=== PATIENT | female | born 1955 | race Caucasian/White ===

== ENCOUNTER → 2018-07-08 16:42 | Outpatient (CLI) | payer MEDICARE, SELFPAY ==
[2018-07-08 17:59] LABS: Anion Gap 7 (5-15); BUN 40 mg/dL (7-18); BUN/Creat Ratio 16.5 RATIO (10-20); Calcium,Total 8.8 mg/dL (8.5-10.1); Chloride 108 mmol/L (98-107); Creatinine, Serum 2.42 mg/dL (0.55-1.02); EST Glomerular Filtration Rate 21 mL/min (>60); Est Glom Filt Rate - Afr Amer 26 mL/min (>60); Glucose 90 mg/dL (74-106); Potassium 4.1 mmol/L (3.5-5.1); Sodium Level 141 mmol/L (136-145)
== END ==
PROVIDERS: Family Provider Family Medicine; PCP Family Medicine; Visit Provider Internal Medicine Nephrology
DX: N28.9 Disorder of kidney and ureter, unspecified (principal)
CPT/HCPCS: 36415; 80048

== ENCOUNTER → 2018-09-25 11:01 | Outpatient (CLI) | payer MEDICARE, SELFPAY ==
[2018-09-25 12:19] LABS: Vitamin D,25 Hydroxy 56.9 ng/mL (29.95-100.01)
[2018-09-25 12:22] LABS: Microalbumin,Random Urine 16.6 mg/L (NO RANGE EST.); Microalbumin:Creatinine Ratio 90.2 mg/g CRE (<30 mg/g CRE)
[2018-09-25 12:39] LABS: ALB/GLOB Ratio 0.9 RATIO (0.9-2.4); AST(SGOT) 19 U/L (15-37); Alanine Aminotransfer ALT/SGPT 20 U/L (13-56); Albumin, Serum 3.7 g/dL (3.2-5.0); Alkaline Phosphatase 71 U/L (45-117); Anion Gap 8 (5-15); BUN 40 mg/dL (7-18); BUN/Creat Ratio 14.7 RATIO (10-20); Calcium,Total 8.4 mg/dL (8.5-10.1); Chloride 104 mmol/L (98-107); Cholesterol 243 mg/dL (200); Creatinine, Serum 2.73 mg/dL (0.55-1.02); EST Glomerular Filtration Rate 19 mL/min (>60); Est Glom Filt Rate - Afr Amer 22 mL/min (>60); Globulin 4.2 g/dL (2.2-4.2); Glucose 87 mg/dL (74-106); High Density Lipoprotein 42 mg/dL; Protein, Total 7.9 g/dL (6.4-8.2); Sodium Level 139 mmol/L (136-145); Thyroid Stim Hormone (TSH) 2.98 uIU/mL (0.358-3.74); Triglycerides 119 mg/dL; Very Low Density Lipoprotein 24 mg/dL (5-40)
== END ==
PROVIDERS: Family Provider Family Medicine; PCP Family Medicine; Visit Provider Family Medicine
DX: E78.00 Pure hypercholesterolemia, unspecified (principal); M81.0 Age-related osteoporosis without current pathological fracture
CPT/HCPCS: 36415; 80053; 80061; 82043; 82306; 82570; 84443

== ENCOUNTER → 2019-01-12 12:04 | Outpatient (CLI) | payer MEDICARE, SELFPAY ==
[2019-01-12 13:59] LABS: Hematocrit 34.4 % (37-47); Mean Corpuscular Hgb 30.5 pg (27.0-32.0); Mean Corpuscular Volume 95.3 fL (81-99); Mean Platelet Vol. 9.6 fl (6.2-12.0); Platelet Count 324 K/mm3 (150-450); RBC Distribution Width SD 45.2 fl (35.1-43.9); Red Blood Count 3.61 M/mm3 (4.2-5.4); White Blood Count 4.2 K/mm3 (4.4-11.0)
[2019-01-12 14:00] LABS: Scan Indicated on CBC? Y/N NO
[2019-01-12 14:09] LABS: ALB/GLOB Ratio 0.7 RATIO (0.9-2.4); AST(SGOT) 26 U/L (15-37); Alanine Aminotransfer ALT/SGPT 22 U/L (13-56); Albumin, Serum 3.5 g/dL (3.2-5.0); Alkaline Phosphatase 65 U/L (45-117); Anion Gap 7 (5-15); BUN 41 mg/dL (7-18); BUN/Creat Ratio 15.6 RATIO (10-20); Calcium,Total 8.2 mg/dL (8.5-10.1); Chloride 109 mmol/L (98-107); Cholesterol 224 mg/dL (200); Creatinine, Serum 2.62 mg/dL (0.55-1.02); EST Glomerular Filtration Rate 19 mL/min (>60); Est Glom Filt Rate - Afr Amer 24 mL/min (>60); Globulin 4.7 g/dL (2.2-4.2); Glucose 92 mg/dL (74-106); High Density Lipoprotein 39 mg/dL; Protein, Total 8.2 g/dL (6.4-8.2); Sodium Level 139 mmol/L (136-145); Triglycerides 134 mg/dL; Very Low Density Lipoprotein 27 mg/dL (5-40)
== END ==
PROVIDERS: Family Provider Family Medicine; PCP Family Medicine; Visit Provider Family Medicine
DX: N18.3 Chronic kidney disease, stage 3 (moderate) (principal); E78.00 Pure hypercholesterolemia, unspecified
CPT/HCPCS: 36415; 80053; 80061; 85027

== ENCOUNTER → 2019-02-24 | Outpatient (CLI) | payer MEDICARE, SELFPAY | END | disposition home or self-care (01) | LOC: LABSPEC 15:38 | PROVIDERS: Family Provider Family Medicine; PCP Family Medicine; Referring Provider Family Medicine; Visit Provider Family Medicine | DX: R10.9 Unspecified abdominal pain (principal) | CPT/HCPCS: 87086; 87088 ==

== ENCOUNTER → 2019-03-25 | Outpatient (CLI) | payer MEDICARE, SELFPAY ==
[2019-03-25 12:45] LABS: ALB/GLOB Ratio 0.9 RATIO (0.9-2.4); AST(SGOT) 20 U/L (15-37); Alanine Aminotransfer ALT/SGPT 19 U/L (13-56); Albumin, Serum 3.5 g/dL (3.2-5.0); Alkaline Phosphatase 70 U/L (45-117); Anion Gap 5 (5-15); BUN 37 mg/dL (7-18); BUN/Creat Ratio 14.3 RATIO (10-20); Calcium,Total 8.1 mg/dL (8.5-10.1); Chloride 110 mmol/L (98-107); Cholesterol 220 mg/dL (200); Creatinine, Serum 2.58 mg/dL (0.55-1.02); EST Glomerular Filtration Rate 20 mL/min (>60); Est Glom Filt Rate - Afr Amer 24 mL/min (>60); Glucose 88 mg/dL (74-106); High Density Lipoprotein 40 mg/dL; Potassium 4.3 mmol/L (3.5-5.1); Protein, Total 7.5 g/dL (6.4-8.2); Sodium Level 139 mmol/L (136-145); Triglycerides 117 mg/dL; Very Low Density Lipoprotein 23 mg/dL (5-40)
== END | disposition home or self-care (01) ==
LOC: MFPLAB 09:46
PROVIDERS: Family Provider Family Medicine; PCP Family Medicine; Referring Provider Family Medicine; Visit Provider Family Medicine
DX: E78.00 Pure hypercholesterolemia, unspecified (principal)
CPT/HCPCS: 36415; 80053; 80061

== ENCOUNTER → 2019-04-15 | Outpatient (CLI) | payer MEDICARE, BC, SELFPAY ==
[2019-04-15 10:52] LABS: Cholesterol 151 mg/dL (200); High Density Lipoprotein 44 mg/dL; Triglycerides 87 mg/dL; Very Low Density Lipoprotein 17 mg/dL (5-40)
== END | disposition home or self-care (01) ==
PROVIDERS: Family Provider Family Medicine; PCP Family Medicine; Visit Provider Family Medicine
DX: E78.00 Pure hypercholesterolemia, unspecified (principal)
CPT/HCPCS: 36415; 80061

== ENCOUNTER → 2019-06-04 | Outpatient (CLI) | payer MEDICARE, BC, SELFPAY ==
[2019-06-04 10:01] LABS: Hematocrit 32.3 % (37-47); Hemoglobin 10.4 g/dl (12.0-15.0); Mean Corp Hgb Conc 32.2 g/gl (32-36); Mean Corpuscular Hgb 30.2 pg (27.0-32.0); Mean Corpuscular Volume 93.9 fL (81-99); Mean Platelet Vol. 9.6 fl (6.2-12.0); Platelet Count 256 K/mm3 (150-450); RBC Distribution Width CV 13.6 % (11.6-14.6); RBC Distribution Width SD 46.1 fl (35.1-43.9); Red Blood Count 3.44 M/mm3 (4.2-5.4); White Blood Count 5.9 K/mm3 (4.4-11.0)
[2019-06-04 10:04] LABS: Scan Indicated on CBC? Y/N NO
[2019-06-04 10:09] LABS: Anion Gap 6 (5-15); BUN 40 mg/dL (7-18); BUN/Creat Ratio 15.9 RATIO (10-20); Calcium,Total 8.2 mg/dL (8.5-10.1); Chloride 110 mmol/L (98-107); Creatinine, Serum 2.52 mg/dL (0.55-1.02); EST Glomerular Filtration Rate 20 mL/min (>60); Est Glom Filt Rate - Afr Amer 25 mL/min (>60); Glucose 98 mg/dL (74-106); Potassium 4.8 mmol/L (3.5-5.1); Sodium Level 139 mmol/L (136-145)
== END | disposition home or self-care (01) ==
LOC: MFPLAB 08:26
PROVIDERS: Internal Medicine Nephrology; Family Provider Family Medicine; PCP Family Medicine; Visit Provider Family Medicine
DX: N28.9 Disorder of kidney and ureter, unspecified (principal)
CPT/HCPCS: 36415; 80048; 85027

== ENCOUNTER → 2019-06-24 | Outpatient (CLI) | payer MEDICARE, BC, SELFPAY ==
[2019-06-24 15:22] LABS: ALB/GLOB Ratio 0.9 RATIO (0.9-2.4); AST(SGOT) 16 U/L (15-37); Alanine Aminotransfer ALT/SGPT 23 U/L (13-56); Albumin, Serum 3.7 g/dL (3.2-5.0); Alkaline Phosphatase 82 U/L (45-117); Anion Gap 7 (5-15); BUN 40 mg/dL (7-18); BUN/Creat Ratio 15.6 RATIO (10-20); Bilirubin, Direct 0.07 mg/dL (0.00-0.30); Chloride 109 mmol/L (98-107); Cholesterol 156 mg/dL (200); Creatinine, Serum 2.57 mg/dL (0.55-1.02); EST Glomerular Filtration Rate 20 mL/min (>60); Est Glom Filt Rate - Afr Amer 24 mL/min (>60); Glucose 93 mg/dL (74-106); High Density Lipoprotein 41 mg/dL; Potassium 4.7 mmol/L (3.5-5.1); Protein, Total 7.7 g/dL (6.4-8.2); Sodium Level 141 mmol/L (136-145); Triglycerides 106 mg/dL; Very Low Density Lipoprotein 21 mg/dL (5-40)
== END | disposition home or self-care (01) ==
LOC: MFPLAB 12:03
PROVIDERS: Internal Medicine Nephrology; Family Provider Family Medicine; PCP Family Medicine; Referring Provider Family Medicine; Visit Provider Family Medicine
DX: Q61.3 Polycystic kidney, unspecified (principal); I12.0 Hypertensive chronic kidney disease with stage 5 chronic kidney disease or end stage renal disease; N18.3 Chronic kidney disease, stage 3 (moderate); Z79.899 Other long term (current) drug therapy
CPT/HCPCS: 36415; 80053; 80061; 82248

== ENCOUNTER → 2019-09-02 | Outpatient (CLI) | payer MEDICARE, BC, SELFPAY ==
[2019-09-02 10:15] LABS: Hematocrit 30.5 % (37-47); Hemoglobin 9.6 g/dL (12.0-15.0); Mean Corp Hgb Conc 31.5 g/dL (32-36); Mean Corpuscular Hgb 30.1 pg (27.0-32.0); Mean Corpuscular Volume 95.6 fL (81-99); Mean Platelet Vol. 10.1 fl (6.2-12.0); Platelet Count 257 K/mm3 (150-450); RBC Distribution Width CV 12.7 % (11.6-14.6); RBC Distribution Width SD 44.6 fl (35.1-43.9); Red Blood Count 3.19 M/mm3 (4.2-5.4); White Blood Count 5.9 K/mm3 (4.4-11.0)
[2019-09-02 10:53] LABS: ALB/GLOB Ratio 0.7 RATIO (0.9-2.4); AST(SGOT) 37 U/L (15-37); Alanine Aminotransfer ALT/SGPT 38 U/L (13-56); Albumin, Serum 3.6 g/dL (3.2-5.0); Alkaline Phosphatase 63 U/L (45-117); Anion Gap 3 (5-15); BUN 45 mg/dL (7-18); BUN/Creat Ratio 15.4 RATIO (10-20); Calcium,Total 8.7 mg/dL (8.5-10.1); Chloride 107 mmol/L (98-107); Creatinine, Serum 2.93 mg/dL (0.55-1.02); EST Glomerular Filtration Rate 17 mL/min (>60); Est Glom Filt Rate - Afr Amer 21 mL/min (>60); Globulin 4.9 g/dL (2.2-4.2); Glucose 115 mg/dL (74-106); Potassium 4.1 mmol/L (3.5-5.1); Protein, Total 8.5 g/dL (6.4-8.2); Sodium Level 138 mmol/L (136-145)
== END | disposition home or self-care (01) ==
PROVIDERS: Family Provider Family Medicine; PCP Family Medicine; Referring Provider Family Medicine; Visit Provider Internal Medicine Nephrology
DX: N18.3 Chronic kidney disease, stage 3 (moderate) (principal); I10 Essential (primary) hypertension; Q61.3 Polycystic kidney, unspecified
CPT/HCPCS: 36415; 80053; 85027

== ENCOUNTER → 2019-09-23 | Outpatient (CLI) | payer MEDICARE, BC, SELFPAY ==
[2019-09-23 10:28] LABS: BUN 37 mg/dL (7-18); BUN/Creat Ratio 12.1 RATIO (10-20); Calcium,Total 8.2 mg/dL (8.5-10.1); Creatinine, Serum 3.07 mg/dL (0.55-1.02); EST Glomerular Filtration Rate 16 mL/min (>60); Est Glom Filt Rate - Afr Amer 20 mL/min (>60); Glucose 132 mg/dL (74-106); Sodium Level 140 mmol/L (136-145)
[2019-09-23 10:29] LABS: Anion Gap 8 (5-15); Chloride 108 mmol/L (98-107); Ferritin 172 ng/mL (8-252); Iron 56 ug/dL (50-170); Iron Binding Capacity,Total 188 ug/dL (250-450); Potassium 4.2 mmol/L (3.5-5.1)
== END | disposition home or self-care (01) ==
LOC: MFPLAB 09:03
PROVIDERS: Family Provider Family Medicine; PCP Family Medicine; Visit Provider Internal Medicine Nephrology
DX: I12.9 Hypertensive chronic kidney disease with stage 1 through stage 4 chronic kidney disease, or unspecified chronic kidney disease (principal); N18.3 Chronic kidney disease, stage 3 (moderate); N17.9 Acute kidney failure, unspecified; Q61.3 Polycystic kidney, unspecified
CPT/HCPCS: 36415; 80048; 82728; 83540; 83550

== ENCOUNTER → 2019-12-24 08:35 | Outpatient (CLI) | payer MEDICARE, BC, SELFPAY ==
[2019-12-24 10:32] LABS: Anion Gap 6 (5-15); BUN 41 mg/dL (7-18); BUN/Creat Ratio 13.9 RATIO (10-20); Calcium,Total 7.2 mg/dL (8.5-10.1); Chloride 113 mmol/L (98-107); Creatinine, Serum 2.95 mg/dL (0.55-1.02); EST Glomerular Filtration Rate 17 mL/min (>60); Est Glom Filt Rate - Afr Amer 20 mL/min (>60); Glucose 170 mg/dL (74-106); Sodium Level 140 mmol/L (136-145)
== END ==
PROVIDERS: PCP Family Medicine; Referring Provider Family Medicine; Visit Provider Internal Medicine Nephrology
DX: N17.9 Acute kidney failure, unspecified (principal); Q61.3 Polycystic kidney, unspecified
CPT/HCPCS: 36415; 80048

== ENCOUNTER 2020-02-22 10:43 | Outpatient (RCR) | payer MEDICARE, BC, SELFPAY ==
[2020-02-22 12:23] LABS: AST(SGOT) 20 U/L (15-37); Alanine Aminotransfer ALT/SGPT 19 U/L (13-56); Albumin, Serum 3.7 g/dL (3.2-5.0); Alkaline Phosphatase 57 U/L (45-117); Anion Gap 7 (5-15); BUN 46 mg/dL (7-18); BUN/Creat Ratio 14.1 RATIO (10-20); Bilirubin, Direct 0.08 mg/dL (0.00-0.30); Calcium,Total 8.5 mg/dL (8.5-10.1); Chloride 113 mmol/L (98-107); Cholesterol 203 mg/dL (200); Creatinine, Serum 3.27 mg/dL (0.55-1.02); EST Glomerular Filtration Rate 15 mL/min (>60); Est Glom Filt Rate - Afr Amer 18 mL/min (>60); Globulin 4.1 g/dL (2.2-4.2); Glucose 94 mg/dL (74-106); High Density Lipoprotein 37 mg/dL; Potassium 4.6 mmol/L (3.5-5.1); Protein, Total 7.8 g/dL (6.4-8.2); Sodium Level 142 mmol/L (136-145); Triglycerides 113 mg/dL; Very Low Density Lipoprotein 23 mg/dL (5-40)
== END 2020-02-22 18:00 | disposition home or self-care (01) ==
LOC: LAB 10:43
PROVIDERS: PCP Family Medicine; Referring Provider Internal Medicine Nephrology; Visit Provider Internal Medicine Nephrology
DX: I12.9 Hypertensive chronic kidney disease with stage 1 through stage 4 chronic kidney disease, or unspecified chronic kidney disease (principal); N18.3 Chronic kidney disease, stage 3 (moderate)
CPT/HCPCS: 36415; 80048; 80061; 80076

== ENCOUNTER 2020-03-29 10:21 | Outpatient (RCR) | payer MEDICARE, BC, SELFPAY ==
[2020-03-29 12:30] LABS: AST(SGOT) 16 U/L (15-37); Alanine Aminotransfer ALT/SGPT 18 U/L (13-56); Albumin, Serum 3.4 g/dL (3.2-5.0); Alkaline Phosphatase 59 U/L (45-117); Bilirubin, Direct 0.08 mg/dL (0.00-0.30); Globulin 4.2 g/dL (2.2-4.2); Protein, Total 7.6 g/dL (6.4-8.2)
== END 2020-03-29 18:00 | disposition home or self-care (01) ==
LOC: LAB 10:21
PROVIDERS: PCP Family Medicine; Referring Provider Internal Medicine Nephrology; Visit Provider Internal Medicine Nephrology
DX: Q63.1 Lobulated, fused and horseshoe kidney (principal)
CPT/HCPCS: 36415; 80076

== ENCOUNTER 2020-05-20 11:28 | Outpatient (RCR) | payer MEDICARE, BC, SELFPAY ==
[2020-04-25 12:28] LABS: Hematocrit 30.1 % (37-47); Hemoglobin 9.4 g/dL (12.0-15.0); Mean Corp Hgb Conc 31.2 g/dL (32-36); Mean Corpuscular Hgb 30.4 pg (27.0-32.0); Mean Corpuscular Volume 97.4 fL (81-99); Mean Platelet Vol. 9.2 fl (6.2-12.0); Platelet Count 270 K/mm3 (150-450); RBC Distribution Width CV 12.9 % (11.6-14.6); RBC Distribution Width SD 45.1 fl (35.1-43.9); Red Blood Count 3.09 M/mm3 (4.2-5.4); White Blood Count 4.6 K/mm3 (4.4-11.0)
[2020-04-25 13:23] LABS: AST(SGOT) 23 U/L (15-37); Alanine Aminotransfer ALT/SGPT 26 U/L (13-56); Albumin, Serum 3.4 g/dL (3.2-5.0); Alkaline Phosphatase 59 U/L (45-117); Anion Gap 8 (5-15); BUN 50 mg/dL (7-18); BUN/Creat Ratio 14.5 RATIO (10-20); Bilirubin, Direct 0.07 mg/dL (0.00-0.30); Calcium,Total 8.5 mg/dL (8.5-10.1); Chloride 110 mmol/L (98-107); Creatinine, Serum 3.44 mg/dL (0.55-1.02); EST Glomerular Filtration Rate 14 mL/min (>60); Est Glom Filt Rate - Afr Amer 17 mL/min (>60); Globulin 4.8 g/dL (2.2-4.2); Glucose 121 mg/dL (74-106); Protein, Total 8.2 g/dL (6.4-8.2); Sodium Level 142 mmol/L (136-145)
[2020-05-20 12:34] LABS: AST(SGOT) 26 U/L (15-37); Alanine Aminotransfer ALT/SGPT 35 U/L (13-56); Albumin, Serum 3.2 g/dL (3.2-5.0); Alkaline Phosphatase 85 U/L (45-117); Bilirubin, Direct 0.08 mg/dL (0.00-0.30); Globulin 5.1 g/dL (2.2-4.2); Protein, Total 8.3 g/dL (6.4-8.2)
== END 2020-05-20 18:00 | disposition home or self-care (01) ==
LOC: LAB 11:28
PROVIDERS: PCP Family Medicine; Referring Provider Internal Medicine Nephrology; Visit Provider Internal Medicine Nephrology
DX: N18.3 Chronic kidney disease, stage 3 (moderate) (principal); Q63.1 Lobulated, fused and horseshoe kidney
CPT/HCPCS: 36415; 80048; 80076; 82330; 85027

== ENCOUNTER 2020-06-17 09:32 | Outpatient (RCR) | payer MEDICARE, BC, SELFPAY ==
[2020-06-17 10:52] LABS: AST(SGOT) 17 U/L (15-37); Alanine Aminotransfer ALT/SGPT 19 U/L (13-56); Albumin, Serum 3.5 g/dL (3.2-5.0); Alkaline Phosphatase 65 U/L (45-117); Anion Gap 4 (5-15); BUN 62 mg/dL (7-18); BUN/Creat Ratio 16.8 RATIO (10-20); Bilirubin, Direct 0.08 mg/dL (0.00-0.30); Calcium,Total 8.9 mg/dL (8.5-10.1); Chloride 107 mmol/L (98-107); Creatinine, Serum 3.69 mg/dL (0.55-1.02); EST Glomerular Filtration Rate 13 mL/min (>60); Est Glom Filt Rate - Afr Amer 16 mL/min (>60); Ferritin 66 ng/mL (8-252); Globulin 4.9 g/dL (2.2-4.2); Glucose 96 mg/dL (74-106); Iron 58 ug/dL (50-170); Iron Binding Capacity,Total 243 ug/dL (250-450); Potassium 4.2 mmol/L (3.5-5.1); Protein, Total 8.4 g/dL (6.4-8.2); Sodium Level 138 mmol/L (136-145)
== END 2020-06-17 18:00 | disposition home or self-care (01) ==
LOC: LAB 09:32
PROVIDERS: PCP Family Medicine; Referring Provider Internal Medicine Nephrology; Visit Provider Internal Medicine Nephrology
DX: N18.3 Chronic kidney disease, stage 3 (moderate) (principal); D63.1 Anemia in chronic kidney disease; Q63.1 Lobulated, fused and horseshoe kidney
CPT/HCPCS: 36415; 80048; 80076; 82728; 83540; 83550

== ENCOUNTER → 2020-07-01 13:20 | Outpatient (CLI) | payer MEDICARE, BC, SELFPAY ==
[2020-07-01 13:44] LABS: Hematocrit 29.8 % (37-47); Hemoglobin 9.7 g/dL (12.0-15.0); Mean Corp Hgb Conc 32.6 g/dL (32-36); Mean Corpuscular Hgb 31.2 pg (27.0-32.0); Mean Corpuscular Volume 95.8 fL (81-99); Mean Platelet Vol. 8.5 fl (6.2-12.0); Platelet Count 271 K/mm3 (150-450); RBC Distribution Width CV 13.1 % (11.6-14.6); RBC Distribution Width SD 45.7 fl (35.1-43.9); Red Blood Count 3.11 M/mm3 (4.2-5.4); White Blood Count 4.5 K/mm3 (4.4-11.0)
[2020-07-01 13:59] LABS: Anion Gap 6 (5-15); BUN 51 mg/dL (7-18); Calcium,Total 8.5 mg/dL (8.5-10.1); Chloride 111 mmol/L (98-107); Creatinine, Serum 3.18 mg/dL (0.55-1.02); EST Glomerular Filtration Rate 16 mL/min (>60); Est Glom Filt Rate - Afr Amer 19 mL/min (>60); Glucose 83 mg/dL (74-106); Potassium 5.1 mmol/L (3.5-5.1); Sodium Level 140 mmol/L (136-145)
== END ==
PROVIDERS: PCP Family Medicine; Referring Provider Internal Medicine Nephrology; Visit Provider Internal Medicine Nephrology
DX: I12.9 Hypertensive chronic kidney disease with stage 1 through stage 4 chronic kidney disease, or unspecified chronic kidney disease (principal); N18.3 Chronic kidney disease, stage 3 (moderate)
CPT/HCPCS: 36415; 80048; 85027

== ENCOUNTER 2020-07-21 10:47 | Outpatient (RCR) | payer MEDICARE, BC, SELFPAY ==
[2020-07-21 12:00] LABS: AST(SGOT) 17 U/L (15-37); Alanine Aminotransfer ALT/SGPT 18 U/L (13-56); Albumin, Serum 3.6 g/dL (3.2-5.0); Alkaline Phosphatase 76 U/L (45-117); Bilirubin, Direct 0.09 mg/dL (0.00-0.30); Globulin 4.8 g/dL (2.2-4.2); Protein, Total 8.4 g/dL (6.4-8.2)
== END 2020-07-25 18:00 | disposition home or self-care (01) ==
LOC: LAB 10:47
PROVIDERS: PCP Family Medicine; Referring Provider Internal Medicine Nephrology; Visit Provider Internal Medicine Nephrology
DX: Q63.1 Lobulated, fused and horseshoe kidney (principal); N18.3 Chronic kidney disease, stage 3 (moderate); D63.1 Anemia in chronic kidney disease
CPT/HCPCS: 36415; 80076

== ENCOUNTER → 2020-07-27 10:19 | Outpatient (CLI) | payer MEDICARE, BC, SELFPAY ==
[2020-07-27 10:55] LABS: Absolute Neutrophil Count 3.1 X10^3/uL (2.0-7.7); Basophil# 0.05 X10^3/uL; Eosinophil# 0.28 X10^3/uL; Eosinophils% 5.5 % (0-5); Hematocrit 29.1 % (37-47); Hemoglobin 9.3 g/dL (12.0-15.0); Lymphocyte % 19.7 % (19-41); Mean Corpuscular Hgb 30.2 pg (27.0-32.0); Mean Corpuscular Volume 94.5 fL (81-99); Mean Platelet Vol. 8.9 fl (6.2-12.0); Monocyte# 0.65 X10^3/uL; Monocyte% 12.8 % (0-10); NRBC Flagged by Analyzer 0 % (0-5); Neutrophil # 3.08 X10^3/uL (2.7-7.7); Neutrophil % 60.8 % (47-70); Platelet Count 281 K/mm3 (150-450); RBC Distribution Width CV 12.6 % (11.6-14.6); RBC Distribution Width SD 43.5 fl (35.1-43.9); Red Blood Count 3.08 M/mm3 (4.2-5.4); White Blood Count 5.1 K/mm3 (4.4-11.0)
[2020-07-27 11:07] LABS: PTHIN 114.2 pg/mL (18.4-80.1)
[2020-07-27 11:10] LABS: Albumin, Serum 3.4 g/dL (3.2-5.0); BUN 51 mg/dL (7-18); BUN/Creat Ratio 12.4 RATIO (10-20); Calcium,Total 8.6 mg/dL (8.5-10.1); Chloride 110 mmol/L (98-107); Creatinine, Serum 4.11 mg/dL (0.55-1.02); EST Glomerular Filtration Rate 12 mL/min (>60); Est Glom Filt Rate - Afr Amer 14 mL/min (>60); Ferritin 63 ng/mL (8-252); Glucose 94 mg/dL (74-106); Iron 56 ug/dL (50-170); Iron Binding Capacity,Total 227 ug/dL (250-450); PERCENT IRON SATURATION 24.7 % (15.0-55.0); Phosphorus 3.8 mg/dL (2.5-4.9); Potassium 4.6 mmol/L (3.5-5.1); Sodium Level 140 mmol/L (136-145)
[2020-07-27 11:22] VITALS: BP 128/73; PULSE 68; RESP 16; TEMP 36.2; O2SAT 98; BMI 23.3
[2020-07-27 11:42] VITALS: BP 145/85; PULSE 70; RESP 16
[2020-07-27 18:46] LABS: Xtra Tube EP Lab EXTRA TUBE
== END ==
PROVIDERS: PCP Family Medicine; Referring Provider Internal Medicine Nephrology; Visit Provider Internal Medicine Nephrology
DX: N18.3 Chronic kidney disease, stage 3 (moderate) (principal); D63.1 Anemia in chronic kidney disease
CPT/HCPCS: 36415; 80069; 82728; 83540; 83550; 83970; 85025; 96372; Q5106

== ENCOUNTER → 2020-08-25 10:21 | Outpatient (CLI) | payer MEDICARE, BC, SELFPAY ==
[2020-07-27 11:22] VITALS: BMI 23.3
[2020-08-25 11:08] LABS: Absolute Lymphocyte Count 0.96 X10^3/uL (0.83-4.51); Absolute Neutrophil Count 2.9 X10^3/uL (2.0-7.7); Basophil# 0.04 X10^3/uL; Basophil% 0.9 % (0-1); Eosinophil# 0.27 X10^3/uL; Eosinophils% 5.8 % (0-5); Hematocrit 30.4 % (37-47); Hemoglobin 9.6 g/dL (12.0-15.0); Lymphocyte # 0.96 X10^3/ul (4.0); Lymphocyte % 20.8 % (19-41); Mean Corp Hgb Conc 31.6 g/dL (32-36); Mean Corpuscular Hgb 30.1 pg (27.0-32.0); Mean Corpuscular Volume 95.3 fL (81-99); Mean Platelet Vol. 8.9 fl (6.2-12.0); Monocyte# 0.41 X10^3/uL; Monocyte% 8.9 % (0-10); NRBC Flagged by Analyzer 0 % (0-5); Neutrophil # 2.93 X10^3/uL (2.7-7.7); Neutrophil % 63.4 % (47-70); Platelet Count 233 K/mm3 (150-450); RBC Distribution Width SD 45.4 fl (35.1-43.9); Red Blood Count 3.19 M/mm3 (4.2-5.4); White Blood Count 4.6 K/mm3 (4.4-11.0)
[2020-08-25 11:18] LABS: PTHIN 83.6 pg/mL (18.4-80.1)
[2020-08-25 11:19] VITALS: BP 137/63; PULSE 62; RESP 16; TEMP 36; BMI 23.3
[2020-08-25 11:23] LABS: ALB/GLOB Ratio 0.8 RATIO (0.9-2.4); AST(SGOT) 16 U/L (15-37); Alanine Aminotransfer ALT/SGPT 20 U/L (13-56); Albumin, Serum 3.4 g/dL (3.2-5.0); Alkaline Phosphatase 66 U/L (45-117); BUN 57 mg/dL (7-18); BUN/Creat Ratio 14.4 RATIO (10-20); Bilirubin, Direct 0.08 mg/dL (0.00-0.30); Calcium,Total 8.8 mg/dL (8.5-10.1); Chloride 110 mmol/L (98-107); Creatinine, Serum 3.96 mg/dL (0.55-1.02); EST Glomerular Filtration Rate 12 mL/min (>60); Est Glom Filt Rate - Afr Amer 15 mL/min (>60); Ferritin 56 ng/mL (8-252); Globulin 4.5 g/dL (2.2-4.2); Glucose 96 mg/dL (74-106); Iron 74 ug/dL (50-170); Iron Binding Capacity,Total 224 ug/dL (250-450); Phosphorus 4.2 mg/dL (2.5-4.9); Potassium 4.2 mmol/L (3.5-5.1); Protein, Total 7.9 g/dL (6.4-8.2); Sodium Level 142 mmol/L (136-145)
[2020-08-25] MEDS: Epoetin Alfa epbx 10,000 UNITS/ML 10000 UNIT SC (11:24)
== END ==
PROVIDERS: PCP Family Medicine; Referring Provider Internal Medicine Nephrology; Visit Provider Internal Medicine Nephrology
DX: N18.30 Chronic kidney disease, stage 3 unspecified (principal); D63.1 Anemia in chronic kidney disease
CPT/HCPCS: 36415; 80069; 82247; 82248; 82728; 83540; 83550; 83970; 84075; 84156; 84450; 84460; 85025; 96372; Q5106

== ENCOUNTER → 2020-08-26 12:15 | Outpatient (CLI) | payer MEDICARE, BC, SELFPAY ==
[2020-08-25 11:19] VITALS: BMI 23.3
== END ==
LOC: LAB 12:17 → LABSPEC 12:17
PROVIDERS: PCP Family Medicine; Referring Provider Internal Medicine Nephrology; Visit Provider Internal Medicine Nephrology
DX: N18.30 Chronic kidney disease, stage 3 unspecified (principal); D63.1 Anemia in chronic kidney disease
CPT/HCPCS: 82274

== ENCOUNTER 2020-09-10 13:03 | Inpatient (IN) | payer MEDICARE, BC, SELFPAY ==
[2020-09-10] VITALS (8 sets, daily range): BP systolic 95–121; BP diastolic 60–65; PULSE 81–89; RESP 18–24; TEMP 36.9–37.6; O2SAT 90–95; BMI 22.8; BMI 23.8
--- NOTE | 2020-09-10 13:15 | EKG12_ITS ---
Test Reason : SOB Blood Pressure : / mmHG Vent. Rate : 087 BPM Atrial Rate : 087 BPM P-R Int : 162 ms QRS Dur : 100 ms QT Int : 386 ms P-R-T Axes : 036 -32 031 degrees QTc Int : 464 ms Sinus rhythm with occasional Premature ventricular complexes Left axis deviation Abnormal ECG Confirmed by SANDI KAPLAN, GREGG ([id number]), newspaper editor managing DARI CARRINGTON ([id number]) on 09/13/2020 8:16:10 AM Referred By: JENNIFER Confirmed By:GREGG JUNIOR MD
--- NOTE | 2020-09-10 13:16 | ED.VIS.GEN ---
History of Present Illness Chief Complaint: Shortness of Breath Informant: Patient Onset: Days - 8 to 9 days Context: Gradual Onset Current Severity: Mild Maximum Severity: Moderate Narrative: Patient presents with shortness of breath and cough for the past 8 to 9 days. Per EMS O2 sat was 88% on room air. She denies having fever or chills. Her was exposed to someone with Covid and he is here ill with similar symptoms. She reports body aches and decreased p.o. intake secondary to poor appetite. She has had dry cough. She denies nausea or vomiting but has had diarrhea. - Past Medical History (1) Hypertension Status: Chronic (2) Polycystic kidney disease Status: Chronic Past Medical History - Allergies and Home Meds Allergies/Adverse Reactions: Allergies sulfamethoxazole [From ] Allergy (Verified 09/10/20 13:09) Hives trimethoprim [From ] Allergy (Verified 09/10/20 13:09) Hives Primary Care Physician: Benji Palacios MD [Primary Care Provider] - Lives: Spouse/ Significant Other Smoking Status: Never smoker Review of Systems General: Denies: Chills, Fever Eyes: Denies: Visual changes - bilaterally ENT: Denies: Bilateral ear pain Cardiovascular: Denies: Chest pain Respiratory: Reports: Dyspnea, Cough. Denies: Sputum Gastrointestinal: Reports: Diarrhea. Denies: Abdominal pain, Nausea, Vomiting Musculoskeletal: Reports: Myalgias Skin: Denies: Rash Neurological: Denies: Headache Hematologic: Denies: Easy bruising, Easy bleeding Allergy: Denies: Uticaria Physical Exam Vital Signs/Narrative: Vital Signs Temp Pulse Resp BP Pulse Ox 09/10/20 13:13 98 09/10/20 13:04 98.2 F 91 14 129/69 H 88 Inital Vital Signs reviewed: Yes General: Well nourished, Well developed Head: Normocephalic ENT: Moist mucous membranes Neck: Supple Cardiovascular: Regular rate, Regular rhythm Respiratory: No distress, CTA bilaterally Abdomen: Soft, Nontender Extremities: Nontender Skin: Normal color Neurological: Alert, Oriented x3 Psychological: Normal affect Diagnostic/Tx/Re-eval 09/10/20 13:27 Chest 1 View (Portable) [RAD] Stat IMPRESSION: Mild pulmonary congestion with subtle patchy developing infiltrates in the left lower lobe Laboratory Results 09/10/20 09/10/20 09/10/20 13:10 13:10 13:10 WBC 5.5 RBC 3.82 L Hgb 11.3 L Hct 36.4 L MCV 95.3 MCH 29.6 MCHC 31.0 L RDW Std Deviation 48.4 H RDW Coeff of Remy 13.8 Plt Count 232 MPV 9.7 Immature Gran % (Auto) 0.500 Neut % (Auto) 76.7 H Lymph % (Auto) 16.7 L [place] % (Auto) 5.5 Eos % (Auto) 0.4 Baso % (Auto) 0.2 Absolute Neuts (auto) 4.2 Absolute Lymphs (auto) 0.92 Nucleated RBC % 0 Differential Comment SCANNED D-Dimer Quant (PE/DVT) 2.16 H* Sodium 135 L Potassium 4.0 Chloride 106 Carbon Dioxide 16.0 L Anion Gap 13 BUN 81 H Creatinine 5.24 H Estim Creat Clear Calc 9.00 Est GFR (MDRD) Af Amer 11 L Est GFR (MDRD) Non-Af 9 L BUN/Creatinine Ratio 15.5 Glucose 131 H Lactic Acid Calcium 7.6 L Total Bilirubin 0.40 AST 86 H ALT 46 Alkaline Phosphatase 71 Total Protein 8.6 H Albumin 3.2 Globulin 5.4 H Albumin/Globulin Ratio 0.6 L COVID-19 (JESSICA) 09/10/20 09/10/20 13:15 13:50 WBC RBC Hgb Hct MCV MCH MCHC RDW Std Deviation RDW Coeff of Remy Plt Count MPV Immature Gran % (Auto) Neut % (Auto) Lymph % (Auto) [place] % (Auto) Eos % (Auto) Baso % (Auto) Absolute Neuts (auto) Absolute Lymphs (auto) Nucleated RBC % Differential Comment D-Dimer Quant (PE/DVT) Sodium Potassium Chloride Carbon Dioxide Anion Gap BUN Creatinine Estim Creat Clear Calc Est GFR (MDRD) Af Amer Est GFR (MDRD) Non-Af BUN/Creatinine Ratio Glucose Lactic Acid 2.0 Calcium Total Bilirubin AST ALT Alkaline Phosphatase Total Protein Albumin Globulin Albumin/Globulin Ratio COVID-19 (JESSICA) Detected - EKG Initial EKG Interpretation: Sinus Rhythm - Sinus 87 with PVC. No acute ischemia. - Medical Decision Making Patient was observed on filter press tender head. She is placed on 3 L nasal cannula and O2 sat is 91 to 92% on this. Patient does have chronic renal failure however creatinine is worse than baseline. D-dimer is elevated but because of her renal failure cannot perform a CTA. She is covered with 30 mg of Lovenox. Patient will be discussed with hospitalist regarding further treatment and care. ED Disposition - Plan for ED Patient: Disposition: Acute Care Hospital [facility] Diagnosis: COVID-19, Respiratory failure, Acute on chronic renal failure Referrals: Benji Palacios MD [Primary Care Provider] -
--- NOTE | 2020-09-10 13:27 | RAD_ITS ---
STUDY: X-RAY CHEST REASON FOR EXAM: Female, 65 years old. COUGH, EXPOSURE TO COVID TECHNIQUE: Single view of the chest was obtained COMPARISON: None. FINDINGS: Mild pulmonary congestion with subtle developing infiltrates in the left lower lobe. No pneumothorax. Eventration of the right hemidiaphragm. Mild wedging of the thoracic vertebrae with osteopenia. IMPRESSION: Mild pulmonary congestion with subtle patchy developing infiltrates in the left lower lobe Electronically Signed: Yves Guadarrama, at 14:10 EDT Tel , Service support , RAD/Chest 1 View (Portable)
[2020-09-10 13:32] LABS: Absolute Lymphocyte Count 0.92 X10^3/uL (0.83-4.51); Absolute Neutrophil Count 4.2 X10^3/uL (2.0-7.7); Basophil# 0.01 X10^3/uL; Basophil% 0.2 % (0-1); Eosinophil# 0.02 X10^3/uL; Eosinophils% 0.4 % (0-5); Hematocrit 36.4 % (37-47); Hemoglobin 11.3 g/dL (12.0-15.0); Lymphocyte # 0.92 X10^3/ul (4.0); Lymphocyte % 16.7 % (19-41); Mean Corpuscular Hgb 29.6 pg (27.0-32.0); Mean Corpuscular Volume 95.3 fL (81-99); Mean Platelet Vol. 9.7 fl (6.2-12.0); Monocyte% 5.5 % (0-10); NRBC Flagged by Analyzer 0 % (0-5); Neutrophil # 4.22 X10^3/uL (2.7-7.7); Neutrophil % 76.7 % (47-70); POSITIVE MORPHOLOGY YES; Platelet Count 232 K/mm3 (150-450); RBC Distribution Width CV 13.8 % (11.6-14.6); RBC Distribution Width SD 48.4 fl (35.1-43.9); Red Blood Count 3.82 M/mm3 (4.2-5.4); White Blood Count 5.5 K/mm3 (4.4-11.0)
[2020-09-10 13:34] LABS: Differential Indicated SCAN CRITERIA MET
[2020-09-10 13:39] LABS: ALB/GLOB Ratio 0.6 RATIO (0.9-2.4); AST(SGOT) 86 U/L (15-37); Alanine Aminotransfer ALT/SGPT 46 U/L (13-56); Albumin, Serum 3.2 g/dL (3.2-5.0); Alkaline Phosphatase 71 U/L (45-117); Anion Gap 13 (5-15); BUN 81 mg/dL (7-18); BUN/Creat Ratio 15.5 RATIO (10-20); Calcium,Total 7.6 mg/dL (8.5-10.1); Chloride 106 mmol/L (98-107); Creatinine, Serum 5.24 mg/dL (0.55-1.02); EST Glomerular Filtration Rate 9 mL/min (>60); Est Glom Filt Rate - Afr Amer 11 mL/min (>60); Globulin 5.4 g/dL (2.2-4.2); Glucose 131 mg/dL (74-106); Protein, Total 8.6 g/dL (6.4-8.2); Sodium Level 135 mmol/L (136-145)
[2020-09-10 13:43] LABS: D-Dimer Quantitative (DVT/PE) 2.16 FEU/ug/m (0.27-0.49)
[2020-09-10 13:55] LABS: Differential Comment SCANNED
[2020-09-10] MEDS: 0.9% Normal Saline 1,000 ML 100 ML IV (14:12)
[2020-09-10] MEDS: Enoxaparin 30 MG/0.3 ML Syringe SC (14:13)
--- NOTE | 2020-09-10 17:06 | NURSING ---
COVID UNIT [facility], RESP FAILURE, RENAL FAILURE
--- NOTE | 2020-09-10 17:27 | HP.PCM_ITS ---
Problem List (1) Acute kidney injury superimposed on chronic kidney disease Status: Acute (2) Chronic kidney disease, stage IV (severe) Status: Chronic (3) Hypertension Status: Chronic (4) Polycystic kidney disease Status: Chronic (5) COVID-19 Status: Acute (6) Respiratory failure Status: Deleted History of Present Illness Date of Admission: 09/10/20 Chief Complaint: Cough, mild shortness of breath. The patient is a 65 year old F with past medical history as mentioned above presented to the emergency room because of cough, mild shortness of breath and diarrhea. Her symptoms started around 8 days ago with mainly cough, dry cough, associated with mild shortness of breath as well as body aches and pains and without activating or relieving factors. Her was exposed to someone who was diagnosed with COVID-19 few days ago before her symptoms started and she started having similar symptoms. She reported diarrhea which has been going on for last 45 days, 2-3 times a day, loose stool without blood. She denied abdominal pain, nausea or vomiting. She denied fever or chills. In the emergency department, she was afebrile, blood pressure it was stable, pulse ox was 88% on room air which improved to 94% on 3 L. Her routine blood work was remarkable for hemoglobin of 11.3 g/dL which is chronic, BUN of 81, creatinine is 5.24. Lactic acid was 2. LFT was unremarkable. EKG revealed normal sinus rhythm, PVCs, no acute ischemic changes. Chest x-ray revealed left lower lobe atelectasis versus early infiltrate. COVID-19 PCR came back positive. She is being admitted for COVID-19 pneumonia and acute kidney injury on top of stage IV chronic kidney disease. Past Medical History Past Medical History (Chronic Problems): Chronic Problems Chronic kidney disease, stage IV (severe) (Chronic) Hypertension (Chronic) Polycystic kidney disease (Chronic) Allergies sulfamethoxazole [From Septra] Allergy (Verified 09/10/20 13:09) Hives trimethoprim [From Septra] Allergy (Verified 09/10/20 13:09) Hives Home Medications: Ambulatory Orders Medication Instructions Recorded Amlodipine Besylate 5 mg PO DAILY 07/27/20 Aspirin [Aspirin, Baby] 81 mg PO DAILY 07/27/20 Calcium Carbonate/Vitamin D3 1 ea PO DAILY 07/27/20 [Calcium 500+D Tablet Chew] Clobetasol/Skin Cleanser No.28 1 ea TP PRN PRN 07/27/20 [[place] 0.05% Kit] Denosumab [Prolia] 60 mg SQ X1 07/27/20 Dorzolamide HCL/Timolol [Cosopt 1 drp OPHTHALMIC (EYE) BID 07/27/20 Opth Drops] Ergocalciferol [Vitamin D] 50,000 unit PO Q7D 07/27/20 Latanoprost 2.5 ml OP DAILY 07/27/20 Tolvaptan [Jynarque] 1 ea PO BID 07/27/20 Surgical History: cholecystectomy Psychiatric History: No pertinent psych hx [employer] History: No pertinent [employer] history Lives: Spouse/ Significant Other Smoking Status: Never smoker Alcohol: None Drugs: None - *Family History Maternal History Items: No pertinent history Paternal History Items: No pertinent history Review of Systems Constitutional: Reports: Anorexia, Malaise, Weakness. Denies: Chills, Fever Eyes: Denies: Blurred vision, Double vision, Drainage, Redness HEENT: Denies: Difficulty Hearing, Ear Pain, Eye Pain, Nasal Congestion, Sore Throat Cardiovascular: Denies: Chest Pain, Chest Pressure, Heaviness, Light Headedness, Palpitations, Syncope Respiratory: Reports: Cough, Shortness of Breath. Denies: Sputum production, Wheezing Gastrointestinal: Reports: Diarrhea. Denies: Abdominal Pain, Constipation, Nausea, Vomiting Genitourinary: Denies: Dysuria, Frequency, Hematuria Musculoskeletal: Denies: Arm Pain, Back Pain, Foot Pain Skin: Denies: Dryness, Rash Neurological: Denies: Balance problems, Double vision, Change in Speech, Slurred speech, Confusion, Headaches, Incoordination Psychiatric: Denies: Anxiety, Depression Endocrine: Denies: Change in Body Habitus, Polydipsia, Polyuria VTE Information - Inpt Only VTE Present on Admission: No VTE Mechan Device Prophylaxis: None VTE Pharm Prophylaxis ordered?: No Patient Problems: Active and Suspected Problems Acute kidney injury superimposed on chronic kidney disease (Acute) COVID-19 (Acute) - Physical Exam Vitals/I&O's: Vital Signs Temp Pulse Resp BP Pulse Ox 99.6 F H 81 18 116/60 95 09/10/20 14:35 09/10/20 16:25 09/10/20 16:25 09/10/20 16:25 09/10/20 16:25 Oxygen Flow Rate (L/min) 3 Oxygen Delivery Method Room Air Weight: 138 lb 7.205 oz Body Mass Index (BMI) 23.8 Intake and Output for Last 24 Hours 09/08/20 09/09/20 09/10/20 23:59 23:59 23:59 Intake Total 233.33 / 233.33 Balance 233.33 / 233.33 General: Alert, Oriented x3, Cooperative, No apparent distress HEENT: Atraumatic, PERRLA, EOMI, Normocephalic Oral: Moist Mucosa, No Gingival or Mucosal Lesions/ Ulcerations Neck: Supple, No JVD, Negative Carotid Bruits, Trachea Midline, Thyroid Normal Size and Texture Lungs: Clear to auscultation, Normal air movement, No rhonchi, No wheeze, No rales, Diminished Cardiovascular: Regular rate, Regular Rhythm, Normal S1, Normal S2, PMI Normal Abdomen: Bowel Sounds Present, Soft, Non Tender, Non-Distended, No Hepato- splenomegaly Extremities: No clubbing, No cyanosis, No edema Skin: No rashes, No breakdown Lymphatic: No Cervical, Supraclavicular, or Inguinal Adenopathy Neurological: Cranial nerves II-XII grossly intact, Motor Exam 5/5 strength throughout Psych/Mental Status: Normal Affect, Appropriate, Alert and oriented to time, place, person, mood and affect Laboratory Results 09/10/20 13:10: WBC 5.5, RBC 3.82 L, Hgb 11.3 L, Hct 36.4 L, MCV 95.3, MCH 29.6, MCHC 31.0 L, RDW Std Deviation 48.4 H, RDW Coeff of Remy 13.8, Plt Count 232, MPV 9.7, Immature Gran % (Auto) 0.500, Neut % (Auto) 76.7 H, Lymph % (Auto) 16.7 L, [place] % (Auto) 5.5, Eos % (Auto) 0.4, Baso % (Auto) 0.2, Absolute Neuts (auto) 4.2, Absolute Lymphs (auto) 0.92, Nucleated RBC % 0, Differential Comment SCANNED 09/10/20 13:10: D-Dimer Quant (PE/DVT) 2.16 H* 09/10/20 13:10: Sodium 135 L, Potassium 4.0, Chloride 106, Carbon Dioxide 16.0 L , Anion Gap 13, BUN 81 H, Creatinine 5.24 H, Estim Creat Clear Calc 9.00, Est GFR (MDRD) Af Amer 11 L, Est GFR (MDRD) Non-Af 9 L, BUN/Creatinine Ratio 15.5, Glucose 131 H, Calcium 7.6 L, Total Bilirubin 0.40, AST 86 H, ALT 46, Alkaline Phosphatase 71, Total Protein 8.6 H, Albumin 3.2, Globulin 5.4 H, Albumin/Globulin Ratio 0.6 L 09/10/20 13:15: Lactic Acid 2.0 09/10/20 13:50: COVID-19 (JESSICA) Detected Current Medications Sodium Chloride () 1,000 mls @ 100 mls/hr IV .Q10H ERICK Last Infusion: 09/10/20 16:32 Dose: 0 mls/hr Documented by: Assessment/Plan All Active Problems Acute respiratory insufficiency (Acute) Acute kidney injury superimposed on chronic kidney disease (Acute) COVID-19 (Acute) This is a 65 years old female patient presented to the emergency room because of cough, mild shortness of breath, diarrhea and body aches after her has been exposed to someone who was diagnosed with COVID-19, found to have COVID-19 pneumonia as well as acute kidney injury on top of stage IV chronic kidney disease and she is being admitted for treatment. #1 acute COVID-19 pneumonia: Chest x-ray reviewed, official report is pending. Currently, she is on 3 L of oxygen. No evidence of sepsis or severe sepsis. D- dimer was elevated, CTA chest cannot be done because of chronic kidney disease. plan: Admit to [facility] COVID-19 floor, isolation precautions, start IV Decadron, start IV heparin drip, check BNP, troponin, CPK, fibrinogen, LDH, pro time and INR, infectious disease consult, pulmonology consult, albuterol inhaler as needed, incentive spirometer, repeat CBC and BMP tomorrow morning, PT OT evaluation and treatment. #2 acute hypoxic respiratory insufficiency: Secondary to #1. Patient does not wear home oxygen at baseline. Currently, she is on 3 L. Plan to treat underlying COVID-19 pneumonia, oxygen by nasal cannula, incentive spirometer. #3 acute kidney injury on top of stage IV chronic kidney disease: She does have chronic kidney disease secondary to polycystic kidney disease. Baseline creatinine has been around 2 to 3 mg/dL, which has been going up over the last couple of months. Admission creatinine 5.24, BUN is 81. We will try to avoid IV fluids because of COVID-19. Plan: Encourage oral intake, avoid nephrotoxic drugs, repeat BMP tomorrow morning. #5 hypertension: Blood pressure stable, continue Norvasc. #6 polycystic kidney disease: Plan as above. #7 CODE STATUS: Full code, discussed with the patient herself. #8 DVT prophylaxis: She will be on IV heparin drip. This note was generated with [employer] dictation software. It may contain incorrect words, spelling, and punctuation that were not noted in checking the note before signing. Inpatient E&M: 47263 Init Hosp L3
[2020-09-10 17:31] LABS: Reflex Lactate? Y
[2020-09-10 18:48] LABS: Lactic Acid 0.9 mmol/L (0.4-1.9)
[2020-09-10] MEDS: dexAMETHasone 4 MG/ML Vial 6 MG IV (18:55)
[2020-09-10 20:20] LABS: Partial Thromboplast Time 37.3 Seconds (24.1-36.2)
[2020-09-10 20:54] LABS: BNP,B-Type NATRIURETIC PEPTIDE 17.2 pg/mL (0-100)
[2020-09-10 21:06] LABS: Procalcitonin 0.63 ng/mL (0.00-0.09)
[2020-09-10 21:22] LABS: Fibrinogen 591 mg/dl (203-444); International Normalized Ratio 1.2; Prothrombin Time (Protime)PT. 14.5 SECONDS (11.7-14.9)
[2020-09-10 21:31] LABS: CPK Total, Creatine Kinase 307 U/L (26-192); LDH 355 U/L (84-246)
[2020-09-10] MEDS: 0.9% Saline Lock 10 ML Syringe IV (21:57)
[2020-09-10] MEDS: HEPARIN/D5w 25,000 UNITS 25,000 UNITS/250 ML IV.SOLN. 8 UNITS IV (22:00)
[2020-09-11] VITALS (16 sets, daily range): BP systolic 101–116; BP diastolic 57–71; PULSE 65–82; RESP 18–20; TEMP 36.4–37.2; O2SAT 90–93
[2020-09-11 04:40] LABS: Absolute Lymphocyte Count 0.34 X10^3/uL (0.83-4.51); Absolute Neutrophil Count 3.3 X10^3/uL (2.0-7.7); Hematocrit 32.6 % (37-47); Hemoglobin 10.3 g/dL (12.0-15.0); Lymphocyte # 0.34 X10^3/ul (4.0); Mean Corp Hgb Conc 31.6 g/dL (32-36); Mean Corpuscular Hgb 29.8 pg (27.0-32.0); Mean Corpuscular Volume 94.2 fL (81-99); Mean Platelet Vol. 9.8 fl (6.2-12.0); Monocyte# 0.07 X10^3/uL; Monocyte% 1.9 % (0-10); NRBC Flagged by Analyzer 0 % (0-5); Neutrophil # 3.33 X10^3/uL (2.7-7.7); Neutrophil % 88.6 % (47-70); POSITIVE DIFFERENTIAL YES; POSITIVE MORPHOLOGY YES; Platelet Count 187 K/mm3 (150-450); RBC Distribution Width CV 13.9 % (11.6-14.6); RBC Distribution Width SD 47.6 fl (35.1-43.9); Red Blood Count 3.46 M/mm3 (4.2-5.4); White Blood Count 3.8 K/mm3 (4.4-11.0)
[2020-09-11 04:52] LABS: Differential Indicated SCAN CRITERIA MET
[2020-09-11 04:55] LABS: Anion Gap 12 (5-15); BUN 80 mg/dL (7-18); BUN/Creat Ratio 18.3 RATIO (10-20); Calcium,Total 6.8 mg/dL (8.5-10.1); Chloride 112 mmol/L (98-107); Creatinine, Serum 4.37 mg/dL (0.55-1.02); EST Glomerular Filtration Rate 11 mL/min (>60); Est Glom Filt Rate - Afr Amer 13 mL/min (>60); Estimated Creatinine Clearance 10.79 ml/min; Glucose 150 mg/dL (74-106); Potassium 4.3 mmol/L (3.5-5.1); Sodium Level 138 mmol/L (136-145)
[2020-09-11 05:03] LABS: Partial Thromboplast Time 129.1 Seconds (24.1-36.2)
[2020-09-11 05:14] LABS: Differential Comment SCANNED
[2020-09-11] MEDS: amLODIPine 5 MG Tablet PO (09:24)
[2020-09-11] MEDS: APIXABAN 5 MG TABLET PO ×2 (09:24→22:36)
[2020-09-11] MEDS: Aspirin 81 MG TAB.CHEW PO (09:24)
[2020-09-11] MEDS: Ensure Clear 120 ML Liquid PO ×3 (09:25→17:44)
[2020-09-11] MEDS: dexAMETHasone 10 MG/ML Vial 6 MG IV (09:26)
[2020-09-11] MEDS: 0.9% Saline Lock 10 ML Syringe IV (09:26)
--- NOTE | 2020-09-11 11:06 | CON.PCM_ITS ---
Problem List (1) Respiratory failure Status: Acute Qualifiers: Chronicity: acute Respiratory failure complication: hypoxia Qualified Code(s): J96.01 - Acute respiratory failure with hypoxia (2) Acute on chronic renal failure Status: Acute Qualifiers: Acute renal failure type: unspecified Chronic kidney disease stage: stage 4 (severe) Qualified Code(s): N17.9 - Acute kidney failure, unspecified; N18.4 - Chronic kidney disease, stage 4 (severe) (3) Acute kidney injury superimposed on chronic kidney disease Status: Acute (4) Chronic kidney disease, stage IV (severe) Status: Chronic (5) Hypertension Status: Chronic Qualifiers: Hypertension type: secondary to other renal disorders Qualified Code(s): I15.1 - Hypertension secondary to other renal disorders; N28.89 - Other specified disorders of kidney and ureter (6) Polycystic kidney disease Status: Chronic (7) COVID-19 Status: Acute Reason for Consult Date of Consultation: 09/11/20 Reason for Consultation: COVID-19 History of Present Illness: The patient is a 65 year old F, with past medical history listed below, who presented [facility] on 09/10/2020 secondary to progressive shortness of breath and cough over the last 8 to 9 days. Patient had contacted her PCP and was suspected of having COVID-19. However, patient was advised to stay at home until she developed respiratory problems. EMS was called and she was noted to be 88% on room air. Patient denies any history of respiratory issues. Patient has not required supplemental oxygen previously. Patient had had body aches, diarrhea and decreased p.o. intake. Patient had reported a dry cough, but no nausea or vomiting. Patient's transports [facility] and was suspected of being exposed earlier in the month. In the ER, patient was noted to be afebrile and hypoxic. Blood pressures were okay. Laboratory work-up showed no significant leukocytosis, but a relative anemia at 11.3. D-dimer was elevated at 2.16 and renal function showed acute on chronic kidney injury with a BUN of 81 and creatinine of 5.24. Patient did have an element of acidosis associated with this. Liver enzymes were within normal limits. COVID-19 came back positive. Patient was initially placed on 3 L nasal cannula, but has required 6 to 8 L to maintain saturations since that time. Patient was given Lovenox and admitted to the cohort unit for further evaluation. Patient does report an extensive history of kidney issues, but is never been a smoker or had any lung disorders. Patient denies any concomitant cardiovascular disorder. Patient states she does feel subjectively improved after being on supplemental oxygen. Patient has not had a bowel movement since being admitted. Patient denies any current chest pain, nominal pain, nausea or vomiting. Patient has not had any lower extremity edema. Review of systems otherwise negative from a constitutional, HEENT, respiratory, cardiovascular, GI, genitourinary, musculoskeletal, skin, neurologic, psychiatric and hematologic system unless stated above. Past Medical History Past Medical History (Chronic Problems): Chronic Problems Chronic kidney disease, stage IV (severe) (Chronic) Hypertension (Chronic) Polycystic kidney disease (Chronic) Allergies sulfamethoxazole [From ] Allergy (Verified 09/10/20 19:46) Hives trimethoprim [From ] Allergy (Verified 09/10/20 19:46) Hives Home Medications: Ambulatory Orders Medication Instructions Recorded Amlodipine Besylate 5 mg PO DAILY 07/27/20 Aspirin [Aspirin, Baby] 81 mg PO DAILY 07/27/20 Calcium Carbonate/Vitamin D3 1 ea PO DAILY 07/27/20 [Calcium 500+D Tablet Chew] Clobetasol/Skin Cleanser No.28 1 ea TP PRN PRN 07/27/20 [Clodan 0.05% Kit] Denosumab [Prolia] 60 mg SQ X1 07/27/20 Dorzolamide HCL/Timolol [Cosopt 1 drp OPHTHALMIC (EYE) BID 07/27/20 Opth Drops] Ergocalciferol [Vitamin D] 50,000 unit PO Q7D 07/27/20 Latanoprost 2.5 ml OP DAILY 07/27/20 Tolvaptan [Jynarque] 1 ea PO BID 07/27/20 Surgical History: cholecystectomy Psychiatric History: No pertinent psych hx 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 Chest x-ray did show patchy infiltrates, especially in the left lower lobe. Patient has not had any pulmonary function test or echocardiogram completed at this institution. - Physical Exam Vitals/I&O's: Vital Signs Temp Pulse Resp BP Pulse Ox 36.4 C L 65 18 104/57 L 92 09/11/20 09:00 09/11/20 09:00 09/11/20 09:00 09/11/20 09:00 09/11/20 09:00 Oxygen Flow Rate (L/min) 5 Oxygen Delivery Method Nasal Cannula Weight: 60.2 kg Body Mass Index (BMI) 22.8 Intake and Output for Last 24 Hours 09/09/20 09/10/20 09/11/20 23:59 23:59 23:59 Intake Total 1500.00 / 1740.00 296 / 296 Output Total 100 / 100 Balance 1500.00 / 1640.00 196 / 196 General: Alert, Oriented x3, Cooperative, - - Mild conversational dyspnea. Slight build. HEENT: Atraumatic, PERRLA, EOMI, Normocephalic, - - Slight scleral injection without icterus Oral: Moist Mucosa, No Gingival or Mucosal Lesions/ Ulcerations Neck: Supple, No JVD, No Nodes, Trachea Midline Lungs: No rhonchi, No rales, Diminished, Wheezes - Left greater than right Cardiovascular: Regular rate, Regular Rhythm, Normal S1, Normal S2, No murmurs, No rub noted, No Gallop Abdomen: Bowel Sounds Present, Soft, Non Tender, Non-Distended Extremities: No clubbing, No cyanosis, No edema, Capillary Refill Less than 3 Seconds Skin: No rashes, No breakdown Musculoskeletal: No Tenderness to Palpation of Joints or Extremities Lymphatic: No Cervical, Supraclavicular, or Inguinal Adenopathy Neurological: Cranial nerves II-XII grossly intact, Neuro grossly intact, Motor Exam 5/5 strength throughout Psych/Mental Status: Alert and oriented to time, place, person, mood and affect Laboratory Results 09/10/20 13:10: WBC 5.5, RBC 3.82 L, Hgb 11.3 L, Hct 36.4 L, MCV 95.3, MCH 29.6, MCHC 31.0 L, RDW Std Deviation 48.4 H, RDW Coeff of Remy 13.8, Plt Count 232, MPV 9.7, Immature Gran % (Auto) 0.500, Neut % (Auto) 76.7 H, Lymph % (Auto) 16.7 L, [place] % (Auto) 5.5, Eos % (Auto) 0.4, Baso % (Auto) 0.2, Absolute Neuts (auto) 4.2, Absolute Lymphs (auto) 0.92, Nucleated RBC % 0, Differential Comment SCANNED 09/10/20 13:10: D-Dimer Quant (PE/DVT) 2.16 H* 09/10/20 13:10: Sodium 135 L, Potassium 4.0, Chloride 106, Carbon Dioxide 16.0 L , Anion Gap 13, BUN 81 H, Creatinine 5.24 H, Estim Creat Clear Calc 9.00, Est GFR (MDRD) Af Amer 11 L, Est GFR (MDRD) Non-Af 9 L, BUN/Creatinine Ratio 15.5, Glucose 131 H, Calcium 7.6 L, Total Bilirubin 0.40, AST 86 H, ALT 46, Alkaline Phosphatase 71, Total Protein 8.6 H, Albumin 3.2, Globulin 5.4 H, Albumin/Globulin Ratio 0.6 L 09/10/20 13:10: B-Natriuretic Peptide 17.2 09/10/20 13:10: Procalcitonin 0.63 H 09/10/20 13:15: Lactic Acid 2.0 09/10/20 13:50: COVID-19 (JESSICA) Detected 09/10/20 18:05: Lactic Acid 0.9 09/10/20 20:05: PT 14.5, INR 1.2, Fibrinogen 591 H 09/10/20 20:05: APTT 37.3 H 09/10/20 21:11: Lactate Dehydrogenase 355 H, Total Creatine Kinase 307 H, Troponin I 0.020 09/11/20 04:15: WBC 3.8 L, RBC 3.46 L, Hgb 10.3 L, Hct 32.6 L, MCV 94.2, MCH 29.8, MCHC 31.6 L, RDW Std Deviation 47.6 H, RDW Coeff of Remy 13.9, Plt Count 187, MPV 9.8, Immature Gran % (Auto) 0.500, Neut % (Auto) 88.6 H, Lymph % (Auto) 9.0 L, [place] % (Auto) 1.9, Eos % (Auto) 0.0, Baso % (Auto) 0.0, Absolute Neuts (auto) 3.3, Absolute Lymphs (auto) 0.34 L, Nucleated RBC % 0, Differential Comment SCANNED, Diff Path Review March09/11/20 04:15: Sodium 138, Potassium 4.3, Chloride 112 H, Carbon Dioxide 14.0 L , Anion Gap 12, BUN 80 H, Creatinine 4.37 H, Estim Creat Clear Calc 10.79, Est GFR (MDRD) Af Amer 13 L, Est GFR (MDRD) Non-Af 11 L, BUN/Creatinine Ratio 18.3, Glucose 150 H, Calcium 6.8 L 09/11/20 04:15: APTT 129.1 H* Current Medications Acetaminophen (Acetaminophen 325 Mg Tablet) 650 mg PO Q6H PRN PRN PRN Reason: Pain Score 1-10/Temp > 100.7 F Albuterol Sulfate (Albuterol Ih 8.5 Gm (Proair) Inhaler (200 Puffs)) 2 puff INHALATION Q4H PRN PRN PRN Reason: Shortness of breath, wheezing Amlodipine Besylate (Amlodipine 5 Mg Tablet) 5 mg PO DAILY [facility] Last Admin: 09/11/20 09:24 Dose: 5 mg Documented by: Apixaban (Apixaban 5 Mg Tablet) 5 mg PO BID [facility] Last Admin: 09/11/20 09:24 Dose: 5 mg Documented by: Aspirin (A[facility]in 81 Mg [facility].Chew) [facility] Admin: 09/11/20 09:24 Dose: 81 mg Documented by: Dexamethasone Sodium Phosphate (Dexamethasone 10 Mg/Ml Vial) 6 mg IV DAILY [facility] Last Admin: 09/11/20 09:26 Dose: 6 mg Documented by: Miscellaneous Information (Inhaler, Assist Devices 1 Each Spacer) 1 each INHALATION PRN PRN PRN Reason: WITH ALBUTEROL MDI Nutritional Formula (Lactose Free) (Ensure Clear 120 Ml Liquid) 120 ml PO TIDCM [facility] Last Admin: 09/11/20 09:25 Dose: 120 ml Documented by: Ondansetron HCl (Ondansetron 4 Mg/2 Ml Vial) 4 mg IV Q8H PRN PRN PRN Reason: NAUSEA/VOMITING Sodium Chloride (0.9% Saline Lock 10 Ml Syringe) 10 - 40 ml IV UD PRN PRN Reason: SALINE FLUSH Last Admin: 09/11/20 09:26 Dose: 10 ml Documented by: Zolpidem Tartrate (Zolpidem Tartrate 5 Mg Tablet) 5 mg PO QHS PRN PRN PRN Reason: INSOMNIA Clinical Impression(s) from Imaging Studies Chest X-Ray 09/10/20 13:27 Assessment/Plan All Active Problems Respiratory failure (Acute) Acute on chronic renal failure (Acute) Acute respiratory insufficiency (Acute) Acute kidney injury superimposed on chronic kidney disease (Acute) COVID-19 (Acute) RECOMMENDATIONS: 1. Initiate anticoagulation and Decadron therapy 2. Hold on Remdesivir and convalescent serum 3. Wean oxygen as tolerated 4. Possible empiric BiPAP with AVAPS (tidal volume 400) with sleep if decompensates 5. Continue gentle hydration for acute kidney injury 6. Reevaluate in 24 hours IMPRESSIONS: 1. Acute hypoxic respiratory failure secondary to acute bilateral COVID-19 pneumonia Patient does not have a significant baseline respiratory insults. Patient is theoretically between 8 and 12 days of symptomatology. Did review with the patient about convalescent serum and Remdesivir, but she would like to see if she can improve on her own. Patient will need to continue with supplemental oxygen to maintain appropriate saturations. Patient is on anticoagulation and Decadron. Await infectious disease consult. 2. Acute on chronic kidney disease/polycystic kidney disease Patient with significant elevation of creatinine and BUN on presentation. This may be secondary to increased insensible losses. Patient has received volume resuscitation. If not improving in the next 24 to 48 hours, consider renal evaluation. 3. Advanced age/glaucoma/thin build Complicates care, management, recovery and prognosis. Patient would likely benefit from reinitiation of baseline ophthalmic drops. Defer to hospitalist. Inpatient E&M: [id number] Init Hosp L3
--- NOTE | 2020-09-11 15:23 | PN_ITS ---
Patient Problems: Active and Suspected Problems Respiratory failure (Acute) Acute on chronic renal failure (Acute) Acute kidney injury superimposed on chronic kidney disease (Acute) COVID-19 (Acute) Subjective: Patient was seen and examined today, she does not complain of any chills or fevers, she does not complain to this examiner of any shortness of breath. Patient is currently on nasal cannula O2 at 5 L/min and appears comfortable, I talked at length with her son by phone today and went over her medical problems- he is a physician in [place]. - Physical Exam Vitals/I&O's: Vital Signs Temp Pulse Resp BP Pulse Ox 97.8 F 71 18 101/59 L 92 09/11/20 15:00 09/11/20 15:00 09/11/20 15:00 09/11/20 15:00 09/11/20 15:00 Oxygen Flow Rate (L/min) 5 Oxygen Delivery Method Nasal Cannula Weight: 60.2 kg Body Mass Index (BMI) 22.8 Intake and Output for Last 24 Hours 09/09/20 09/10/20 09/11/20 23:59 23:59 23:59 Intake Total 1500.00 / 1740.00 427.17 / 427.17 Output Total 100 / 100 Balance 1500.00 / 1640.00 327.17 / 327.17 General: Alert, Oriented x3, Cooperative, No apparent distress, Well developed, Well nourished HEENT: Atraumatic, PERRLA, EOMI, Normocephalic Oral: Moist Mucosa Neck: Supple, No JVD, No Nuchal Rigidity, Trachea Midline, Thyroid Normal Size and Texture Lungs: Clear to auscultation, No rhonchi, No wheeze, No rales, Diminished Cardiovascular: Regular rate, Regular Rhythm, Normal S1, Normal S2, No murmurs, PMI Normal, No rub noted, No Gallop Abdomen: Bowel Sounds Present, Soft, Non Tender, Non-Distended, No hernias noted Extremities: No clubbing, No cyanosis, No edema, Capillary Refill Less than 3 Seconds Skin: No rashes, No breakdown Musculoskeletal: No Tenderness to Palpation of Joints or Extremities Neurological: Cranial nerves II-XII grossly intact, Neuro grossly intact, Sensory exam intact to light touch and pain, Coordination normal Psych/Mental Status: Normal Affect, Appropriate, Alert and oriented to time, place, person, mood and affect Laboratory Results 09/10/20 13:10: B-Natriuretic Peptide 17.2 09/10/20 13:10: Procalcitonin 0.63 H 09/10/20 13:50: COVID-19 (JESSICA) Detected 09/10/20 18:05: Lactic Acid 0.9 09/10/20 20:05: PT 14.5, INR 1.2, Fibrinogen 591 H 09/10/20 20:05: APTT 37.3 H 09/10/20 21:11: Lactate Dehydrogenase 355 H, Total Creatine Kinase 307 H, Troponin I 0.020 09/11/20 04:15: WBC 3.8 L, RBC 3.46 L, Hgb 10.3 L, Hct 32.6 L, MCV 94.2, MCH 29.8, MCHC 31.6 L, RDW Std Deviation 47.6 H, RDW Coeff of Remy 13.9, Plt Count 187, MPV 9.8, Immature Gran % (Auto) 0.500, Neut % (Auto) 88.6 H, Lymph % (Auto) 9.0 L, [place] % (Auto) 1.9, Eos % (Auto) 0.0, Baso % (Auto) 0.0, Absolute Neuts (auto) 3.3, Absolute Lymphs (auto) 0.34 L, Nucleated RBC % 0, Differential Comment SCANNED, Diff Path Review March09/11/20 04:15: Sodium 138, Potassium 4.3, Chloride 112 H, Carbon Dioxide 14.0 L , Anion Gap 12, BUN 80 H, Creatinine 4.37 H, Estim Creat Clear Calc 10.79, Est GFR (MDRD) Af Amer 13 L, Est GFR (MDRD) Non-Af 11 L, BUN/Creatinine Ratio 18.3, Glucose 150 H, Calcium 6.8 L 09/11/20 04:15: APTT 129.1 H* Current Medications Acetaminophen (Acetaminophen 325 Mg Tablet) 650 mg PO Q6H PRN PRN PRN Reason: Pain Score 1-10/Temp > 100.7 F Albuterol Sulfate (Albuterol Ih 8.5 Gm (Proair) Inhaler (200 Puffs)) 2 puff INHALATION Q4H PRN PRN PRN Reason: Shortness of breath, wheezing Amlodipine Besylate (Amlodipine 5 Mg Tablet) 5 mg PO DAILY [facility] Last Admin: 09/11/20 09:24 Dose: 5 mg Documented by: Apixaban (Apixaban 5 Mg Tablet) 5 mg PO BID [facility] Last Admin: 09/11/20 09:24 Dose: 5 mg Documented by: Aspirin (Aspirin 81 Mg Tab.Chew) 81 mg PO DAILYCM [facility] Last Admin: 09/11/20 09:24 Dose: 81 mg Documented by: Dexamethasone Sodium Phosphate (Dexamethasone 10 Mg/Ml Vial) 6 mg IV DAILY [facility] Last Admin: 09/11/20 09:26 Dose: 6 mg Documented by: Miscellaneous Information (Inhaler, Assist Devices 1 Each Spacer) 1 each INHALATION PRN PRN PRN Reason: WITH ALBUTEROL MDI Nutritional Formula (Lactose Free) (Ensure Clear 120 Ml Liquid) 120 ml PO TIDCM [facility] Last Admin: 09/11/20 12:52 Dose: 120 ml Documented by: Ondansetron HCl (Ondansetron 4 Mg/2 Ml Vial) 4 mg IV Q8H PRN PRN PRN Reason: NAUSEA/VOMITING Sodium Chloride (0.9% Saline Lock 10 Ml Syringe) 10 - 40 ml IV UD PRN PRN Reason: SALINE FLUSH Last Admin: 09/11/20 09:26 Dose: 10 ml Documented by: Zolpidem Tartrate (Zolpidem Tartrate 5 Mg Tablet) 5 mg PO QHS PRN PRN PRN Reason: INSOMNIA Medical Necessity - Tobacco Use Smoking Status: Never smoker Assessment/Plan All Active Problems Respiratory failure (Acute) Acute on chronic renal failure (Acute) Acute respiratory insufficiency (Acute) Acute kidney injury superimposed on chronic kidney disease (Acute) COVID-19 (Acute) #1 acute hypoxic respiratory failure secondary to acute bilateral COVID-19 pneumonia-continue present treatment per pulmonary medicine #2 acute on chronic kidney disease stage IV-secondary to polycystic kidney disease and continue to monitor BMP, patient's Tolvaptan will be held at this time, there is no one to bring her home medication in #3 essential hypertension-continue present medication #4 glaucoma - patient's eyedrops were ordered Inpatient E&M: [id number] [facility] Hosp L2
[2020-09-11] MEDS: Dorzolamide HCL/Timolol 10 ml Bottle 1 DRP EACH EYE (22:36)
[2020-09-12] VITALS (13 sets, daily range): BP systolic 95–111; BP diastolic 59–82; PULSE 64–77; RESP 16–20; TEMP 36.6–36.8; O2SAT 91–96
[2020-09-12 06:57] LABS: Anion Gap 14 (5-15); BUN 92 mg/dL (7-18); BUN/Creat Ratio 21.3 RATIO (10-20); Calcium,Total 6.8 mg/dL (8.5-10.1); Chloride 111 mmol/L (98-107); Creatinine, Serum 4.31 mg/dL (0.55-1.02); EST Glomerular Filtration Rate 11 mL/min (>60); Est Glom Filt Rate - Afr Amer 13 mL/min (>60); Estimated Creatinine Clearance 10.94 ml/min; Glucose 149 mg/dL (74-106); Potassium 4.1 mmol/L (3.5-5.1); Sodium Level 139 mmol/L (136-145)
--- NOTE | 2020-09-12 07:21 | PN_ITS ---
Patient Problems: Active and Suspected Problems Respiratory failure (Acute) Acute on chronic renal failure (Acute) Acute kidney injury superimposed on chronic kidney disease (Acute) COVID-19 (Acute) Subjective: The patient was seen and examined at the bedside this morning. Events from the last 24 hours have been reviewed. The patient is currently afebrile, hemodynamically stable and maintaining appropriate oxygen saturations on 7 L/min via nasal cannula. The patient does report the presence of shortness of breath and nonproductive cough. Objective: The patient's most recent lab work, culture data and imaging studies have all been personally reviewed. Coronavirus PCR was positive on September 10. Blood cultures have not demonstrated any growth to date. - Physical Exam Vitals/I&O's: Vital Signs Temp Pulse Resp BP Pulse Ox 97.9 F 71 20 H 111/70 92 09/12/20 05:50 09/12/20 05:50 09/12/20 05:50 09/12/20 05:50 09/12/20 05:50 Oxygen Flow Rate (L/min) 7 Oxygen Delivery Method Nasal Cannula Weight: 132 lb 11.492 oz Body Mass Index (BMI) 22.8 Intake and Output for Last 24 Hours 09/10/20 09/11/20 09/12/20 23:59 23:59 23:59 Intake Total 1500.00 / 1740.00 1147.17 / 1147.17 240 / 240 Output Total 1000 / 1000 200 / 200 Balance 1500.00 / 1640.00 147.17 / 147.17 40 / 40 General: Alert, Cooperative, No apparent distress HEENT: Atraumatic, PERRLA, Normocephalic Oral: No Gingival or Mucosal Lesions/ Ulcerations Neck: Supple, No Nodes, Trachea Midline Lungs: Diminished, - - No conversational dyspnea or accessory muscle use. Cardiovascular: Regular rate, Regular Rhythm Abdomen: Bowel Sounds Present, Soft, Non Tender Extremities: No clubbing, No cyanosis, No edema Skin: No breakdown Musculoskeletal: No Tenderness to Palpation of Joints or Extremities Lymphatic: No Cervical, Supraclavicular, or Inguinal Adenopathy Neurological: Cranial nerves II-XII grossly intact, Neuro grossly intact Psych/Mental Status: Normal Affect, Appropriate Labs (Last 48 Hours) 09/10/20 09/10/20 09/10/20 13:10 13:10 13:10 WBC 5.5 RBC 3.82 L Hgb 11.3 L Hct 36.4 L MCV 95.3 MCH 29.6 MCHC 31.0 L RDW Std Deviation 48.4 H RDW Coeff of Remy 13.8 Plt Count 232 MPV 9.7 Immature Gran % (Auto) 0.500 Neut % (Auto) 76.7 H Lymph % (Auto) 16.7 L [place] % (Auto) 5.5 Eos % (Auto) 0.4 Baso % (Auto) 0.2 Absolute Neuts (auto) 4.2 Absolute Lymphs (auto) 0.92 Nucleated RBC % 0 Differential Comment SCANNED Diff Path Review PT INR APTT Fibrinogen D-Dimer Quant (PE/DVT) 2.16 H* Sodium 135 L Potassium 4.0 Chloride 106 Carbon Dioxide 16.0 L Anion Gap 13 BUN 81 H Creatinine 5.24 H Estim Creat Clear Calc 9.00 Est GFR (MDRD) Af Amer 11 L Est GFR (MDRD) Non-Af 9 L BUN/Creatinine Ratio 15.5 Glucose 131 H Lactic Acid Calcium 7.6 L Total Bilirubin 0.40 AST 86 H ALT 46 Alkaline Phosphatase 71 Lactate Dehydrogenase Total Creatine Kinase Troponin I B-Natriuretic Peptide Total Protein 8.6 H Albumin 3.2 Globulin 5.4 H Albumin/Globulin Ratio 0.6 L Procalcitonin COVID-19 (JESSICA) 09/10/20 09/10/20 09/10/20 13:10 13:10 13:15 WBC RBC Hgb Hct MCV MCH MCHC RDW Std Deviation RDW Coeff of Remy Plt Count MPV Immature Gran % (Auto) Neut % (Auto) Lymph % (Auto) [place] % (Auto) Eos % (Auto) Baso % (Auto) Absolute Neuts (auto) Absolute Lymphs (auto) Nucleated RBC % Differential Comment Diff Path Review PT INR APTT Fibrinogen D-Dimer Quant (PE/DVT) Sodium Potassium Chloride Carbon Dioxide Anion Gap BUN Creatinine Estim Creat Clear Calc Est GFR (MDRD) Af Amer Est GFR (MDRD) Non-Af BUN/Creatinine Ratio Glucose Lactic Acid 2.0 Calcium Total Bilirubin AST ALT Alkaline Phosphatase Lactate Dehydrogenase Total Creatine Kinase Troponin I B-Natriuretic Peptide 17.2 Total Protein Albumin Globulin Albumin/Globulin Ratio Procalcitonin 0.63 H COVID-19 (JESSICA) 09/10/20 09/10/20 09/10/20 13:50 18:05 20:05 WBC RBC Hgb Hct MCV MCH MCHC RDW Std Deviation RDW Coeff of Remy Plt Count MPV Immature Gran % (Auto) Neut % (Auto) Lymph % (Auto) [place] % (Auto) Eos % (Auto) Baso % (Auto) Absolute Neuts (auto) Absolute Lymphs (auto) Nucleated RBC % Differential Comment Diff Path Review PT 14.5 INR 1.2 APTT Fibrinogen 591 H D-Dimer Quant (PE/DVT) Sodium Potassium Chloride Carbon Dioxide Anion Gap BUN Creatinine Estim Creat Clear Calc Est GFR (MDRD) Af Amer Est GFR (MDRD) Non-Af BUN/Creatinine Ratio Glucose Lactic Acid 0.9 Calcium Total Bilirubin AST ALT Alkaline Phosphatase Lactate Dehydrogenase Total Creatine Kinase Troponin I B-Natriuretic Peptide Total Protein Albumin Globulin Albumin/Globulin Ratio Procalcitonin COVID-19 (JESSICA) Detected 09/10/20 09/10/20 09/11/20 20:05 21:11 04:15 WBC 3.8 L RBC 3.46 L Hgb 10.3 L Hct 32.6 L MCV 94.2 MCH 29.8 MCHC 31.6 L RDW Std Deviation 47.6 H RDW Coeff of Remy 13.9 Plt Count 187 MPV 9.8 Immature Gran % (Auto) 0.500 Neut % (Auto) 88.6 H Lymph % (Auto) 9.0 L [place] % (Auto) 1.9 Eos % (Auto) 0.0 Baso % (Auto) 0.0 Absolute Neuts (auto) 3.3 Absolute Lymphs (auto) 0.34 L Nucleated RBC % 0 Differential Comment SCANNED Diff Path Review May foll PT INR APTT 37.3 H Fibrinogen D-Dimer Quant (PE/DVT) Sodium Potassium Chloride Carbon Dioxide Anion Gap BUN Creatinine Estim Creat Clear Calc Est GFR (MDRD) Af Amer Est GFR (MDRD) Non-Af BUN/Creatinine Ratio Glucose Lactic Acid Calcium Total Bilirubin AST ALT Alkaline Phosphatase Lactate Dehydrogenase 355 H Total Creatine Kinase 307 H Troponin I 0.020 B-Natriuretic Peptide Total Protein Albumin Globulin Albumin/Globulin Ratio Procalcitonin COVID-19 (JESSICA) 09/11/20 09/11/20 09/12/20 04:15 04:15 05:45 WBC RBC Hgb Hct MCV MCH MCHC RDW Std Deviation RDW Coeff of Remy Plt Count MPV Immature Gran % (Auto) Neut % (Auto) Lymph % (Auto) [place] % (Auto) Eos % (Auto) Baso % (Auto) Absolute Neuts (auto) Absolute Lymphs (auto) Nucleated RBC % Differential Comment Diff Path Review PT INR APTT 129.1 H* Fibrinogen D-Dimer Quant (PE/DVT) Sodium 138 139 Potassium 4.3 4.1 Chloride 112 H 111 H Carbon Dioxide 14.0 L 14.0 L Anion Gap 12 14 BUN 80 H 92 H Creatinine 4.37 H 4.31 H Estim Creat Clear Calc 10.79 10.94 Est GFR (MDRD) Af Amer 13 L 13 L Est GFR (MDRD) Non-Af 11 L 11 L BUN/Creatinine Ratio 18.3 21.3 H Glucose 150 H 149 H Lactic Acid Calcium 6.8 L 6.8 L Total Bilirubin AST ALT Alkaline Phosphatase Lactate Dehydrogenase Total Creatine Kinase Troponin I B-Natriuretic Peptide Total Protein Albumin Globulin Albumin/Globulin Ratio Procalcitonin COVID-19 (JESSICA) Clinical Impression(s) from Imaging Studies Chest X-Ray 09/10/20 13:27 Current Medications Acetaminophen (Acetaminophen 325 Mg Tablet) 650 mg PO Q6H PRN PRN PRN Reason: Pain Score 1-10/Temp > 100.7 F Albuterol Sulfate (Albuterol Ih 8.5 Gm (Proair) Inhaler (200 Puffs)) 2 puff INHALATION Q4H PRN PRN PRN Reason: Shortness of breath, wheezing Amlodipine Besylate (Amlodipine 5 Mg Tablet) 5 mg PO DAILY REPLACED BY [facility] Last Admin: 09/11/20 09:24 Dose: 5 mg Documented by: Apixaban (Apixaban 5 Mg Tablet) 5 mg PO BID REPLACED BY [facility] Last Admin: 09/11/20 22:36 Dose: 5 mg Documented by: Aspirin (Aspirin 81 Mg Tab.Chew) 81 mg PO DAILYCM REPLACED BY [facility] Last Admin: 09/11/20 09:24 Dose: 81 mg Documented by: Dexamethasone Sodium Phosphate (Dexamethasone 10 Mg/Ml Vial) 6 mg IV DAILY REPLACED BY [facility] Last Admin: 09/11/20 09:26 Dose: 6 mg Documented by: Dorzolamide/Timolol (Dorzolamide Hcl/Timolol 10 Ml Bottle) 1 drop EACH EYE BID REPLACED BY [facility] Last Admin: 09/11/20 22:36 Dose: 1 drop Documented by: Latanoprost (Latanoprost 0.005% 1 Bottle) 1 drop EACH EYE QHS REPLACED BY [facility] Miscellaneous Information (Inhaler, Assist Devices 1 Each Spacer) 1 each INHALATION PRN PRN PRN Reason: WITH ALBUTEROL MDI Nutritional Formula (Lactose Free) (Ensure Clear 120 Ml Liquid) 120 ml PO TIDCM ERICK Last Admin: 09/11/20 17:44 Dose: 120 ml Documented by: Ondansetron HCl (Ondansetron 4 Mg/2 Ml Vial) 4 mg IV Q8H PRN PRN PRN Reason: NAUSEA/VOMITING Sodium Chloride (0.9% Saline Lock 10 Ml Syringe) 10 - 40 ml IV UD PRN PRN Reason: SALINE FLUSH Last Admin: 09/11/20 09:26 Dose: 10 ml Documented by: Zolpidem Tartrate (Zolpidem Tartrate 5 Mg Tablet) 5 mg PO QHS PRN PRN PRN Reason: INSOMNIA Medical Necessity - Tobacco Use Smoking Status: Never smoker Assessment/Plan All Active Problems Respiratory failure (Acute) Acute on chronic renal failure (Acute) Acute respiratory insufficiency (Acute) Acute kidney injury superimposed on chronic kidney disease (Acute) COVID-19 (Acute) RECOMMENDATIONS: 1. Wean supplemental oxygen to maintain oxygen saturations at or above 90%. 2. Continue Decadron x10 days. 3. Continue systemic anticoagulation with Eliquis. 4. Consider administering convalescent plasma and starting patient on remdesivir. 5. Infectious diseases consultation is currently pending. IMPRESSIONS: 1. Acute hypoxic respiratory failure secondary to acute bilateral COVID-19 pneumonia Plan to continue current supportive measures including supplemental oxygen to maintain saturations at or above 90%. Plan to continue systemic anticoagulation with Eliquis as ordered. Continue Decadron with plans for a 10-day treatment course. Given the patient's high supplemental oxygen requirement, consider administering convalescent plasma and starting patient on remdesivir. Infectious diseases consultation is currently pending. 2. Acute on chronic kidney disease/polycystic kidney disease Patient with significant elevation of creatinine and BUN on presentation. The patient's acute kidney injury may be prerenal in etiology, as there has been improvement in creatinine with gentle IV fluid hydration. I would have a low threshold to obtain a nephrology consultation, if creatinine does not continue to improve. 3. Advanced age/glaucoma/thin build Complicates care, management, recovery and prognosis. Continue current supportive measures as noted above. This note was generated with [employer] software. It may contain incorrect words, spelling, and punctuation that were not noted in checking the note before signing. Inpatient E&M: 49594 Subs Hosp L2
--- NOTE | 2020-09-12 08:00 | PCM.PN.HOSP ---
Patient Problems: Active and Suspected Problems Respiratory failure (Acute) Acute on chronic renal failure (Acute) Acute kidney injury superimposed on chronic kidney disease (Acute) COVID-19 (Acute) Reason for Visit: COVID-19 pneumonia Objective: Seen and examined. Patient feels mild short of breath on exertion otherwise okay. Minimal dry cough. No chest pain or pressure. No loss of taste or smell sensation. On 7 L of oxygen, pulse ox 93%. No fever Physical exam General: Alert, Oriented x3, Cooperative HEENT: Atraumatic, PERRLA, EOMI, Normocephalic Oral: No Gingival or Mucosal Lesions/ Ulcerations Neck: Supple, No JVD, Negative Carotid Bruits Lungs: Air entry diminished in bilateral lung bases. Fine coarse crepitation present bilateral. Cardiovascular: Regular rate, Regular Rhythm, Normal S1, Normal S2, No murmurs Abdomen: Bowel Sounds Present, Soft, Non Tender, Non-Distended : No renal angle tenderness. No suprapubic tenderness. Extremities: No edema, Capillary Refill Less than 3 Seconds Skin: No rashes, No breakdown Musculoskeletal: No Tenderness to Palpation of Joints or Extremities Neurological: Cranial nerves II-XII grossly intact, Deep Tendon Reflexes 2+/4 and Symmetrical, Neuro grossly intact Psych/Mental Status: Normal Affect, Appropriate. Vitals/I&O's: Vital Signs Temp Pulse Resp BP Pulse Ox 97.9 F 71 20 H 111/70 92 09/12/20 05:50 09/12/20 05:50 09/12/20 05:50 09/12/20 05:50 09/12/20 05:50 Oxygen Flow Rate (L/min) 7 Oxygen Delivery Method Nasal Cannula Weight: 132 lb 11.492 oz Body Mass Index (BMI) 22.8 Intake and Output for Last 24 Hours 09/10/20 09/11/20 09/12/20 23:59 23:59 23:59 Intake Total 1500.00 / 1740.00 1147.17 / 1147.17 240 / 240 Output Total 1000 / 1000 200 / 200 Balance 1500.00 / 1640.00 147.17 / 147.17 40 / 40 Laboratory Results 09/12/20 05:45: Sodium 139, Potassium 4.1, Chloride 111 H, Carbon Dioxide 14.0 L, Anion Gap 14, BUN 92 H, Creatinine 4.31 H, Estim Creat Clear Calc 10.94, Est GFR (MDRD) Af Amer 13 L, Est GFR (MDRD) Non-Af 11 L, BUN/Creatinine Ratio 21.3 H, Glucose 149 H, Calcium 6.8 L Current Medications Acetaminophen (Acetaminophen 325 Mg Tablet) 650 mg PO Q6H PRN PRN PRN Reason: Pain Score 1-10/Temp > 100.7 F Albuterol Sulfate (Albuterol Ih 8.5 Gm (Proair) Inhaler (200 Puffs)) 2 puff INHALATION Q4H PRN PRN PRN Reason: Shortness of breath, wheezing Amlodipine Besylate (Amlodipine 5 Mg Tablet) 5 mg PO DAILY [facility] Last Admin: 09/11/20 09:24 Dose: 5 mg Documented by: Apixaban (Apixaban 5 Mg Tablet) 5 mg PO BID [facility] Last Admin: 09/11/20 22:36 Dose: 5 mg Documented by: Aspirin (Aspirin 81 Mg Tab.Chew) [facility] Last Admin: 09/11/20 09:24 Dose: 81 mg Documented by: Dexamethasone Sodium Phosphate (Dexamethasone 10 Mg/Ml Vial) 6 mg IV DAILY [facility] Last Admin: 09/11/20 09:26 Dose: 6 mg Documented by: Dorzolamide/Timolol (Dorzolamide Hcl/Timolol 10 Ml Bottle) 1 drop EACH EYE BID [facility] Last Admin: 09/11/20 22:36 Dose: 1 drop Documented by: Latanoprost (Latanoprost 0.005% 1 Bottle) 1 drop EACH EYE QHS [facility] Miscellaneous Information (Inhaler, Assist Devices 1 Each Spacer) 1 each INHALATION PRN PRN PRN Reason: WITH ALBUTEROL MDI Nutritional Formula (Lactose Free) (Ensure Clear 120 Ml Liquid) 120 ml PO TIDCM [facility] Last Admin: 09/11/20 17:44 Dose: 120 ml Documented by: Ondansetron HCl (Ondansetron 4 Mg/2 Ml Vial) 4 mg IV Q8H PRN PRN PRN Reason: NAUSEA/VOMITING Sodium Chloride (0.9% Saline Lock 10 Ml Syringe) 10 - 40 ml IV UD PRN PRN Reason: SALINE FLUSH Last Admin: 09/11/20 09:26 Dose: 10 ml Documented by: Zolpidem Tartrate (Zolpidem Tartrate 5 Mg Tablet) 5 mg PO QHS PRN PRN PRN Reason: INSOMNIA STROKE Vital Signs/Narrative: Vital Signs Temp Pulse Resp BP Pulse Ox 09/12/20 05:50 97.9 F 71 20 H 111/70 92 Medical Necessity - Tobacco Use Smoking Status: Never smoker Assessment/Plan All Active Problems Respiratory failure (Acute) Acute on chronic renal failure (Acute) Acute respiratory insufficiency (Acute) Acute kidney injury superimposed on chronic kidney disease (Acute) COVID-19 (Acute) #1 acute hypoxic respiratory failure secondary to acute bilateral COVID-19 pneumonia-patient on Decadron and Eliquis 5 mg p.o. twice daily. continue present treatment. ID consult. #2 acute on chronic kidney disease stage IV-secondary to polycystic kidney disease and continue to monitor BMP, patient's Tolvaptan will be held at this time, as there is no one available at home to bring the medication. Sodium level and creatinine on baseline. #3 essential hypertension-continue present medication #4 glaucoma - patient's eyedrops Microbiology Past 72 Hours 09/10/20 13:20 Blood Culture (Wb) - Left Hand Blood Culture - Preliminary No growth in 48 hours. 09/10/20 13:10 Blood Culture (Wb) - Anticubital Left Blood Culture - Preliminary No growth in 48 hours. Laboratory Results 09/12/20 05:45: Sodium 139, Potassium 4.1, Chloride 111 H, Carbon Dioxide 14.0 L, Anion Gap 14, BUN 92 H, Creatinine 4.31 H, Estim Creat Clear Calc 10.94, Est GFR (MDRD) Af Amer 13 L, Est GFR (MDRD) Non-Af 11 L, BUN/Creatinine Ratio 21.3 H, Glucose 149 H, Calcium 6.8 L Active Medications Acetaminophen (Acetaminophen 325 Mg Tablet) 650 mg PO Q6H PRN PRN PRN Reason: Pain Score 1-10/Temp > 100.7 F Albuterol Sulfate (Albuterol Ih 8.5 Gm (Proair) Inhaler (200 Puffs)) 2 puff INHALATION Q4H PRN PRN PRN Reason: Shortness of breath, wheezing Amlodipine Besylate (Amlodipine 5 Mg Tablet) 5 mg PO DAILY [facility] Last Admin: 09/12/20 08:26 Dose: 5 mg Documented by: Apixaban (Apixaban 5 Mg Tablet) 5 mg PO BID [facility] Last Admin: 09/12/20 08:24 Dose: 5 mg Documented by: Aspirin (Aspirin 81 Mg Tab.Chew) 81 mg PO DAILYCM [facility] Last Admin: 09/12/20 08:22 Dose: 81 mg Documented by: Dexamethasone Sodium Phosphate (Dexamethasone 10 Mg/Ml Vial) 6 mg IV DAILY [facility] Last Admin: 09/12/20 08:26 Dose: 6 mg Documented by: Dorzolamide/Timolol (Dorzolamide Hcl/Timolol 10 Ml Bottle) 1 drop EACH EYE BID [facility] Last Admin: 09/12/20 08:23 Dose: 1 drop Documented by: Latanoprost (Latanoprost 0.005% 1 Bottle) 1 drop EACH EYE QHS [facility] Miscellaneous Information (Inhaler, Assist Devices 1 Each Spacer) 1 each INHALATION PRN PRN PRN Reason: WITH ALBUTEROL MDI Nutritional Formula (Lactose Free) (Ensure Clear 120 Ml Liquid) 120 ml PO TIDCM [facility] Last Admin: 09/12/20 12:35 Dose: Not Given Documented by: Ondansetron HCl (Ondansetron 4 Mg/2 Ml Vial) 4 mg IV Q8H PRN PRN PRN Reason: NAUSEA/VOMITING Sodium Chloride (0.9% Saline Lock 10 Ml Syringe) 10 - 40 ml IV UD PRN PRN Reason: SALINE FLUSH Last Admin: 09/12/20 08:28 Dose: 10 ml Documented by: Zolpidem Tartrate (Zolpidem Tartrate 5 Mg Tablet) 5 mg PO QHS PRN PRN PRN Reason: INSOMNIA Inpatient E&M: 05790 [facility] Hosp L2
[2020-09-12] MEDS: Aspirin 81 MG TAB.CHEW PO (08:22)
[2020-09-12] MEDS: Ensure Clear 120 ML Liquid PO ×2 (08:22→16:27)
[2020-09-12] MEDS: Dorzolamide HCL/Timolol 10 ml Bottle 1 DRP EACH EYE ×2 (08:23→21:37)
[2020-09-12] MEDS: APIXABAN 5 MG TABLET PO ×2 (08:24→21:37)
[2020-09-12] MEDS: dexAMETHasone 10 MG/ML Vial 6 MG IV (08:26)
[2020-09-12] MEDS: amLODIPine 5 MG Tablet PO (08:26)
[2020-09-12] MEDS: 0.9% Saline Lock 10 ML Syringe IV (08:28)
[2020-09-12 14:22] LABS: Pathologist Review Reviewed
--- NOTE | 2020-09-12 14:43 | CON.PCM_ITS ---
Problem List (1) COVID-19 Status: Acute Reason for Consult: covid Consulted by: Dr. Aguilar History of Present Illness: The patient is a 65 year old F with CKD, presented with 10 days of cough, SOB, diarrhea. Sx started 09/12. sick prior to her. No one else at home. Admitted with hypoxia, started on steroids, feeling about the same today. Full ROS performed and neg except as noted above. - Medical History Past Medical History (Chronic Problems): Chronic Problems Chronic kidney disease, stage IV (severe) (Chronic) Hypertension (Chronic) Polycystic kidney disease (Chronic) Allergies/Adverse Reactions: Allergies sulfamethoxazole [From ] Allergy (Verified 09/10/20 19:46) Hives trimethoprim [From ] Allergy (Verified 09/10/20 19:46) Hives Home Medications: Ambulatory Orders Medication Instructions Recorded Amlodipine Besylate 5 mg PO DAILY 07/27/20 Aspirin [Aspirin, Baby] 81 mg PO DAILY 07/27/20 Calcium Carbonate/Vitamin D3 1 ea PO DAILY 07/27/20 [Calcium 500+D Tablet Chew] Clobetasol/Skin Cleanser No.28 1 ea TP PRN PRN 07/27/20 [Clodan 0.05% Kit] Denosumab [Prolia] 60 mg SQ X1 07/27/20 Dorzolamide HCL/Timolol [Cosopt 1 drp OPHTHALMIC (EYE) BID 07/27/20 Opth Drops] Ergocalciferol [Vitamin D] 50,000 unit PO Q7D 07/27/20 Latanoprost 2.5 ml OP DAILY 07/27/20 Tolvaptan [Jynarque] 1 ea PO BID 07/27/20 - Social History Tobacco Use: non-smoker Vital Signs Temp Pulse Resp BP Pulse Ox 98.3 F 67 16 95/59 L 93 09/12/20 14:20 09/12/20 14:20 09/12/20 14:20 09/12/20 14:20 09/12/20 14:20 Oxygen Flow Rate (L/min) 7 Oxygen Delivery Method Nasal Cannula Weight: 60.2 kg Body Mass Index (BMI) 22.8 Microbiology Past 72 Hours 09/10/20 13:20 Blood Culture - Preliminary Blood Culture (Wb) - Left Hand No growth in 48 hours. 10/17/20 13:10 Blood Culture - Preliminary Blood Culture (Wb) - Anticubital Left No growth in 48 hours. Laboratory Tests Past 24 Hrs 09/11/20 09/12/20 04:15 05:45 [address] Review Reviewed Sodium 139 Potassium 4.1 Chloride 111 H Carbon Dioxide 14.0 L Anion Gap 14 BUN 92 H Creatinine 4.31 H Estim Creat Clear Calc 10.94 Est GFR (MDRD) Af Amer 13 L Est GFR (MDRD) Non-Af 11 L BUN/Creatinine Ratio 21.3 H Glucose 149 H Calcium 6.8 L - Other Studies Radiology: [] reviewed Other Studies: [] Route of nutrition/ use of supplements: [] Nutritional Intake: [] IV Site: [] Jorge Catheter: [] - Physical Exam General: Alert, Oriented x3, Cooperative, No apparent distress HEENT: Atraumatic, PERRLA, EOMI Neck: Supple, No Nodes Lungs: Diminished Cardiovascular: Regular rate, Regular Rhythm, No murmurs Abdomen: Soft, Non Tender, Non-Distended Extremities: No edema Skin: No rashes IV Site: Peripheral, without redness Musculoskeletal: No Tenderness to Palpation of Joints or Extremities Neurological: Cranial nerves II-XII grossly intact - Assessment/Plan Antibiotics: [] Assessment/Plan: [] Active and Suspected Problems Respiratory failure (Acute) Acute on chronic renal failure (Acute) Acute kidney injury superimposed on chronic kidney disease (Acute) COVID-19 (Acute) On dex. Reviewed EUA with her and risks/benefits of plasma. She gave consent, will check ABO and start. Will follow, thank you.
--- NOTE | 2020-09-12 15:05 | CASEMGMT ---
RN CM called patient for initial transition planning/care coordination assessment. RN CM introduced self and role at [facility]. Patient alert and oriented. Patient willing to participate in assessment and is able to answer all questions appropriately. Care providers, pharmacy, and demographics verified. Patient wishes to discharge home, denies need for home health at this time. Will monitor for need for home oxygen. Patient states she has no further needs or concerns at this time. CM to follow for discharge planning needs that may arise. PCP: Benji Palacios Specialists: Tony career specialist Preferred Pharmacy: [facility] Insurance: [employer] Prescription Benefit: yes Living Will/HPOA: yes, Adrian Cotton LNOK: Living Arrangements: Patient lives with in a 1.5 story home with bed and bath on the main level. 2 steps to enter the home. Patient states she is independent at home. Transportation: self/ DME/HHC: Patient denies previous HHC or DME. Will monitor for need for home oxygen at discharge. Disposition Plan: Patient to discharge home with family support and follow-up plans in place. Lydia SZYMANSKI, RN, CM
[2020-09-12] MEDS: Latanoprost 0.005% 1 Bottle 1 DRP EACH EYE (21:33)
[2020-09-13] VITALS (19 sets, daily range): BP systolic 97–113; BP diastolic 60–71; PULSE 53–78; RESP 16–18; TEMP 36.3–36.7; O2SAT 92–95
[2020-09-13] MEDS: BENZOCAINE/MENTHOL 1 LOZENGE 2 LOZENGE MUCOUS MEM ×2 (01:34→16:11)
[2020-09-13] MEDS: 0.9% Saline Lock 10 ML Syringe IV ×2 (03:19→09:14)
--- NOTE | 2020-09-13 08:20 | PCM.PN.HOSP ---
Patient Problems: Active and Suspected Problems Respiratory failure (Acute) Acute on chronic renal failure (Acute) Acute kidney injury superimposed on chronic kidney disease (Acute) COVID-19 (Acute) Reason for Visit: Follow-up for Covid pneumonia Objective: Patient did not had any fever or chills. No nausea or vomiting or diarrhea. No abdominal pain. Still on similar to off oxygen. Physical exam General: Alert, Oriented x3, Cooperative HEENT: Atraumatic, PERRLA, EOMI, Normocephalic Oral: No Gingival or Mucosal Lesions/ Ulcerations Neck: Supple, No JVD, Negative Carotid Bruits Lungs: Air entry diminished in bilateral lung bases. Mild bilateral rhonchi Cardiovascular: Regular rate, Regular Rhythm, Normal S1, Normal S2, No murmurs Abdomen: Bowel Sounds Present, Soft, Non Tender, Non-Distended : No renal angle tenderness. No suprapubic tenderness. Extremities: No edema, Capillary Refill Less than 3 Seconds Skin: No rashes, No breakdown Musculoskeletal: No Tenderness to Palpation of Joints or Extremities Neurological: Cranial nerves II-XII grossly intact, Deep Tendon Reflexes 2+/4 and Symmetrical, Neuro grossly intact Psych/Mental Status: Normal Affect, Appropriate. Vitals/I&O's: Vital Signs Temp Pulse Resp BP Pulse Ox 97.9 F 53 L 17 110/63 92 09/13/20 05:32 09/13/20 07:00 09/13/20 05:32 09/13/20 05:32 09/13/20 05:32 Oxygen Flow Rate (L/min) 7 Oxygen Delivery Method Nasal Cannula Weight: 132 lb 11.492 oz Body Mass Index (BMI) 22.8 Intake and Output for Last 24 Hours 09/11/20 09/12/20 09/13/20 23:59 23:59 23:59 Intake Total 1147.17 / 1147.17 1150 / 1150 450 / 450 Output Total 1000 / 1000 200 / 200 Balance 147.17 / 147.17 950 / 950 450 / 450 Microbiology Past 72 Hours 09/10/20 13:20 Blood Culture (Wb) - Left Hand Blood Culture - Preliminary No growth in 48 hours. 09/10/20 13:10 Blood Culture (Wb) - Anticubital Left Blood Culture - Preliminary No growth in 48 hours. Laboratory Results 09/11/20 04:15: Diff Path Review Reviewed 09/12/20 18:06: Blood Type O NEGATIVE Current Medications Acetaminophen (Acetaminophen 325 Mg Tablet) 650 mg PO Q6H PRN PRN PRN Reason: Pain Score 1-10/Temp > 100.7 F Albuterol Sulfate (Albuterol Ih 8.5 Gm (Proair) Inhaler (200 Puffs)) 2 puff INHALATION Q4H PRN PRN PRN Reason: Shortness of breath, wheezing Amlodipine Besylate (Amlodipine 5 Mg Tablet) 5 mg PO DAILY [facility] Last Admin: 09/12/20 08:26 Dose: 5 mg Documented by: Apixaban (Apixaban 5 Mg Tablet) 5 mg PO BID [facility] Last Admin: 09/12/20 21:37 Dose: 5 mg Documented by: Aspirin (Aspirin 81 Mg Tab.Chew) 81 mg PO DAILYCM [facility] Last Admin: 09/12/20 08:22 Dose: 81 mg Documented by: Dexamethasone Sodium Phosphate (Dexamethasone 10 Mg/Ml Vial) 6 mg IV DAILY [facility] Last Admin: 09/12/20 08:26 Dose: 6 mg Documented by: Dorzolamide/Timolol (Dorzolamide Hcl/Timolol 10 Ml Bottle) 1 drop EACH EYE BID [facility] Last Admin: 09/12/20 21:37 Dose: 1 drop Documented by: Guaifenesin (Guaifenesin 10 Ml Udc (200mg/10ml)) 10 ml PO Q6H PRN PRN PRN Reason: COUGH Latanoprost (Latanoprost 0.005% 1 Bottle) 1 drop EACH EYE QHS [facility] Last Admin: 09/12/20 21:33 Dose: 1 drop Documented by: Miscellaneous Information (Inhaler, Assist Devices 1 Each Spacer) 1 each INHALATION PRN PRN PRN Reason: WITH ALBUTEROL MDI Nutritional Formula (Lactose Free) (Ensure Clear 120 Ml Liquid) 120 ml PO TIDCM [facility] Last Admin: 09/12/20 16:27 Dose: 120 ml Documented by: Ondansetron HCl (Ondansetron 4 Mg/2 Ml Vial) 4 mg IV Q8H PRN PRN PRN Reason: NAUSEA/VOMITING Sodium Chloride (0.9% Saline Lock 10 Ml Syringe) 10 - 40 ml IV UD PRN PRN Reason: SALINE FLUSH Last Admin: 09/13/20 03:19 Dose: 10 ml Documented by: Throat Lozenges (Benzocaine/Menthol 1 Lozenge) 2 lozenge MUCOUS MEM Q2H PRN PRN PRN Reason: Cough/sore throat Last Admin: 09/13/20 01:34 Dose: 2 lozenge Documented by: Zolpidem Tartrate (Zolpidem Tartrate 5 Mg Tablet) 5 mg PO QHS PRN PRN PRN Reason: INSOMNIA STROKE Vital Signs/Narrative: Vital Signs Temp Pulse Resp BP Pulse Ox 09/13/20 07:00 53 L 09/13/20 05:32 97.9 F 62 17 110/63 92 09/13/20 05:11 97.9 F 62 18 103/65 94 09/13/20 04:32 97.9 F 65 18 97/67 93 Medical Necessity - Tobacco Use Smoking Status: Never smoker Assessment/Plan All Active Problems Respiratory failure (Acute) Acute on chronic renal failure (Acute) Acute respiratory insufficiency (Acute) Acute kidney injury superimposed on chronic kidney disease (Acute) COVID-19 (Acute) #1 acute hypoxic respiratory failure secondary to acute bilateral COVID-19 pneumonia-patient on Decadron and Eliquis 5 mg p.o. twice daily. continue present treatment. 09/13: ID consult was done. Continue Decadron. Risk and benefits of UVJ, convalescent plasma therapy discussed and she agreed to consent. The process of congestion started. #2 acute on chronic kidney disease stage IV-secondary to polycystic kidney disease and continue to monitor BMP, patient's Tolvaptan will be held at this time, as there is no one available at home to bring the medication. Sodium level and creatinine on baseline. #3 essential hypertension-continue present medication #4 glaucoma - patient's eyedrops Microbiology Past 72 Hours 09/10/20 13:20 Blood Culture (Wb) - Left Hand Blood Culture - Preliminary No growth in 48 hours. 09/10/20 13:10 Blood Culture (Wb) - Anticubital Left Blood Culture - Preliminary No growth in 48 hours. Laboratory Results 09/11/20 04:15: Diff Path Review Reviewed 09/12/20 18:06: Blood Type O NEGATIVE Inpatient E&M: 48323 Subs Hosp L2
[2020-09-13 08:46] LABS: Absolute Lymphocyte Count 0.49 X10^3/uL (0.83-4.51); Absolute Neutrophil Count 7.3 X10^3/uL (2.0-7.7); Hematocrit 30.9 % (37-47); Hemoglobin 9.7 g/dL (12.0-15.0); Lymphocyte # 0.49 X10^3/ul (4.0); Mean Corp Hgb Conc 31.4 g/dL (32-36); Mean Corpuscular Hgb 29.5 pg (27.0-32.0); Mean Corpuscular Volume 93.9 fL (81-99); Mean Platelet Vol. 9.4 fl (6.2-12.0); Monocyte# 0.27 X10^3/uL; Monocyte% 3.3 % (0-10); NRBC Flagged by Analyzer 0 % (0-5); Neutrophil # 7.34 X10^3/uL (2.7-7.7); Neutrophil % 89.7 % (47-70); POSITIVE DIFFERENTIAL YES; POSITIVE MORPHOLOGY YES; Platelet Count 250 K/mm3 (150-450); RBC Distribution Width CV 14.5 % (11.6-14.6); RBC Distribution Width SD 50.2 fl (35.1-43.9); Red Blood Count 3.29 M/mm3 (4.2-5.4); White Blood Count 8.2 K/mm3 (4.4-11.0)
[2020-09-13 08:47] LABS: Differential Indicated SCAN CRITERIA MET
[2020-09-13] MEDS: Aspirin 81 MG TAB.CHEW PO (09:11)
[2020-09-13] MEDS: Dorzolamide HCL/Timolol 10 ml Bottle 1 DRP EACH EYE ×2 (09:11→20:40)
[2020-09-13] MEDS: APIXABAN 5 MG TABLET PO ×2 (09:11→20:38)
[2020-09-13] MEDS: amLODIPine 5 MG Tablet PO (09:11)
[2020-09-13] MEDS: dexAMETHasone 10 MG/ML Vial 6 MG IV (09:14)
[2020-09-13 09:23] LABS: ALB/GLOB Ratio 0.6 RATIO (0.9-2.4); AST(SGOT) 45 U/L (15-37); Alanine Aminotransfer ALT/SGPT 40 U/L (13-56); Albumin, Serum 2.6 g/dL (3.2-5.0); Alkaline Phosphatase 59 U/L (45-117); Anion Gap 11 (5-15); BUN 104 mg/dL (7-18); BUN/Creat Ratio 24.4 RATIO (10-20); CPK Total, Creatine Kinase 152 U/L (26-192); Calcium,Total 7.1 mg/dL (8.5-10.1); Chloride 114 mmol/L (98-107); Creatinine, Serum 4.27 mg/dL (0.55-1.02); EST Glomerular Filtration Rate 11 mL/min (>60); Est Glom Filt Rate - Afr Amer 13 mL/min (>60); Estimated Creatinine Clearance 11.04 ml/min; Globulin 4.7 g/dL (2.2-4.2); Glucose 146 mg/dL (74-106); Magnesium 2.5 mg/dL (1.6-2.6); Potassium 4.1 mmol/L (3.5-5.1); Protein, Total 7.3 g/dL (6.4-8.2); Sodium Level 140 mmol/L (136-145)
[2020-09-13] MEDS: guaiFENesin 1,200 MG Tablet 1200 MG PO ×2 (10:34→20:38)
[2020-09-13] MEDS: Ensure Clear 120 ML Liquid PO (12:35)
--- NOTE | 2020-09-13 13:20 | PN_ITS ---
Patient Problems: Active and Suspected Problems Respiratory failure (Acute) Acute on chronic renal failure (Acute) Acute kidney injury superimposed on chronic kidney disease (Acute) COVID-19 (Acute) Subjective: The patient was seen and examined at the bedside this morning. Events from the last 24 hours have been reviewed. The patient is currently afebrile, hemodynamically stable and maintaining appropriate oxygen saturations on 5 L/min via nasal cannula. The patient did receive convalescent plasma. Objective: The patient's most recent lab work, culture data and imaging studies have all been personally reviewed. Coronavirus PCR was positive on September 10. Blood cultures have not demonstrated any growth to date. - Physical Exam Vitals/I&O's: Vital Signs Temp Pulse Resp BP Pulse Ox 97.9 F 78 17 103/64 94 09/13/20 10:35 09/13/20 10:35 09/13/20 10:35 09/13/20 10:35 09/13/20 10:35 Oxygen Flow Rate (L/min) 5 Oxygen Delivery Method Nasal Cannula Weight: 132 lb 11.492 oz Body Mass Index (BMI) 22.8 Intake and Output for Last 24 Hours 09/11/20 09/12/20 09/13/20 23:59 23:59 23:59 Intake Total 1147.17 / 1147.17 1150 / 1150 790 / 790 Output Total 1000 / 1000 200 / 200 Balance 147.17 / 147.17 950 / 950 790 / 790 General: Alert, Cooperative, No apparent distress HEENT: Atraumatic, PERRLA, Normocephalic Oral: No Gingival or Mucosal Lesions/ Ulcerations Neck: Supple, No Nodes, Trachea Midline Lungs: Diminished Cardiovascular: Regular rate, Regular Rhythm Abdomen: Bowel Sounds Present, Soft, Non Tender Extremities: No clubbing, No cyanosis, No edema Skin: No breakdown Musculoskeletal: No Tenderness to Palpation of Joints or Extremities Lymphatic: No Cervical, Supraclavicular, or Inguinal Adenopathy Neurological: Cranial nerves II-XII grossly intact, Neuro grossly intact Psych/Mental Status: Normal Affect, Appropriate Labs (Last 48 Hours) 09/11/20 09/12/20 09/12/20 04:15 05:45 18:06 WBC RBC Hgb Hct MCV MCH MCHC RDW Std Deviation RDW Coeff of Remy Plt Count MPV Immature Gran % (Auto) Neut % (Auto) Lymph % (Auto) [place] % (Auto) Eos % (Auto) Baso % (Auto) Absolute Neuts (auto) Absolute Lymphs (auto) Nucleated RBC % Differential Comment Diff Path Review Reviewed Sodium 139 Potassium 4.1 Chloride 111 H Carbon Dioxide 14.0 L Anion Gap 14 BUN 92 H Creatinine 4.31 H Estim Creat Clear Calc 10.94 Est GFR (MDRD) Af Amer 13 L Est GFR (MDRD) Non-Af 11 L BUN/Creatinine Ratio 21.3 H Glucose 149 H Calcium 6.8 L Magnesium Total Bilirubin AST ALT Alkaline Phosphatase Total Creatine Kinase C-React Prot Ext Range Total Protein Albumin Globulin Albumin/Globulin Ratio Blood Type O NEGATIVE 09/13/20 09/13/20 08:36 08:36 WBC 8.2 RBC 3.29 L Hgb 9.7 L Hct 30.9 L MCV 93.9 MCH 29.5 MCHC 31.4 L RDW Std Deviation 50.2 H RDW Coeff of Remy 14.5 Plt Count 250 MPV 9.4 Immature Gran % (Auto) 1.000 H Neut % (Auto) 89.7 H Lymph % (Auto) 6.0 L [place] % (Auto) 3.3 Eos % (Auto) 0.0 Baso % (Auto) 0.0 Absolute Neuts (auto) 7.3 Absolute Lymphs (auto) 0.49 L Nucleated RBC % 0 Differential Comment COMMENT Diff Path Review Sodium 140 Potassium 4.1 Chloride 114 H Carbon Dioxide 15.0 L Anion Gap 11 BUN 104 H* Creatinine 4.27 H Estim Creat Clear Calc 11.04 Est GFR (MDRD) Af Amer 13 L Est GFR (MDRD) Non-Af 11 L BUN/Creatinine Ratio 24.4 H Glucose 146 H Calcium 7.1 L Magnesium 2.5 Total Bilirubin 0.30 AST 45 H ALT 40 Alkaline Phosphatase 59 Total Creatine Kinase 152 C-React Prot Ext Range 34.50 H Total Protein 7.3 Albumin 2.6 L Globulin 4.7 H Albumin/Globulin Ratio 0.6 L Blood Type Microbiology 09/10/20 13:20 Blood Culture (Wb) - Left Hand Blood Culture - Preliminary No growth in 48 hours. 09/10/20 13:10 Blood Culture (Wb) - Anticubital Left Blood Culture - Preliminary No growth in 48 hours. Clinical Impression(s) from Imaging Studies Chest X-Ray 09/10/20 13:27 Current Medications Acetaminophen (Acetaminophen 325 Mg Tablet) 650 mg PO Q6H PRN PRN PRN Reason: Pain Score 1-10/Temp > 100.7 F Albuterol Sulfate (Albuterol Ih 8.5 Gm (Proair) Inhaler (200 Puffs)) 2 puff INHALATION Q4H PRN PRN PRN Reason: Shortness of breath, wheezing Amlodipine Besylate (Amlodipine 5 Mg Tablet) 5 mg PO DAILY [facility] Last Admin: 09/13/20 09:11 Dose: 5 mg Documented by: Apixaban (Apixaban 5 Mg Tablet) 5 mg PO BID [facility] Last Admin: 09/13/20 09:11 Dose: 5 mg Documented by: Aspirin (Aspirin 81 Mg Tab.Chew) 81 mg PO DAILYCM [facility] Last Admin: 09/13/20 09:11 Dose: 81 mg Documented by: Dexamethasone Sodium Phosphate (Dexamethasone 10 Mg/Ml Vial) 6 mg IV DAILY [facility] Last Admin: 09/13/20 09:14 Dose: 6 mg Documented by: Dorzolamide/Timolol (Dorzolamide Hcl/Timolol 10 Ml Bottle) 1 drop EACH EYE BID [facility] Last Admin: 09/13/20 09:11 Dose: 1 drop Documented by: Guaifenesin (Guaifenesin 1,200 Mg Tablet) 1,200 mg PO BID [facility] Last Admin: 09/13/20 10:34 Dose: 1,200 mg Documented by: Latanoprost (Latanoprost 0.005% 1 Bottle) 1 drop EACH EYE QHS [facility] Last Admin: 09/12/20 21:33 Dose: 1 drop Documented by: Miscellaneous Information (Inhaler, Assist Devices 1 Each Spacer) 1 each INHALATION PRN PRN PRN Reason: WITH ALBUTEROL MDI Nutritional Formula (Lactose Free) (Ensure Clear 120 Ml Liquid) 120 ml PO TIDCM [facility] Last Admin: 09/13/20 12:35 Dose: 120 ml Documented by: Ondansetron HCl (Ondansetron 4 Mg/2 Ml Vial) 4 mg IV Q8H PRN PRN PRN Reason: NAUSEA/VOMITING Sodium Chloride (0.9% Saline Lock 10 Ml Syringe) 10 - 40 ml IV UD PRN PRN Reason: SALINE FLUSH Last Admin: 09/13/20 09:14 Dose: 10 ml Documented by: Throat Lozenges (Benzocaine/Menthol 1 Lozenge) 2 lozenge MUCOUS MEM Q2H PRN PRN PRN Reason: Cough/sore throat Last Admin: 09/13/20 01:34 Dose: 2 lozenge Documented by: Zolpidem Tartrate (Zolpidem Tartrate 5 Mg Tablet) 5 mg PO QHS PRN PRN PRN Reason: INSOMNIA Medical Necessity - Tobacco Use Smoking Status: Never smoker Assessment/Plan All Active Problems Respiratory failure (Acute) Acute on chronic renal failure (Acute) Acute respiratory insufficiency (Acute) Acute kidney injury superimposed on chronic kidney disease (Acute) COVID-19 (Acute) RECOMMENDATIONS: 1. Wean supplemental oxygen to maintain oxygen saturations at or above 90%. 2. Continue Decadron x10 days. 3. Continue systemic anticoagulation with Eliquis. 4. Encourage incentive spirometer use and mobilize patient as tolerated. IMPRESSIONS: 1. Acute hypoxic respiratory failure secondary to acute bilateral COVID-19 pneumonia Plan to continue current supportive measures including supplemental oxygen to maintain saturations at or above 90%. Plan to continue systemic anticoagulation with Eliquis as ordered. Continue Decadron with plans for a 10-day treatment course. Given the patient's high supplemental oxygen requirement, the patient did receive convalescent plasma. Infectious diseases is following. 2. Acute on chronic kidney disease/polycystic kidney disease Patient with significant elevation of creatinine and BUN on presentation. The patient's acute kidney injury may be prerenal in etiology, as there has been improvement in creatinine with gentle IV fluid hydration. I would have a low th reshold to obtain a nephrology consultation, if creatinine does not continue to improve. 3. Advanced age/glaucoma/thin build Complicates care, management, recovery and prognosis. Continue current supportive measures as noted above. This note was generated with [employer] dictation software. It may contain incorrect words, spelling, and punctuation that were not noted in checking the note before signing. Inpatient E&M: 43926 Subs Hosp L2
--- NOTE | 2020-09-13 14:23 | CASEMGMT ---
RN CM Note: Intro role of CM to patient via phone. She remains on oxygen. Discussed local providers and patient states if needed to dc, she does not have a preference and is agreeable to [facility]. her is also @ [facility] and she states they would prefer the same DME provider. Will continue to follow for Home oxygen needs on dc.
--- NOTE | 2020-09-13 15:09 | PCM.PN.ID ---
Patient Problems: Active and Suspected Problems Respiratory failure (Acute) Acute on chronic renal failure (Acute) Acute kidney injury superimposed on chronic kidney disease (Acute) COVID-19 (Acute) Subjective: Feeling better today, less SOB, no aches. Got plasma last night. - Physical Exam Vitals/I&O's: Vital Signs Temp Pulse Resp BP Pulse Ox 97.9 F 78 17 103/64 94 09/13/20 10:35 09/13/20 10:35 09/13/20 10:35 09/13/20 10:35 09/13/20 10:35 Oxygen Flow Rate (L/min) 5 Oxygen Delivery Method Nasal Cannula Weight: 60.2 kg Body Mass Index (BMI) 22.8 Intake and Output for Last 24 Hours 09/11/20 09/12/20 09/13/20 23:59 23:59 23:59 Intake Total 1147.17 / 1147.17 1150 / 1150 790 / 790 Output Total 1000 / 1000 200 / 200 Balance 147.17 / 147.17 950 / 950 790 / 790 General: Alert, Cooperative, No apparent distress Lungs: Clear to auscultation - improved Cardiovascular: Regular rate, Regular Rhythm Abdomen: Soft, Non Tender, Non-Distended Skin: No rashes Microbiology Past 72 Hours 09/10/20 13:20 Blood Culture (Wb) - Left Hand Blood Culture - Preliminary No growth in 48 hours. 09/10/20 13:10 Blood Culture (Wb) - Anticubital Left Blood Culture - Preliminary No growth in 48 hours. Laboratory Results 09/12/20 18:06: Blood Type O NEGATIVE 09/13/20 08:36: WBC 8.2, RBC 3.29 L, Hgb 9.7 L, Hct 30.9 L, MCV 93.9, MCH 29.5, MCHC 31.4 L, RDW Std Deviation 50.2 H, RDW Coeff of Remy 14.5, Plt Count 250, MPV 9.4, Immature Gran % (Auto) 1.000 H, Neut % (Auto) 89.7 H, Lymph % (Auto) 6.0 L, [place] % (Auto) 3.3, Eos % (Auto) 0.0, Baso % (Auto) 0.0, Absolute Neuts (auto) 7.3, Absolute Lymphs (auto) 0.49 L, Nucleated RBC % 0, Differential Comment COMMENT 09/13/20 08:36: Sodium 140, Potassium 4.1, Chloride 114 H, Carbon Dioxide 15.0 L, Anion Gap 11, BUN 104 H*, Creatinine 4.27 H, Estim Creat Clear Calc 11.04, Est GFR (MDRD) Af Amer 13 L, Est GFR (MDRD) Non-Af 11 L, BUN/Creatinine Ratio 24.4 H, Glucose 146 H, Calcium 7.1 L, Magnesium 2.5, Total Bilirubin 0.30, AST 45 H, ALT 40, Alkaline Phosphatase 59, Total Creatine Kinase 152, C-React Prot Ext Range 34.50 H, Total Protein 7.3, Albumin 2.6 L, Globulin 4.7 H, Albumin/Globulin Ratio 0.6 L Current Medications Acetaminophen (Acetaminophen 325 Mg Tablet) 650 mg PO Q6H PRN PRN PRN Reason: Pain Score 1-10/Temp > 100.7 F Albuterol Sulfate (Albuterol Ih 8.5 Gm (Proair) Inhaler (200 Puffs)) 2 puff INHALATION Q4H PRN PRN PRN Reason: Shortness of breath, wheezing Amlodipine Besylate (Amlodipine 5 Mg Tablet) 5 mg PO DAILY [facility] Last Admin: 09/13/20 09:11 Dose: 5 mg Documented by: Apixaban (Apixaban 5 Mg Tablet) 5 mg PO BID [facility] Last Admin: 09/13/20 09:11 Dose: 5 mg Documented by: Aspirin (Aspirin 81 Mg Tab.Chew) 81 mg PO DAILYCM [facility] Last Admin: 09/13/20 09:11 Dose: 81 mg Documented by: Dexamethasone Sodium Phosphate (Dexamethasone 10 Mg/Ml Vial) 6 mg IV DAILY [facility] Last Admin: 09/13/20 09:14 Dose: 6 mg Documented by: Dorzolamide/Timolol (Dorzolamide Hcl/Timolol 10 Ml Bottle) 1 drop EACH EYE BID [facility] Last Admin: 09/13/20 09:11 Dose: 1 drop Documented by: Guaifenesin (Guaifenesin 1,200 Mg Tablet) 1,200 mg PO BID [facility] Last Admin: 09/13/20 10:34 Dose: 1,200 mg Documented by: Latanoprost (Latanoprost 0.005% 1 Bottle) 1 drop EACH EYE QHS [facility] Last Admin: 09/12/20 21:33 Dose: 1 drop Documented by: Miscellaneous Information (Inhaler, Assist Devices 1 Each Spacer) 1 each INHALATION PRN PRN PRN Reason: WITH ALBUTEROL MDI Ondansetron HCl (Ondansetron 4 Mg/2 Ml Vial) 4 mg IV Q8H PRN PRN PRN Reason: NAUSEA/VOMITING Sodium Chloride (0.9% Saline Lock 10 Ml Syringe) 10 - 40 ml IV UD PRN PRN Reason: SALINE FLUSH Last Admin: 09/13/20 09:14 Dose: 10 ml Documented by: Throat Lozenges (Benzocaine/Menthol 1 Lozenge) 2 lozenge MUCOUS MEM Q2H PRN PRN PRN Reason: Cough/sore throat Last Admin: 09/13/20 01:34 Dose: 2 lozenge Documented by: Zolpidem Tartrate (Zolpidem Tartrate 5 Mg Tablet) 5 mg PO QHS PRN PRN PRN Reason: INSOMNIA Medical Necessity - Tobacco Use Smoking Status: Never smoker Route of nutrition/ use of supplements: [] Nutritional Intake: [] IV Site: [] Jorge Catheter: [] - Assessment/Plan Antibiotics: [] Assessment/Plan: [] Active and Suspected Problems Respiratory failure (Acute) Acute on chronic renal failure (Acute) Acute kidney injury superimposed on chronic kidney disease (Acute) COVID-19 (Acute) On dex. Received plasma 09/13. Feeling better, O2 improved. Will follow
[2020-09-14] VITALS (12 sets, daily range): BP systolic 104–110; BP diastolic 58–67; PULSE 55–66; RESP 18; TEMP 36.1–36.5; O2SAT 92–95
--- NOTE | 2020-09-14 08:30 | PCM.PN.HOSP ---
Patient Problems: Active and Suspected Problems Respiratory failure (Acute) Acute on chronic renal failure (Acute) Acute kidney injury superimposed on chronic kidney disease (Acute) COVID-19 (Acute) Reason for Visit: Follow-up for COVID-19 pneumonia Objective: Patient oxygenation have improved, currently on 4 L of oxygen. No fever. Physical exam General: Alert, Oriented x3, Cooperative HEENT: Atraumatic, PERRLA, EOMI, Normocephalic Oral: No Gingival or Mucosal Lesions/ Ulcerations Neck: Supple, No JVD, Negative Carotid Bruits Lungs: Air entry diminished in bilateral lung bases. No crepitation/rhonchi Cardiovascular: Regular rate, Regular Rhythm, Normal S1, Normal S2, No murmurs Abdomen: Bowel Sounds Present, Soft, Non Tender, Non-Distended : No renal angle tenderness. No suprapubic tenderness. Extremities: No edema, Capillary Refill Less than 3 Seconds Skin: No rashes, No breakdown Musculoskeletal: No Tenderness to Palpation of Joints or Extremities Neurological: Cranial nerves II-XII grossly intact, Deep Tendon Reflexes 2+/4 and Symmetrical, Neuro grossly intact Psych/Mental Status: Normal Affect, Appropriate. Vitals/I&O's: Vital Signs Temp Pulse Resp BP Pulse Ox 97.4 F L 55 L 18 104/67 94 09/14/20 02:30 09/14/20 03:04 09/14/20 02:30 09/14/20 02:30 09/14/20 02:30 Oxygen Flow Rate (L/min) 4 Oxygen Delivery Method Nasal Cannula Weight: 132 lb 11.492 oz Body Mass Index (BMI) 22.8 Intake and Output for Last 24 Hours 09/12/20 09/13/20 09/14/20 23:59 23:59 23:59 Intake Total 1150 / 1150 1310 / 1430 170 / 170 Output Total 200 / 200 325 / 325 Balance 950 / 950 1310 / 1280 -155 / -155 Microbiology Past 72 Hours 09/10/20 13:20 Blood Culture (Wb) - Left Hand Blood Culture - Preliminary No growth in 48 hours. 09/10/20 13:10 Blood Culture (Wb) - Anticubital Left Blood Culture - Preliminary No growth in 48 hours. Laboratory Results 09/13/20 08:36: WBC 8.2, RBC 3.29 L, Hgb 9.7 L, Hct 30.9 L, MCV 93.9, MCH 29.5, MCHC 31.4 L, RDW Std Deviation 50.2 H, RDW Coeff of Remy 14.5, Plt Count 250, MPV 9.4, Immature Gran % (Auto) 1.000 H, Neut % (Auto) 89.7 H, Lymph % (Auto) 6.0 L, [place] % (Auto) 3.3, Eos % (Auto) 0.0, Baso % (Auto) 0.0, Absolute Neuts (auto) 7.3, Absolute Lymphs (auto) 0.49 L, Nucleated RBC % 0, Differential Comment COMMENT 09/13/20 08:36: Sodium 140, Potassium 4.1, Chloride 114 H, Carbon Dioxide 15.0 L, Anion Gap 11, BUN 104 H*, Creatinine 4.27 H, Estim Creat Clear Calc 11.04, Est GFR (MDRD) Af Amer 13 L, Est GFR (MDRD) Non-Af 11 L, BUN/Creatinine Ratio 24.4 H, Glucose 146 H, Calcium 7.1 L, Magnesium 2.5, Total Bilirubin 0.30, AST 45 H, ALT 40, Alkaline Phosphatase 59, Total Creatine Kinase 152, C-React Prot Ext Range 34.50 H, Total Protein 7.3, Albumin 2.6 L, Globulin 4.7 H, Albumin/Globulin Ratio 0.6 L Current Medications Acetaminophen (Acetaminophen 325 Mg Tablet) 650 mg PO Q6H PRN PRN PRN Reason: Pain Score 1-10/Temp > 100.7 F Albuterol Sulfate (Albuterol Ih 8.5 Gm (Proair) Inhaler (200 Puffs)) 2 puff INHALATION Q4H PRN PRN PRN Reason: Shortness of breath, wheezing Amlodipine Besylate (Amlodipine 5 Mg Tablet) 5 mg PO DAILY [facility] Last Admin: 09/13/20 09:11 Dose: 5 mg Documented by: Apixaban (Apixaban 5 Mg Tablet) 5 mg PO BID [facility] Last Admin: 09/13/20 20:38 Dose: 5 mg Documented by: Aspirin ([facility] 81 Mg [facility].Chew) [facility] Admin: 09/13/20 09:11 Dose: 81 mg Documented by: Dexamethasone Sodium Phosphate (Dexamethasone 10 Mg/Ml Vial) 6 mg IV DAILY [facility] Last Admin: 09/13/20 09:14 Dose: 6 mg Documented by: Dorzolamide/Timolol (Dorzolamide Hcl/Timolol 10 Ml Bottle) 1 drop EACH EYE BID [facility] Last Admin: 09/13/20 20:40 Dose: 1 drop Documented by: Guaifenesin (Guaifenesin 1,200 Mg Tablet) 1,200 mg PO BID [facility] Last Admin: 09/13/20 20:38 Dose: 1,200 mg Documented by: Latanoprost (Latanoprost 0.005% 1 Bottle) 1 drop EACH EYE QHS [facility] Last Admin: 09/13/20 20:42 Dose: Not Given Documented by: Miscellaneous Information (Inhaler, Assist Devices 1 Each Spacer) 1 each INHALATION PRN PRN PRN Reason: WITH ALBUTEROL MDI Ondansetron HCl (Ondansetron 4 Mg/2 Ml Vial) 4 mg IV Q8H PRN PRN PRN Reason: NAUSEA/VOMITING Sodium Chloride (0.9% Saline Lock 10 Ml Syringe) 10 - 40 ml IV UD PRN PRN Reason: SALINE FLUSH Last Admin: 09/13/20 09:14 Dose: 10 ml Documented by: Throat Lozenges (Benzocaine/Menthol 1 Lozenge) 2 lozenge MUCOUS MEM Q2H PRN PRN PRN Reason: Cough/sore throat Last Admin: 09/13/20 16:11 Dose: 2 lozenge Documented by: Zolpidem Tartrate (Zolpidem Tartrate 5 Mg Tablet) 5 mg PO QHS PRN PRN PRN Reason: INSOMNIA Medical Necessity - Tobacco Use Smoking Status: Never smoker Assessment/Plan All Active Problems Respiratory failure (Acute) Acute on chronic renal failure (Acute) Acute respiratory insufficiency (Acute) Acute kidney injury superimposed on chronic kidney disease (Acute) COVID-19 (Acute) #1 acute hypoxic respiratory failure secondary to acute bilateral COVID-19 pneumonia-patient on Decadron and Eliquis 5 mg p.o. twice daily. continue present treatment. 09/13: ID consult was done. Continue Decadron. Risk and benefits of UVJ, convalescent plasma therapy discussed and she agreed to consent. The process of congestion started. 09/14: Patient oxygenating better. Continue Decadron. On Eliquis for systemic anticoagulation. Continue PEP and incentive spirometry. #2 acute on chronic kidney disease stage IV-secondary to polycystic kidney disease and continue to monitor BMP, patient's Tolvaptan will be held at this time, as there is no one available at home to bring the medication. Sodium level and creatinine on baseline. #3 essential hypertension-continue present medication #4 glaucoma - patient's eyedrops Microbiology Past 72 Hours 09/10/20 13:20 Blood Culture (Wb) - Left Hand Blood Culture - Preliminary No growth in 48 hours. 09/10/20 13:10 Blood Culture (Wb) - Anticubital Left Blood Culture - Preliminary No growth in 48 hours. Laboratory Results 09/11/20 04:15: Diff Path Review Reviewed 09/12/20 18:06: Blood Type O NEGATIVE Inpatient E&M: 60009 Subs Hosp L2
[2020-09-14] MEDS: dexAMETHasone 10 MG/ML Vial 6 MG IV (10:25)
[2020-09-14] MEDS: APIXABAN 5 MG TABLET PO ×2 (10:25→21:55)
[2020-09-14] MEDS: Aspirin 81 MG TAB.CHEW PO (10:25)
[2020-09-14] MEDS: 0.9% Saline Lock 10 ML Syringe IV (10:26)
[2020-09-14] MEDS: guaiFENesin 1,200 MG Tablet 1200 MG PO ×2 (10:26→21:55)
[2020-09-14] MEDS: Dorzolamide HCL/Timolol 10 ml Bottle 1 DRP EACH EYE ×2 (10:27→21:55)
[2020-09-14] MEDS: amLODIPine 5 MG Tablet PO (13:20)
--- NOTE | 2020-09-14 13:43 | CASEMGMT ---
KITTY LINDA NOTE: Pt states she would like to have scripts for any new meds @ discharge to be sent to [facility] Retail pharmacy. This was updated in [place]. Pt states to have her husbands sent to [facility] Retail pharmacy as well. Pt denies having any other needs/concerns w/going home @ discharge at this time. KITTY LINDA will continue to follow for any Home O2 needs @ d/c. Zeus SZYMANSKI RN, CM
--- NOTE | 2020-09-14 16:56 | PN.ID_ITS ---
Patient Problems: Active and Suspected Problems Respiratory failure (Acute) Acute on chronic renal failure (Acute) Acute kidney injury superimposed on chronic kidney disease (Acute) COVID-19 (Acute) Subjective: Feeling better, down to 4L this AM, no fever - Physical Exam Vitals/I&O's: Vital Signs Temp Pulse Resp BP Pulse Ox 97.6 F L 64 18 107/65 94 09/14/20 13:18 09/14/20 15:46 09/14/20 13:18 09/14/20 13:18 09/14/20 13:18 Oxygen Flow Rate (L/min) 4 Oxygen Delivery Method Nasal Cannula Weight: 60.2 kg Body Mass Index (BMI) 22.8 Intake and Output for Last 24 Hours 09/12/20 09/13/20 09/14/20 23:59 23:59 23:59 Intake Total 1150 / 1150 1310 / 1430 420 / 420 Output Total 200 / 200 625 / 625 Balance 950 / 950 1310 / 1280 -205 / -205 General: Alert, Cooperative, No apparent distress Lungs: Clear to auscultation Cardiovascular: Regular rate, Regular Rhythm Abdomen: Soft, Non Tender, Non-Distended Skin: No rashes Microbiology Past 72 Hours 09/10/20 13:20 Blood Culture (Wb) - Left Hand Blood Culture - Preliminary No growth in 48 hours. 09/10/20 13:10 Blood Culture (Wb) - Anticubital Left Blood Culture - Preliminary No growth in 48 hours. Current Medications Acetaminophen (Acetaminophen 325 Mg Tablet) 650 mg PO Q6H PRN PRN PRN Reason: Pain Score 1-10/Temp > 100.7 F Albuterol Sulfate (Albuterol Ih 8.5 Gm (Proair) Inhaler (200 Puffs)) 2 puff INHALATION Q4H PRN PRN PRN Reason: Shortness of breath, wheezing Amlodipine Besylate (Amlodipine 5 Mg Tablet) 5 mg PO DAILY [facility] Last Admin: 09/14/20 13:20 Dose: 5 mg Documented by: Apixaban (Apixaban 5 Mg Tablet) 5 mg PO BID [facility] Last Admin: 09/14/20 10:25 Dose: 5 mg Documented by: Aspirin ([facility]in 81 Mg [facility].Chew) [facility] Last Admin: 09/14/20 10:25 Dose: 81 mg Documented by: Dexamethasone Sodium Phosphate (Dexamethasone 10 Mg/Ml Vial) 6 mg IV DAILY [facility] Last Admin: 09/14/20 10:25 Dose: 6 mg Documented by: Dorzolamide/Timolol (Dorzolamide Hcl/Timolol 10 Ml Bottle) 1 drop EACH EYE BID [facility] Last Admin: 09/14/20 10:27 Dose: 1 drop Documented by: Guaifenesin (Guaifenesin 1,200 Mg Tablet) 1,200 mg PO BID [facility] Last Admin: 09/14/20 10:26 Dose: 1,200 mg Documented by: Latanoprost (Latanoprost 0.005% 1 Bottle) 1 drop EACH EYE QHS [facility] Last Admin: 09/13/20 20:42 Dose: Not Given Documented by: Miscellaneous Information (Inhaler, Assist Devices 1 Each Spacer) 1 each INHALATION PRN PRN PRN Reason: WITH ALBUTEROL MDI Ondansetron HCl (Ondansetron 4 Mg/2 Ml Vial) 4 mg IV Q8H PRN PRN PRN Reason: NAUSEA/VOMITING Sodium Chloride (0.9% Saline Lock 10 Ml Syringe) 10 - 40 ml IV UD PRN PRN Reason: SALINE FLUSH Last Admin: 09/14/20 10:26 Dose: 10 ml Documented by: Throat Lozenges (Benzocaine/Menthol 1 Lozenge) 2 lozenge MUCOUS MEM Q2H PRN PRN PRN Reason: Cough/sore throat Last Admin: 09/13/20 16:11 Dose: 2 lozenge Documented by: Zolpidem Tartrate (Zolpidem Tartrate 5 Mg Tablet) 5 mg PO QHS PRN PRN PRN Reason: INSOMNIA Medical Necessity - Tobacco Use Smoking Status: Never smoker Route of nutrition/ use of supplements: [] Nutritional Intake: [] IV Site: [] Jorge Catheter: [] - Assessment/Plan Antibiotics: [] Assessment/Plan: [] Active and Suspected Problems Respiratory failure (Acute) Acute on chronic renal failure (Acute) Acute kidney injury superimposed on chronic kidney disease (Acute) COVID-19 (Acute) On dex. Received plasma 09/13. Feeling better, O2 improved. Spoke with son, gave update. Will follow
[2020-09-15] VITALS (12 sets, daily range): BP systolic 105–114; BP diastolic 61–66; PULSE 45–72; RESP 18; TEMP 36.2–36.6; O2SAT 93–97
[2020-09-15 06:14] LABS: Absolute Lymphocyte Count 0.72 X10^3/uL (0.83-4.51); Absolute Neutrophil Count 6.8 X10^3/uL (2.0-7.7); Basophil# 0.01 X10^3/uL; Basophil% 0.1 % (0-1); Hematocrit 31.4 % (37-47); Hemoglobin 9.9 g/dL (12.0-15.0); Lymphocyte # 0.72 X10^3/ul (4.0); Mean Corp Hgb Conc 31.5 g/dL (32-36); Mean Corpuscular Volume 95.2 fL (81-99); Mean Platelet Vol. 9.2 fl (6.2-12.0); Monocyte# 0.39 X10^3/uL; Monocyte% 4.9 % (0-10); NRBC Flagged by Analyzer 0 % (0-5); Neutrophil # 6.76 X10^3/uL (2.7-7.7); Neutrophil % 84.1 % (47-70); POSITIVE MORPHOLOGY YES; Platelet Count 383 K/mm3 (150-450); RBC Distribution Width CV 14.7 % (11.6-14.6); RBC Distribution Width SD 51.1 fl (35.1-43.9)
[2020-09-15 06:31] LABS: Differential Indicated SCAN CRITERIA MET
[2020-09-15 06:50] LABS: ALB/GLOB Ratio 0.5 RATIO (0.9-2.4); AST(SGOT) 37 U/L (15-37); Alanine Aminotransfer ALT/SGPT 40 U/L (13-56); Albumin, Serum 2.6 g/dL (3.2-5.0); Alkaline Phosphatase 59 U/L (45-117); Anion Gap 10 (5-15); BUN 113 mg/dL (7-18); Calcium,Total 7.2 mg/dL (8.5-10.1); Chloride 118 mmol/L (98-107); Creatinine, Serum 4.03 mg/dL (0.55-1.02); EST Glomerular Filtration Rate 12 mL/min (>60); Est Glom Filt Rate - Afr Amer 14 mL/min (>60); Globulin 4.8 g/dL (2.2-4.2); Glucose 112 mg/dL (74-106); Potassium 4.1 mmol/L (3.5-5.1); Protein, Total 7.4 g/dL (6.4-8.2); Sodium Level 143 mmol/L (136-145)
[2020-09-15 07:05] LABS: Differential Comment SCANNED
--- NOTE | 2020-09-15 09:09 | PN_ITS ---
Patient Problems: Active and Suspected Problems Respiratory failure (Acute) Acute on chronic renal failure (Acute) Acute kidney injury superimposed on chronic kidney disease (Acute) COVID-19 (Acute) Reason for Visit: Follow-up COVID-19 pneumonia Objective: Overall patient feeling same. Patient is doing incentive spirometry up to 1500 mL. Physical exam General: Alert, Oriented x3, Cooperative HEENT: Atraumatic, PERRLA, EOMI, Normocephalic Oral: No Gingival or Mucosal Lesions/ Ulcerations Neck: Supple, No JVD, Negative Carotid Bruits Lungs: Air entry diminished in bilateral lung bases. No crepitation/rhonchi Cardiovascular: Regular rate, Regular Rhythm, Normal S1, Normal S2, No murmurs Abdomen: Bowel Sounds Present, Soft, Non Tender, Non-Distended : No renal angle tenderness. No suprapubic tenderness. Urine is yellowish color. Extremities: No edema, Capillary Refill Less than 3 Seconds Skin: No rashes, No breakdown Musculoskeletal: No Tenderness to Palpation of Joints or Extremities Neurological: Cranial nerves II-XII grossly intact, Deep Tendon Reflexes 2+/4 and Symmetrical, Neuro grossly intact Psych/Mental Status: Normal Affect, Appropriate. Vitals/I&O's: Vital Signs Temp Pulse Resp BP Pulse Ox 97.9 F 54 L 18 111/66 94 09/15/20 03:35 09/15/20 07:39 09/15/20 03:35 09/15/20 03:35 09/15/20 03:35 Oxygen Flow Rate (L/min) 4 Oxygen Delivery Method Nasal Cannula Weight: 132 lb 11.492 oz Body Mass Index (BMI) 22.8 Intake and Output for Last 24 Hours 09/13/20 09/14/20 09/15/20 23:59 23:59 23:59 Intake Total 1310 / 1430 840 / 840 Output Total 625 / 625 Balance 1310 / 1280 215 / 215 Microbiology Past 72 Hours 09/10/20 13:20 Blood Culture (Wb) - Left Hand Blood Culture - Preliminary No growth in 48 hours. 09/10/20 13:10 Blood Culture (Wb) - Anticubital Left Blood Culture - Preliminary No growth in 48 hours. Laboratory Results 09/15/20 05:46: WBC 8.0, RBC 3.30 L, Hgb 9.9 L, Hct 31.4 L, MCV 95.2, MCH 30.0, MCHC 31.5 L, RDW Std Deviation 51.1 H, RDW Coeff of Remy 14.7 H, Plt Count 383, MPV 9.2, Immature Gran % (Auto) 1.900 H, Neut % (Auto) 84.1 H, Lymph % (Auto) 9.0 L, [place] % (Auto) 4.9, Eos % (Auto) 0.0, Baso % (Auto) 0.1, Absolute Neuts (auto) 6.8, Absolute Lymphs (auto) 0.72 L, Nucleated RBC % 0, Differential C omment SCANNED 09/15/20 05:46: Sodium 143, Potassium 4.1, Chloride 118 H, Carbon Dioxide 15.0 L , Anion Gap 10, BUN 113 H*, Creatinine 4.03 H, Estim Creat Clear Calc 11.70, Est GFR (MDRD) Af Amer 14 L, Est GFR (MDRD) Non-Af 12 L, BUN/Creatinine Ratio 28.0 H , Glucose 112 H, Calcium 7.2 L, Total Bilirubin 0.60, AST 37, ALT 40, Alkaline Phosphatase 59, Total Protein 7.4, Albumin 2.6 L, Globulin 4.8 H, Albumin/Globulin Ratio 0.5 L Current Medications Acetaminophen (Acetaminophen 325 Mg Tablet) 650 mg PO Q6H PRN PRN PRN Reason: Pain Score 1-10/Temp > 100.7 F Albuterol Sulfate (Albuterol Ih 8.5 Gm (Proair) Inhaler (200 Puffs)) 2 puff INHALATION Q4H PRN PRN PRN Reason: Shortness of breath, wheezing Amlodipine Besylate (Amlodipine 5 Mg Tablet) 5 mg PO DAILY [facility] Last Admin: 09/14/20 13:20 Dose: 5 mg Documented by: Apixaban (Apixaban 5 Mg Tablet) 5 mg PO BID [facility] Last Admin: 09/14/20 21:55 Dose: 5 mg Documented by: Aspirin (Aspirin 81 Mg [facility].Chew) [facility] Last Admin: 09/14/20 10:25 Dose: 81 mg Documented by: Dexamethasone Sodium Phosphate (Dexamethasone 10 Mg/Ml Vial) 6 mg IV DAILY [facility] Last Admin: 09/14/20 10:25 Dose: 6 mg Documented by: Dorzolamide/Timolol (Dorzolamide Hcl/Timolol 10 Ml Bottle) 1 drop EACH EYE BID [facility] Last Admin: 09/14/20 21:55 Dose: 1 drop Documented by: Guaifenesin (Guaifenesin 1,200 Mg Tablet) 1,200 mg PO BID [facility] Last Admin: 09/14/20 21:55 Dose: 1,200 mg Documented by: Latanoprost (Latanoprost 0.005% 1 Bottle) 1 drop EACH EYE QHS [facility] Last Admin: 09/14/20 21:58 Dose: Not Given Documented by: Miscellaneous Information (Inhaler, Assist Devices 1 Each Spacer) 1 each INHALATION PRN PRN PRN Reason: WITH ALBUTEROL MDI Ondansetron HCl (Ondansetron 4 Mg/2 Ml Vial) 4 mg IV Q8H PRN PRN PRN Reason: NAUSEA/VOMITING Sodium Chloride (0.9% Saline Lock 10 Ml Syringe) 10 - 40 ml IV UD PRN PRN Reason: SALINE FLUSH Last Admin: 09/14/20 10:26 Dose: 10 ml Documented by: Throat Lozenges (Benzocaine/Menthol 1 Lozenge) 2 lozenge MUCOUS MEM Q2H PRN PRN PRN Reason: Cough/sore throat Last Admin: 09/13/20 16:11 Dose: 2 lozenge Documented by: Zolpidem Tartrate (Zolpidem Tartrate 5 Mg Tablet) 5 mg PO QHS PRN PRN PRN Reason: INSOMNIA STROKE Vital Signs/Narrative: Vital Signs Pulse 09/15/20 07:39 54 L Medical Necessity - Tobacco Use Smoking Status: Never smoker Assessment/Plan All Active Problems Respiratory failure (Acute) Acute on chronic renal failure (Acute) Acute respiratory insufficiency (Acute) Acute kidney injury superimposed on chronic kidney disease (Acute) COVID-19 (Acute) #1 acute hypoxic respiratory failure secondary to acute bilateral COVID-19 pneumonia-patient on Decadron and Eliquis 5 mg p.o. twice daily. continue present treatment. 09/13: ID consult was done. Continue Decadron. Risk and benefits of UVJ, convalescent plasma therapy discussed and she agreed to consent. The process of congestion started. 09/14: Patient oxygenating better. Continue Decadron. On Eliquis for systemic anticoagulation. Continue PEP and incentive spirometry. 10/22: Oxygenation improving. On 4 L of oxygen. No tachypnea #2 acute on chronic kidney disease stage IV-secondary to polycystic kidney disease and continue to monitor BMP, patient's Tolvaptan will be held at this time, as there is no one available at home to bring the medication. Sodium level and creatinine on baseline. 09/15: Sodium 143, chloride 118, BUN 113, creatinine 4.03. Lasix 40 mg IV 1 dose ordered. #3 essential hypertension-continue present medication #4 glaucoma - patient's eyedrops Microbiology Past 72 Hours 09/10/20 13:20 Blood Culture (Wb) - Left Hand Blood Culture - Preliminary No growth in 48 hours. 09/10/20 13:10 Blood Culture (Wb) - Anticubital Left Blood Culture - Preliminary No growth in 48 hours. Laboratory Results 09/15/20 05:46: WBC 8.0, RBC 3.30 L, Hgb 9.9 L, Hct 31.4 L, MCV 95.2, MCH 30.0, MCHC 31.5 L, RDW Std Deviation 51.1 H, RDW Coeff of Remy 14.7 H, Plt Count 383, MPV 9.2, Immature Gran % (Auto) 1.900 H, Neut % (Auto) 84.1 H, Lymph % (Auto) 9.0 L, [place] % (Auto) 4.9, Eos % (Auto) 0.0, Baso % (Auto) 0.1, Absolute Neuts (auto) 6.8, Absolute Lymphs (auto) 0.72 L, Nucleated RBC % 0, Differential Comment SCANNED 09/15/20 05:46: Sodium 143, Potassium 4.1, Chloride 118 H, Carbon Dioxide 15.0 L , Anion Gap 10, BUN 113 H*, Creatinine 4.03 H, Estim Creat Clear Calc 11.70, Est GFR (MDRD) Af Amer 14 L, Est GFR (MDRD) Non-Af 12 L, BUN/Creatinine Ratio 28.0 H , Glucose 112 H, Calcium 7.2 L, Total Bilirubin 0.60, AST 37, ALT 40, Alkaline Phosphatase 59, Total Protein 7.4, Albumin 2.6 L, Globulin 4.8 H, Albumin/Globulin Ratio 0.5 L Inpatient E&M: 53263 Subs Hosp L2
[2020-09-15] MEDS: Furosemide 40 MG/4 ML Vial IV (10:09)
[2020-09-15] MEDS: 0.9% Saline Lock 10 ML Syringe IV (10:09)
[2020-09-15] MEDS: Aspirin 81 MG TAB.CHEW PO (10:09)
[2020-09-15] MEDS: dexAMETHasone 10 MG/ML Vial 6 MG IV (10:09)
[2020-09-15] MEDS: guaiFENesin 1,200 MG Tablet 1200 MG PO ×2 (10:10→21:40)
[2020-09-15] MEDS: APIXABAN 5 MG TABLET PO ×2 (10:10→21:41)
[2020-09-15] MEDS: Dorzolamide HCL/Timolol 10 ml Bottle 1 DRP EACH EYE ×2 (10:10→21:41)
[2020-09-15] MEDS: amLODIPine 5 MG Tablet PO (10:10)
--- NOTE | 2020-09-15 13:51 | PCM.PN.ID ---
Patient Problems: Active and Suspected Problems Respiratory failure (Acute) Acute on chronic renal failure (Acute) Acute kidney injury superimposed on chronic kidney disease (Acute) COVID-19 (Acute) Subjective: Feeling better today, no fever, some cough, no n/v/d. - Physical Exam Vitals/I&O's: Vital Signs Temp Pulse Resp BP Pulse Ox 97.8 F 65 18 114/66 93 09/15/20 10:06 09/15/20 10:06 09/15/20 10:06 09/15/20 10:06 09/15/20 10:06 Oxygen Flow Rate (L/min) 4 Oxygen Delivery Method Nasal Cannula Weight: 60.2 kg Body Mass Index (BMI) 22.8 Intake and Output for Last 24 Hours 09/13/20 09/14/20 09/15/20 23:59 23:59 23:59 Intake Total 1310 / 1430 840 / 840 Output Total 625 / 625 Balance 1310 / 1280 215 / 215 General: Alert, Cooperative, No apparent distress Lungs: Clear to auscultation, Normal air movement Cardiovascular: Regular rate, Regular Rhythm Abdomen: Soft, Non Tender, Non-Distended Skin: No rashes Laboratory Results 09/15/20 05:46: WBC 8.0, RBC 3.30 L, Hgb 9.9 L, Hct 31.4 L, MCV 95.2, MCH 30.0, MCHC 31.5 L, RDW Std Deviation 51.1 H, RDW Coeff of Remy 14.7 H, Plt Count 383, MPV 9.2, Immature Gran % (Auto) 1.900 H, Neut % (Auto) 84.1 H, Lymph % (Auto) 9.0 L, [place] % (Auto) 4.9, Eos % (Auto) 0.0, Baso % (Auto) 0.1, Absolute Neuts (auto) 6.8, Absolute Lymphs (auto) 0.72 L, Nucleated RBC % 0, Differential Comment SCANNED 09/15/20 05:46: Sodium 143, Potassium 4.1, Chloride 118 H, Carbon Dioxide 15.0 L, Anion Gap 10, BUN 113 H*, Creatinine 4.03 H, Estim Creat Clear Calc 11.70, Est GFR (MDRD) Af Amer 14 L, Est GFR (MDRD) Non-Af 12 L, BUN/Creatinine Ratio 28.0 H, Glucose 112 H, Calcium 7.2 L, Total Bilirubin 0.60, AST 37, ALT 40, Alkaline Phosphatase 59, Total Protein 7.4, Albumin 2.6 L, Globulin 4.8 H, Albumin/Globulin Ratio 0.5 L Current Medications Acetaminophen (Acetaminophen 325 Mg Tablet) 650 mg PO Q6H PRN PRN PRN Reason: Pain Score 1-10/Temp > 100.7 F Albuterol Sulfate (Albuterol Ih 8.5 Gm (Proair) Inhaler (200 Puffs)) 2 puff INHALATION Q4H PRN PRN PRN Reason: Shortness of breath, wheezing Amlodipine Besylate (Amlodipine 5 Mg Tablet) 5 mg PO DAILY [facility] Last Admin: 09/15/20 10:10 Dose: 5 mg Documented by: Apixaban (Apixaban 5 Mg Tablet) 5 mg PO BID [facility] Last Admin: 09/15/20 10:10 Dose: 5 mg Documented by: Aspirin (Aspirin 81 Mg Tab.Chew) [facility] Last Admin: 09/15/20 10:09 Dose: 81 mg Documented by: Dexamethasone Sodium Phosphate (Dexamethasone 10 Mg/Ml Vial) 6 mg IV DAILY [facility] Last Admin: 09/15/20 10:09 Dose: 6 mg Documented by: Dorzolamide/Timolol (Dorzolamide Hcl/Timolol 10 Ml Bottle) 1 drop EACH EYE BID [facility] Last Admin: 09/15/20 10:10 Dose: 1 drop Documented by: Guaifenesin (Guaifenesin 1,200 Mg Tablet) 1,200 mg PO BID [facility] Last Admin: 09/15/20 10:10 Dose: 1,200 mg Documented by: Latanoprost (Latanoprost 0.005% 1 Bottle) 1 drop EACH EYE QHS [facility] Last Admin: 09/14/20 21:58 Dose: Not Given Documented by: Miscellaneous Information (Inhaler, Assist Devices 1 Each Spacer) 1 each INHALATION PRN PRN PRN Reason: WITH ALBUTEROL MDI Ondansetron HCl (Ondansetron 4 Mg/2 Ml Vial) 4 mg IV Q8H PRN PRN PRN Reason: NAUSEA/VOMITING Sodium Chloride (0.9% Saline Lock 10 Ml Syringe) 10 - 40 ml IV UD PRN PRN Reason: SALINE FLUSH Last Admin: 09/15/20 10:09 Dose: 20 ml Documented by: Throat Lozenges (Benzocaine/Menthol 1 Lozenge) 2 lozenge MUCOUS MEM Q2H PRN PRN PRN Reason: Cough/sore throat Last Admin: 09/13/20 16:11 Dose: 2 lozenge Documented by: Zolpidem Tartrate (Zolpidem Tartrate 5 Mg Tablet) 5 mg PO QHS PRN PRN PRN Reason: INSOMNIA Medical Necessity - Tobacco Use Smoking Status: Never smoker Route of nutrition/ use of supplements: [] Nutritional Intake: [] IV Site: [] Jorge Catheter: [] - Assessment/Plan Antibiotics: [] Assessment/Plan: [] Active and Suspected Problems Respiratory failure (Acute) Acute on chronic renal failure (Acute) Acute kidney injury superimposed on chronic kidney disease (Acute) COVID-19 (Acute) On dex. Received plasma 09/13. Feeling better, O2 improved. [place] improving. Will follow
[2020-09-16] VITALS (10 sets, daily range): BP systolic 113–120; BP diastolic 66–78; PULSE 56–64; RESP 18; TEMP 36.4–36.6; O2SAT 94–96
--- NOTE | 2020-09-16 07:22 | PCM.PN.HOSP ---
Patient Problems: Active and Suspected Problems Respiratory failure (Acute) Acute on chronic renal failure (Acute) Acute kidney injury superimposed on chronic kidney disease (Acute) COVID-19 (Acute) Reason for Visit: Follow-up for COVID-19 pneumonia Objective: Patient afebrile. Heart rate in 50 to 65-minute. Blood pressure controlled. Pulse ox 94% on 3 L of oxygen. Denies any severe cough. No nausea vomiting or diarrhea. No chest pain or tightness. Physical exam General: Alert, Oriented x3, Cooperative HEENT: Atraumatic, PERRLA, EOMI, Normocephalic Oral: No Gingival or Mucosal Lesions/ Ulcerations Neck: Supple, No JVD, Negative Carotid Bruits Lungs: Air entry diminished in bilateral lung bases. No crepitation/rhonchi Cardiovascular: Regular rate, Regular Rhythm, Normal S1, Normal S2, No murmurs Abdomen: Bowel Sounds Present, Soft, Non Tender, Non-Distended : No renal angle tenderness. No suprapubic tenderness. Urine is yellowish color. Extremities: No edema, Capillary Refill Less than 3 Seconds Skin: No rashes, No breakdown Musculoskeletal: No Tenderness to Palpation of Joints or Extremities Neurological: Cranial nerves II-XII grossly intact, Deep Tendon Reflexes 2+/4 and Symmetrical, Neuro grossly intact Psych/Mental Status: Normal Affect, Appropriate. Vitals/I&O's: Vital Signs Temp Pulse Resp BP Pulse Ox 97.5 F L 56 L 18 115/75 94 09/16/20 03:42 09/16/20 03:59 09/16/20 03:42 09/16/20 03:42 09/16/20 03:42 Oxygen Flow Rate (L/min) 3 Oxygen Delivery Method Nasal Cannula Weight: 132 lb 11.492 oz Body Mass Index (BMI) 22.8 Intake and Output for Last 24 Hours 09/14/20 09/15/20 09/16/20 23:59 23:59 23:59 Intake Total 840 / 840 450 / 650 200 / 200 Output Total 625 / 625 900 / 900 Balance 215 / 215 -450 / -250 200 / 200 Microbiology Past 72 Hours 09/10/20 13:20 Blood Culture (Wb) - Left Hand Blood Culture - Final No growth in 5 days. 09/10/20 13:10 Blood Culture (Wb) - Anticubital Left Blood Culture - Final No growth in 5 days. Current Medications Acetaminophen (Acetaminophen 325 Mg Tablet) 650 mg PO Q6H PRN PRN PRN Reason: Pain Score 1-10/Temp > 100.7 F Albuterol Sulfate (Albuterol Ih 8.5 Gm (Proair) Inhaler (200 Puffs)) 2 puff INHALATION Q4H PRN PRN PRN Reason: Shortness of breath, wheezing Amlodipine Besylate (Amlodipine 5 Mg Tablet) 5 mg PO DAILY [facility] Last Admin: 09/15/20 10:10 Dose: 5 mg Documented by: Apixaban (Apixaban 5 Mg Tablet) 5 mg PO BID [facility] Last Admin: 09/15/20 21:41 Dose: 5 mg Documented by: Aspirin (Aspirin 81 Mg Tab.Chew) 81 mg PO DAILYCM [facility] Last Admin: 09/15/20 10:09 Dose: 81 mg Documented by: Dexamethasone Sodium Phosphate (Dexamethasone 10 Mg/Ml Vial) 6 mg IV DAILY [facility] Last Admin: 09/15/20 10:09 Dose: 6 mg Documented by: Dorzolamide/Timolol (Dorzolamide Hcl/Timolol 10 Ml Bottle) 1 drop EACH EYE BID [facility] Last Admin: 09/15/20 21:41 Dose: 1 drop Documented by: Guaifenesin (Guaifenesin 1,200 Mg Tablet) 1,200 mg PO BID [facility] Last Admin: 09/15/20 21:40 Dose: 1,200 mg Documented by: Latanoprost (Latanoprost 0.005% 1 Bottle) 1 drop EACH EYE QHS [facility] Last Admin: 09/15/20 21:43 Dose: Not Given Documented by: Miscellaneous Information (Inhaler, Assist Devices 1 Each Spacer) 1 each INHALATION PRN PRN PRN Reason: WITH ALBUTEROL MDI Ondansetron HCl (Ondansetron 4 Mg/2 Ml Vial) 4 mg IV Q8H PRN PRN PRN Reason: NAUSEA/VOMITING Sodium Chloride (0.9% Saline Lock 10 Ml Syringe) 10 - 40 ml IV UD PRN PRN Reason: SALINE FLUSH Last Admin: 09/15/20 10:09 Dose: 20 ml Documented by: Throat Lozenges (Benzocaine/Menthol 1 Lozenge) 2 lozenge MUCOUS MEM Q2H PRN PRN PRN Reason: Cough/sore throat Last Admin: 09/13/20 16:11 Dose: 2 lozenge Documented by: Zolpidem Tartrate (Zolpidem Tartrate 5 Mg Tablet) 5 mg PO QHS PRN PRN PRN Reason: INSOMNIA STROKE Vital Signs/Narrative: Vital Signs Temp Pulse Resp BP Pulse Ox 09/16/20 03:59 56 L 09/16/20 03:42 97.5 F L 61 18 115/75 94 Medical Necessity - Tobacco Use Smoking Status: Never smoker Assessment/Plan All Active Problems Respiratory failure (Acute) Acute on chronic renal failure (Acute) Acute respiratory insufficiency (Acute) Acute kidney injury superimposed on chronic kidney disease (Acute) COVID-19 (Acute) #1 acute hypoxic respiratory failure secondary to acute bilateral COVID-19 pneumonia-patient on Decadron and Eliquis 5 mg p.o. twice daily. continue present treatment. 09/13: ID consult was done. Continue Decadron. Risk and benefits of UVJ, convalescent plasma therapy discussed and she agreed to consent. The process of congestion started. 09/14: Patient oxygenating better. Continue Decadron. On Eliquis for systemic anticoagulation. Continue PEP and incentive spirometry. 09/15: Oxygenation improving. On 4 L of oxygen. No tachypnea /23: Currently on 3 L of oxygen, respiratory status is improving. Patient received plasma on 09/13. #2 acute on chronic kidney disease stage IV-secondary to polycystic kidney disease and continue to monitor BMP, patient's Tolvaptan will be held at this time, as there is no one available at home to bring the medication. Sodium level and creatinine on baseline. 09/15: Sodium 143, chloride 118, BUN 113, creatinine 4.03. Lasix 40 mg IV 1 dose was given. #3 essential hypertension-continue present medication #4 glaucoma - patient's eyedrops Microbiology Past 72 Hours 09/10/20 13:20 Blood Culture (Wb) - Left Hand Blood Culture - Preliminary No growth in 48 hours. 09/10/20 13:10 Blood Culture (Wb) - Anticubital Left Blood Culture - Preliminary No growth in 48 hours. Laboratory Results 09/15/20 05:46: WBC 8.0, RBC 3.30 L, Hgb 9.9 L, Hct 31.4 L, MCV 95.2, MCH 30.0, MCHC 31.5 L, RDW Std Deviation 51.1 H, RDW Coeff of Remy 14.7 H, Plt Count 383, MPV 9.2, Immature Gran % (Auto) 1.900 H, Neut % (Auto) 84.1 H, Lymph % (Auto) 9.0 L, Larue % (Auto) 4.9, Eos % (Auto) 0.0, Baso % (Auto) 0.1, Absolute Neuts (auto) 6.8, Absolute Lymphs (auto) 0.72 L, Nucleated RBC % 0, Differential Comment SCANNED 09/15/20 05:46: Sodium 143, Potassium 4.1, Chloride 118 H, Carbon Dioxide 15.0 L, Anion Gap 10, BUN 113 H*, Creatinine 4.03 H, Estim Creat Clear Calc 11.70, Est GFR (MDRD) Af Amer 14 L, Est GFR (MDRD) Non-Af 12 L, BUN/Creatinine Ratio 28.0 H, Glucose 112 H, Calcium 7.2 L, Total Bilirubin 0.60, AST 37, ALT 40, Alkaline Phosphatase 59, Total Protein 7.4, Albumin 2.6 L, Globulin 4.8 H, Albumin/Globulin Ratio 0.5 L Inpatient E&M: 42707 Subs Hosp L2
[2020-09-16] MEDS: Aspirin 81 MG TAB.CHEW PO (09:32)
[2020-09-16] MEDS: guaiFENesin 1,200 MG Tablet 1200 MG PO ×2 (09:33→21:21)
[2020-09-16] MEDS: Dorzolamide HCL/Timolol 10 ml Bottle 1 DRP EACH EYE ×2 (09:33→21:20)
[2020-09-16] MEDS: APIXABAN 5 MG TABLET PO ×2 (09:33→21:21)
[2020-09-16] MEDS: dexAMETHasone 10 MG/ML Vial 6 MG IV (09:33)
[2020-09-16] MEDS: amLODIPine 5 MG Tablet PO (09:34)
--- NOTE | 2020-09-16 13:02 | PN_ITS ---
Patient Problems: Active and Suspected Problems Respiratory failure (Acute) Acute on chronic renal failure (Acute) Acute kidney injury superimposed on chronic kidney disease (Acute) COVID-19 (Acute) Subjective: The patient was seen and examined at the bedside this morning. Events from the last 24 hours have been reviewed. The patient is currently afebrile, hemodynamically stable and maintaining appropriate oxygen saturations on 3 L/min via nasal cannula. Breathing quality is slowly improving. Objective: The patient's most recent lab work, culture data and imaging studies have all been personally reviewed. Coronavirus PCR was positive on September 10. Blood cultures have not demonstrated any growth to date. - Physical Exam Vitals/I&O's: Vital Signs Temp Pulse Resp BP Pulse Ox 97.8 F 63 18 113/66 95 09/16/20 09:30 09/16/20 09:30 09/16/20 09:30 09/16/20 09:30 09/16/20 09:30 Oxygen Flow Rate (L/min) 3 Oxygen Delivery Method Nasal Cannula Weight: 132 lb 11.492 oz Body Mass Index (BMI) 22.8 Intake and Output for Last 24 Hours 09/14/20 09/15/20 09/16/20 23:59 23:59 23:59 Intake Total 840 / 840 450 / 650 200 / 200 Output Total 625 / 625 900 / 900 Balance 215 / 215 -450 / -250 200 / 200 General: Alert, Cooperative, No apparent distress HEENT: Atraumatic, Normocephalic Oral: No Gingival or Mucosal Lesions/ Ulcerations Neck: Supple, No Nodes, Trachea Midline Lungs: No rhonchi, No wheeze, No rales, Diminished Cardiovascular: Regular rate, Regular Rhythm Abdomen: Bowel Sounds Present, Soft, Non Tender Extremities: No clubbing, No cyanosis, No edema Skin: No breakdown Musculoskeletal: No Tenderness to Palpation of Joints or Extremities Lymphatic: No Cervical, Supraclavicular, or Inguinal Adenopathy Neurological: Cranial nerves II-XII grossly intact, Neuro grossly intact Psych/Mental Status: Normal Affect Labs (Last 48 Hours) 09/15/20 09/15/20 05:46 05:46 WBC 8.0 RBC 3.30 L Hgb 9.9 L Hct 31.4 L MCV 95.2 MCH 30.0 MCHC 31.5 L RDW Std Deviation 51.1 H RDW Coeff of Rmey 14.7 H Plt Count 383 MPV 9.2 Immature Gran % (Auto) 1.900 H Neut % (Auto) 84.1 H Lymph % (Auto) 9.0 L [place] % (Auto) 4.9 Eos % (Auto) 0.0 Baso % (Auto) 0.1 Absolute Neuts (auto) 6.8 Absolute Lymphs (auto) 0.72 L Nucleated RBC % 0 Differential Comment SCANNED Sodium 143 Potassium 4.1 Chloride 118 H Carbon Dioxide 15.0 L Anion Gap 10 BUN 113 H* Creatinine 4.03 H Estim Creat Clear Calc 11.70 Est GFR (MDRD) Af Amer 14 L Est GFR (MDRD) Non-Af 12 L BUN/Creatinine Ratio 28.0 H Glucose 112 H Calcium 7.2 L Total Bilirubin 0.60 AST 37 ALT 40 Alkaline Phosphatase 59 Total Protein 7.4 Albumin 2.6 L Globulin 4.8 H Albumin/Globulin Ratio 0.5 L Microbiology 09/10/20 13:20 Blood Culture (Wb) - Left Hand Blood Culture - Final No growth in 5 days. 09/10/20 13:10 Blood Culture (Wb) - Anticubital Left Blood Culture - Final No growth in 5 days. Clinical Impression(s) from Imaging Studies Chest X-Ray 09/10/20 13:27 Current Medications Acetaminophen (Acetaminophen 325 Mg Tablet) 650 mg PO Q6H PRN PRN PRN Reason: Pain Score 1-10/Temp > 100.7 F Albuterol Sulfate (Albuterol Ih 8.5 Gm (Proair) Inhaler (200 Puffs)) 2 puff INHALATION Q4H PRN PRN PRN Reason: Shortness of breath, wheezing Amlodipine Besylate (Amlodipine 5 Mg Tablet) 5 mg PO DAILY [facility] Last Admin: 09/16/20 09:34 Dose: 5 mg Documented by: Apixaban (Apixaban 5 Mg Tablet) 5 mg PO BID [facility] Last Admin: 09/16/20 09:33 Dose: 5 mg Documented by: Aspirin ([facility] 81 Mg [facility]Chew) [facility] Last Admin: 09/16/20 09:32 Dose: 81 mg Documented by: Dexamethasone Sodium Phosphate (Dexamethasone 10 Mg/Ml Vial) 6 mg IV DAILY [facility] Last Admin: 09/16/20 09:33 Dose: 6 mg Documented by: Dorzolamide/Timolol (Dorzolamide Hcl/Timolol 10 Ml Bottle) 1 drop EACH EYE BID [facility] Last Admin: 09/16/20 09:33 Dose: 1 drop Documented by: Guaifenesin (Guaifenesin 1,200 Mg Tablet) 1,200 mg PO BID [facility] Last Admin: 09/16/20 09:33 Dose: 1,200 mg Documented by: Latanoprost (Latanoprost 0.005% 1 Bottle) 1 drop EACH EYE QHS [facility] Last Admin: 09/15/20 21:43 Dose: Not Given Documented by: Miscellaneous Information (Inhaler, Assist Devices 1 Each Spacer) 1 each INHALATION PRN PRN PRN Reason: WITH ALBUTEROL MDI Ondansetron HCl (Ondansetron 4 Mg/2 Ml Vial) 4 mg IV Q8H PRN PRN PRN Reason: NAUSEA/VOMITING Sodium Chloride (0.9% Saline Lock 10 Ml Syringe) 10 - 40 ml IV UD PRN PRN Reason: SALINE FLUSH Last Admin: 09/15/20 10:09 Dose: 20 ml Documented by: Throat Lozenges (Benzocaine/Menthol 1 Lozenge) 2 lozenge MUCOUS MEM Q2H PRN PRN PRN Reason: Cough/sore throat Last Admin: 09/13/20 16:11 Dose: 2 lozenge Documented by: Zolpidem Tartrate (Zolpidem Tartrate 5 Mg Tablet) 5 mg PO QHS PRN PRN PRN Reason: INSOMNIA Medical Necessity - Tobacco Use Smoking Status: Never smoker Assessment/Plan All Active Problems Respiratory failure (Acute) Acute on chronic renal failure (Acute) Acute respiratory insufficiency (Acute) Acute kidney injury superimposed on chronic kidney disease (Acute) COVID-19 (Acute) RECOMMENDATIONS: 1. Wean supplemental oxygen to maintain oxygen saturations at or above 90%. 2. Continue Decadron x10 days. 3. Continue systemic anticoagulation with Eliquis. 4. Encourage incentive spirometer use and mobilize patient as tolerated. 5. Will sign off at this time. Please call with any additional questions. IMPRESSIONS: 1. Acute hypoxic respiratory failure secondary to acute bilateral COVID-19 pneumonia Plan to continue current supportive measures including supplemental oxygen to maintain saturations at or above 90%. Plan to continue systemic anticoagulation with Eliquis as ordered. Continue Decadron with plans for a 10-day treatment course. Given the patient's high supplemental oxygen requirement, the patient did receive convalescent plasma. Infectious diseases is following. 2. Acute on chronic kidney disease/polycystic kidney disease Patient with significant elevation of creatinine and BUN on presentation. The patient's acute kidney injury may be prerenal in etiology, as there has been improvement in creatinine with gentle IV fluid hydration. I would have a low threshold to obtain a nephrology consultation, if creatinine does not continue to improve. 3. Advanced age/glaucoma/thin build Complicates care, management, recovery and prognosis. Continue current supportive measures as noted above. This note was generated with [employer] dictation software. It may contain incorrect words, spelling, and punctuation that were not noted in checking the note before signing. Inpatient E&M: 57131 Subs Hosp L2
--- NOTE | 2020-09-16 15:32 | PN.ID_ITS ---
Patient Problems: Active and Suspected Problems Respiratory failure (Acute) Acute on chronic renal failure (Acute) Acute kidney injury superimposed on chronic kidney disease (Acute) COVID-19 (Acute) Subjective: Feeling better, mild cough, no n/v/d. - Physical Exam Vitals/I&O's: Vital Signs Temp Pulse Resp BP Pulse Ox 97.8 F 63 18 113/66 96 09/16/20 09:30 09/16/20 09:30 09/16/20 09:30 09/16/20 09:30 09/16/20 12:21 Oxygen Flow Rate (L/min) 2 Oxygen Delivery Method Nasal Cannula Weight: 60.2 kg Body Mass Index (BMI) 22.8 Intake and Output for Last 24 Hours 09/14/20 09/15/20 09/16/20 23:59 23:59 23:59 Intake Total 840 / 840 450 / 650 200 / 200 Output Total 625 / 625 900 / 900 Balance 215 / 215 -450 / -250 200 / 200 General: Alert, Cooperative, No apparent distress Lungs: Clear to auscultation, Normal air movement Cardiovascular: Regular rate, Regular Rhythm Abdomen: Soft, Non Tender, Non-Distended Skin: No rashes Microbiology Past 72 Hours 09/10/20 13:20 Blood Culture (Wb) - Left Hand Blood Culture - Final No growth in 5 days. 09/10/20 13:10 Blood Culture (Wb) - Anticubital Left Blood Culture - Final No growth in 5 days. Current Medications Acetaminophen (Acetaminophen 325 Mg Tablet) 650 mg PO Q6H PRN PRN PRN Reason: Pain Score 1-10/Temp > 100.7 F Albuterol Sulfate (Albuterol Ih 8.5 Gm (Proair) Inhaler (200 Puffs)) 2 puff INHALATION Q4H PRN PRN PRN Reason: Shortness of breath, wheezing Amlodipine Besylate (Amlodipine 5 Mg Tablet) 5 mg PO DAILY [facility] Last Admin: 09/16/20 09:34 Dose: 5 mg Documented by: Apixaban (Apixaban 5 Mg Tablet) 5 mg PO BID [facility] Last Admin: 09/16/20 09:33 Dose: 5 mg Documented by: Aspirin (Aspirin 81 Mg Tab.Chew) [address] [facility] Last Admin: 09/16/20 09:32 Dose: 81 mg Documented by: Dexamethasone Sodium Phosphate (Dexamethasone 10 Mg/Ml Vial) 6 mg IV DAILY [facility] Last Admin: 09/16/20 09:33 Dose: 6 mg Documented by: Dorzolamide/Timolol (Dorzolamide Hcl/Timolol 10 Ml Bottle) 1 drop EACH EYE BID [facility] Last Admin: 09/16/20 09:33 Dose: 1 drop Documented by: Guaifenesin (Guaifenesin 1,200 Mg Tablet) 1,200 mg PO BID [facility] Last Admin: 09/16/20 09:33 Dose: 1,200 mg Documented by: Latanoprost (Latanoprost 0.005% 1 Bottle) 1 drop EACH EYE QHS [facility] Last Admin: 09/15/20 21:43 Dose: Not Given Documented by: Miscellaneous Information (Inhaler, Assist Devices 1 Each Spacer) 1 each INHALATION PRN PRN PRN Reason: WITH ALBUTEROL MDI Ondansetron HCl (Ondansetron 4 Mg/2 Ml Vial) 4 mg IV Q8H PRN PRN PRN Reason: NAUSEA/VOMITING Sodium Chloride (0.9% Saline Lock 10 Ml Syringe) 10 - 40 ml IV UD PRN PRN Reason: SALINE FLUSH Last Admin: 09/15/20 10:09 Dose: 20 ml Documented by: Throat Lozenges (Benzocaine/Menthol 1 Lozenge) 2 lozenge MUCOUS MEM Q2H PRN PRN PRN Reason: Cough/sore throat Last Admin: 09/13/20 16:11 Dose: 2 lozenge Documented by: Zolpidem Tartrate (Zolpidem Tartrate 5 Mg Tablet) 5 mg PO QHS PRN PRN PRN Reason: INSOMNIA Medical Necessity - Tobacco Use Smoking Status: Never smoker Route of nutrition/ use of supplements: [] Nutritional Intake: [] IV Site: [] Jorge Catheter: [] - Assessment/Plan Antibiotics: [] Assessment/Plan: [] Active and Suspected Problems Respiratory failure (Acute) Acute on chronic renal failure (Acute) Acute kidney injury superimposed on chronic kidney disease (Acute) COVID-19 (Acute) On dex. Received plasma 09/13. Feeling better, O2 improved. [place]ISI improving. Will follow
[2020-09-17] VITALS (10 sets, daily range): BP systolic 106–120; BP diastolic 59–76; PULSE 54–98; RESP 20; TEMP 36.2–36.6; O2SAT 94–97
[2020-09-17 08:00] LABS: ALB/GLOB Ratio 0.5 RATIO (0.9-2.4); AST(SGOT) 23 U/L (15-37); Alanine Aminotransfer ALT/SGPT 34 U/L (13-56); Albumin, Serum 2.4 g/dL (3.2-5.0); Alkaline Phosphatase 53 U/L (45-117); Anion Gap 8 (5-15); BUN 104 mg/dL (7-18); BUN/Creat Ratio 29.3 RATIO (10-20); Calcium,Total 7.7 mg/dL (8.5-10.1); Chloride 121 mmol/L (98-107); Creatinine, Serum 3.55 mg/dL (0.55-1.02); EST Glomerular Filtration Rate 14 mL/min (>60); Est Glom Filt Rate - Afr Amer 17 mL/min (>60); Estimated Creatinine Clearance 13.28 ml/min; Globulin 4.8 g/dL (2.2-4.2); Glucose 90 mg/dL (74-106); Potassium 4.7 mmol/L (3.5-5.1); Protein, Total 7.2 g/dL (6.4-8.2); Sodium Level 145 mmol/L (136-145)
--- NOTE | 2020-09-17 09:09 | NURSING ---
Dr. Aguilar informed Verbally that BUN is 104 today. No new orders.
[2020-09-17] MEDS: Aspirin 81 MG TAB.CHEW PO (09:50)
[2020-09-17] MEDS: amLODIPine 5 MG Tablet PO (09:50)
[2020-09-17] MEDS: guaiFENesin 1,200 MG Tablet 1200 MG PO ×2 (09:50→22:46)
[2020-09-17] MEDS: dexAMETHasone 10 MG/ML Vial 6 MG IV (09:50)
[2020-09-17] MEDS: APIXABAN 5 MG TABLET PO ×2 (09:50→22:46)
[2020-09-17] MEDS: Dorzolamide HCL/Timolol 10 ml Bottle 1 DRP EACH EYE (09:51)
[2020-09-17] MEDS: 0.9% Saline Lock 10 ML Syringe IV (09:51)
--- NOTE | 2020-09-17 09:59 | NURSING ---
Weaned pt to 2L Nc and spo2 was 97% sitting in chair. Weaned down to 1L Nc at this time and spo2 96% on 1L Nc sitting in chair
--- NOTE | 2020-09-17 11:09 | PCM.PN.HOSP ---
Patient Problems: Active and Suspected Problems Respiratory failure (Acute) Acute on chronic renal failure (Acute) Acute kidney injury superimposed on chronic kidney disease (Acute) COVID-19 (Acute) Reason for Visit: Follow-up for COVID-19 pneumonia and CKD Objective: Patient on 2 L of oxygen. Afebrile. Heart rate and blood pressure controlled. Heart rate running in 50s to 60s per minute. No nausea, vomiting or diarrhea. No shortness of breath/dyspnea at rest Physical exam General: Alert, Oriented x3, Cooperative HEENT: Atraumatic, PERRLA, EOMI, Normocephalic Oral: No Gingival or Mucosal Lesions/ Ulcerations Neck: Supple, No JVD, Negative Carotid Bruits Lungs: Air entry diminished in bilateral lung bases. No crepitation/rhonchi Cardiovascular: Regular rate, Regular Rhythm, Normal S1, Normal S2, No murmurs Abdomen: Bowel Sounds Present, Soft, Non Tender, Non-Distended : No renal angle tenderness. No suprapubic tenderness. Urine is yellowish color. Extremities: No edema, Capillary Refill Less than 3 Seconds Skin: No rashes, No breakdown Musculoskeletal: No Tenderness to Palpation of Joints or Extremities Neurological: Cranial nerves II-XII grossly intact, Deep Tendon Reflexes 2+/4 and Symmetrical, Neuro grossly intact Psych/Mental Status: Normal Affect, Appropriate. Vitals/I&O's: Vital Signs Temp Pulse Resp BP Pulse Ox 97.1 F L 66 20 H 120/70 97 09/17/20 09:48 09/17/20 09:48 09/17/20 09:48 09/17/20 09:48 09/17/20 09:48 Oxygen Flow Rate (L/min) 2.5 Oxygen Delivery Method Nasal Cannula Weight: 132 lb 11.492 oz Body Mass Index (BMI) 22.8 Intake and Output for Last 24 Hours 09/15/20 09/16/20 09/17/20 23:59 23:59 23:59 Intake Total 450 / 650 200 / 400 400 / 400 Output Total 900 / 900 Balance -450 / -250 200 / 400 400 / 400 Microbiology Past 72 Hours 09/10/20 13:20 Blood Culture (Wb) - Left Hand Blood Culture - Final No growth in 5 days. 09/10/20 13:10 Blood Culture (Wb) - Anticubital Left Blood Culture - Final No growth in 5 days. Laboratory Results 09/17/20 06:30: Sodium 145, Potassium 4.7, Chloride 121 H, Carbon Dioxide 16.0 L, Anion Gap 8, BUN 104 H*, Creatinine 3.55 H, Estim Creat Clear Calc 13.28, Est GFR (MDRD) Af Amer 17 L, Est GFR (MDRD) Non-Af 14 L, BUN/Creatinine Ratio 29.3 H, Glucose 90, Calcium 7.7 L, Total Bilirubin 0.50, AST 23, ALT 34, Alkaline Phosphatase 53, Total Protein 7.2, Albumin 2.4 L, Globulin 4.8 H, Albumin/Globulin Ratio 0.5 L Current Medications Acetaminophen (Acetaminophen 325 Mg Tablet) 650 mg PO Q6H PRN PRN PRN Reason: Pain Score 1-10/Temp > 100.7 F Albuterol Sulfate (Albuterol Ih 8.5 Gm (Proair) Inhaler (200 Puffs)) 2 puff INHALATION Q4H PRN PRN PRN Reason: Shortness of breath, wheezing Amlodipine Besylate (Amlodipine 5 Mg Tablet) 5 mg PO DAILY [facility] Last Admin: 09/17/20 09:50 Dose: 5 mg Documented by: Apixaban (Apixaban 5 Mg Tablet) 5 mg PO BID [facility] Last Admin: 09/17/20 09:50 Dose: 5 mg Documented by: Aspirin ([facility] 81 [facility]Chew) [facility] Last Admin: 09/17/20 09:50 Dose: 81 mg Documented by: Dexamethasone Sodium Phosphate (Dexamethasone 10 Mg/Ml Vial) 6 mg IV DAILY [facility] Last Admin: 09/17/20 09:50 Dose: 6 mg Documented by: Dorzolamide/Timolol (Dorzolamide Hcl/Timolol 10 Ml Bottle) 1 drop EACH EYE BID [facility] Last Admin: 09/17/20 09:51 Dose: 1 drop Documented by: Guaifenesin (Guaifenesin 1,200 Mg Tablet) 1,200 mg PO BID [facility] Last Admin: 09/17/20 09:50 Dose: 1,200 mg Documented by: Latanoprost (Latanoprost 0.005% 1 Bottle) 1 drop EACH EYE QHS [facility] Last Admin: 09/16/20 21:21 Dose: Not Given Documented by: Miscellaneous Information (Inhaler, Assist Devices 1 Each Spacer) 1 each INHALATION PRN PRN PRN Reason: WITH ALBUTEROL MDI Ondansetron HCl (Ondansetron 4 Mg/2 Ml Vial) 4 mg IV Q8H PRN PRN PRN Reason: NAUSEA/VOMITING Sodium Chloride (0.9% Saline Lock 10 Ml Syringe) 10 - 40 ml IV UD PRN PRN Reason: SALINE FLUSH Last Admin: 09/17/20 09:51 Dose: 10 ml Documented by: Throat Lozenges (Benzocaine/Menthol 1 Lozenge) 2 lozenge MUCOUS MEM Q2H PRN PRN PRN Reason: Cough/sore throat Last Admin: 09/13/20 16:11 Dose: 2 lozenge Documented by: Zolpidem Tartrate (Zolpidem Tartrate 5 Mg Tablet) 5 mg PO QHS PRN PRN PRN Reason: INSOMNIA STROKE Vital Signs/Narrative: Vital Signs Temp Pulse Resp BP Pulse Ox 09/17/20 09:48 97.1 F L 66 20 H 120/70 97 09/17/20 07:30 57 L Medical Necessity - Tobacco Use Smoking Status: Never smoker Assessment/Plan All Active Problems Respiratory failure (Acute) Acute on chronic renal failure (Acute) Acute respiratory insufficiency (Acute) Acute kidney injury superimposed on chronic kidney disease (Acute) COVID-19 (Acute) #1 acute hypoxic respiratory failure secondary to acute bilateral COVID-19 pneumonia-patient on Decadron and Eliquis 5 mg p.o. twice daily. continue present treatment. 09/13: ID consult was done. Continue Decadron. Risk and benefits of UVJ, convalescent plasma therapy discussed and she agreed to consent. The process of congestion started. 09/14: Patient oxygenating better. #3 essential hypertension-continue present medication #4 glaucoma - patient's eyedrops Microbiology Past 72 Hours 09/10/20 13:20 Blood Culture (Wb) - Left Hand Blood Culture - Final No growth in 5 days. 09/10/20 13:10 Blood Culture (Wb) - Anticubital Left Blood Culture - Final No growth in 5 days. Laboratory Results 09/17/20 06:30: Sodium 145, Potassium 4.7, Chloride 121 H, Carbon Dioxide 16.0 L, Anion Gap 8, BUN 104 H*, Creatinine 3.55 H, Estim Creat Clear Calc 13.28, Est GFR (MDRD) Af Amer 17 L, Est GFR (MDRD) Non-Af 14 L, BUN/Creatinine Ratio 29.3 H, Glucose 90, Calcium 7.7 L, Total Bilirubin 0.50, AST 23, ALT 34, Alkaline Phosphatase 53, Total Protein 7.2, Albumin 2.4 L, Globulin 4.8 H, Albumin/Globulin Ratio 0.5 L Inpatient E&M: 15557 Subs Hosp L2
[2020-09-17] MEDS: Latanoprost 0.005% 1 Bottle 1 DRP EACH EYE (22:51)
[2020-09-18] VITALS (10 sets, daily range): BP systolic 125–133; BP diastolic 71–78; PULSE 49–73; RESP 18; TEMP 36.3–36.6; O2SAT 90–96
[2020-09-18] MEDS: amLODIPine 5 MG Tablet PO (10:37)
[2020-09-18] MEDS: Aspirin 81 MG TAB.CHEW PO (10:37)
[2020-09-18] MEDS: dexAMETHasone 4 MG Tablet 6 MG PO (10:37)
[2020-09-18] MEDS: guaiFENesin 1,200 MG Tablet 1200 MG PO (10:37)
[2020-09-18] MEDS: Dorzolamide HCL/Timolol 10 ml Bottle 1 DRP EACH EYE (10:38)
[2020-09-18] MEDS: APIXABAN 5 MG TABLET PO (10:38)
--- NOTE | 2020-09-18 11:45 | PCM.DC ---
- Discharge Diagnoses Current Active Problems: Current Active and Chronic Problems Respiratory failure (Acute) Acute on chronic renal failure (Acute) Acute kidney injury superimposed on chronic kidney disease (Acute) Chronic kidney disease, stage IV (severe) (Chronic) Hypertension (Chronic) Polycystic kidney disease (Chronic) COVID-19 (Acute) You will use the following diet at home:: Renal (restricted protein/sodium) Your food should be the consistency of: Regular Your liquids should be the consistency of: Regular/Thin Discharge Activity: May Not Drive Weight Bearing Status: Weight bearing as tolerated Call your doctor if you observe: Fever of 101 or Higher, Coldness, Increased Pain, Numbness or Tingling, Change in Color, Inability to urinate, Inability to have a bowel movement, Shortness of breath, Dizziness, Fainting spells, Swelling in the ankles, Chest pain, Prolonged hiccoughing, Increased palpitations (irregular heartbeat), Calf discomfort, Uncontrolled pain Additional Instructions: Advised to follow self protection with mask. Completed 2 weeks of quarantine after symtom onset on 09/01/2020 Allergies/Adverse Reactions: Allergies sulfamethoxazole [From ] Allergy (Verified 09/10/20 19:46) Hives trimethoprim [From ] Allergy (Verified 09/10/20 19:46) Hives Medications to take at Discharge Amlodipine Besylate 5 mg PO DAILY 07/27/20 Calcium Carbonate/Vitamin D3 [Calcium 500+D Tablet Chew] 1 ea PO DAILY 07/27/20 Clobetasol/Skin Cleanser No.28 [Clodan 0.05% Kit] 1 ea TP PRN PRN 07/27/20 Denosumab [Prolia] 60 mg SQ X1 07/27/20 Dorzolamide HCL/Timolol [Cosopt Opth Drops] 1 drp OPHTHALMIC (EYE) BID 07/27/20 Ergocalciferol [Vitamin D] 50,000 unit PO Q7D 07/27/20 Latanoprost 2.5 ml OP DAILY 07/27/20 Tolvaptan [Jynarque] 1 ea PO BID 07/27/20 Albuterol IH (ProAir) [Proair Hfa] 2 puff INHALATION Q4H PRN PRN #1 inhaler 09/18/20 Apixaban [Eliquis] 5 mg PO BID #30 tab 09/18/20 Aspirin [Aspirin, Baby] 81 mg PO DAILY #0 09/18/20 Dexamethasone [Decadron] 6 mg PO DAILY #2 tab 09/18/20 Guaifenesin [Mucinex] 1,200 mg PO BID #10 tab 09/18/20 The following prescriptions were given: Dexamethasone [Decadron] 6 mg PO DAILY #2 tab Transmission Status: Pending to [facility] Apixaban [Eliquis] 5 mg PO BID #30 tab Transmission Status: Pending to [facility] Guaifenesin [Mucinex] 1,200 mg PO BID #10 tab Transmission Status: Pending to [facility] Albuterol IH (ProAir) [Proair Hfa] 2 puff INHALATION Q4H PRN PRN #1 inhaler PRN Reason: Shortness of breath, wheezing Transmission Status: Pending to [facility] Primary Care Physician: Benji Palacios MD [Primary Care Provider] - Please follow up with your Primary Care Physician in: in 2 weeks Test Results: Test results from this visit will be discussed in further detail at your follow-up appointment, if applicable. Please Follow Up With: Harper Landaverde MD When: for CKD stage 4, PCKD IN 2 weeks
--- NOTE | 2020-09-18 11:49 | PCM.DC.SUM ---
Discharge Date and Diagnosis - Problem List Patient Problems: Active and Suspected Problems Respiratory failure (Acute) Acute on chronic renal failure (Acute) Acute kidney injury superimposed on chronic kidney disease (Acute) COVID-19 (Acute) Date of Admission: 09/10/20 Date of Discharge: 09/18/20 - Primary Discharge Diagnosis Acute Problems: Active Problems A Acute kidney injury superimposed on chronic kidney disease (Acute) COVID-19 (Acute) Acute hypoxic respiratory failure secondary to COVID-19 pneumonia - Secondary Discharge Diagnosis Chronic Problems: Chronic Problems Chronic kidney disease, stage IV (severe) (Chronic) Hypertension (Chronic) Polycystic kidney disease (Chronic) Hospital Course and Treatment Summary of Care Provided: The patient is a 65 year old F with history of CKD stage IV, polycystic kidney disease was admitted with shortness of breath and cough and diarrhea and COVID-19 PCR was positive suggestive of COVID-19 pneumonia. Chest x-ray shows mild pulmonary congestion with subtle patchy developing infiltrate in left lower lobe consistent with left lower lobe pneumonia. #1 acute hypoxic respiratory failure secondary to acute bilateral COVID-19 pneumonia-patient on Decadron and Eliquis 5 mg p.o. twice daily. Patient was seen by ID. Patient had convalescent plasma therapy on 09/13. Initially patient was hypoxic but her oxygen improved to the point that she is breathing on room air. On ambulation, pulse ox 90% on room air therefore does not meet home oxygen criteria. Patient needs 2 more days of Decadron. Discharged on 2 weeks of Eliquis and Mucinex and Decadron. #2 acute on chronic kidney disease stage IV-secondary to polycystic kidney disease: Patient's Tolvaptan will be held at this time, as there is no one available at home to bring the medication. Sodium level and creatinine on baseline. Patient BUN/creatinine was elevated chronically but has shown improving trend during the course of hospitalization. K4.4. Patient chloride is high. Advised to follow-up with lead former Dr. Odell. #3 essential hypertension-continue present medication #4 glaucoma - patient's eyedrops Discharge medication reconciliation done. Discharge follow-up instructions completed. Discharge process discussed with the patient and all questions were answered to patient's satisfaction. Discharge process discussed with the patient and her who is also admitted with COVID-19 pneumonia Total time spent, exact 35 minutes on discharge meds reconciliation, examination, coordination of care with nurses and ancillary staff, review of imaging and blood test and discussion with the patient on follow-up instructions Patient Problems: Active and Suspected Problems Respiratory failure (Acute) Acute on chronic renal failure (Acute) Acute kidney injury superimposed on chronic kidney disease (Acute) COVID-19 (Acute) Objective: No fever for last 5 days. No shortness of breath. Currently patient on room air 94%. Patient also had walking pulse oximetry, ambulating on room air pulse ox 90%. Does not need home oxygen criteria. Physical exam General: Alert, Oriented x3, Cooperative HEENT: Atraumatic, PERRLA, EOMI, Normocephalic Oral: No Gingival or Mucosal Lesions/ Ulcerations Neck: Supple, No JVD, Negative Carotid Bruits Lungs: Air entry diminished in bilateral lung bases. No crepitation/rhonchi. Not hypoxic or tachypneic. Cardiovascular: Regular rate, Regular Rhythm, Normal S1, Normal S2, No murmurs Abdomen: Bowel Sounds Present, Soft, Non Tender, Non-Distended : No renal angle tenderness. No suprapubic tenderness. Urine is yellowish color. Extremities: No edema, Capillary Refill Less than 3 Seconds Skin: No rashes, No breakdown Musculoskeletal: No Tenderness to Palpation of Joints or Extremities Neurological: Cranial nerves II-XII grossly intact, Deep Tendon Reflexes 2+/4 and Symmetrical, Neuro grossly intact Psych/Mental Status: Normal Affect, Appropriate. - Physical Exam Vitals/I&O's: Vital Signs Temp Pulse Resp BP Pulse Ox 97.4 F L 73 18 126/72 H 94 09/18/20 10:40 09/18/20 11:30 09/18/20 10:40 09/18/20 10:40 09/18/20 11:41 Oxygen Flow Rate (L/min) 1 Oxygen Delivery Method Room Air Weight: 132 lb 11.492 oz Body Mass Index (BMI) 22.8 Intake and Output for Last 24 Hours 09/16/20 09/17/20 09/18/20 23:59 23:59 23:59 Intake Total 200 / 400 820 / 1020 250 / 250 Output Total 425 / 425 Balance 200 / 400 820 / 1020 -175 / -175 Microbiology Past 72 Hours 09/10/20 13:20 Blood Culture (Wb) - Left Hand Blood Culture - Final No growth in 5 days. 10/17/20 13:10 Blood Culture (Wb) - Anticubital Left Blood Culture - Final No growth in 5 days. Current Medications Acetaminophen (Acetaminophen 325 Mg Tablet) 650 mg PO Q6H PRN PRN PRN Reason: Pain Score 1-10/Temp > 100.7 F Albuterol Sulfate (Albuterol Ih 8.5 Gm (Proair) Inhaler (200 Puffs)) 2 puff INHALATION Q4H PRN PRN PRN Reason: Shortness of breath, wheezing Amlodipine Besylate (Amlodipine 5 Mg Tablet) 5 mg PO DAILY [facility] Last Admin: 09/18/20 10:37 Dose: 5 mg Documented by: Apixaban (Apixaban 5 Mg Tablet) 5 mg PO BID [facility] Last Admin: 09/18/20 10:38 Dose: 5 mg Documented by: Aspirin (Aspirin 81 Mg Tab.Chew) 81 mg PO DAILY [facility] Last Admin: 09/18/20 10:37 Dose: 81 mg Documented by: Dexamethasone (Dexamethasone 4 Mg Tablet) 6 mg PO DAILY [facility] Last Admin: 09/18/20 10:37 Dose: 6 mg Documented by: Dorzolamide/Timolol (Dorzolamide Hcl/Timolol 10 Ml Bottle) 1 drop EACH EYE BID [facility] Last Admin: 09/18/20 10:38 Dose: 1 drop Documented by: Guaifenesin (Guaifenesin 1,200 Mg Tablet) 1,200 mg PO BID [facility] Last Admin: 09/18/20 10:37 Dose: 1,200 mg Documented by: Latanoprost (Latanoprost 0.005% 1 Bottle) 1 drop EACH EYE QHS [facility] Last Admin: 09/17/20 22:51 Dose: 1 drop Documented by: Miscellaneous Information (Inhaler, Assist Devices 1 Each Spacer) 1 each INHALATION PRN PRN PRN Reason: WITH ALBUTEROL MDI Ondansetron HCl (Ondansetron 4 Mg/2 Ml Vial) 4 mg IV Q8H PRN PRN PRN Reason: NAUSEA/VOMITING Sodium Chloride (0.9% Saline Lock 10 Ml Syringe) 10 - 40 ml IV UD PRN PRN Reason: SALINE FLUSH Last Admin: 09/17/20 09:51 Dose: 10 ml Documented by: Throat Lozenges (Benzocaine/Menthol 1 Lozenge) 2 lozenge MUCOUS MEM Q2H PRN PRN PRN Reason: Cough/sore throat Last Admin: 09/13/20 16:11 Dose: 2 lozenge Documented by: Zolpidem Tartrate (Zolpidem Tartrate 5 Mg Tablet) 5 mg PO QHS PRN PRN PRN Reason: INSOMNIA Discharge Activity: May Not Drive Weight Bearing Status: Weight bearing as tolerated Call your doctor if you observe: Fever of 101 or Higher, Coldness, Increased Pain, Numbness or Tingling, Change in Color, Inability to urinate, Inability to have a bowel movement, Shortness of breath, Dizziness, Fainting spells, Swelling in the ankles, Chest pain, Prolonged hiccoughing, Increased palpitations (irregular heartbeat), Calf discomfort, Uncontrolled pain Home Medications: Medications to take at Discharge Amlodipine Besylate 5 mg PO DAILY 07/27/20 Calcium Carbonate/Vitamin D3 [Calcium 500+D Tablet Chew] 1 ea PO DAILY 07/27/20 Clobetasol/Skin Cleanser No.28 [Clodan 0.05% Kit] 1 ea TP PRN PRN 07/27/20 Denosumab [Prolia] 60 mg SQ X1 07/27/20 Dorzolamide HCL/Timolol [Cosopt Opth Drops] 1 drp OPHTHALMIC (EYE) BID 07/27/20 Ergocalciferol [Vitamin D] 50,000 unit PO Q7D 07/27/20 Latanoprost 2.5 ml OP DAILY 07/27/20 Tolvaptan [Jynarque] 1 ea PO BID 07/27/20 Albuterol IH (ProAir) [Proair Hfa] 2 puff INHALATION Q4H PRN PRN #1 inhaler 09/18/20 Apixaban [Eliquis] 5 mg PO BID #30 tab 09/18/20 Aspirin [Aspirin, Baby] 81 mg PO DAILY #0 09/18/20 Dexamethasone [Decadron] 6 mg PO DAILY #2 tab 09/18/20 Guaifenesin [Mucinex] 1,200 mg PO BID #10 tab 09/18/20 Following Prescriptions Were Given to Patient: Dexamethasone [Decadron] 6 mg PO DAILY #2 tab Transmission Status: Received by [facility] Apixaban [Eliquis] 5 mg PO BID #30 tab Transmission Status: Received by [facility] Guaifenesin [Mucinex] 1,200 mg PO BID #10 tab Transmission Status: Received by [facility] Albuterol IH (ProAir) [Proair Hfa] 2 puff INHALATION Q4H PRN PRN #1 inhaler PRN Reason: Shortness of breath, wheezing Transmission Status: Received by [facility] Primary Care Physician: Benji Palacios MD [Primary Care Provider] - Please follow up with your Primary Care Physician in: in 2 weeks Please Follow Up With: Harper Landaverde MD When: for CKD stage 4, PCKD IN 2 weeks Medical Necessity - Tobacco Use Smoking Status: Never smoker Meaningful Use Info Meaningful Use Diagnoses (Choose all that apply): None applicable Inpatient E&M: 03302 [facility]
[2020-09-18 12:28] LABS: Absolute Lymphocyte Count 0.48 X10^3/uL (0.83-4.51); Absolute Neutrophil Count 7.5 X10^3/uL (2.0-7.7); Eosinophils% 1.2 % (0-5); Hematocrit 29.8 % (37-47); Hemoglobin 9.6 g/dL (12.0-15.0); Lymphocyte # 0.48 X10^3/ul (4.0); Lymphocyte % 5.6 % (19-41); Mean Corp Hgb Conc 32.2 g/dL (32-36); Mean Corpuscular Volume 93.1 fL (81-99); Mean Platelet Vol. 8.7 fl (6.2-12.0); Monocyte% 4.6 % (0-10); NRBC Flagged by Analyzer 0 % (0-5); Neutrophil # 7.52 X10^3/uL (2.7-7.7); Neutrophil % 87.3 % (47-70); POSITIVE DIFFERENTIAL YES; Platelet Count 460 K/mm3 (150-450); RBC Distribution Width CV 14.6 % (11.6-14.6); RBC Distribution Width SD 49.1 fl (35.1-43.9); White Blood Count 8.6 K/mm3 (4.4-11.0)
[2020-09-18 12:31] LABS: Differential Indicated SCAN CRITERIA MET
--- NOTE | 2020-09-18 12:32 | CASEMGMT ---
KITTY LINDA NOTE: Call received from MS2 charge weigherDamari. Pt is ready for discharge. Per Damari, therapy has worked with pt and no additional therapy recommended. (Therapy notes are not in yet today). Home O2 testing has been completed and she does not qualify for Home O2. Pt's remains @ [facility] as a patient and pt will be going home alone. Per family, they do not have anyone that can stay with pt. Pt is alert/oriented x 3, per Damari. Damari states family inquiring about HHC for assistance with medications @ home and to have someone check in on her. Damari made aware referral process would need to be initiated tomorrow, as this cannot be done on Saturday. Pt/family can contact PCP and have this done through their office if they decide to do this later, engineering instructor CM can initiate the referral on Saturday if they prefer. Damari states she will relay this information to pt's sons. Damari provided with several HHC agencies known by this KITTY LINDA that have been taking COVID + patients and contact information for these agencies provided to her to give to pts family. Zeus SZYMANSKI RN CM
[2020-09-18 12:42] LABS: Anion Gap 11 (5-15); BUN 96 mg/dL (7-18); BUN/Creat Ratio 27.1 RATIO (10-20); Calcium,Total 8.3 mg/dL (8.5-10.1); Chloride 120 mmol/L (98-107); Creatinine, Serum 3.54 mg/dL (0.55-1.02); EST Glomerular Filtration Rate 14 mL/min (>60); Est Glom Filt Rate - Afr Amer 17 mL/min (>60); Estimated Creatinine Clearance 13.32 ml/min; Glucose 148 mg/dL (74-106); Potassium 4.4 mmol/L (3.5-5.1); Sodium Level 142 mmol/L (136-145)
--- NOTE | 2020-09-18 12:43 | NURSING ---
This nurse had a 40 min conversation with patients sons Juan and James about patient going home. Both sons were wondering if [facility] would be able to take her home tomorrow Vs home today. Per [facility] can not take + COVID patients home, Sons were also looking to see if Home Health could go in and check on her daily to see if she was okay and taking her medicine. One son lives in [place] and another son has children and is unable to do so. This nurse called Guerda to ask and was informed that [facility] Home Health does not see COVID + pts but Guerda gave me 3 places that could take pt but [facility] might not be able to go tomorrow, but Saturday and since pt is medically stable, pt would go home today. Both Sons said they would talk about what they were going to do and call this nurse back.
[2020-09-18 13:18] LABS: Differential Comment SCANNED
--- NOTE | 2020-09-18 15:02 | NURSING ---
Pt feeling SOB. Christina AGRICULTURAL ENGINEER in room. Pt mouth breathing. Inceased oxygen up to 6L [place]. Pt has tachy at 136 per monitor. PT NC in pts mouth. Veronica, CPS aware and coming to give breathing tx. Dr. Aguilar called while this nurse in the room to talk to pt. Dr. Aguilar going over Code Status with pt. Dr. Aguilar ordered lasix iv and to stop the fluids.
--- NOTE | 2020-09-18 16:15 | CASEMGMT ---
KITTY LINDA NOTE: Per Damari, MS2 clinic charge nurse, pt's son, James, has several questions about HHC (cost, length of service, process of setting up) and would like to talk with KITTY LINDA. Call placed to James @ [phone] at this time and questions answered. He was made aware nursing typically does weekly visits for assessments/medication teaching, and would be available in between as needed. Explained pt's PCP, Dr Palacios, would be following pt for HHC. He was also made aware therapy can be added, if needed, and if they wish for this service. Informed that aides may be available, if needed, to assist w/bathing/dressing, but they only come in to do provide this care. He was made aware they do not stay for other services, such as cleaning/cooking or bark press operator care. Discussed process of HHC doing ongoing evals re: need for HHC and once pt no longer needs the services (SN, therapy), they would discharge pt, or, if family/pt no longer wants HHC, they can discontinue it as well, if they wish. He states he would like to talk things over with his mom and family this evening before making a decision. He was also made aware, if they decide not to have HHC now, but then decide later that they want HHC, that they can talk to pt's PCP, Dr Palacios, and HHC can be arranged through pt's PCP. Pt being discharged home on Eliquis. Eliquis 30-day free trial offer information provided to James at this time and explained use of this. He was made aware, if pt needs refills and if cost is not affordable, to discuss this with pt's PCP. James denies having any further questions/concerns at this time. D/C Plan: Pt to discharge home. Family to transport. Per James, they will picket [employer] prescriptions and will assist pt w/medications this evening and they are working on ensuring pt has groceries/things she needs @ home. KITTY LINDA to f/u with James tomorrow re: pt/families decision on HHC and assist as needed. Zeus SZYMANSKI RN, CM
--- NOTE | 2020-09-19 13:42 | CASEMGMT ---
KITTY LINDA Discharge Follow-Up Phone Call and C f/u: Lace: 13 Strata: 3 Discharge Date: 09/18/20 Adm Dx: COVID-19 VM received from pt's son, James, stating that they have decided on [facility] for pt, as she is still weak upon returning home and he feels therapy and nursing would benefit pt. VM also stated their 1st preference is [facility]. Call placed to [facility] and spoke w/Shona. Referral made. Shona also made aware pt was discharged home yesterday. She states they are able to accept pt and states they will call James. She was provided with his phone number. Call placed back to James and he was made aware [facility] able to accept pt and that they will be contacting him. He states pt would benefit from having an aide as well. James states his brother was able to greens picker the prescriptions last evening and they have no questions about the discharge instructions. He states he is pretty sure that the PCP's office called this morning to make f/u appt and he is aware of need of appt with Dr Landaverde. He denies having any questions or further needs at this time. Referral packet has been faxed to [facility] for SN, PT/OT, and aides. Zeus SZYMANSKI RN, CM
== END 2020-09-18 18:20 | disposition home health service (06) | DRG 177 ==
LOC: ED 16:36 → MS2 17:34
PROVIDERS: Admitting Provider Hospitalist; Emergency Provider Emergency Medicine; PCP Family Medicine; Visit Provider Internal Medicine
DX: U07.1 COVID-19 (principal); J96.01 Acute respiratory failure with hypoxia; J12.89 Other viral pneumonia; Q61.3 Polycystic kidney, unspecified; N18.4 Chronic kidney disease, stage 4 (severe); N17.9 Acute kidney failure, unspecified; I12.9 Hypertensive chronic kidney disease with stage 1 through stage 4 chronic kidney disease, or unspecified chronic kidney disease; H40.9 Unspecified glaucoma
CPT/HCPCS: 36415; 71045; 80048; 80053; 82550; 83605; 83615; 83735; 83880; 84145; 84484; 85025; 85379; 85384; 85610; 85730; 86140; 86900; 86901; 87040; 87635; 93005; 97110; 97116; 97162; 97165; 97530; 97535; 99251; 99284; 99285; J7030; J7040; A4216; G0463; J1940; U0003

== ENCOUNTER → 2020-09-27 10:38 | Outpatient (CLI) | payer MEDICARE, BC, SELFPAY ==
[2020-09-10 19:23] VITALS: BMI 22.8
[2020-09-27 12:06] LABS: Absolute Lymphocyte Count 0.89 X10^3/uL (0.83-4.51); Absolute Neutrophil Count 4.5 X10^3/uL (2.0-7.7); Basophil# 0.07 X10^3/uL; Basophil% 1.2 % (0-1); Eosinophils% 1.7 % (0-5); Hematocrit 29.1 % (37-47); Hemoglobin 9.4 g/dL (12.0-15.0); Lymphocyte # 0.89 X10^3/ul (4.0); Lymphocyte % 14.8 % (19-41); Mean Corp Hgb Conc 32.3 g/dL (32-36); Mean Corpuscular Hgb 30.4 pg (27.0-32.0); Mean Corpuscular Volume 94.2 fL (81-99); Mean Platelet Vol. 9.5 fl (6.2-12.0); Monocyte# 0.48 X10^3/uL; NRBC Flagged by Analyzer 0 % (0-5); Neutrophil # 4.45 X10^3/uL (2.7-7.7); Neutrophil % 73.8 % (47-70); Platelet Count 460 K/mm3 (150-450); RBC Distribution Width CV 14.7 % (11.6-14.6); RBC Distribution Width SD 50.4 fl (35.1-43.9); Red Blood Count 3.09 M/mm3 (4.2-5.4)
[2020-09-27 12:17] LABS: Ammonia < 10.0 umol/L (11-32)
[2020-09-27 12:25] LABS: AST(SGOT) 19 U/L (15-37); Alanine Aminotransfer ALT/SGPT 29 U/L (13-56); Albumin, Serum 2.7 g/dL (3.2-5.0); Alkaline Phosphatase 78 U/L (45-117); Anion Gap 10 (5-15); BUN 81 mg/dL (7-18); Bilirubin, Direct 0.09 mg/dL (0.00-0.30); Calcium,Total 11.7 mg/dL (8.5-10.1); Chloride 111 mmol/L (98-107); Creatinine, Serum 4.27 mg/dL (0.55-1.02); EST Glomerular Filtration Rate 11 mL/min (>60); Est Glom Filt Rate - Afr Amer 13 mL/min (>60); Globulin 5.3 g/dL (2.2-4.2); Glucose 105 mg/dL (74-106); Phosphorus 6.7 mg/dL (2.5-4.9); Potassium 4.1 mmol/L (3.5-5.1); Sodium Level 138 mmol/L (136-145)
[2020-09-27 12:41] LABS: Vitamin D,25 Hydroxy 71.6 ng/mL
[2020-09-27 13:00] LABS: PTHIN 5.6 pg/mL (18.4-80.1)
== END ==
PROVIDERS: PCP Family Medicine; Referring Provider Family Medicine; Visit Provider Family Medicine
DX: N18.30 Chronic kidney disease, stage 3 unspecified (principal); R41.89 Other symptoms and signs involving cognitive functions and awareness; B97.21 SARS-associated coronavirus as the cause of diseases classified elsewhere
CPT/HCPCS: 36415; 80048; 80076; 82140; 82306; 83970; 84100; 85025; 86140

== ENCOUNTER 2020-10-01 15:59 | Inpatient (IN) | payer MEDICARE, BC, SELFPAY ==
[2020-09-10 19:23] VITALS: BMI 22.8
[2020-10-01 16:00] VITALS: BP 115/60; PULSE 101; RESP 20; TEMP 36.4; O2SAT 95; BMI 21.6
--- NOTE | 2020-10-01 16:05 | EKG12_ITS ---
Test Reason : SOB Blood Pressure : / mmHG Vent. Rate : 090 BPM Atrial Rate : 090 BPM P-R Int : 164 ms QRS Dur : 104 ms QT Int : 360 ms P-R-T Axes : 001 -12 020 degrees QTc Int : 440 ms Sinus rhythm with occasional Premature ventricular complexes Otherwise normal ECG Confirmed by SNADI KAPLAN, GREGG ([id number]), rewrite editor SAMANTHA PAREDES ([id number]) on 10/03/2020 2:25:19 PM Referred By: KENNEY Confirmed By:GREGG JUNIOR MD
--- NOTE | 2020-10-01 17:02 | ED.VIS.GEN ---
History of Present Illness Chief Complaint: General Illness Informant: Patient, Family Onset: Today Narrative: Patient is a 65-year-old female with recent diagnosis of Covid with hospitalization from 09/10-09/18 with associated hypoxia as well as chronic kidney disease, hypertension and polycystic kidney disease team with fever and altered mental status. Patient had brain fog after her hospitalization/Covid infection but it actually steadily been improving. Patient seem to be doing well this morning and then this afternoon when her son came back and checked on her patient seemed confused and had a fever. Patient did receive 500 mg of Tylenol this afternoon. Fever has improved and so is her mentation. Family was concerned she could have another infection. She is continued to have a cough since her Covid pneumonia but that has been stable. Is been eating and drinking relatively normally. No urinary symptoms. No GI symptoms. No other complaints at this time. Past Medical History - Allergies and Home Meds Allergies/Adverse Reactions: Allergies sulfamethoxazole [From ] Allergy (Verified 10/01/20 17:12) Hives trimethoprim [From ] Allergy (Verified 10/01/20 17:12) Hives Primary Care Physician: Benji Palacios MD [Primary Care Provider] - Past Medical History: - - Retention, polycystic kidney disease, CKD Surgical History: cholecystectomy Lives: Spouse/ Significant Other Smoking Status: Never smoker - Family History Maternal Family History: Reports: No pertinent history Paternal Family History: Reports: No pertinent history Review of Systems General: Reports: Fever, Malaise. Denies: Chills, Sweats Eyes: Denies: Visual changes - bilaterally, Diplopia ENT: Denies: Rhinorrhea, Sore throat Cardiovascular: Denies: Chest pain, Palpitations Respiratory: Reports: Cough. Denies: Dyspnea, Dyspnea on exertion Gastrointestinal: Denies: Abdominal pain, Nausea, Vomiting, Diarrhea, Melena, Hematochezia Genitourinary: Denies: Dysuria, Hematuria, Frequency Musculoskeletal: Denies: Back pain, Extremity Pain Skin: Denies: Rash, Wounds Neurological: Reports: - - confusion . Denies: Headache, Weakness, Numbness Physical Exam Vital Signs/Narrative: Vital Signs Temp Pulse Resp BP Pulse Ox 10/01/20 16:00 97.5 F L 101 H 20 H 115/60 95 Inital Vital Signs reviewed: No General: Well nourished, Well developed, No Acute Distress Head: Normocephalic, Atraumatic Eyes: Perrl, EOMI ENT: Moist mucous membranes, No rhinorrhea Neck: Supple, Nontender, No JVD Cardiovascular: Regular rate, Regular rhythm, No murmurs Respiratory: No distress, CTA bilaterally, Chest nontender. Negative for: Rales, Rhonchi, Wheezing, Diminished, Decreased Air Movement Abdomen: Soft, Nontender, Nondistended, Normal bowel sounds Back: Nontender, Normal Inspection Extremities: Nontender, No edema Skin: Normal color, No rash Neurological: Alert, Oriented x3, Cranial nerves II-XII grossly intact, Normal Strength, Normal Sensation. Negative for: Confused, Disoriented Psychological: Normal affect, Normal Mood Diagnostic/Tx/Re-eval Clinical Impression(s) from Imaging Studies Chest X-Ray 10/01/20 18:05 IMPRESSION: Low lung volumes. Prominent peripheral patchy airspace disease of the upper and mid left lung and perihilar region. Electronically Signed: Darvin Betts MD at 18:58 EST , Service support , Laboratory Data 10/01/20 10/01/20 10/01/20 16:50 16:50 16:50 WBC 4.3 L RBC 2.71 L Hgb 8.2 L Hct 25.4 L MCV 93.7 MCH 30.3 MCHC 32.3 RDW Std Deviation 49.6 H RDW Coeff of Remy 14.6 Plt Count 241 MPV 9.6 Immature Gran % (Auto) 0.500 Neut % (Auto) 77.8 H Lymph % (Auto) 9.3 L [place] % (Auto) 11.0 H Eos % (Auto) 0.5 Baso % (Auto) 0.9 Absolute Neuts (auto) 3.3 Absolute Lymphs (auto) 0.40 L Nucleated RBC % 0 Differential Comment SEE COMMENT Diff Path Review May foll Platelet Estimate ADEQUATE RBC Morphology N CHROM Hypochromasia RARE Anisocytosis RARE Macrocytosis RARE PT 26.3 H INR 2.5 APTT 51.2 H Sodium 136 Potassium 3.8 Chloride 109 H Carbon Dioxide 18.0 L Anion Gap 9 BUN 60 H Creatinine 4.14 H Estim Creat Clear Calc 11.39 Est GFR (MDRD) Af Amer 14 L Est GFR (MDRD) Non-Af 11 L BUN/Creatinine Ratio 14.5 Glucose 122 H Lactic Acid Calcium 10.2 H Total Bilirubin 0.40 AST 22 ALT 28 Alkaline Phosphatase 97 Total Creatine Kinase 61 Troponin I < 0.015 Total Protein 7.2 Albumin 2.3 L Globulin 4.9 H Albumin/Globulin Ratio 0.5 L Urine Color Urine Clarity Urine pH Ur Specific [place] Urine Protein Urine Glucose (UA) Urine Ketones Urine Occult Blood Urine Nitrite Urine Bilirubin Urine Urobilinogen Ur Leukocyte Esterase Urine RBC Urine WBC Ur Squamous Epith Cells Urine Bacteria Urine Mucus 10/01/20 10/01/20 16:50 17:37 WBC RBC Hgb Hct MCV MCH MCHC RDW Std Deviation RDW Coeff of Remy Plt Count MPV Immature Gran % (Auto) Neut % (Auto) Lymph % (Auto) [place] % (Auto) Eos % (Auto) Baso % (Auto) Absolute Neuts (auto) Absolute Lymphs (auto) Nucleated RBC % Differential Comment Diff Path Review Platelet Estimate RBC Morphology Hypochromasia Anisocytosis Macrocytosis PT INR APTT Sodium Potassium Chloride Carbon Dioxide Anion Gap BUN Creatinine Estim Creat Clear Calc Est GFR (MDRD) Af Amer Est GFR (MDRD) Non-Af BUN/Creatinine Ratio Glucose Lactic Acid 1.1 Calcium Total Bilirubin AST ALT Alkaline Phosphatase Total Creatine Kinase Troponin I Total Protein Albumin Globulin Albumin/Globulin Ratio Urine Color Yellow Urine Clarity Cloudy Urine pH 5.0 Ur Specific [place] 1.010 Urine Protein 15 H Urine Glucose (UA) Normal Urine Ketones Negative Urine Occult Blood 250 H Urine Nitrite Negative Urine Bilirubin Negative Urine Urobilinogen Normal Ur Leukocyte Esterase 500 H Urine RBC 5-10 SEEN Urine WBC 10-25 SEEN Ur Squamous Epith Cells 0-5 SEEN Urine Bacteria 1+ Urine Mucus 0 SEEN - Rhythm Strip Rhythm Strip: Sinus Rhythm Rate: 90 Ectopy: PVC(s) - EKG Initial EKG Interpretation: Sinus Rhythm, - - Normal sinus rhythm at a rate of 90 Normal axis Normal intervals Normal ST segments PVC present - Medical Decision Making Patient is evaluated for an episode of fever and altered mental status today. Patient recently had Covid pneumonia but has been recovering. She is not plan any respiratory symptoms and has a lingering cough which is unchanged. Patient's mentation has improved as well as her fever upon arrival. She had Tylenol prior to arrival. Physical exam is quite benign. Her lung sounds are clear. Patient does have residual changes on her chest x-ray however I do not think this is an acute pneumonia and I think her chest x-ray is just not cleared up yet. She does appear to have a urinary tract infection which likely caused her episode of fever and mental status change. Given the associated encephalopathy that occurred and her age I do think admission for IV antibiotics would be appropriate at this time. Patient also has a mild leukopenia. Patient and her son are agreeable with this plan of care. Cultures are pending. Patient is given a dose of IV Rocephin as well as a small bolus of fluids in the ER. She is hemodynamically stable at time of disposition. ED Disposition - Plan for ED Patient: Disposition: [facility] Diagnosis: UTI (urinary tract infection), AMS (altered mental status), Chronic kidney disease, stage IV (severe) Referrals: Benji Palacios MD [Primary Care Provider] -
[2020-10-01 17:07] VITALS: BP 106/67; PULSE 87; PULSE 88; RESP 22; TEMP 37.2; O2SAT 95
[2020-10-01 17:34] LABS: Absolute Neutrophil Count 3.3 X10^3/uL (2.0-7.7); Basophil# 0.04 X10^3/uL; Basophil% 0.9 % (0-1); Eosinophil# 0.02 X10^3/uL; Eosinophils% 0.5 % (0-5); Hematocrit 25.4 % (37-47); Hemoglobin 8.2 g/dL (12.0-15.0); Lymphocyte % 9.3 % (19-41); Mean Corp Hgb Conc 32.3 g/dL (32-36); Mean Corpuscular Hgb 30.3 pg (27.0-32.0); Mean Corpuscular Volume 93.7 fL (81-99); Mean Platelet Vol. 9.6 fl (6.2-12.0); Monocyte# 0.47 X10^3/uL; NRBC Flagged by Analyzer 0 % (0-5); Neutrophil # 3.34 X10^3/uL (2.7-7.7); Neutrophil % 77.8 % (47-70); POSITIVE DIFFERENTIAL YES; Platelet Count 241 K/mm3 (150-450); RBC Distribution Width CV 14.6 % (11.6-14.6); RBC Distribution Width SD 49.6 fl (35.1-43.9); Red Blood Count 2.71 M/mm3 (4.2-5.4); White Blood Count 4.3 K/mm3 (4.4-11.0)
[2020-10-01 17:45] LABS: Mucous, Urine 0 SEEN /hpf (<or=2+)
[2020-10-01 17:47] LABS: Differential Indicated SCAN CRITERIA MET
[2020-10-01 17:48] LABS: Color, Urine Yellow (Yellow); Glucose, Dipstick Normal (Normal); Ketone-Dipstick Negative (Negative); Leukocyte Esterase-Dipstick 500 /ul (Negative); Nitrite-Dipstick Negative (Negative); Occult Blood-Urine 250 /ul (Negative); Protein-Dipstick 15 mg/dl (Negative); Urine Bilirubin Dipstick Negative (Negative); Urine Clarity Cloudy (Clear); Urine Urobilinogen Normal (Normal)
[2020-10-01 17:53] LABS: ALB/GLOB Ratio 0.5 RATIO (0.9-2.4); AST(SGOT) 22 U/L (15-37); Alanine Aminotransfer ALT/SGPT 28 U/L (13-56); Albumin, Serum 2.3 g/dL (3.2-5.0); Alkaline Phosphatase 97 U/L (45-117); Anion Gap 9 (5-15); BUN 60 mg/dL (7-18); BUN/Creat Ratio 14.5 RATIO (10-20); CPK Total, Creatine Kinase 61 U/L (26-192); Calcium,Total 10.2 mg/dL (8.5-10.1); Chloride 109 mmol/L (98-107); Creatinine, Serum 4.14 mg/dL (0.55-1.02); EST Glomerular Filtration Rate 11 mL/min (>60); Est Glom Filt Rate - Afr Amer 14 mL/min (>60); Estimated Creatinine Clearance 11.39 ml/min; Globulin 4.9 g/dL (2.2-4.2); Glucose 122 mg/dL (74-106); International Normalized Ratio 2.5; Potassium 3.8 mmol/L (3.5-5.1); Protein, Total 7.2 g/dL (6.4-8.2); Prothrombin Time (Protime)PT. 26.3 SECONDS (11.7-14.9); Sodium Level 136 mmol/L (136-145)
[2020-10-01 17:54] LABS: Partial Thromboplast Time 51.2 Seconds (24.1-36.2)
[2020-10-01 18:03] LABS: Lactic Acid 1.1 mmol/L (0.4-1.9)
--- NOTE | 2020-10-01 18:05 | RAD_ITS ---
STUDY: X-RAY CHEST REASON FOR EXAM: Female, 65 years old. RECENTLY discharged with history of COVID, HOSPITALIZED 9 DAYS, TODAY FEVER AND MORE LETHARGIC. TECHNIQUE: Single AP portable view of the chest. COMPARISON: 09/10/2020. FINDINGS: Low lung volumes. Prominent peripheral patchy airspace disease of the upper and mid left lung and perihilar region. Question of minimal airspace changes in the right lung base. No gross effusions. There is no demonstrated pleural abnormality. Normal size heart. Normal mediastinum and zafar. Normal visualized pulmonary arteries. Normal visualized aortic arch and descending thoracic aorta. Normal visualized thoracic spine. Normal visualized ribs, clavicles, and shoulders. There is no demonstrated abnormality of the visualized soft tissue structures of the upper abdomen. RAD/Chest 1 View (Portable) IMPRESSION: Low lung volumes. Prominent peripheral patchy airspace disease of the upper and mid left lung and perihilar region. Electronically Signed: Darvin Betts MD at 18:58 EST , Service support ,
[2020-10-01 18:07] VITALS: BP 107/66; PULSE 79; PULSE 81; RESP 20; TEMP 36.7; O2SAT 94; O2SAT 95
[2020-10-01 18:13] LABS: Anisocytosis RARE; Hypochromasia RARE; Macrocytosis RARE; Platelet Estimate ADEQUATE (ADEQ); Red Cell Morphology N CHROM NORMAL (NORM C&C)
[2020-10-01 18:15] LABS: Squamous Epithelial Cells - UA 0-5 SEEN /hpf (5-10)
[2020-10-01 18:19] LABS: Bacteria 1+ /hpf (None Seen); White Blood Cells 10-25 SEEN /hpf (0-5)
[2020-10-01 18:22] LABS: Red Blood Cells-Urine 5-10 SEEN /hpf (0-5)
[2020-10-01] MEDS: Ceftriaxone 1 GM/50 ML BAG IV (19:02)
[2020-10-01 19:05] VITALS: BP 127/55; PULSE 92; PULSE 97; RESP 20; RESP 21; TEMP 36.8; O2SAT 92; O2SAT 95
--- NOTE | 2020-10-01 20:03 | HP.PCM_ITS ---
Problem List (1) Respiratory failure Status: Resolved Qualifiers: Chronicity: acute Respiratory failure complication: hypoxia Qualified Code(s): J96.01 - Acute respiratory failure with hypoxia (2) Acute on chronic renal failure Status: Resolved Qualifiers: Acute renal failure type: unspecified Chronic kidney disease stage: stage 4 (severe) Qualified Code(s): N17.9 - Acute kidney failure, unspecified; N18.4 - Chronic kidney disease, stage 4 (severe) (3) UTI (urinary tract infection) Status: Acute (4) AMS (altered mental status) Status: Acute (5) Acute respiratory insufficiency Status: Resolved (6) Chronic kidney disease, stage IV (severe) Status: Chronic (7) Hypertension Status: Chronic Qualifiers: Hypertension type: secondary to other renal disorders Qualified Code(s): I15.1 - Hypertension secondary to other renal disorders; N28.89 - Other specified disorders of kidney and ureter (8) Polycystic kidney disease Status: Chronic (9) COVID-19 Status: Resolved History of Present Illness Date of Admission: 10/01/20 Mrs Cotton is a 65 year old F with a PMH of PCKD, CKD stage 4, recent COVID- 19 infection, and HTN who presented to the ED on 10/01/2020 with new fever and altered MS that started this afternoon. This am she was herself and then her son came back to check on her and she was confused and had a fever of 101 at home. She is currently afebrile and her MS is at baseline and clear. Family was concerned that she may have another infection and brought her in to the ED (her son is a physician in [place]). She has had a cough on and off since her COVID infection and she was hospitalized here from 09/10-09/18 before going home. She has no SOB, her cough is stable and slowly resolving, she denies dysuria and is currently afebrile. She has completed her Decadron and is to come off of her Eliquis soon. Her VS are stable, she was placed on 2 L in the ED but her wave form was bad on the monitor. She has a mild leukopenia, anemia that is a bit lower than it had been at 8.2, her sCr is 4.14 but this is in her baseline range and her Lactate was WNL. Her UA appears infected with WBC and leuk estrase. She was given CTX in the ED after cx were obtained. Past Medical History Past Medical History (Chronic Problems): Chronic Problems Chronic kidney disease, stage IV (severe) (Chronic) Hypertension (Chronic) Polycystic kidney disease (Chronic) Allergies sulfamethoxazole [From Septra] Allergy (Verified 10/01/20 17:12) Hives trimethoprim [From Septra] Allergy (Verified 10/01/20 17:12) Hives Home Medications: Ambulatory Orders Medication Instructions Recorded Amlodipine Besylate 5 mg PO DAILY 07/27/20 Calcium Carbonate/Vitamin D3 1 ea PO DAILY 07/27/20 [Calcium 500+D Tablet Chew] Clobetasol/Skin Cleanser No.28 1 ea TP PRN PRN 07/27/20 [[place] 0.05% Kit] Denosumab [Prolia] 60 mg SQ X1 07/27/20 Dorzolamide HCL/Timolol [Cosopt 1 drp OPHTHALMIC (EYE) BID 07/27/20 Opth Drops] Ergocalciferol [Vitamin D] 50,000 unit PO Q7D 07/27/20 Latanoprost 2.5 ml OP DAILY 07/27/20 Tolvaptan [Jynarque] 1 ea PO BID 07/27/20 Albuterol IH (ProAir) [Proair Hfa] 2 puff INHALATION Q4H PRN PRN #1 09/18/20 inhaler Apixaban [Eliquis] 5 mg PO BID #30 tab 09/18/20 Aspirin [Aspirin, Baby] 81 mg PO DAILY #0 09/18/20 Dexamethasone [Decadron] 6 mg PO DAILY #2 tab 09/18/20 Guaifenesin [Mucinex] 1,200 mg PO BID #10 tab 09/18/20 Surgical History: cholecystectomy Psychiatric History: No pertinent psych hx SUEDE BRUSHER History: No pertinent SUEDE BRUSHER history Lives: Spouse/ Significant Other Smoking Status: Never smoker - *Family History Maternal History Items: No pertinent history Paternal History Items: No pertinent history Review of Systems Constitutional: Reports: Fever, Weakness, Fatigue. Denies: Anorexia, Chills, Night Sweats, Malaise, Weight Change Eyes: Denies: Blurred vision, Cataracts, Conjunctivae Inflammation, Double vision, Drainage, Eyelid Inflammation, Pain, Redness, Vision Change HEENT: Denies: Difficulty Hearing, Difficulty Swallowing, Head Aches, Nasal bleeding, Nasal Congestion, Sinus Drainage, Sore Throat, Visual Changes Cardiovascular: Denies: Chest Pain, Claudication, Chest Pressure, Chest Tightness, Edema, Heaviness, Light Headedness, Orthopnea, Palpitations, Paroxysmal Noc. Dyspnea, Syncope Respiratory: Reports: Cough, Shortness of breath upon exertion. Denies: Hemoptysis, Pleuritic Pain, Shortness of Breath, Shortness of breath at rest, Sputum production, Wheezing Gastrointestinal: Denies: Abdominal Pain, Constipation, Diarrhea, Dyspepsia, Hematemesis, Hematochezia, Nausea, Melena, Vomiting Genitourinary: Denies: Dysuria, Frequency, Hematuria, Hesitancy, Incontinence, Nocturia, Retention, Urgency Musculoskeletal: Denies: Back Pain, Joint Pain, Joint stiffness, Joint swelling, Joint Tenderness, Leg Pain, Muscle pain, Neck Pain Skin: Denies: Dryness, Jaundice, Lesions, Pruritis, Rash, Skin Changes, Wounds Neurological: Reports: Confusion - now resolved. Denies: Balance problems, Blurred vision, Double vision, Change in Speech, Slurred speech, Difficulty swallowing, Focal weakness, Headaches, Incoordination, Numbness, Tingling, Tremo r, Seizures Psychiatric: Denies: Anxiety, Depression Endocrine: Denies: Change in Body Habitus, Heat/ Cold Intolerance, Polydipsia, Polyuria Hematologic/ Lymphatic: Reports: Anemia. Denies: Adenopathy, Easy Bruising, Easy Bleeding, Petechiae, Purpura VTE Information - Inpt Only VTE Present on Admission: No VTE Mechan Device Prophylaxis: None VTE Pharm Prophylaxis ordered?: Yes Patient Problems: Active and Suspected Problems UTI (urinary tract infection) (Acute) AMS (altered mental status) (Acute) - Physical Exam Vitals/I&O's: Vital Signs Temp Pulse Resp BP Pulse Ox 98.3 F 97 21 H 127/55 H 95 10/01/20 19:05 10/01/20 19:05 10/01/20 19:05 10/01/20 19:05 10/01/20 19:05 Oxygen Flow Rate (L/min) 2 Oxygen Delivery Method Nasal Cannula Weight: 57.1 kg Body Mass Index (BMI) 21.6 General: Alert, Oriented x3, Cooperative, No apparent distress, Well developed, Well nourished, - - older WF lying in bed, appears as if she isnt feeling well but nontoxic HEENT: Atraumatic, PERRLA, EOMI, Normocephalic, EAC Clear Oral: Moist Mucosa, No Gingival or Mucosal Lesions/ Ulcerations, - - fair dentition, mallampati 2 Neck: Supple, No JVD, Trachea Midline, Thyroid Normal Size and Texture Lungs: Clear to auscultation, Normal air movement, No rhonchi, No wheeze, No rales Cardiovascular: Regular rate, Regular Rhythm, Normal S1, Normal S2, No murmurs, No Ectopic Activity, No rub noted, No Gallop Abdomen: Bowel Sounds Present, Soft, Non Tender, Non-Distended, No Hepato- splenomegaly Extremities: No clubbing, No cyanosis, No edema, Capillary Refill Less than 3 Seconds, Peripheral Pulses Normal Skin: No rashes, No breakdown Musculoskeletal: No Tenderness to Palpation of Joints or Extremities, No Muscle Wasting Lymphatic: No Cervical, Supraclavicular, or Inguinal Adenopathy Neurological: Cranial nerves II-XII grossly intact, Deep Tendon Reflexes 2+/4 a nd Symmetrical, Neuro grossly intact, Motor Exam 5/5 strength throughout, Muscle tone normal, Sensory exam intact to light touch and pain, Coordination normal Psych/Mental Status: Appropriate, Flat Affect Laboratory Results 10/01/20 16:50: WBC 4.3 L, RBC 2.71 L, Hgb 8.2 L, Hct 25.4 L, MCV 93.7, MCH 30.3, MCHC 32.3, RDW Std Deviation 49.6 H, RDW Coeff of Remy 14.6, Plt Count 241, MPV 9.6, Immature Gran % (Auto) 0.500, Neut % (Auto) 77.8 H, Lymph % (Auto) 9.3 L, [place] % (Auto) 11.0 H, Eos % (Auto) 0.5, Baso % (Auto) 0.9, Absolute Neuts (auto) 3.3, Absolute Lymphs (auto) 0.40 L, Nucleated RBC % 0, Differential Comment SEE COMMENT, Diff Path Review May foll, Platelet Estimate ADEQUATE, RBC Morphology N CHROM, Hypochromasia RARE, Anisocytosis RARE, Macrocytosis RARE 10/01/20 16:50: PT 26.3 H, INR 2.5, APTT 51.2 H 10/01/20 16:50: Sodium 136, Potassium 3.8, Chloride 109 H, Carbon Dioxide 18.0 L , Anion Gap 9, BUN 60 H, Creatinine 4.14 H, Estim Creat Clear Calc 11.39, Est GFR (MDRD) Af Amer 14 L, Est GFR (MDRD) Non-Af 11 L, BUN/Creatinine Ratio 14.5, Glucose 122 H, Calcium 10.2 H, Total Bilirubin 0.40, AST 22, ALT 28, Alkaline Phosphatase 97, Total Creatine Kinase 61, Troponin I < 0.015, Total Protein 7.2, Albumin 2.3 L, Globulin 4.9 H, Albumin/Globulin Ratio 0.5 L 10/01/20 16:50: Lactic Acid 1.1 10/01/20 17:37: Urine Color Yellow, Urine Clarity Cloudy, Urine pH 5.0, Ur Specific [place] 1.010, Urine Protein 15 H, Urine Glucose (UA) Normal, Urine Ketones Negative, Urine Occult Blood 250 H, Urine Nitrite Negative, Urine Bilirubin Negative, Urine Urobilinogen Normal, Ur Leukocyte Esterase 500 H, Urine RBC 5-10 SEEN, Urine WBC 10-25 SEEN, Ur Squamous Epith Cells 0-5 SEEN, Urine Bacteria 1+, Urine Mucus 0 SEEN Assessment/Plan All Active Problems UTI (urinary tract infection) (Acute) AMS (altered mental status) (Acute) Acute on chronic renal failure (Resolved) Acute respiratory insufficiency (Resolved) COVID-19 (Resolved) Respiratory failure (Resolved) Fever -suspected UTI as UA is suggestive of this -Blood and urine cx pending -CXR with no new infiltrates -CTX Metabolic Encephalopathy -resolved now -monitor Microscopic Hematuria -suspect related to Eliquis -d/c NOAC as her course for COVID is almost completed -recommend outpt f/u UA for resolution CKD stage 4 -sCr at baseline -monitor -avoid nephrotoxins Acute on Chronic Anemia 2/2 CKD -mild drop since d/c with COVID -NOAC almost completed--> will d/c -monitor PCKD -continue tolvaptan Osteoporosis -continue Prolia HTN -continue home meds Cough -suspect 2/2 to recent COVID -19 infection -antitussive if needed -no s/o post-infectious PNA -monitor DVT prophylaxis -heparin Code Status -Full Inpatient E&M: [id number] Init Hosp L3
[2020-10-01 20:45] VITALS: BP 133/67; PULSE 104; RESP 24; TEMP 37.7; O2SAT 96
[2020-10-01 20:48] VITALS: BMI 20.6
[2020-10-01 20:57] VITALS: BMI 20.7
--- NOTE | 2020-10-01 21:30 | NURSING ---
Made call to pt's spouse to find out when pt is due for Prolia injection and what day of the week she takes her Vitamin D as pt is confused and cannot provide information about medications. Pt's spouse unsure, but believes that she had the Prolia injection a couple months ago. Unsure what day of the week she takes her weekly dose of Vitamin D. Pt's spouse states that pt usually knows her own meds, so he is unaware of her current regimen.
[2020-10-01] MEDS: guaiFENesin 1,200 MG Tablet 1200 MG PO (22:33)
[2020-10-01] MEDS: Dorzolamide HCL/Timolol 10 ml Bottle 1 DRP EACH EYE (22:33)
[2020-10-01] MEDS: Heparin Injection (Vial) 5,000 UNIT/ML VIAL 5000 UNIT SC (22:33)
[2020-10-01] MEDS: 0.9% Normal Saline 1,000 ML 75 ML IV (22:34)
[2020-10-01 22:40] VITALS: BP 128/68; PULSE 95; RESP 18; TEMP 37.7; O2SAT 95
[2020-10-02] MEDS: CLARIFY ORDER 1 EACH NOTE (02:58)
[2020-10-02 04:40] VITALS: BP 114/69; PULSE 79; RESP 16; TEMP 36.4; O2SAT 98
[2020-10-02 06:04] LABS: Absolute Lymphocyte Count 0.66 X10^3/uL (0.83-4.51); Absolute Neutrophil Count 2.5 X10^3/uL (2.0-7.7); Basophil# 0.02 X10^3/uL; Basophil% 0.5 % (0-1); Eosinophil# 0.01 X10^3/uL; Eosinophils% 0.2 % (0-5); Hemoglobin 7.4 g/dL (12.0-15.0); Lymphocyte # 0.66 X10^3/ul (4.0); Lymphocyte % 16.4 % (19-41); Mean Corp Hgb Conc 32.2 g/dL (32-36); Mean Corpuscular Hgb 30.1 pg (27.0-32.0); Mean Corpuscular Volume 93.5 fL (81-99); Mean Platelet Vol. 9.6 fl (6.2-12.0); Monocyte# 0.77 X10^3/uL; Monocyte% 19.2 % (0-10); NRBC Flagged by Analyzer 0 % (0-5); Neutrophil # 2.54 X10^3/uL (2.7-7.7); Neutrophil % 63.2 % (47-70); Platelet Count 168 K/mm3 (150-450); RBC Distribution Width CV 14.6 % (11.6-14.6); RBC Distribution Width SD 49.9 fl (35.1-43.9); Red Blood Count 2.46 M/mm3 (4.2-5.4)
[2020-10-02 06:25] LABS: Anion Gap 7 (5-15); BUN 56 mg/dL (7-18); BUN/Creat Ratio 15.3 RATIO (10-20); Chloride 114 mmol/L (98-107); Creatinine, Serum 3.66 mg/dL (0.55-1.02); EST Glomerular Filtration Rate 13 mL/min (>60); Est Glom Filt Rate - Afr Amer 16 mL/min (>60); Estimated Creatinine Clearance 15.38 ml/min; Glucose 101 mg/dL (74-106); Magnesium 1.8 mg/dL (1.6-2.6); Phosphorus 4.2 mg/dL (2.5-4.9); Potassium 3.6 mmol/L (3.5-5.1); Sodium Level 139 mmol/L (136-145)
[2020-10-02 08:42] VITALS: PULSE 70
[2020-10-02 09:01] VITALS: BP 113/65; PULSE 71; RESP 18; TEMP 36.6; O2SAT 93
[2020-10-02] MEDS: amLODIPine 5 MG Tablet PO (09:05)
[2020-10-02] MEDS: Aspirin 81 MG TAB.CHEW PO (09:05)
[2020-10-02] MEDS: Nepro Liquid 120 ML LIQUID PO (09:05)
[2020-10-02] MEDS: guaiFENesin 1,200 MG Tablet 1200 MG PO ×2 (09:05→22:33)
[2020-10-02] MEDS: Calcium Carb/Vitamin D 1 TABLET Tablet PO (09:05)
[2020-10-02] MEDS: Dorzolamide HCL/Timolol 10 ml Bottle 1 DRP EACH EYE ×2 (09:06→22:33)
--- NOTE | 2020-10-02 10:08 | PN_ITS ---
<JtSilvia PEARL FISHERMAN - Last Filed: 10/02/20 10:27> Patient Problems: Active and Suspected Problems UTI (urinary tract infection) (Acute) AMS (altered mental status) (Acute) Subjective: Patient seen and examined. Denies shortness of breath. Reports mild fever. Denies urinary symptoms. - Physical Exam Vitals/I&O's: Vital Signs Temp Pulse Resp BP Pulse Ox 97.8 F 71 18 113/65 93 10/02/20 09:01 10/02/20 09:01 10/02/20 09:01 10/02/20 09:01 10/02/20 09:01 Oxygen Flow Rate (L/min) 2 Oxygen Delivery Method Room Air Weight: 143 lb 15.39 oz Body Mass Index (BMI) 20.6 Intake and Output for Last 24 Hours 09/30/20 10/01/20 10/02/20 23:59 23:59 23:59 Intake Total 550 / 650 100 / 100 Output Total 500 / 500 Balance 550 / 650 -400 / -400 General: Alert, Oriented x3, Cooperative HEENT: Atraumatic, PERRLA, EOMI, Normocephalic Neck: Supple, No JVD, Negative Carotid Bruits Lungs: Clear to auscultation, Normal air movement Cardiovascular: Regular rate, No murmurs Abdomen: Bowel Sounds Present, Soft, Non Tender Extremities: No clubbing, No cyanosis, No edema, Capillary Refill Less than 3 Seconds Skin: No rashes, No breakdown Musculoskeletal: No Tenderness to Palpation of Joints or Extremities Neurological: Cranial nerves II-XII grossly intact, Neuro grossly intact Psych/Mental Status: Flat Affect Microbiology Past 72 Hours 10/01/20 17:05 Blood Culture (Wb) - Venous Blood Culture - Preliminary 10/01/20 16:50 Blood Culture (Wb) - Venous Blood Culture - Preliminary Laboratory Results 10/01/20 16:50: WBC 4.3 L, RBC 2.71 L, Hgb 8.2 L, Hct 25.4 L, MCV 93.7, MCH 30.3, MCHC 32.3, RDW Std Deviation 49.6 H, RDW Coeff of Remy 14.6, Plt Count 241, MPV 9.6, Immature Gran % (Auto) 0.500, Neut % (Auto) 77.8 H, Lymph % (Auto) 9.3 L, Sweet [place] % (Auto) 11.0 H, Eos % (Auto) 0.5, Baso % (Auto) 0.9, Absolute Neuts (auto) 3.3, Absolute Lymphs (auto) 0.40 L, Nucleated RBC % 0, Differential Co mment SEE COMMENT, Diff Path Review May foll, Platelet Estimate ADEQUATE, RBC Morphology N CHROM, Hypochromasia RARE, Anisocytosis RARE, Macrocytosis RARE 10/01/20 16:50: PT 26.3 H, INR 2.5, APTT 51.2 H 10/01/20 16:50: Sodium 136, Potassium 3.8, Chloride 109 H, Carbon Dioxide 18.0 L , Anion Gap 9, BUN 60 H, Creatinine 4.14 H, Estim Creat Clear Calc 11.39, Est GFR (MDRD) Af Amer 14 L, Est GFR (MDRD) Non-Af 11 L, BUN/Creatinine Ratio 14.5, Glucose 122 H, Calcium 10.2 H, Total Bilirubin 0.40, AST 22, ALT 28, Alkaline Phosphatase 97, Total Creatine Kinase 61, Troponin I < 0.015, Total Protein 7.2, Albumin 2.3 L, Globulin 4.9 H, Albumin/Globulin Ratio 0.5 L 10/01/20 16:50: Lactic Acid 1.1 10/01/20 17:37: Urine Color Yellow, Urine Clarity Cloudy, Urine pH 5.0, Ur Specific [place] 1.010, Urine Protein 15 H, Urine Glucose (UA) Normal, Urine Ketones Negative, Urine Occult Blood 250 H, Urine Nitrite Negative, Urine Bilirubin Negative, Urine Urobilinogen Normal, Ur Leukocyte Esterase 500 H, Urine RBC 5-10 SEEN, Urine WBC 10-25 SEEN, Ur Squamous Epith Cells 0-5 SEEN, Urine Bacteria 1+, Urine Mucus 0 SEEN 10/02/20 05:32: WBC 4.0 L, RBC 2.46 L, Hgb 7.4 L, Hct 23.0 L, MCV 93.5, MCH 30.1, MCHC 32.2, RDW Std Deviation 49.9 H, RDW Coeff of Remy 14.6, Plt Count 168, MPV 9.6, Immature Gran % (Auto) 0.500, Neut % (Auto) 63.2, Lymph % (Auto) 16.4 L , [place] % (Auto) 19.2 H, Eos % (Auto) 0.2, Baso % (Auto) 0.5, Absolute Neuts (auto) 2.5, Absolute Lymphs (auto) 0.66 L, Nucleated RBC % 0 10/02/20 05:32: Sodium 139, Potassium 3.6, Chloride 114 H, Carbon Dioxide 18.0 L , Anion Gap 7, BUN 56 H, Creatinine 3.66 H, Estim Creat Clear Calc 15.38, Est GFR (MDRD) Af Amer 16 L, Est GFR (MDRD) Non-Af 13 L, BUN/Creatinine Ratio 15.3, Glucose 101, Calcium 9.0, Phosphorus 4.2, Magnesium 1.8 Current Medications Acetaminophen (Acetaminophen 325 Mg Tablet) 650 mg PO Q6H PRN PRN PRN Reason: Pain Score 1-10/Temp > 100.7 F Albuterol Sulfate (Albuterol 2.5 Mg/3 Ml Vial.Neb.) 2.5 mg INHALATION Q4H PRN PRN PRN Reason: Shortness of breath, wheezing Amlodipine Besylate (Amlodipine 5 Mg Tablet) 5 mg PO DAILY [facility] Last Admin: 10/02/20 09:05 Dose: 5 mg Documented by: Aspirin ([facility] 81 [facility].Chew) [facility] Last Admin: 10/02/20 09:05 Dose: 81 mg Documented by: Calcium/Vitamin D (Calcium Carb/Vitamin D 1 Tablet Tablet) 1 tablet PO DAILY [facility] Last Admin: 10/02/20 09:05 Dose: 1 tablet Documented by: Denosumab (Denosumab 60 Mg/Ml) 60 mg SQ X1 [facility] Dorzolamide/Timolol (Dorzolamide Hcl/Timolol 10 Ml Bottle) 1 drop EACH EYE BID [facility] Last Admin: 10/02/20 09:06 Dose: 1 drop Documented by: Ergocalciferol (Ergocalciferol 50,000 Unit Capsule) 50,000 unit PO Q7D [facility] Guaifenesin (Guaifenesin 1,200 Mg Tablet) 1,200 mg PO BID [facility] Last Admin: 10/02/20 09:05 Dose: 1,200 mg Documented by: Sodium Chloride () 250 mls @ 15 mls/hr IV .[id number] PRN PRN Reason: Saline Flush Sodium Chloride () 250 mls @ 15 mls/hr IV .[id number] PRN PRN Reason: Additional IVPB Infusion Sodium Chloride () 1,000 mls @ 75 mls/hr IV .[id number] [facility] Last Admin: 10/01/20 22:34 Dose: 75 mls/hr Documented by: Ceftriaxone Sodium (Rocephin) 1 gm in 50 mls @ 100 mls/hr IV Q24H [facility] Latanoprost (Latanoprost 0.005% 1 Bottle) 1 drop EACH EYE DAILY@2200 [facility] Non-Formulary Medication (Tolvaptan [Jynarque]) 1 ea PO BID [facility] Nutritional Formula (Nepro Liquid 120 Ml Liquid) 120 ml PO 4X/DAY [facility] Last Admin: 10/02/20 09:05 Dose: 120 ml Documented by: Ondansetron HCl (Ondansetron 4 Mg/2 Ml Vial) 4 mg IV Q8H PRN PRN PRN Reason: NAUSEA/VOMITING Sodium Chloride (0.9% Saline Lock 10 Ml Syringe) 10 - 40 ml IV UD PRN PRN Reason: SALINE FLUSH Medical Necessity - Tobacco Use Smoking Status: Never smoker Assessment/Plan All Active Problems UTI (urinary tract infection) (Acute) AMS (altered mental status) (Acute) Acute on chronic renal failure (Resolved) Acute respiratory insufficiency (Resolved) COVID-19 (Resolved) Respiratory failure (Resolved) 1. Acute UTI with associated GNR bacteremia-continue IV Rocephin. Follow cultures. IV fluids. 2. Recent COVID-19 infection-ongoing mild cough. Denies shortness of breath. Previously on Eliquis prophylactically. Discontinued. Supportive management. 3. Chronic kidney disease stage IV/polycystic kidney disease-renal function at baseline. Continue tolvaptan. Trend BMP. 4. Acute anemia on anemia of chronic disease-stool for occult blood pending. Trend CBC. Plan to transfuse for hemoglobin less than 7. Will begin PPI twice daily. Eliquis discontinued. 5. Hypertension-stable, continue amlodipine. 6. Osteoporosis-on Prolia. 7. Glaucoma-continue home ophthalmic regimen. DVT prophylaxis-SCDs This patient was seen by SOURAV Blackburn under the supervision of Dr. Alejandra. <Jennifer Alejandra - Last Filed: 10/02/20 12:52> - Physical Exam Vitals/I&O's: Vital Signs Temp Pulse Resp BP Pulse Ox 97.8 F 71 18 113/65 93 10/02/20 09:01 10/02/20 09:01 10/02/20 09:01 10/02/20 09:01 10/02/20 09:01 Oxygen Flow Rate (L/min) 2 Oxygen Delivery Method Room Air Weight: 143 lb 15.39 oz Body Mass Index (BMI) 20.6 Intake and Output for Last 24 Hours 09/30/20 10/01/20 10/02/20 23:59 23:59 23:59 Intake Total 550 / 650 1000 / 1000 Output Total 500 / 500 Balance 550 / 650 500 / 500 Microbiology Past 72 Hours 10/01/20 17:05 Blood Culture (Wb) - Venous Blood Culture - Preliminary 10/01/20 16:50 Blood Culture (Wb) - Venous Blood Culture - Preliminary Laboratory Results 10/01/20 16:50: WBC 4.3 L, RBC 2.71 L, Hgb 8.2 L, Hct 25.4 L, MCV 93.7, MCH 30.3, MCHC 32.3, RDW Std Deviation 49.6 H, RDW Coeff of Remy 14.6, Plt Count 241, MPV 9.6, Immature Gran % (Auto) 0.500, Neut % (Auto) 77.8 H, Lymph % (Auto) 9.3 L, [place] % (Auto) 11.0 H, Eos % (Auto) 0.5, Baso % (Auto) 0.9, Absolute Neuts (auto) 3.3, Absolute Lymphs (auto) 0.40 L, Nucleated RBC % 0, Differential Comment SEE COMMENT, Diff Path Review May foll, Platelet Estimate ADEQUATE, RBC Morphology N CHROM, Hypochromasia RARE, Anisocytosis RARE, Macrocytosis RARE 10/01/20 16:50: PT 26.3 H, INR 2.5, APTT 51.2 H 10/01/20 16:50: Sodium 136, Potassium 3.8, Chloride 109 H, Carbon Dioxide 18.0 L , Anion Gap 9, BUN 60 H, Creatinine 4.14 H, Estim Creat Clear Calc 11.39, Est GFR (MDRD) Af Amer 14 L, Est GFR (MDRD) Non-Af 11 L, BUN/Creatinine Ratio 14.5, Glucose 122 H, Calcium 10.2 H, Total Bilirubin 0.40, AST 22, ALT 28, Alkaline Phosphatase 97, Total Creatine Kinase 61, Troponin I < 0.015, Total Protein 7.2, Albumin 2.3 L, Globulin 4.9 H, Albumin/Globulin Ratio 0.5 L 10/01/20 16:50: Lactic Acid 1.1 10/01/20 17:37: Urine Color Yellow, Urine Clarity Cloudy, Urine pH 5.0, Ur Specific [place] 1.010, Urine Protein 15 H, Urine Glucose (UA) Normal, Urine Ketones Negative, Urine Occult Blood 250 H, Urine Nitrite Negative, Urine Bilirubin Negative, Urine Urobilinogen Normal, Ur Leukocyte Esterase 500 H, Urine RBC 5-10 SEEN, Urine WBC 10-25 SEEN, Ur Squamous Epith Cells 0-5 SEEN, Urine Bacteria 1+, Urine Mucus 0 SEEN 10/02/20 05:32: WBC 4.0 L, RBC 2.46 L, Hgb 7.4 L, Hct 23.0 L, MCV 93.5, MCH 30.1, MCHC 32.2, RDW Std Deviation 49.9 H, RDW Coeff of Remy 14.6, Plt Count 168, MPV 9.6, Immature Gran % (Auto) 0.500, Neut % (Auto) 63.2, Lymph % (Auto) 16.4 L, [place] % (Auto) 19.2 H, Eos % (Auto) 0.2, Baso % (Auto) 0.5, Absolute Neuts (auto) 2.5, Absolute Lymphs (auto) 0.66 L, Nucleated RBC % 0 10/02/20 05:32: Sodium 139, Potassium 3.6, Chloride 114 H, Carbon Dioxide 18.0 L , Anion Gap 7, BUN 56 H, Creatinine 3.66 H, Estim Creat Clear Calc 15.38, Est GFR (MDRD) Af Amer 16 L, Est GFR (MDRD) Non-Af 13 L, BUN/Creatinine Ratio 15.3, Glucose 101, Calcium 9.0, Phosphorus 4.2, Magnesium 1.8 Current Medications Acetaminophen (Acetaminophen 325 Mg Tablet) 650 mg PO Q6H PRN PRN PRN Reason: Pain Score 1-10/Temp > 100.7 F Albuterol Sulfate (Albuterol 2.5 Mg/3 Ml Vial.Neb.) 2.5 mg INHALATION Q4H PRN PRN PRN Reason: Shortness of breath, wheezing Amlodipine Besylate (Amlodipine 5 Mg Tablet) 5 mg PO DAILY [facility] Last Admin: 10/02/20 09:05 Dose: 5 mg Documented by: Aspirin ([facility]spir[facility] 81 Mg [facility].Chew) [facility] Last Admin: 10/02/20 09:05 Dose: 81 mg Documented by: Calcium/Vitamin D (Calcium Carb/Vitamin D 1 Tablet Tablet) 1 tablet PO DAILY [facility] Last Admin: 10/02/20 09:05 Dose: 1 tablet Documented by: Denosumab (Denosumab 60 Mg/Ml) 60 mg SQ X1 [facility] Dorzolamide/Timolol (Dorzolamide Hcl/Timolol 10 Ml Bottle) 1 drop EACH EYE BID [facility] Last Admin: 10/02/20 09:06 Dose: 1 drop Documented by: Ergocalciferol (Ergocalciferol 50,000 Unit Capsule) 50,000 unit PO Q7D [facility] Guaifenesin (Guaifenesin 1,200 Mg Tablet) 1,200 mg PO BID [facility] Last Admin: 10/02/20 09:05 Dose: 1,200 mg Documented by: Sodium Chloride () 250 mls @ 15 mls/hr IV .[id number] PRN PRN Reason: Saline Flush Sodium Chloride () 250 mls @ 15 mls/hr IV .[id number] PRN PRN Reason: Additional IVPB Infusion Sodium Chloride () 1,000 mls @ 75 mls/hr IV .[id number] [facility] Last Admin: 10/02/20 10:34 Dose: 75 mls/hr Documented by: Ceftriaxone Sodium (Rocephin) 1 gm in 50 mls @ 100 mls/hr IV Q24H [facility] Latanoprost (Latanoprost 0.005% 1 Bottle) 1 drop EACH EYE DAILY@2200 [facility] Non-Formulary Medication (Tolvaptan [Jynarque]) 1 ea PO BID [facility] Ondansetron HCl (Ondansetron 4 Mg/2 Ml Vial) 4 mg IV Q8H PRN PRN PRN Reason: NAUSEA/VOMITING Pantoprazole Sodium (Pantoprazole Sodium 40 Mg Tablet) 40 mg PO BID [facility] Last Admin: 10/02/20 11:05 Dose: 40 mg Documented by: Sodium Chloride (0.9% Saline Lock 10 Ml Syringe) 10 - 40 ml IV UD PRN PRN Reason: SALINE FLUSH Assessment/Plan Patient seen by Silvia BENJAMIN under my supervision Patient seen and examined. She was admitted with a complaint of fever and chills as well as urgency with urination. She was found to have a UTI. Patient was recently diagnosed with Covid and admitted in August. Symptoms have now resolved and she has only a mild residual cough. She has no complaints this will relate. She denies having a fever or chills and urgency is improving. She is on IV Rocephin. Review of symptoms otherwise negative. O/E: Vital Signs Temp Pulse Resp BP Pulse Ox 97.8 F 71 18 113/65 93 10/02/20 09:01 10/02/20 09:01 10/02/20 09:01 10/02/20 09:01 10/02/20 09:01 General: Alert, Oriented x3, Cooperative HEENT: Atraumatic, PERRLA, EOMI, Normocephalic Neck: Supple, No JVD, Negative Carotid Bruits Lungs: Clear to auscultation, Normal air movement Cardiovascular: Regular rate, No murmurs Abdomen: Bowel Sounds Present, Soft, Non Tender Extremities: No clubbing, No cyanosis, No edema, Capillary Refill Less than 3 Seconds Skin: No rashes, No breakdown Musculoskeletal: No Tenderness to Palpation of Joints or Extremities Neurological: Cranial nerves II-XII grossly intact, Neuro grossly intact Psych/Mental Status: Flat Affect Continue with IV ceftriaxone. Await urine cultures. Creatinine is 3.66 but this is around her baseline as she has CKD stage V, but is not yet on dialysis. To follow-up with her weighmaster on outpatient basis. Globin today 7.4 and was 8.2 yesterday. No overt bleeding. Anticoagulation for DVT prophylaxis discontinued and stool for occult blood is pending. Iron panel done in August 2020 showed iron of 74 with TIBC which was low at 224 and iron saturation of 24.7 as well as ferritin of 56. Continue to trend hemoglobin. Start on IV Protonix 40 mg twice daily. Transfuse if hemoglobin is less than 7. Rest as per SOURAV Blackburn's note which I have reviewed and endorsed. Inpatient E&M: 44578 Subs Hosp L3
[2020-10-02] MEDS: 0.9% Normal Saline 1,000 ML 75 ML IV ×2 (10:34→22:33)
[2020-10-02] MEDS: Pantoprazole Sodium 40 MG Tablet PO ×2 (11:05→22:33)
[2020-10-02 14:13] VITALS: BP 92/57; PULSE 76; RESP 18; TEMP 36.5; O2SAT 97
[2020-10-02 17:59] VITALS: BP 94/59; PULSE 80; RESP 18; TEMP 37.2; O2SAT 94
[2020-10-02 22:28] VITALS: BP 110/69; PULSE 79; RESP 18; TEMP 36.5; O2SAT 94
[2020-10-02] MEDS: Ceftriaxone 1 GM/50 ML BAG IV (22:33)
[2020-10-03 04:56] VITALS: BP 111/72; PULSE 74; RESP 16; TEMP 36.6; O2SAT 94
[2020-10-03 07:19] LABS: Hematocrit 22.9 % (37-47); Hemoglobin 7.1 g/dL (12.0-15.0); Mean Corpuscular Hgb 29.6 pg (27.0-32.0); Mean Corpuscular Volume 95.4 fL (81-99); Mean Platelet Vol. 9.4 fl (6.2-12.0); Platelet Count 199 K/mm3 (150-450); RBC Distribution Width CV 15.1 % (11.6-14.6); White Blood Count 3.3 K/mm3 (4.4-11.0)
[2020-10-03 07:40] LABS: Anion Gap 11 (5-15); BUN 57 mg/dL (7-18); BUN/Creat Ratio 18.1 RATIO (10-20); Calcium,Total 8.7 mg/dL (8.5-10.1); Chloride 114 mmol/L (98-107); Creatinine, Serum 3.15 mg/dL (0.55-1.02); EST Glomerular Filtration Rate 16 mL/min (>60); Est Glom Filt Rate - Afr Amer 19 mL/min (>60); Estimated Creatinine Clearance 17.87 ml/min; Glucose 86 mg/dL (74-106); Potassium 3.7 mmol/L (3.5-5.1); Sodium Level 143 mmol/L (136-145)
[2020-10-03] MEDS: amLODIPine 5 MG Tablet PO (08:33)
[2020-10-03] MEDS: Calcium Carb/Vitamin D 1 TABLET Tablet PO (08:33)
[2020-10-03] MEDS: Pantoprazole Sodium 40 MG Tablet PO ×2 (08:33→20:55)
[2020-10-03] MEDS: guaiFENesin 1,200 MG Tablet 1200 MG PO ×2 (08:33→20:55)
[2020-10-03] MEDS: Aspirin 81 MG TAB.CHEW PO (08:33)
[2020-10-03] MEDS: Dorzolamide HCL/Timolol 10 ml Bottle 1 DRP EACH EYE ×2 (08:34→20:53)
[2020-10-03 08:35] VITALS: BP 110/61; PULSE 73; RESP 16; TEMP 36.5; O2SAT 98
--- NOTE | 2020-10-03 10:22 | PN_ITS ---
<JtSilvia SOFT WORK WRAPPER LAYER AND EXAMINER - Last Filed: 10/03/20 10:31> Patient Problems: Active and Suspected Problems UTI (urinary tract infection) (Acute) AMS (altered mental status) (Acute) Subjective: Patient seen and examined. Denies fever, chills. Denies blood in stool or black stools. Reports continued cough however improved. - Physical Exam Vitals/I&O's: Vital Signs Temp Pulse Resp BP Pulse Ox 97.7 F L 73 16 110/61 98 10/03/20 08:35 10/03/20 08:35 10/03/20 08:35 10/03/20 08:35 10/03/20 08:35 Oxygen Flow Rate (L/min) 2 Oxygen Delivery Method Room Air Weight: 143 lb 15.39 oz Body Mass Index (BMI) 20.6 Intake and Output for Last 24 Hours 10/01/20 10/02/20 10/03/20 23:59 23:59 23:59 Intake Total 550 / 650 2298.75 / 2298.75 0 / 0 Output Total 1750 / 1750 400 / 400 Balance 550 / 650 548.75 / 548.75 -400 / -400 General: Alert, Oriented x3, Cooperative HEENT: Atraumatic, PERRLA, EOMI, Normocephalic Neck: Supple, No JVD, Negative Carotid Bruits Lungs: Clear to auscultation, Normal air movement Cardiovascular: Regular rate, No murmurs Abdomen: Bowel Sounds Present, Soft, Non Tender Extremities: No clubbing, No cyanosis, No edema, Capillary Refill Less than 3 Seconds Skin: No rashes, No breakdown Musculoskeletal: No Tenderness to Palpation of Joints or Extremities Neurological: Cranial nerves II-XII grossly intact, Neuro grossly intact Psych/Mental Status: Flat Affect Microbiology Past 72 Hours 10/01/20 17:05 Blood Culture (Wb) - Venous Blood Culture - Preliminary GNR lactose glacing machine tender 10/01/20 16:50 Blood Culture (Wb) - Venous Blood Culture - Preliminary GNR lactose glacing machine tender Laboratory Results 10/03/20 06:48: WBC 3.3 L, RBC 2.40 L, Hgb 7.1 L, Hct 22.9 L, MCV 95.4, MCH 29.6, MCHC 31.0 L, RDW Std Deviation 52.0 H, RDW Coeff of Remy 15.1 H, Plt Count 199, MPV 9.4 10/03/20 06:48: Sodium 143, Potassium 3.7, Chloride 114 H, Carbon Dioxide 18.0 L , Anion Gap 11, BUN 57 H, Creatinine 3.15 H, Estim Creat Clear Calc 17.87, Est GFR (MDRD) Af Amer 19 L, Est GFR (MDRD) Non-Af 16 L, BUN/Creatinine Ratio 18.1, Glucose 86, Calcium 8.7 Current Medications Acetaminophen (Acetaminophen 325 Mg Tablet) 650 mg PO Q6H PRN PRN PRN Reason: Pain Score 1-10/Temp > 100.7 F Albuterol Sulfate (Albuterol 2.5 Mg/3 Ml Vial.Neb.) 2.5 mg INHALATION Q4H PRN PRN PRN Reason: Shortness of breath, wheezing Amlodipine Besylate (Amlodipine 5 Mg Tablet) 5 mg PO DAILY [facility] Last Admin: 10/03/20 08:33 Dose: 5 mg Documented by: Aspirin (Aspirin 81 Mg Tab.Chew) [facility] Last Admin: 10/03/20 08:33 Dose: 81 mg Documented by: Calcium/Vitamin D (Calcium Carb/Vitamin D 1 Tablet Tablet) 1 tablet PO DAILY [facility] Last Admin: 10/03/20 08:33 Dose: 1 tablet Documented by: Denosumab (Denosumab 60 Mg/Ml) 60 mg SQ X1 [facility] Dorzolamide/Timolol (Dorzolamide Hcl/Timolol 10 Ml Bottle) 1 drop EACH EYE BID [facility] Last Admin: 10/03/20 08:34 Dose: 1 drop Documented by: Ergocalciferol (Ergocalciferol 50,000 Unit Capsule) 50,000 unit PO Q7D [facility] Guaifenesin (Guaifenesin 1,200 Mg Tablet) 1,200 mg PO BID [facility] Last Admin: 10/03/20 08:33 Dose: 1,200 mg Documented by: Sodium Chloride () 250 mls @ 15 mls/hr IV .[id number] PRN PRN Reason: Saline Flush Sodium Chloride () 250 mls @ 15 mls/hr IV .[id number] PRN PRN Reason: Additional IVPB Infusion Sodium Chloride () 1,000 mls @ 75 mls/hr IV .[id number] [facility] Last Admin: 10/02/20 22:33 Dose: 75 mls/hr Documented by: Ceftriaxone Sodium (Rocephin) 1 gm in 50 mls @ 100 mls/hr IV Q24H [facility] Last Infusion: 10/02/20 23:03 Dose: Infused Documented by: Latanoprost (Latanoprost 0.005% 1 Bottle) 1 drop EACH EYE DAILY@2200 [facility] Last Admin: 10/02/20 22:33 Dose: Not Given Documented by: Ondansetron HCl (Ondansetron 4 Mg/2 Ml Vial) 4 mg IV Q8H PRN PRN PRN Reason: NAUSEA/VOMITING Pantoprazole Sodium (Pantoprazole Sodium 40 Mg Tablet) 40 mg PO BID [facility] Last Admin: 10/03/20 08:33 Dose: 40 mg Documented by: Sodium Chloride (0.9% Saline Lock 10 Ml Syringe) 10 - 40 ml IV UD PRN PRN Reason: SALINE FLUSH Medical Necessity - Tobacco Use Smoking Status: Never smoker Assessment/Plan All Active Problems UTI (urinary tract infection) (Acute) AMS (altered mental status) (Acute) Acute on chronic renal failure (Resolved) Acute respiratory insufficiency (Resolved) COVID-19 (Resolved) Respiratory failure (Resolved) 1. Acute UTI with associated GNR bacteremia-continue IV Rocephin. Follow cultures. 2. Recent COVID-19 infection-ongoing mild cough. Denies shortness of breath. Previously on Eliquis prophylactically. Discontinued. Supportive management. 3. Chronic kidney disease stage IV/polycystic kidney disease-renal function at baseline. Continue tolvaptan. Trend BMP. 4. Acute anemia on anemia of chronic disease-stool for occult blood pending. Trend CBC. Plan to transfuse for hemoglobin less than 7. Will begin PPI twice daily. Eliquis discontinued. 5. Hypertension-stable, continue amlodipine. 6. Osteoporosis-on Prolia. 7. Glaucoma-continue home ophthalmic regimen. DVT prophylaxis-SCDs This patient was seen by SOURAV Blackburn under the supervision of Dr. Kaufman. <Ruth Kaufman - Last Filed: 10/03/20 15:36> - Physical Exam Vitals/I&O's: Vital Signs Temp Pulse Resp BP Pulse Ox 97.6 F L 73 18 100/62 98 10/03/20 14:45 10/03/20 14:45 10/03/20 14:45 10/03/20 14:45 10/03/20 14:45 Oxygen Flow Rate (L/min) 2 Oxygen Delivery Method Room Air Weight: 65.3 kg Body Mass Index (BMI) 20.6 Intake and Output for Last 24 Hours 10/01/20 10/02/20 10/03/20 23:59 23:59 23:59 Intake Total 550 / 650 2298.75 / 2298.75 1258.75 / 1258.75 Output Total 1750 / 1750 825 / 825 Balance 550 / 650 548.75 / 548.75 433.75 / 433.75 General: Alert, Oriented x3, Cooperative, No apparent distress, Well developed, Well nourished, - - SITTING UP IN A CHAIR APPEARS VERY COMFORTABLE AND LOOKS MUCH BETTER THAN SHE DID AT ADMISSION HEENT: Atraumatic, PERRLA, EOMI, EAC Clear Oral: Moist Mucosa, No Gingival or Mucosal Lesions/ Ulcerations Neck: Supple, No JVD, Negative Carotid Bruits, No Nodes, Trachea Midline, Thyroid Normal Size and Texture Lungs: Clear to auscultation, Normal air movement, No rhonchi, No wheeze, No rales Cardiovascular: Regular rate, Regular Rhythm, Normal S1, Normal S2, No murmurs, No Ectopic Activity, No rub noted, No Gallop Abdomen: Bowel Sounds Present, Soft, Non Tender, Non-Distended, No hernias noted Extremities: No clubbing, No cyanosis, No edema, Capillary Refill Less than 3 Seconds, Peripheral Pulses Normal Skin: No rashes, No breakdown Musculoskeletal: No Tenderness to Palpation of Joints or Extremities Lymphatic: No Cervical, Supraclavicular, or Inguinal Adenopathy Neurological: Cranial nerves II-XII grossly intact, Neuro grossly intact, Muscle tone normal, Sensory exam intact to light touch and pain, Coordination normal Psych/Mental Status: Normal Affect, Appropriate Microbiology Past 72 Hours 10/01/20 16:50 Blood Culture (Wb) - Venous Blood Culture - Preliminary GNR lactose glacing machine tender 10/01/20 17:05 Blood Culture (Wb) - Venous Blood Culture - Preliminary GNR lactose glacing machine tender Laboratory Results 10/03/20 06:48: WBC 3.3 L, RBC 2.40 L, Hgb 7.1 L, Hct 22.9 L, MCV 95.4, MCH 29.6, MCHC 31.0 L, RDW Std Deviation 52.0 H, RDW Coeff of Remy 15.1 H, Plt Count 199, MPV 9.4 10/03/20 06:48: Sodium 143, Potassium 3.7, Chloride 114 H, Carbon Dioxide 18.0 L , Anion Gap 11, BUN 57 H, Creatinine 3.15 H, Estim Creat Clear Calc 17.87, Est GFR (MDRD) Af Amer 19 L, Est GFR (MDRD) Non-Af 16 L, BUN/Creatinine Ratio 18.1, Glucose 86, Calcium 8.7 Current Medications Acetaminophen (Acetaminophen 325 Mg Tablet) 650 mg PO Q6H PRN PRN PRN Reason: Pain Score 1-10/Temp > 100.7 F Albuterol Sulfate (Albuterol 2.5 Mg/3 Ml Vial.Neb.) 2.5 mg INHALATION Q4H PRN PRN PRN Reason: Shortness of breath, wheezing Amlodipine Besylate (Amlodipine 5 Mg Tablet) 5 mg PO DAILY [facility] Last Admin: 10/03/20 08:33 Dose: 5 mg Documented by: Aspirin (Aspirin 81 Mg Tab.Chew) [facility] Last Admin: 10/03/20 08:33 Dose: 81 mg Documented by: Calcium/Vitamin D (Calcium Carb/Vitamin D 1 Tablet Tablet) 1 tablet PO DAILY [facility] Last Admin: 10/03/20 08:33 Dose: 1 tablet Documented by: Denosumab (Denosumab 60 Mg/Ml) 60 mg SQ X1 [facility] Dorzolamide/Timolol (Dorzolamide Hcl/Timolol 10 Ml Bottle) 1 drop EACH EYE BID [facility] Last Admin: 10/03/20 08:34 Dose: 1 drop Documented by: Ergocalciferol (Ergocalciferol 50,000 Unit Capsule) 50,000 unit PO Q7D [facility] Guaifenesin (Guaifenesin 1,200 Mg Tablet) 1,200 mg PO BID [facility] Last Admin: 10/03/20 08:33 Dose: 1,200 mg Documented by: Sodium Chloride () 250 mls @ 15 mls/hr IV .[id number] PRN PRN Reason: Saline Flush Sodium Chloride () 250 mls @ 15 mls/hr IV .[id number] PRN PRN Reason: Additional IVPB Infusion Ceftriaxone Sodium (Rocephin) 1 gm in 50 mls @ 100 mls/hr IV Q24H [facility] Last Infusion: 10/02/20 23:03 Dose: Infused Documented by: Latanoprost (Latanoprost 0.005% 1 Bottle) 1 drop EACH EYE DAILY@2200 [facility] Last Admin: 10/02/20 22:33 Dose: Not Given Documented by: Ondansetron HCl (Ondansetron 4 Mg/2 Ml Vial) 4 mg IV Q8H PRN PRN PRN Reason: NAUSEA/VOMITING Pantoprazole Sodium (Pantoprazole Sodium 40 Mg Tablet) 40 mg PO BID [facility] Last Admin: 10/03/20 08:33 Dose: 40 mg Documented by: Sodium Chloride (0.9% Saline Lock 10 Ml Syringe) 10 - 40 ml IV UD PRN PRN Reason: SALINE FLUSH Assessment/Plan I agree with the above and the following is a representation of my independent history and exam GNR LF Bacteremia -suspected UTI as source as UA was suggestive of this but awaiting cx results -Blood cx 2/2 + for GNR -pt is clinically improving so will continue CTX at this time -CXR with no new infiltrates -consult ID Metabolic Encephalopathy -resolved now -monitor Microscopic Hematuria -suspect related to Eliquis -d/c NOAC as her course for COVID is almost completed -recommend outpt f/u UA for resolution CKD stage 4 -sCr at baseline -monitor -avoid nephrotoxins Acute on Chronic Anemia 2/2 CKD -mild drop since d/c with COVID and trending down -gets EPO monthly and missed dose on 2/2 recent COVID -will dose here today -d/c IVF -guaiac ordered -repeat CBC in am -would transfuse if < 7 PCKD -continue tolvaptan Osteoporosis -continue Prolia HTN -continue home meds Cough -suspect 2/2 to recent COVID -19 infection -antitussive if needed -no s/o post-infectious PNA -better today -monitor DVT prophylaxis -heparin Code Status -Full -son was updated today Inpatient E&M: [id number] [facility] L3
--- NOTE | 2020-10-03 11:05 | CASEMGMT ---
RN CM Face to Face with patient for initial transition planning/care coordination assessment. RN CM introduced self and role at [facility]. Patient sitting in chair, alert and oriented. Patient willing to participate in assessment and is able to answer all questions appropriately. Care providers, pharmacy, and demographics verified. Patient wishes to discharge home with resumption of HHC with [facility]. Patient states she has no further needs or concerns at this time. CM to follow for discharge planning needs that may arise. PCP: Benji Palacios Specialists: Tony contact lens technician [place] Preferred Pharmacy: [facility] Insurance: Amee DORADO Prescription Benefit: yes Living Will/HPOA: yes, Adrian Cotton LNOK: Living Arrangements: Patient lives with in a 1.5 story home with bed and bath on first floor. Patient states she is independent at home. Transportation: Self, , son DME/HHC: Patient denies DME and is currently active with [facility]. Disposition Plan: Patient to discharge home with resumption of HHC, family support, and follow-up plans in place. Lydia SZYMANSKI, RN, CM
[2020-10-03 14:45] VITALS: BP 100/62; PULSE 73; RESP 18; TEMP 36.4; O2SAT 98
[2020-10-03] MEDS: Epoetin Alfa epbx 10,000 UNITS/ML 10000 UNIT SC (16:46)
--- NOTE | 2020-10-03 17:06 | PCM.HP.ID ---
Problem List (1) Bacteremia due to Gram-negative bacteria Status: Acute Reason for Consult: (+) bcx Consulted by: Dr. 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 Admitted mid-Oct with covid. Denies any change in urine, no abd pain, no n/v/d, no cough or SOB. Mild R sided flank pain. Came to ED, on ceftriaxone, feeling much better. Full ROS Performed and neg except as noted above. - Medical History Past Medical History (Chronic Problems): Chronic Problems Chronic kidney disease, stage IV (severe) (Chronic) Hypertension (Chronic) Polycystic kidney disease (Chronic) Allergies/Adverse Reactions: Allergies sulfamethoxazole [From ] Allergy (Verified 10/01/20 21:00) Hives trimethoprim [From ] Allergy (Verified 10/01/20 21:00) Hives Home Medications: Ambulatory Orders Medication Instructions Recorded Amlodipine Besylate 5 mg PO DAILY 07/27/20 Calcium Carbonate/Vitamin D3 1 ea PO DAILY 07/27/20 [Calcium 500+D Tablet Chew] Denosumab [Prolia] 60 mg SQ X1 07/27/20 Dorzolamide HCL/Timolol [Cosopt 1 drp OPHTHALMIC (EYE) BID 07/27/20 Opth Drops] Ergocalciferol [Vitamin D] 50,000 unit PO WE 07/27/20 Latanoprost 2.5 ml OP DAILY 07/27/20 Tolvaptan [Jynarque] 1 ea PO BID 07/27/20 Albuterol IH (ProAir) [Proair Hfa] 2 puff INHALATION Q4H PRN PRN #1 09/18/20 inhaler Apixaban [Eliquis] 5 mg PO BID #30 tab 09/18/20 Aspirin [Aspirin, Baby] 81 mg PO DAILY #0 09/18/20 Guaifenesin [Mucinex] 1,200 mg PO BID #10 tab 09/18/20 - Social History Tobacco Use: non-smoker Vital Signs Temp Pulse Resp BP Pulse Ox 97.6 F L 73 18 100/62 98 10/03/20 14:45 10/03/20 14:45 10/03/20 14:45 10/03/20 14:45 10/03/20 14:45 Oxygen Flow Rate (L/min) 2 Oxygen Delivery Method Room Air Weight: 65.3 kg Body Mass Index (BMI) 20.6 Microbiology Past 72 Hours 10/01/20 16:50 Blood Culture - Preliminary Blood Culture (Wb) - Venous GNR lactose cost reduction engineer 10/01/20 17:05 Blood Culture - Preliminary Blood Culture (Wb) - Venous GNR lactose cost reduction engineer Laboratory Tests Past 24 Hrs 10/03/20 10/03/20 06:48 06:48 WBC 3.3 L RBC 2.40 L Hgb 7.1 L Hct 22.9 L MCV 95.4 MCH 29.6 MCHC 31.0 L RDW Std Deviation 52.0 H RDW Coeff of Remy 15.1 H Plt Count 199 MPV 9.4 Sodium 143 Potassium 3.7 Chloride 114 H Carbon Dioxide 18.0 L Anion Gap 11 BUN 57 H Creatinine 3.15 H Estim Creat Clear Calc 17.87 Est GFR (MDRD) Af Amer 19 L Est GFR (MDRD) Non-Af 16 L BUN/Creatinine Ratio 18.1 Glucose 86 Calcium 8.7 - Other Studies Radiology: [] reviewed Other Studies: [] Route of nutrition/ use of supplements: [] Nutritional Intake: [] IV Site: [] Jorge Catheter: [] - Physical Exam General: Alert, Oriented x3, Cooperative, No apparent distress HEENT: Atraumatic, PERRLA, EOMI Neck: Supple, No Nodes Lungs: Clear to auscultation, Normal air movement Cardiovascular: Regular rate, Regular Rhythm Abdomen: Soft, Non Tender, Non-Distended, - - no flank pain Extremities: No edema Skin: No rashes IV Site: Peripheral, without redness Musculoskeletal: No Tenderness to Palpation of Joints or Extremities Neurological: Cranial nerves II-XII grossly intact - Assessment/Plan Antibiotics: [] Assessment/Plan: [] Active and Suspected Problems UTI (urinary tract infection) (Acute) AMS (altered mental status) (Acute) GNR bacteremia, suspect urinary source - much improved on ceftriaxone, will increase dose to 2gm q24h. Will follow, thank you
[2020-10-03 20:09] VITALS: BP 100/63; PULSE 88; RESP 16; TEMP 36.6; O2SAT 97
[2020-10-03] MEDS: Latanoprost 0.005% 1 Bottle 1 DRP EACH EYE (20:55)
[2020-10-04] VITALS (7 sets, daily range): BP systolic 110–121; BP diastolic 60–69; PULSE 66–78; RESP 16–18; TEMP 36.2–37.1; O2SAT 97–99
[2020-10-04 07:40] LABS: Hematocrit 23.4 % (37-47); Hemoglobin 7.3 g/dL (12.0-15.0); Mean Corp Hgb Conc 31.2 g/dL (32-36); Mean Corpuscular Hgb 29.9 pg (27.0-32.0); Mean Corpuscular Volume 95.9 fL (81-99); Mean Platelet Vol. 9.6 fl (6.2-12.0); Platelet Count 258 K/mm3 (150-450); RBC Distribution Width CV 15.3 % (11.6-14.6); RBC Distribution Width SD 54.1 fl (35.1-43.9); Red Blood Count 2.44 M/mm3 (4.2-5.4); White Blood Count 2.9 K/mm3 (4.4-11.0)
--- NOTE | 2020-10-04 07:47 | PN_ITS ---
Patient Problems: Active and Suspected Problems UTI (urinary tract infection) (Acute) AMS (altered mental status) (Acute) Bacteremia due to Gram-negative bacteria (Acute) Subjective: Patient overnight with no acute events per self and per nursing report. She notes feeling significantly improved since initial presentation with return to mental baseline, increased energy however she still severely fatigued and did discuss recent hemoglobin levels. Family had also mentioned concern for hemoglobin and had discussed PRBC transfusion. 1 unit PRBC transfusion ordered and pending. Infectious disease involved and noted given blood cultures with E. coli sensitive to cephalosporins plan transition to Keflex regimen from IV Rocep hin with continued 7-day duration with suspected renal source and amenable to discharge to home. Patient denies fevers, chills, nausea, emesis, abdominal pain, chest pain or dyspnea. Objective: Physical Examination: General: awake, alert, oriented x 3 and cooperative, seated upright in the medical surgical bed, fatigued but notes and feeling improved. Skin: normal color, turgor, no icterus, cyanosis. HEENT: AT/NC, EOMI, PERRLA, proved MMM. Lungs: CTA bilaterally, moderate effort, moderate decrease BL bases, no rales, ronchi or wheezing. Heart: Regular rate and rhythm; no gallop, rub audible. Abdomen: soft, NTTP, ND, normal BS. Extremities: no cyanosis, clubbing, or edema. Neurological: patient awake, alert, oriented as noted; cognitive function appears intact; pupils equally reactive to light and accomodation; cranial nerves II-XII grossly normal, moving all 4 extremities, no focal deficits, strength improving, moderately global decrease. Psychiatric: affect appears fatigued otherwise normal, no acute evidence of depressive or anxiety feelings. Vitals/I&O's: Vital Signs Temp Pulse Resp BP Pulse Ox 98.7 F 73 16 112/69 97 10/04/20 01:52 10/04/20 01:52 10/04/20 01:52 10/04/20 01:52 10/04/20 01:52 Oxygen Flow Rate (L/min) 2 Oxygen Delivery Method Room Air Weight: 143 lb 15.39 oz Body Mass Index (BMI) 20.6 Intake and Output for Last 24 Hours 10/02/20 10/03/20 10/04/20 23:59 23:59 23:59 Intake Total 2298.75 / 2298.75 1308.75 / 1558.75 250 / 250 Output Total 1750 / 1750 1125 / 1125 Balance 548.75 / 548.75 183.75 / 433.75 250 / 250 Microbiology Past 72 Hours 10/01/20 16:50 Blood Culture (Wb) - Venous Blood Culture - Final Escherichia coli 10/01/20 17:05 Blood Culture (Wb) - Venous Blood Culture - Preliminary GNR lactose collar tailor Laboratory Results 10/04/20 07:06: WBC 2.9 L, RBC 2.44 L, Hgb 7.3 L, Hct 23.4 L, MCV 95.9, MCH 29.9, MCHC 31.2 L, RDW Std Deviation 54.1 H, RDW Coeff of Remy 15.3 H, Plt Count 258, MPV 9.6 10/04/20 07:06: Sodium Pending, Potassium Pending, Chloride Pending, Carbon Dioxide Pending, Anion Gap Pending, BUN Pending, Creatinine Pending, Est GFR (MDRD) Af Amer Pending, Est GFR (MDRD) Non-Af Pending, BUN/Creatinine Ratio Pending, Glucose Pending, Calcium Pending Current Medications Acetaminophen (Acetaminophen 325 Mg Tablet) 650 mg PO Q6H PRN PRN PRN Reason: Pain Score 1-10/Temp > 100.7 F Albuterol Sulfate (Albuterol 2.5 Mg/3 Ml Vial.Neb.) 2.5 mg INHALATION Q4H PRN PRN PRN Reason: Shortness of breath, wheezing Amlodipine Besylate (Amlodipine 5 Mg Tablet) 5 mg PO DAILY [facility] Last Admin: 10/03/20 08:33 Dose: 5 mg Documented by: Aspirin (Aspirin 81 Mg [facility].Chew) [facility] Last Admin: 10/03/20 08:33 Dose: 81 mg Documented by: Calcium/Vitamin D (Calcium Carb/Vitamin D 1 Tablet Tablet) 1 tablet PO DAILY [facility] Last Admin: 10/03/20 08:33 Dose: 1 tablet Documented by: Denosumab (Denosumab 60 Mg/Ml) 60 mg SQ X1 [facility] Dorzolamide/Timolol (Dorzolamide Hcl/Timolol 10 Ml Bottle) 1 drop EACH EYE BID [facility] Last Admin: 10/03/20 20:53 Dose: 1 drop Documented by: Ergocalciferol (Ergocalciferol 50,000 Unit Capsule) 50,000 unit PO Q7D [facility] Guaifenesin (Guaifenesin 1,200 Mg Tablet) 1,200 mg PO BID [facility] Last Admin: 10/03/20 20:55 Dose: 1,200 mg Documented by: Sodium Chloride () 250 mls @ 15 mls/hr IV .[id number] PRN PRN Reason: Saline Flush Sodium Chloride () 250 mls @ 15 mls/hr IV .[id number] PRN PRN Reason: Additional IVPB Infusion Ceftriaxone Sodium 2 gm/ (Sodium Chloride) 50 mls @ 100 mls/hr IV QPM [facility] Last Infusion: 10/03/20 21:19 Dose: Infused Documented by: Latanoprost (Latanoprost 0.005% 1 Bottle) 1 drop EACH EYE DAILY@2200 [facility] Last Admin: 10/03/20 20:55 Dose: 1 drop Documented by: Ondansetron HCl (Ondansetron 4 Mg/2 Ml Vial) 4 mg IV Q8H PRN PRN PRN Reason: NAUSEA/VOMITING Pantoprazole Sodium (Pantoprazole Sodium 40 Mg Tablet) 40 mg PO BID [facility] Last Admin: 10/03/20 20:55 Dose: 40 mg Documented by: Sodium Chloride (0.9% Saline Lock 10 Ml Syringe) 10 - 40 ml IV UD PRN PRN Reason: SALINE FLUSH Medical Necessity - Tobacco Use Smoking Status: Never smoker Assessment/Plan All Active Problems UTI (urinary tract infection) (Acute) AMS (altered mental status) (Acute) Bacteremia due to Gram-negative bacteria (Acute) Acute on chronic renal failure (Resolved) Acute respiratory insufficiency (Resolved) COVID-19 (Resolved) Respiratory failure (Resolved) The patient is a 65 y/o F w/ PMHx: 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 1. Acute Complicated E. Coli UTI with associated E. Coli Bacteremia with microscopic hematuria: Patient admitted to the medical surgical floor, stable pulmonary status given recent COVID-19 infection, initially on Eliquis regimen however patient did have hematuria therefore discontinued with acute on chronic anemia noted concurrently, initially treated with IV Rocephin with eventual blood cultures notable for gram-negative rods eventually elucidated be E. coli sensitive to cephalosporins with transition per infectious disease to Keflex 250 mg p.o. twice daily with a 7-day additional duration 2 of treatment planned. Given patient clinical improvement plan discharge to home on continued antibiotic therapy on 10/04/2020. Son was contacted and updated about course and was amenable. 2. Acute on chronic anemia, AOCD: Patient without ability to perform occult with no stools during presentation, most recent CBC with 09/27/2020 hemoglobin 9.4, decreased to 10/03/2020 7.1, repeat 10/04/2020 7.3, given recent complicated agitation with acute on chronic anemia and recent usage of Eliquis prophylactic course for recent Covid admission with now hold will administer 1 unit PRBC and repeat hemoglobin following. Discussed this with patient's son, James who is a physician as well. 3. Recent Acute Viral Syndrome, COVID-19: Patient with recent presentation, prolonged, acute kidney injury concurrently at that time, clinically improved, had been on prophylactic Eliquis regimen but given hematuria and acute on chronic anemia discontinued. 4. CKD stage IV with recent NEDA: Secondary to acute presentation as noted #1 as well as likely #2. Admission BUN/Cr 60/4.14, recent admission with Cr elevation up to 5.24, prior baseline creatinine noted to be 2.5-2.9, discharge Cr 09/18/20 Cr 3.54, 10/04/2020 BUN/creatinine 55/3.31, improved, 5. Polycystic kidney disease: We will continue patient tolvaptan regimen. 6. Hypertension: Continue home regimen including amlodipine with hold parameters as needed, PRN hydralazine. 7. Glaucoma, unclear type: We will continue patient home ophthalmic eyedrops. 8. DVT prophylaxis: SCDs, holding chemoprophylaxis given acute presentation #1, #2 as noted. 9. CODE status: Full Code.
[2020-10-04 07:50] LABS: Anion Gap 8 (5-15); BUN 55 mg/dL (7-18); BUN/Creat Ratio 16.6 RATIO (10-20); Calcium,Total 9.3 mg/dL (8.5-10.1); Chloride 118 mmol/L (98-107); Creatinine, Serum 3.31 mg/dL (0.55-1.02); EST Glomerular Filtration Rate 15 mL/min (>60); Est Glom Filt Rate - Afr Amer 18 mL/min (>60); Glucose 86 mg/dL (74-106); Potassium 3.9 mmol/L (3.5-5.1); Sodium Level 143 mmol/L (136-145)
[2020-10-04] MEDS: Dorzolamide HCL/Timolol 10 ml Bottle 1 DRP EACH EYE (07:55)
[2020-10-04] MEDS: amLODIPine 5 MG Tablet PO (07:55)
[2020-10-04] MEDS: guaiFENesin 1,200 MG Tablet 1200 MG PO (07:55)
[2020-10-04] MEDS: Aspirin 81 MG TAB.CHEW PO (07:55)
[2020-10-04] MEDS: Calcium Carb/Vitamin D 1 TABLET Tablet PO (07:55)
[2020-10-04] MEDS: Pantoprazole Sodium 40 MG Tablet PO (07:55)
[2020-10-04 09:59] LABS: Pathologist Review Reviewed
--- NOTE | 2020-10-04 11:26 | PN.ID_ITS ---
Patient Problems: Active and Suspected Problems UTI (urinary tract infection) (Acute) AMS (altered mental status) (Acute) Bacteremia due to Gram-negative bacteria (Acute) Subjective: Feeling much better, no fever, no n/v/d, no abd pain - Physical Exam Vitals/I&O's: Vital Signs Temp Pulse Resp BP Pulse Ox 98.0 F 73 16 121/61 H 99 10/04/20 08:00 10/04/20 08:00 10/04/20 08:00 10/04/20 08:00 10/04/20 08:00 Oxygen Flow Rate (L/min) 2 Oxygen Delivery Method Room Air Weight: 65.3 kg Body Mass Index (BMI) 20.6 Intake and Output for Last 24 Hours 10/02/20 10/03/20 10/04/20 23:59 23:59 23:59 Intake Total 2298.75 / 2298.75 1308.75 / 1558.75 250 / 250 Output Total 1750 / 1750 1125 / 1125 Balance 548.75 / 548.75 183.75 / 433.75 250 / 250 General: Alert, Cooperative, No apparent distress Lungs: Clear to auscultation, Normal air movement Cardiovascular: Regular rate, Regular Rhythm Abdomen: Soft, Non Tender, Non-Distended Skin: No rashes Microbiology Past 72 Hours 10/01/20 17:05 Blood Culture (Wb) - Venous Blood Culture - 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 10/01/20 16:50 Blood Culture (Wb) - Venous Blood Culture - Final Escherichia coli Laboratory Results 10/01/20 16:50: Diff Path Review Reviewed 10/04/20 07:06: WBC 2.9 L, RBC 2.44 L, Hgb 7.3 L, Hct 23.4 L, MCV 95.9, MCH 29.9, MCHC 31.2 L, RDW Std Deviation 54.1 H, RDW Coeff of Remy 15.3 H, Plt Count 258, MPV 9.6 10/04/20 07:06: Sodium 143, Potassium 3.9, Chloride 118 H, Carbon Dioxide 17.0 L , Anion Gap 8, BUN 55 H, Creatinine 3.31 H, Estim Creat Clear Calc 17.00, Est GFR (MDRD) Af Amer 18 L, Est GFR (MDRD) Non-Af 15 L, BUN/Creatinine Ratio 16.6, Glucose 86, Calcium 9.3 10/04/20 09:35: Blood Type O NEGATIVE, Antibody Screen NEGATIVE, Crossmatch See Detail Current Medications Acetaminophen (Acetaminophen 325 Mg Tablet) 650 mg PO Q6H PRN PRN PRN Reason: Pain Score 1-10/Temp > 100.7 F Albuterol Sulfate (Albuterol 2.5 Mg/3 Ml Vial.Neb.) 2.5 mg INHALATION Q4H PRN PRN PRN Reason: Shortness of breath, wheezing Amlodipine Besylate (Amlodipine 5 Mg Tablet) 5 mg PO DAILY [facility] Last Admin: 10/04/20 07:55 Dose: 5 mg Documented by: Aspirin (Aspirin 81 Mg Tab.Chew) 81 mg PO DAILYCM [facility] Last Admin: 10/04/20 07:55 Dose: 81 mg Documented by: Calcium/Vitamin D (Calcium Carb/Vitamin D 1 Tablet Tablet) 1 tablet PO DAILY [facility] Last Admin: 10/04/20 07:55 Dose: 1 tablet Documented by: Denosumab (Denosumab 60 Mg/Ml) 60 mg SQ X1 [facility] Dorzolamide/Timolol (Dorzolamide Hcl/Timolol 10 Ml Bottle) 1 drop EACH EYE BID [facility] Last Admin: 10/04/20 07:55 Dose: 1 drop Documented by: Ergocalciferol (Ergocalciferol 50,000 Unit Capsule) 50,000 unit PO Q7D [facility] Guaifenesin (Guaifenesin 1,200 Mg Tablet) 1,200 mg PO BID [facility] Last Admin: 10/04/20 07:55 Dose: 1,200 mg Documented by: Sodium Chloride () 250 mls @ 15 mls/hr IV .[id number] PRN PRN Reason: Saline Flush Sodium Chloride () 250 mls @ 15 mls/hr IV .[id number] PRN PRN Reason: Additional IVPB Infusion Ceftriaxone Sodium 2 gm/ (Sodium Chloride) 50 mls @ 100 mls/hr IV QPM [facility] Last Infusion: 10/03/20 21:19 Dose: Infused Documented by: Latanoprost (Latanoprost 0.005% 1 Bottle) 1 drop EACH EYE DAILY@2200 [facility] Last Admin: 10/03/20 20:55 Dose: 1 drop Documented by: Ondansetron HCl (Ondansetron 4 Mg/2 Ml Vial) 4 mg IV Q8H PRN PRN PRN Reason: NAUSEA/VOMITING Pantoprazole Sodium (Pantoprazole Sodium 40 Mg Tablet) 40 mg PO BID [facility] Last Admin: 10/04/20 07:55 Dose: 40 mg Documented by: Sodium Chloride (0.9% Saline Lock 10 Ml Syringe) 10 - 40 ml IV UD PRN PRN Reason: SALINE FLUSH Medical Necessity - Tobacco Use Smoking Status: Never smoker Route of nutrition/ use of supplements: [] Nutritional Intake: [] IV Site: [] Jorge Catheter: [] - Assessment/Plan Antibiotics: [] Assessment/Plan: [] Active and Suspected Problems UTI (urinary tract infection) (Acute) AMS (altered mental status) (Acute) ecoli bacteremia, suspect urinary source - much improved on ceftriaxone. Ok for discharge on 7 more days of keflex 250mg bid. Will follow, d/w Dr. Alexander
--- NOTE | 2020-10-04 11:41 | PCM.DC ---
- Discharge Diagnoses Current Active Problems: Current Active and Chronic Problems Acute E. Coli Bacteremia secondary to Acute Complicated E. Coli UTI Acute metabolic encephalopathy secondary to #1 Microscopic hematuria with acute on chronic anemia secondary to underlying chronic kidney disease and likely hematuria secondary to anticoagulant therapy Recent Covid-19 pneumonia Chronic kidney disease stage IV Polycystic kidney disease Osteoporosis Hypertension Glaucoma You will use the following diet at home:: Cardiac, Renal (restricted protein/sodium) Your food should be the consistency of: Regular Your liquids should be the consistency of: Regular/Thin Discharge Activity: - - Encourage routine activity until improved clinically from recent acute admission and recent COVID pneumonia. Regular movement is important, thus at least perform short walks around your house throughout the day. May resume sexual activity in: - - Advise hold until clinically resolved recent acute complicated UTI. Call your doctor if you observe: Fever of 101 or Higher, Inability to urinate, Inability to have a bowel movement, Shortness of breath, Dizziness, Fainting spells, Chest pain, Uncontrolled pain Instructions: Understanding Urinary Tract Infections (UTIs), Anemia and Kidney Disease Additional Instructions: Please have repeat complete blood count and complete metabolic panel at follow-up with your primary care physician. During the admission your prophylaxis with eliquis was discontinued secondary to your increased anemia. You were given a dose of erythropoietin given you missed a recent dose in your recent complicated presentation decision for 1 unit PRBC administered. If your hemoglobin (blood) levels decrease again we may need to have an outpatient stool guiac performed with your primary care physician. Allergies/Adverse Reactions: Allergies sulfamethoxazole [From ] Allergy (Verified 10/01/20 21:00) Hives trimethoprim [From ] Allergy (Verified 10/01/20 21:00) Hives Medications to take at Discharge Amlodipine Besylate 5 mg PO DAILY 07/27/20 Calcium Carbonate/Vitamin D3 [Calcium 500+D Tablet Chew] 1 ea PO DAILY 07/27/20 Denosumab [Prolia] 60 mg SQ X1 07/27/20 Dorzolamide HCL/Timolol [Cosopt Opth Drops] 1 drp OPHTHALMIC (EYE) BID 07/27/20 Ergocalciferol [Vitamin D] 50,000 unit PO WE 07/27/20 Latanoprost 2.5 ml OP DAILY 07/27/20 Tolvaptan [Jynarque] 1 ea PO BID 07/27/20 Albuterol IH (ProAir) [Proair Hfa] 2 puff INHALATION Q4H PRN PRN #1 inhaler 09/18/20 Aspirin [Aspirin, Baby] 81 mg PO DAILY #0 09/18/20 Guaifenesin [Mucinex] 1,200 mg PO BID #10 tab 09/18/20 Cephalexin [Keflex] 250 mg PO BID #14 cap 10/04/20 Cephalexin [Keflex] 250 mg PO BID 7 Days #14 cap 10/04/20 The following prescriptions were given: Cephalexin [Keflex] 250 mg PO BID #14 cap Transmission Status: Received by [address] Cephalexin [Keflex] 250 mg PO BID 7 Days #14 cap Transmission Status: Pending to [address] Primary Care Physician: Benji Palacios MD [Primary Care Provider] - Please follow up with your Primary Care Physician in: Follow-up within 2-3 days to review admission. Test Results: Test results from this visit will be discussed in further detail at your follow-up appointment, if applicable. Please Follow Up With: Nephrology When: Please follow-up with your Kidney doctor as previously arranged. Proposed Discharge Date: 10/04/20
[2020-10-04] MEDS: 0.9% Saline Lock 10 ML Syringe IV ×2 (11:58→15:02)
--- NOTE | 2020-10-04 13:09 | CASEMGMT ---
KITTY CM updated [facility] that patient will be discharging today. Resumption order and discharge instructions faxed to [facility].
--- NOTE | 2020-10-04 15:09 | DS.PCM_ITS ---
Discharge Date and Diagnosis - Problem List Patient Problems: Active and Suspected Problems UTI (urinary tract infection) (Acute) AMS (altered mental status) (Acute) Bacteremia due to Gram-negative bacteria (Acute) Date of Admission: 10/01/20 Date of Discharge: 10/04/20 - Primary Discharge Diagnosis Acute Problems: Active Problems Acute E. Coli Bacteremia secondary to Acute Complicated E. Coli UTI Acute metabolic encephalopathy secondary to #1 Microscopic hematuria with acute on chronic anemia secondary to underlying chronic kidney disease and likely hematuria secondary to anticoagulant therapy Recent Covid-19 pneumonia Chronic kidney disease stage IV Polycystic kidney disease Osteoporosis Hypertension Glaucoma - Secondary Discharge Diagnosis Chronic Problems: Chronic Problems Chronic kidney disease, stage IV (severe) (Chronic) Hypertension (Chronic) Polycystic kidney disease (Chronic) Hospital Course and Treatment Dr. 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 Patient admitted to the medical surgical floor, stable pulmonary status given recent COVID-19 infection, initially on Eliquis regimen however patient did have hematuria therefore discontinued with acute on chronic anemia noted concurrently, initially treated with IV Rocephin with eventual blood cultures notable for gram-negative rods eventually elucidated be E. coli sensitive to cephalosporins with transition per infectious disease to Keflex 250 mg p.o. twice daily with a 7-day additional duration 2 of treatment planned. Given patient clinical improvement plan discharge to home on continued antibiotic therapy on 10/04/2020. Patient without ability to perform occult with no stools during presentation, most recent CBC with 09/27/2020 hemoglobin 9.4, decreased to 10/03/2020 7.1, repeat 10/04/2020 7.3, given recent complicated agitation with acute on chronic anemia and recent usage of Eliquis prophylactic course for recent Covid admission with now hold will administer 1 unit PRBC and repeat hemoglobin following. Patient with recent presentation, prolonged, acute kidney injury concurrently at that time, clinically improved, had been on prophylactic Eliquis regimen but given hematuria and acute on chronic anemia discontinued. Admission BUN/Cr 60/4.14, recent admission with Cr elevation up to 5.24, prior baseline creatinine noted to be 2.5-2.9, discharge Cr 09/18/20 Cr 3.54, 10/04/2020 BUN/creatinine 55/3.31, improved. 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 Patient Problems: Active and Suspected Problems UTI (urinary tract infection) (Acute) AMS (altered mental status) (Acute) Bacteremia due to Gram-negative bacteria (Acute) - Physical Exam Vitals/I&O's: Vital Signs Temp Pulse Resp BP Pulse Ox 97.2 F L 78 16 110/66 99 10/04/20 15:01 10/04/20 15:01 10/04/20 15:01 10/04/20 15:01 10/04/20 15:01 Oxygen Flow Rate (L/min) 2 Oxygen Delivery Method Room Air Weight: 143 lb 15.39 oz Body Mass Index (BMI) 20.6 Intake and Output for Last 24 Hours 10/02/20 10/03/20 10/04/20 23:59 23:59 23:59 Intake Total 2298.75 / 2298.75 1308.75 / 1558.75 1059.25 / 1059.25 Output Total 1750 / 1750 1125 / 1125 600 / 600 Balance 548.75 / 548.75 183.75 / 433.75 459.25 / 459.25 Microbiology Past 72 Hours 10/01/20 17:05 Blood Culture (Wb) - Venous Blood Culture - 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 10/01/20 16:50 Blood Culture (Wb) - Venous Blood Culture - Final Escherichia coli Laboratory Results 10/01/20 16:50: Diff Path Review Reviewed 10/04/20 07:06: WBC 2.9 L, RBC 2.44 L, Hgb 7.3 L, Hct 23.4 L, MCV 95.9, MCH 29.9, MCHC 31.2 L, RDW Std Deviation 54.1 H, RDW Coeff of Remy 15.3 H, Plt Count 258, MPV 9.6 10/04/20 07:06: Sodium 143, Potassium 3.9, Chloride 118 H, Carbon Dioxide 17.0 L , Anion Gap 8, BUN 55 H, Creatinine 3.31 H, Estim Creat Clear Calc 17.00, Est GFR (MDRD) Af Amer 18 L, Est GFR (MDRD) Non-Af 15 L, BUN/Creatinine Ratio 16.6, Glucose 86, Calcium 9.3 10/04/20 09:35: Blood Type O NEGATIVE, Antibody Screen NEGATIVE, Crossmatch See Detail Current Medications Acetaminophen (Acetaminophen 325 Mg Tablet) 650 mg PO Q6H PRN PRN PRN Reason: Pain Score 1-10/Temp > 100.7 F Albuterol Sulfate (Albuterol 2.5 Mg/3 Ml Vial.Neb.) 2.5 mg INHALATION Q4H PRN PRN PRN Reason: Shortness of breath, wheezing Amlodipine Besylate (Amlodipine 5 Mg Tablet) 5 mg PO DAILY [facility] Last Admin: 10/04/20 07:55 Dose: 5 mg Documented by: Aspirin (Aspirin 81 Mg Tab.Chew) 81 mg PO DAILYCM [facility] Last Admin: 10/04/20 07:55 Dose: 81 mg Documented by: Calcium/Vitamin D (Calcium Carb/Vitamin D 1 Tablet Tablet) 1 tablet PO DAILY [facility] Last Admin: 10/04/20 07:55 Dose: 1 tablet Documented by: Denosumab (Denosumab 60 Mg/Ml) 60 mg SQ X1 [facility] Dorzolamide/Timolol (Dorzolamide Hcl/Timolol 10 Ml Bottle) 1 drop EACH EYE BID [facility] Last Admin: 10/04/20 07:55 Dose: 1 drop Documented by: Ergocalciferol (Ergocalciferol 50,000 Unit Capsule) 50,000 unit PO Q7D [facility] Guaifenesin (Guaifenesin 1,200 Mg Tablet) 1,200 mg PO BID [facility] Last Admin: 10/04/20 07:55 Dose: 1,200 mg Documented by: Sodium Chloride () 250 mls @ 15 mls/hr IV .[id number] PRN PRN Reason: Saline Flush Sodium Chloride () 250 mls @ 15 mls/hr IV .[id number] PRN PRN Reason: Additional IVPB Infusion Ceftriaxone Sodium 2 gm/ (Sodium Chloride) 50 mls @ 100 mls/hr IV QPM [facility] Last Infusion: 10/03/20 21:19 Dose: Infused Documented by: Sodium Chloride () 500 mls @ 15 mls/hr IV PRN PRN PRN Reason: Blood Transfusion Last Infusion: 10/04/20 15:02 Dose: Infused Documented by: Latanoprost (Latanoprost 0.005% 1 Bottle) 1 drop EACH EYE DAILY@2200 [facility] Last Admin: 10/03/20 20:55 Dose: 1 drop Documented by: Ondansetron HCl (Ondansetron 4 Mg/2 Ml Vial) 4 mg IV Q8H PRN PRN PRN Reason: NAUSEA/VOMITING Pantoprazole Sodium (Pantoprazole Sodium 40 Mg Tablet) 40 mg PO BID [facility] Last Admin: 10/04/20 07:55 Dose: 40 mg Documented by: Sodium Chloride (0.9% Saline Lock 10 Ml Syringe) 10 - 40 ml IV UD PRN PRN Reason: SALINE FLUSH Last Admin: 10/04/20 15:02 Dose: 10 ml Documented by: Discharge Activity: - - Encourage routine activity until improved clinically from recent acute admission and recent COVID pneumonia. Regular movement is important, thus at least perform short walks around your house throughout the day. May resume sexual activity in: - - Advise hold until clinically resolved recent acute complicated UTI. Call your doctor if you observe: Fever of 101 or Higher, Inability to urinate, Inability to have a bowel movement, Shortness of breath, Dizziness, Fainting spells, Chest pain, Uncontrolled pain Home Medications: Medications to take at Discharge Amlodipine Besylate 5 mg PO DAILY 07/27/20 Calcium Carbonate/Vitamin D3 [Calcium 500+D Tablet Chew] 1 ea PO DAILY 07/27/20 Denosumab [Prolia] 60 mg SQ X1 07/27/20 Dorzolamide HCL/Timolol [Cosopt Opth Drops] 1 drp OPHTHALMIC (EYE) BID 07/27/20 Ergocalciferol [Vitamin D] 50,000 unit PO WE 07/27/20 Latanoprost 2.5 ml OP DAILY 07/27/20 Tolvaptan [Jynarque] 1 ea PO BID 07/27/20 Albuterol IH (ProAir) [Proair Hfa] 2 puff INHALATION Q4H PRN PRN #1 inhaler 09/18/20 Aspirin [Aspirin, Baby] 81 mg PO DAILY #0 09/18/20 Guaifenesin [Mucinex] 1,200 mg PO BID #10 tab 09/18/20 Cephalexin [Keflex] 250 mg PO BID #14 cap 10/04/20 Cephalexin [Keflex] 250 mg PO BID 7 Days #14 cap 10/04/20 Following Prescriptions Were Given to Patient: Cephalexin [Keflex] 250 mg PO BID #14 cap Transmission Status: Received by [address] Cephalexin [Keflex] 250 mg PO BID 7 Days #14 cap Transmission Status: Received by [address] Primary Care Physician: Benji Palacios MD [Primary Care Provider] - Please follow up with your Primary Care Physician in: Follow-up within 2-3 days to review admission. Please Follow Up With: Nephrology Dr. Jimenez When: Please follow-up with your Kidney doctor as previously arranged. Please Follow Up With: BENJI PALACIOS When: 3 DAYS Patient Instructions: Understanding Urinary Tract Infections (UTIs), Anemia and Kidney Disease Disposition: Home Minutes spent on discharge:: 35 Patient Condition:: Fair Medical Necessity - Tobacco Use Smoking Status: Never smoker Meaningful Use Info Meaningful Use Diagnoses (Choose all that apply): None applicable Inpatient E&M: 72433 Disch Hosp
[2020-10-04 16:23] LABS: Hematocrit 27.9 % (37-47); Hemoglobin 8.8 g/dL (12.0-15.0)
--- NOTE | 2020-10-05 14:40 | CASEMGMT ---
KITTY LINDA Discharge Follow-up Phone Call: JOSELIN: Sugey Strata: 3 Call Date: 10/05/20 Discharge Date: 10/04/20 Time of Call: 1440 Duration: 1 min Admitting Diagnosis: UTI KITTY LINDA attempted to complete follow-up phone call after recent hospitalization. No answer, voice message left with return contact information. Patient was established with [facility] hospital. Patient has follow-up appts scheduled
== END 2020-10-04 18:05 | disposition home health service (06) | DRG 689 ==
LOC: ED 18:52 → MS3 19:10
PROVIDERS: Nurse Practitioner Family; Admitting Provider Internal Medicine; Emergency Provider Emergency Medicine; PCP Family Medicine; Visit Provider Family Medicine
DX: N39.0 Urinary tract infection, site not specified (principal); G93.41 Metabolic encephalopathy; R78.81 Bacteremia; Q61.3 Polycystic kidney, unspecified; N18.4 Chronic kidney disease, stage 4 (severe); N17.9 Acute kidney failure, unspecified; Z23 Encounter for immunization; B96.89 Other specified bacterial agents as the cause of diseases classified elsewhere; I12.9 Hypertensive chronic kidney disease with stage 1 through stage 4 chronic kidney disease, or unspecified chronic kidney disease; D72.819 Decreased white blood cell count, unspecified; D63.1 Anemia in chronic kidney disease; R31.29 Other microscopic hematuria; M81.0 Age-related osteoporosis without current pathological fracture; H40.9 Unspecified glaucoma; B96.20 Unspecified Escherichia coli [E. coli] as the cause of diseases classified elsewhere; Z86.19 Personal history of other infectious and parasitic diseases; Z87.01 Personal history of pneumonia (recurrent)
CPT/HCPCS: 36415; 71045; 80048; 80053; 81001; 82550; 83605; 83735; 84100; 84484; 85014; 85018; 85025; 85027; 85610; 85730; 86850; 86900; 86901; 86920; 86922; 87040; 87077; 87086; 87088; 87186; 93005; 97802; 99251; 99285; G0008; J7030; J7040; P9016; 90686; A4216; G0463; J0696; Q5106

== ENCOUNTER 2020-10-18 10:29 | Outpatient (RCR) | payer MEDICARE, BC, SELFPAY ==
[2020-10-18 11:16] LABS: Hematocrit 33.1 % (37-47); Hemoglobin 9.7 g/dL (12.0-15.0); Mean Corp Hgb Conc 29.3 g/dL (32-36); Mean Corpuscular Hgb 28.8 pg (27.0-32.0); Mean Corpuscular Volume 98.2 fL (81-99); Mean Platelet Vol. 8.8 fl (6.2-12.0); Platelet Count 411 K/mm3 (150-450); RBC Distribution Width CV 16.4 % (11.6-14.6); RBC Distribution Width SD 59.3 fl (35.1-43.9); Red Blood Count 3.37 M/mm3 (4.2-5.4); White Blood Count 4.4 K/mm3 (4.4-11.0)
[2020-10-18 11:54] LABS: AST(SGOT) 23 U/L (15-37); Alanine Aminotransfer ALT/SGPT 18 U/L (13-56); Alkaline Phosphatase 64 U/L (45-117); Anion Gap 5 (5-15); BUN 40 mg/dL (7-18); BUN/Creat Ratio 12.9 RATIO (10-20); Bilirubin, Direct 0.06 mg/dL (0.00-0.30); Calcium,Total 8.2 mg/dL (8.5-10.1); Chloride 113 mmol/L (98-107); Creatinine, Serum 3.09 mg/dL (0.55-1.02); EST Glomerular Filtration Rate 16 mL/min (>60); Est Glom Filt Rate - Afr Amer 19 mL/min (>60); Globulin 4.6 g/dL (2.2-4.2); Glucose 72 mg/dL (74-106); Iron 65 ug/dL (50-170); Iron Binding Capacity,Total 218 ug/dL (250-450); PERCENT IRON SATURATION 29.8 % (15.0-55.0); Potassium 4.7 mmol/L (3.5-5.1); Protein, Total 7.6 g/dL (6.4-8.2); Sodium Level 144 mmol/L (136-145)
== END 2020-10-18 18:00 | disposition home or self-care (01) ==
LOC: LAB 10:29
PROVIDERS: PCP Family Medicine; Referring Provider Internal Medicine Nephrology; Visit Provider Internal Medicine Nephrology
DX: Q63.1 Lobulated, fused and horseshoe kidney (principal); I12.9 Hypertensive chronic kidney disease with stage 1 through stage 4 chronic kidney disease, or unspecified chronic kidney disease; N18.30 Chronic kidney disease, stage 3 unspecified; D63.1 Anemia in chronic kidney disease
CPT/HCPCS: 36415; 80048; 80076; 83540; 83550; 85027

== ENCOUNTER → 2020-10-27 10:20 | Outpatient (CLI) | payer MEDICARE, BC, SELFPAY ==
[2020-09-10 19:23] VITALS: BMI 22.8
[2020-10-01 20:48] VITALS: BMI 20.6
[2020-10-27 10:37] VITALS: BP 146/77; PULSE 65; RESP 14; TEMP 36.3; O2SAT 97; BMI 22.3
[2020-10-27 10:55] LABS: Absolute Lymphocyte Count 1.29 X10^3/uL (0.83-4.51); Absolute Neutrophil Count 2.6 X10^3/uL (2.0-7.7); Basophil# 0.07 X10^3/uL; Basophil% 1.3 % (0-1); Eosinophil# 0.55 X10^3/uL; Eosinophils% 10.4 % (0-5); Hematocrit 31.7 % (37-47); Hemoglobin 9.9 g/dL (12.0-15.0); Lymphocyte # 1.29 X10^3/ul (4.0); Lymphocyte % 24.3 % (19-41); Mean Corp Hgb Conc 31.2 g/dL (32-36); Mean Corpuscular Hgb 29.6 pg (27.0-32.0); Mean Corpuscular Volume 94.9 fL (81-99); Mean Platelet Vol. 9.6 fl (6.2-12.0); Monocyte# 0.76 X10^3/uL; Monocyte% 14.3 % (0-10); NRBC Flagged by Analyzer 0 % (0-5); Neutrophil # 2.63 X10^3/uL (2.7-7.7); Neutrophil % 49.5 % (47-70); Platelet Count 314 K/mm3 (150-450); RBC Distribution Width CV 15.7 % (11.6-14.6); RBC Distribution Width SD 53.9 fl (35.1-43.9); Red Blood Count 3.34 M/mm3 (4.2-5.4); White Blood Count 5.3 K/mm3 (4.4-11.0)
[2020-10-27 11:09] LABS: PTHIN 12.8 pg/mL (18.4-80.1)
[2020-10-27 11:11] LABS: Albumin, Serum 3.3 g/dL (3.2-5.0); BUN 48 mg/dL (7-18); BUN/Creat Ratio 11.9 RATIO (10-20); Calcium,Total 9.9 mg/dL (8.5-10.1); Chloride 108 mmol/L (98-107); Creatinine, Serum 4.02 mg/dL (0.55-1.02); EST Glomerular Filtration Rate 12 mL/min (>60); Est Glom Filt Rate - Afr Amer 14 mL/min (>60); Estimated Creatinine Clearance 11.73 ml/min; Ferritin 88 ng/mL (8-252); Glucose 87 mg/dL (74-106); Iron 73 ug/dL (50-170); Iron Binding Capacity,Total 273 ug/dL (250-450); Phosphorus 5.1 mg/dL (2.5-4.9); Potassium 4.1 mmol/L (3.5-5.1); Sodium Level 141 mmol/L (136-145)
[2020-10-27] MEDS: Epoetin Alfa epbx 10,000 UNITS/ML 10000 UNIT SC (11:14)
[2020-10-27 18:49] LABS: Xtra Tube EP Lab EXTRA TUBE
== END ==
PROVIDERS: PCP Family Medicine; Referring Provider Internal Medicine Nephrology; Visit Provider Internal Medicine Nephrology
DX: N18.30 Chronic kidney disease, stage 3 unspecified (principal); D63.1 Anemia in chronic kidney disease; N25.81 Secondary hyperparathyroidism of renal origin
CPT/HCPCS: 36415; 80069; 82728; 83540; 83550; 83970; 85025; 96372; Q5106

== ENCOUNTER 2020-11-24 10:42 | Outpatient (RCR) | payer MEDICARE, BC, SELFPAY ==
[2020-10-27 10:37] VITALS: BMI 22.3
[2020-11-03 13:32] LABS: Absolute Lymphocyte Count 1.28 X10^3/uL (0.83-4.51); Absolute Neutrophil Count 3.4 X10^3/uL (2.0-7.7); Basophil# 0.06 X10^3/uL; Eosinophil# 0.62 X10^3/uL; Hematocrit 32.2 % (37-47); Hemoglobin 10.1 g/dL (12.0-15.0); Lymphocyte # 1.28 X10^3/ul (4.0); Lymphocyte % 20.6 % (19-41); Mean Corp Hgb Conc 31.4 g/dL (32-36); Mean Corpuscular Volume 95.5 fL (81-99); Mean Platelet Vol. 9.3 fl (6.2-12.0); Monocyte# 0.78 X10^3/uL; Monocyte% 12.6 % (0-10); NRBC Flagged by Analyzer 0 % (0-5); Neutrophil # 3.44 X10^3/uL (2.7-7.7); Neutrophil % 55.5 % (47-70); Platelet Count 371 K/mm3 (150-450); RBC Distribution Width CV 16.2 % (11.6-14.6); Red Blood Count 3.37 M/mm3 (4.2-5.4); White Blood Count 6.2 K/mm3 (4.4-11.0)
[2020-11-03 13:41] LABS: Anion Gap 4 (5-15); BUN 47 mg/dL (7-18); BUN/Creat Ratio 11.3 RATIO (10-20); Calcium,Total 9.2 mg/dL (8.5-10.1); Chloride 106 mmol/L (98-107); Creatinine, Serum 4.15 mg/dL (0.55-1.02); EST Glomerular Filtration Rate 11 mL/min (>60); Est Glom Filt Rate - Afr Amer 14 mL/min (>60); Glucose 101 mg/dL (74-106); Potassium 3.8 mmol/L (3.5-5.1); Sodium Level 142 mmol/L (136-145)
[2020-11-10 12:28] LABS: Hematocrit 32.7 % (37-47); Mean Corp Hgb Conc 30.6 g/dL (32-36); Mean Corpuscular Hgb 29.4 pg (27.0-32.0); Mean Corpuscular Volume 96.2 fL (81-99); Mean Platelet Vol. 8.9 fl (6.2-12.0); Platelet Count 311 K/mm3 (150-450); RBC Distribution Width CV 16.1 % (11.6-14.6); RBC Distribution Width SD 57.3 fl (35.1-43.9); White Blood Count 6.3 K/mm3 (4.4-11.0)
[2020-11-10 12:43] LABS: Anion Gap 5 (5-15); BUN 55 mg/dL (7-18); BUN/Creat Ratio 14.4 RATIO (10-20); Calcium,Total 9.1 mg/dL (8.5-10.1); Chloride 107 mmol/L (98-107); Creatinine, Serum 3.83 mg/dL (0.55-1.02); EST Glomerular Filtration Rate 13 mL/min (>60); Est Glom Filt Rate - Afr Amer 15 mL/min (>60); Glucose 90 mg/dL (74-106); Potassium 4.2 mmol/L (3.5-5.1); Sodium Level 141 mmol/L (136-145)
[2020-11-17 11:10] LABS: Hematocrit 31.7 % (37-47); Mean Corp Hgb Conc 31.5 g/dL (32-36); Mean Corpuscular Volume 95.2 fL (81-99); Mean Platelet Vol. 9.1 fl (6.2-12.0); Platelet Count 297 K/mm3 (150-450); RBC Distribution Width CV 15.8 % (11.6-14.6); RBC Distribution Width SD 54.4 fl (35.1-43.9); Red Blood Count 3.33 M/mm3 (4.2-5.4); White Blood Count 4.4 K/mm3 (4.4-11.0)
[2020-11-17 11:42] LABS: Anion Gap 4 (5-15); BUN 52 mg/dL (7-18); BUN/Creat Ratio 15.3 RATIO (10-20); Calcium,Total 8.5 mg/dL (8.5-10.1); Chloride 112 mmol/L (98-107); Creatinine, Serum 3.39 mg/dL (0.55-1.02); EST Glomerular Filtration Rate 14 mL/min (>60); Est Glom Filt Rate - Afr Amer 17 mL/min (>60); Glucose 79 mg/dL (74-106); Potassium 4.3 mmol/L (3.5-5.1); Sodium Level 141 mmol/L (136-145)
[2020-11-24 11:20] LABS: Hemoglobin 9.6 g/dL (12.0-15.0); Mean Corpuscular Hgb 29.5 pg (27.0-32.0); Mean Corpuscular Volume 95.4 fL (81-99); Mean Platelet Vol. 9.6 fl (6.2-12.0); Platelet Count 257 K/mm3 (150-450); RBC Distribution Width CV 15.5 % (11.6-14.6); RBC Distribution Width SD 53.7 fl (35.1-43.9); Red Blood Count 3.25 M/mm3 (4.2-5.4); White Blood Count 4.8 K/mm3 (4.4-11.0)
[2020-11-24 11:49] LABS: Anion Gap 3 (5-15); BUN 49 mg/dL (7-18); BUN/Creat Ratio 14.6 RATIO (10-20); Calcium,Total 8.8 mg/dL (8.5-10.1); Chloride 113 mmol/L (98-107); Creatinine, Serum 3.35 mg/dL (0.55-1.02); EST Glomerular Filtration Rate 15 mL/min (>60); Est Glom Filt Rate - Afr Amer 18 mL/min (>60); Glucose 80 mg/dL (74-106); Potassium 4.8 mmol/L (3.5-5.1); Sodium Level 142 mmol/L (136-145)
== END 2020-11-24 18:00 | disposition home or self-care (01) ==
LOC: LAB 10:42
PROVIDERS: PCP Family Medicine; Referring Provider Internal Medicine Nephrology; Visit Provider Internal Medicine Nephrology
DX: I12.9 Hypertensive chronic kidney disease with stage 1 through stage 4 chronic kidney disease, or unspecified chronic kidney disease (principal); N18.30 Chronic kidney disease, stage 3 unspecified; D63.1 Anemia in chronic kidney disease
CPT/HCPCS: 36415; 80048; 85025; 85027

== ENCOUNTER → 2020-12-01 10:24 | Outpatient (CLI) | payer MEDICARE, BC, SELFPAY ==
[2020-10-27 10:37] VITALS: BMI 22.3
[2020-12-01 10:52] LABS: Absolute Lymphocyte Count 1.12 X10^3/uL (0.83-4.51); Absolute Neutrophil Count 2.8 X10^3/uL (2.0-7.7); Basophil# 0.04 X10^3/uL; Basophil% 0.8 % (0-1); Eosinophil# 0.32 X10^3/uL; Eosinophils% 6.6 % (0-5); Hematocrit 29.5 % (37-47); Hemoglobin 9.2 g/dL (12.0-15.0); Lymphocyte # 1.12 X10^3/ul (4.0); Mean Corp Hgb Conc 31.2 g/dL (32-36); Mean Corpuscular Hgb 29.3 pg (27.0-32.0); Mean Corpuscular Volume 93.9 fL (81-99); Mean Platelet Vol. 8.7 fl (6.2-12.0); Monocyte# 0.61 X10^3/uL; Monocyte% 12.6 % (0-10); NRBC Flagged by Analyzer 0 % (0-5); Neutrophil # 2.76 X10^3/uL (2.7-7.7); Neutrophil % 56.8 % (47-70); Platelet Count 238 K/mm3 (150-450); RBC Distribution Width CV 15.1 % (11.6-14.6); RBC Distribution Width SD 51.7 fl (35.1-43.9); Red Blood Count 3.14 M/mm3 (4.2-5.4); White Blood Count 4.9 K/mm3 (4.4-11.0)
[2020-12-01 11:04] VITALS: BP 153/71; PULSE 61; RESP 16; TEMP 36.4; O2SAT 100; BMI 22.3
[2020-12-01 11:07] LABS: ALB/GLOB Ratio 0.8 RATIO (0.9-2.4); AST(SGOT) 28 U/L (15-37); Alanine Aminotransfer ALT/SGPT 38 U/L (13-56); Albumin, Serum 3.6 g/dL (3.2-5.0); Alkaline Phosphatase 67 U/L (45-117); BUN 51 mg/dL (7-18); BUN/Creat Ratio 13.4 RATIO (10-20); Bilirubin, Direct 0.07 mg/dL (0.00-0.30); Calcium,Total 8.6 mg/dL (8.5-10.1); Chloride 113 mmol/L (98-107); Creatinine, Serum 3.81 mg/dL (0.55-1.02); EST Glomerular Filtration Rate 13 mL/min (>60); Est Glom Filt Rate - Afr Amer 15 mL/min (>60); Estimated Creatinine Clearance 12.37 ml/min; Ferritin 70 ng/mL (8-252); Globulin 4.4 g/dL (2.2-4.2); Glucose 92 mg/dL (74-106); Iron 62 ug/dL (50-170); Iron Binding Capacity,Total 241 ug/dL (250-450); Phosphorus 4.8 mg/dL (2.5-4.9); Sodium Level 143 mmol/L (136-145)
[2020-12-01 11:25] LABS: PTHIN 83.9 pg/mL (18.4-80.1)
[2020-12-01] MEDS: Epoetin Alfa epbx 10,000 UNITS/ML 12000 UNIT SC (12:28)
[2020-12-01 12:29] VITALS: BP 153/71; PULSE 61; RESP 16; TEMP 36.4; O2SAT 100
== END ==
PROVIDERS: PCP Family Medicine; Referring Provider Internal Medicine Nephrology; Visit Provider Internal Medicine Nephrology
DX: N18.30 Chronic kidney disease, stage 3 unspecified (principal); D63.1 Anemia in chronic kidney disease; N25.81 Secondary hyperparathyroidism of renal origin
CPT/HCPCS: 36415; 80069; 82247; 82248; 82728; 83540; 83550; 83970; 84075; 84156; 84450; 84460; 85025; 96372; Q5106

== ENCOUNTER 2020-12-15 14:18 | Outpatient (RCR) | payer MEDICARE, BC, SELFPAY ==
[2020-10-27 10:37] VITALS: BMI 22.3
[2020-12-01 11:04] VITALS: BMI 22.3
[2020-12-08 10:58] LABS: Absolute Lymphocyte Count 1.04 X10^3/uL (0.83-4.51); Absolute Neutrophil Count 3.2 X10^3/uL (2.0-7.7); Basophil# 0.05 X10^3/uL; Basophil% 0.9 % (0-1); Eosinophil# 0.33 X10^3/uL; Eosinophils% 6.3 % (0-5); Hemoglobin 9.8 g/dL (12.0-15.0); Lymphocyte # 1.04 X10^3/ul (4.0); Lymphocyte % 19.7 % (19-41); Mean Corp Hgb Conc 30.6 g/dL (32-36); Mean Corpuscular Hgb 29.3 pg (27.0-32.0); Mean Corpuscular Volume 95.8 fL (81-99); Mean Platelet Vol. 8.9 fl (6.2-12.0); Monocyte# 0.62 X10^3/uL; Monocyte% 11.7 % (0-10); NRBC Flagged by Analyzer 0 % (0-5); Neutrophil # 3.23 X10^3/uL (2.7-7.7); Neutrophil % 61.2 % (47-70); Platelet Count 303 K/mm3 (150-450); RBC Distribution Width CV 15.7 % (11.6-14.6); RBC Distribution Width SD 53.6 fl (35.1-43.9); Red Blood Count 3.34 M/mm3 (4.2-5.4); White Blood Count 5.3 K/mm3 (4.4-11.0)
[2020-12-08 11:53] LABS: Anion Gap 7 (5-15); BUN 62 mg/dL (7-18); BUN/Creat Ratio 15.8 RATIO (10-20); Calcium,Total 9.3 mg/dL (8.5-10.1); Chloride 110 mmol/L (98-107); Creatinine, Serum 3.92 mg/dL (0.55-1.02); EST Glomerular Filtration Rate 12 mL/min (>60); Est Glom Filt Rate - Afr Amer 15 mL/min (>60); Glucose 144 mg/dL (74-106); Potassium 4.5 mmol/L (3.5-5.1); Sodium Level 141 mmol/L (136-145)
[2020-12-15 15:05] LABS: Absolute Lymphocyte Count 1.31 X10^3/uL (0.83-4.51); Absolute Neutrophil Count 2.7 X10^3/uL (2.0-7.7); Basophil# 0.03 X10^3/uL; Basophil% 0.6 % (0-1); Eosinophil# 0.26 X10^3/uL; Eosinophils% 5.3 % (0-5); Hematocrit 33.2 % (37-47); Hemoglobin 10.2 g/dL (12.0-15.0); Lymphocyte # 1.31 X10^3/ul (4.0); Lymphocyte % 26.5 % (19-41); Mean Corp Hgb Conc 30.7 g/dL (32-36); Mean Corpuscular Hgb 29.1 pg (27.0-32.0); Mean Corpuscular Volume 94.9 fL (81-99); Mean Platelet Vol. 9.1 fl (6.2-12.0); Monocyte# 0.63 X10^3/uL; Monocyte% 12.8 % (0-10); NRBC Flagged by Analyzer 0 % (0-5); Neutrophil % 54.6 % (47-70); Platelet Count 271 K/mm3 (150-450); RBC Distribution Width CV 15.4 % (11.6-14.6); White Blood Count 4.9 K/mm3 (4.4-11.0)
[2020-12-15 15:31] LABS: AST(SGOT) 34 U/L (15-37); Alanine Aminotransfer ALT/SGPT 44 U/L (13-56); Albumin, Serum 3.6 g/dL (3.2-5.0); Alkaline Phosphatase 70 U/L (45-117); Anion Gap 5 (5-15); BUN 63 mg/dL (7-18); BUN/Creat Ratio 16.6 RATIO (10-20); Bilirubin, Direct 0.09 mg/dL (0.00-0.30); Calcium,Total 9.7 mg/dL (8.5-10.1); Chloride 108 mmol/L (98-107); EST Glomerular Filtration Rate 13 mL/min (>60); Est Glom Filt Rate - Afr Amer 15 mL/min (>60); Globulin 4.5 g/dL (2.2-4.2); Glucose 73 mg/dL (74-106); Potassium 4.1 mmol/L (3.5-5.1); Protein, Total 8.1 g/dL (6.4-8.2); Sodium Level 140 mmol/L (136-145)
== END 2020-12-15 18:00 | disposition home or self-care (01) ==
LOC: LAB 14:18
PROVIDERS: PCP Family Medicine; Referring Provider Internal Medicine Nephrology; Visit Provider Internal Medicine Nephrology
DX: I12.9 Hypertensive chronic kidney disease with stage 1 through stage 4 chronic kidney disease, or unspecified chronic kidney disease (principal); N18.30 Chronic kidney disease, stage 3 unspecified; D63.1 Anemia in chronic kidney disease; N17.9 Acute kidney failure, unspecified
CPT/HCPCS: 36415; 80048; 80076; 85025

== ENCOUNTER → 2020-12-22 10:47 | Outpatient (CLI) | payer MEDICARE, BC, SELFPAY ==
[2020-12-01 11:04] VITALS: BMI 22.3
[2020-12-22 12:23] LABS: Hematocrit 31.5 % (37-47); Mean Corp Hgb Conc 31.7 g/dL (32-36); Mean Corpuscular Hgb 30.1 pg (27.0-32.0); Mean Corpuscular Volume 94.9 fL (81-99); Mean Platelet Vol. 9.7 fl (6.2-12.0); Platelet Count 289 K/mm3 (150-450); RBC Distribution Width CV 14.7 % (11.6-14.6); RBC Distribution Width SD 50.6 fl (35.1-43.9); Red Blood Count 3.32 M/mm3 (4.2-5.4); White Blood Count 4.5 K/mm3 (4.4-11.0)
[2020-12-22 12:36] LABS: Anion Gap 8 (5-15); BUN 65 mg/dL (7-18); BUN/Creat Ratio 14.2 RATIO (10-20); Calcium,Total 8.5 mg/dL (8.5-10.1); Chloride 110 mmol/L (98-107); Creatinine, Serum 4.59 mg/dL (0.55-1.02); EST Glomerular Filtration Rate 10 mL/min (>60); Est Glom Filt Rate - Afr Amer 12 mL/min (>60); Glucose 135 mg/dL (74-106); Potassium 3.9 mmol/L (3.5-5.1); Sodium Level 142 mmol/L (136-145)
== END ==
PROVIDERS: PCP Family Medicine; Referring Provider Family Medicine; Visit Provider Internal Medicine Nephrology
DX: N18.30 Chronic kidney disease, stage 3 unspecified (principal); D63.1 Anemia in chronic kidney disease
CPT/HCPCS: 36415; 80048; 85027

== ENCOUNTER → 2021-01-04 13:37 | Outpatient (CLI) | payer MEDICARE, BC, SELFPAY ==
[2020-10-27 10:37] VITALS: BMI 22.3
[2020-12-01 11:04] VITALS: BMI 22.3
[2021-01-04 14:03] LABS: Absolute Lymphocyte Count 1.27 X10^3/uL (0.83-4.51); Absolute Neutrophil Count 2.7 X10^3/uL (2.0-7.7); Basophil# 0.03 X10^3/uL; Basophil% 0.6 % (0-1); Eosinophil# 0.25 X10^3/uL; Eosinophils% 5.2 % (0-5); Hematocrit 29.3 % (37-47); Hemoglobin 9.8 g/dL (12.0-15.0); Lymphocyte # 1.27 X10^3/ul (4.0); Lymphocyte % 26.5 % (19-41); Mean Corp Hgb Conc 33.4 g/dL (32-36); Mean Corpuscular Hgb 30.4 pg (27.0-32.0); Monocyte# 0.57 X10^3/uL; Monocyte% 11.9 % (0-10); NRBC Flagged by Analyzer 0 % (0-5); Neutrophil # 2.66 X10^3/uL (2.7-7.7); Neutrophil % 55.4 % (47-70); Platelet Count 234 K/mm3 (150-450); RBC Distribution Width CV 14.5 % (11.6-14.6); RBC Distribution Width SD 48.2 fl (35.1-43.9); Red Blood Count 3.22 M/mm3 (4.2-5.4); White Blood Count 4.8 K/mm3 (4.4-11.0)
[2021-01-04 14:15] VITALS: BP 138/70; PULSE 70; RESP 16; TEMP 35.9; O2SAT 100; BMI 22.3
[2021-01-04 14:20] LABS: Albumin, Serum 3.5 g/dL (3.2-5.0); BUN 66 mg/dL (7-18); BUN/Creat Ratio 18.6 RATIO (10-20); Calcium,Total 8.6 mg/dL (8.5-10.1); Chloride 107 mmol/L (98-107); Creatinine, Serum 3.54 mg/dL (0.55-1.02); EST Glomerular Filtration Rate 14 mL/min (>60); Est Glom Filt Rate - Afr Amer 17 mL/min (>60); Estimated Creatinine Clearance 13.32 ml/min; Ferritin 69 ng/mL (8-252); Glucose 96 mg/dL (74-106); Iron 83 ug/dL (50-170); Iron Binding Capacity,Total 261 ug/dL (250-450); Phosphorus 3.9 mg/dL (2.5-4.9); Potassium 4.6 mmol/L (3.5-5.1); Sodium Level 136 mmol/L (136-145)
[2021-01-04] MEDS: Epoetin Alfa epbx 10,000 UNITS/ML 12000 UNIT SC (14:20)
[2021-01-04 14:25] LABS: PTHIN 97.1 pg/mL (18.4-80.1)
== END ==
PROVIDERS: PCP Family Medicine; Referring Provider Internal Medicine Nephrology; Visit Provider Internal Medicine Nephrology
DX: N18.30 Chronic kidney disease, stage 3 unspecified (principal); D63.1 Anemia in chronic kidney disease
CPT/HCPCS: 36415; 80069; 82728; 83540; 83550; 83970; 85025; 96372; Q5106

== ENCOUNTER → 2021-01-31 12:48 | Outpatient (CLI) | payer MEDICARE, BC, SELFPAY ==
[2021-01-04 14:15] VITALS: BMI 22.3
--- NOTE | 2021-01-31 12:51 | BI_ITS ---
MAMMOGRAPHY - BILATERAL SCREENING REASON FOR EXAM: Female, 65 years old. Routine annual screening examination. PERTINENT HISTORY: Non-contributory. TECHNIQUE: Digital bilateral breast dee (3D mammographic acquisition) in the CC and MLO projections. 2-D mediolateral oblique (MLO) and craniocaudad (CC) views of both breasts were obtained. CAD: Full Field Digital Mammography with Computer Added Detection was performed. COMPARISON: 09/28/2017 and 07/09/2014 FINDINGS: Breast Composition: The breasts are almost entirely fatty. There are no dominant masses or suspicious calcifications. No other significant abnormalities are identified. BI/SCRN MAMM (CAD)W/DEE BILAT IMPRESSION: Stable bilateral screening mammogram. Yearly follow-up mammogram recommended. (A) ASSESSMENT CATEGORY: BIRADS Category 2: Benign. A letter regarding these results will be sent to the patient by the facility within 30 days. Approximately 10% of breast cancers are not detected by mammography. A normal mammogram should not delay biopsy of a clinically suspicious abnormality. [id number] Electronically Signed: Angel Collazo MD at 16:52 EST Tel , Service support ,
--- NOTE | 2021-01-31 13:09 | BD_ITS ---
STUDY: DUAL ENERGY X-RAY ABSORPTIOMETRY / DXA REASON FOR EXAM: Female, 65 years old. M810. Early menopause. Loss of height. TECHNIQUE: Bone Mineral Density (BMD) measurements of lumbar spine and bilateral hips were obtained. COMPARISON: Comparison is made with prior study date 07/14/2015. FINDINGS: Lumbar Spine (L1-L4): g/cm2 (0.853) / T-score (-2.7) / Z-score (-1.1) Findings are suggestive of osteoporosis with a high fracture risk. Left Femur Total: g/cm2 (0.822) / T-score (-1.5) / Z-score (-0.1) Left Femoral Neck: g/cm2 (0.772) / T-score (-1.9) / Z-score (-0.3) Right Femur Total: g/cm2 (0.860) / T-score (-1.2) / Z-score (0.2) Right Femoral Neck: g/cm2 (0.825) / T-score (-1.5) / Z-score (0.0) The T-Scores on the most recent prior examination were: Lumbar Spine (L1-L4): There has been improvement of bone density since the previous examination. Left Femur Total: which represents an improvement of 4.7%. Right Femur Total: which represents an improvement of 1.8%. BD/Dexa Bone Density Study IMPRESSION: The patient is considered osteoporotic as outlined below according to World Roland Organization (WHO) criteria with a high fracture risk. There has been improvement of bone density since the previous examination. Reference Information: The T-score is the number of standard deviations above or below the standard which is normal for young adults at their peak bone mineral density. The World Health Organization (WHO) interprets the T-scores as follows: Above -1 Normal bone density Between -1 and -2.5 Osteopenia Equal to / or below -2.5 Osteoporosis As a practical clinical guideline, osteopenia may be graded as follows: Mild -1 through -1.5 Moderate -1.6 through -2.0 Severe -2.1 through -2.4 The Z-score is the number of standard deviations above or below age-matched controls. A Z-score of less than -1.5 would be considered abnormal. References: 1. NIH Osteoporosis and Related Bone Diseases www osteo.org 2. International Society for Clinical Densitometry www iscd.org 3. National Osteoporosis Foundation www nof.org Electronically Signed: Jaylon Coelho MD at 14:55 EDT , Service support ,
== END ==
PROVIDERS: PCP Family Medicine; Referring Provider Family Medicine; Visit Provider Family Medicine
DX: M81.0 Age-related osteoporosis without current pathological fracture (principal); Z12.31 Encounter for screening mammogram for malignant neoplasm of breast
CPT/HCPCS: 77063; 77067; 77080

== ENCOUNTER → 2021-02-01 13:11 | Outpatient (CLI) | payer MEDICARE, BC, SELFPAY ==
[2020-12-01 11:04] VITALS: BMI 22.3
[2021-01-04 14:15] VITALS: BMI 22.3
[2021-02-01 13:18] VITALS: BP 152/63; PULSE 60; RESP 16; TEMP 35.9; O2SAT 100; BMI 24.5
[2021-02-01 13:43] LABS: Absolute Lymphocyte Count 1.21 X10^3/uL (0.83-4.51); Absolute Neutrophil Count 3.1 X10^3/uL (2.0-7.7); Basophil# 0.03 X10^3/uL; Basophil% 0.6 % (0-1); Eosinophil# 0.21 X10^3/uL; Eosinophils% 4.1 % (0-5); Hematocrit 29.9 % (37-47); Hemoglobin 9.7 g/dL (12.0-15.0); Lymphocyte # 1.21 X10^3/ul (4.0); Lymphocyte % 23.6 % (19-41); Mean Corp Hgb Conc 32.4 g/dL (32-36); Mean Corpuscular Hgb 30.3 pg (27.0-32.0); Mean Corpuscular Volume 93.4 fL (81-99); Mean Platelet Vol. 9.3 fl (6.2-12.0); Monocyte# 0.59 X10^3/uL; Monocyte% 11.5 % (0-10); NRBC Flagged by Analyzer 0 % (0-5); Neutrophil # 3.07 X10^3/uL (2.7-7.7); Platelet Count 222 K/mm3 (150-450); RBC Distribution Width CV 14.4 % (11.6-14.6); White Blood Count 5.1 K/mm3 (4.4-11.0)
[2021-02-01 13:59] LABS: Cholesterol 212 mg/dL (200); High Density Lipoprotein 47 mg/dL; Triglycerides 82 mg/dL; Very Low Density Lipoprotein 16 mg/dL (5-40)
[2021-02-01 14:01] LABS: Albumin, Serum 3.8 g/dL (3.2-5.0); BUN 61 mg/dL (7-18); BUN/Creat Ratio 16.4 RATIO (10-20); Calcium,Total 8.4 mg/dL (8.5-10.1); Chloride 106 mmol/L (98-107); Creatinine, Serum 3.73 mg/dL (0.55-1.02); EST Glomerular Filtration Rate 13 mL/min (>60); Est Glom Filt Rate - Afr Amer 16 mL/min (>60); Estimated Creatinine Clearance 12.64 ml/min; Ferritin 79 ng/mL (8-252); Glucose 86 mg/dL (74-106); Iron 87 ug/dL (50-170); Iron Binding Capacity,Total 249 ug/dL (250-450); Phosphorus 4.3 mg/dL (2.5-4.9); Potassium 4.8 mmol/L (3.5-5.1); Sodium Level 136 mmol/L (136-145)
[2021-02-01] MEDS: Epoetin Alfa epbx 10,000 UNITS/ML 12000 UNIT SC (14:36)
[2021-02-01 21:38] LABS: Xtra Tube EP Lab EXTRA TUBE
== END ==
PROVIDERS: PCP Family Medicine; Referring Provider Internal Medicine Nephrology; Visit Provider Internal Medicine Nephrology
DX: N18.30 Chronic kidney disease, stage 3 unspecified (principal); D63.1 Anemia in chronic kidney disease; N25.81 Secondary hyperparathyroidism of renal origin
CPT/HCPCS: 36415; 80061; 80069; 82728; 83540; 83550; 85025; 96372; Q5106

== ENCOUNTER → 2021-03-02 12:52 | Outpatient (CLI) | payer MEDICARE, BC, SELFPAY ==
[2021-01-04 14:15] VITALS: BMI 22.3
[2021-02-01 13:18] VITALS: BMI 24.5
[2021-03-02 13:20] LABS: Absolute Lymphocyte Count 1.45 X10^3/uL (0.83-4.51); Absolute Neutrophil Count 2.6 X10^3/uL (2.0-7.7); Basophil# 0.03 X10^3/uL; Basophil% 0.6 % (0-1); Eosinophil# 0.27 X10^3/uL; Eosinophils% 5.5 % (0-5); Hematocrit 32.3 % (37-47); Hemoglobin 10.6 g/dL (12.0-15.0); Lymphocyte # 1.45 X10^3/ul (4.0); Lymphocyte % 29.8 % (19-41); Mean Corp Hgb Conc 32.8 g/dL (32-36); Mean Corpuscular Hgb 30.3 pg (27.0-32.0); Mean Corpuscular Volume 92.3 fL (81-99); Monocyte# 0.55 X10^3/uL; Monocyte% 11.3 % (0-10); NRBC Flagged by Analyzer 0 % (0-5); Neutrophil # 2.56 X10^3/uL (2.7-7.7); Neutrophil % 52.6 % (47-70); Platelet Count 212 K/mm3 (150-450); RBC Distribution Width CV 13.9 % (11.6-14.6); RBC Distribution Width SD 46.6 fl (35.1-43.9); White Blood Count 4.9 K/mm3 (4.4-11.0)
[2021-03-02 13:41] LABS: Albumin, Serum 3.9 g/dL (3.2-5.0); BUN 68 mg/dL (7-18); BUN/Creat Ratio 17.4 RATIO (10-20); Calcium,Total 9.7 mg/dL (8.5-10.1); Chloride 107 mmol/L (98-107); EST Glomerular Filtration Rate 12 mL/min (>60); Est Glom Filt Rate - Afr Amer 15 mL/min (>60); Ferritin 85 ng/mL (8-252); Glucose 108 mg/dL (74-106); Iron 93 ug/dL (50-170); Iron Binding Capacity,Total 261 ug/dL (250-450); Phosphorus 4.7 mg/dL (2.5-4.9); Sodium Level 138 mmol/L (136-145)
[2021-03-02 21:17] LABS: Xtra Tube EP Lab EXTRA TUBE
== END ==
PROVIDERS: PCP Family Medicine; Referring Provider Internal Medicine Nephrology; Visit Provider Internal Medicine Nephrology
DX: N18.30 Chronic kidney disease, stage 3 unspecified (principal); D63.1 Anemia in chronic kidney disease; N25.81 Secondary hyperparathyroidism of renal origin
CPT/HCPCS: 36415; 80069; 82728; 83540; 83550; 85025

== ENCOUNTER → 2021-03-28 12:59 | Outpatient (CLI) | payer MEDICARE, BC, SELFPAY ==
[2021-02-01 13:18] VITALS: BMI 24.5
[2021-03-28 13:20] VITALS: BP 132/65; PULSE 67; RESP 16; TEMP 36.6; O2SAT 98
[2021-03-28 13:37] LABS: Absolute Lymphocyte Count 1.07 X10^3/uL (0.83-4.51); Absolute Neutrophil Count 3.4 X10^3/uL (2.0-7.7); Basophil# 0.03 X10^3/uL; Basophil% 0.6 % (0-1); Eosinophil# 0.27 X10^3/uL; Eosinophils% 5.1 % (0-5); Hematocrit 29.1 % (37-47); Hemoglobin 9.4 g/dL (12.0-15.0); Lymphocyte # 1.07 X10^3/ul (0.83-4.51); Lymphocyte % 20.2 % (19-41); Mean Corp Hgb Conc 32.3 g/dL (32-36); Mean Corpuscular Hgb 30.4 pg (27.0-32.0); Mean Corpuscular Volume 94.2 fL (81-99); Mean Platelet Vol. 8.9 fl (6.2-12.0); Monocyte# 0.57 X10^3/uL; Monocyte% 10.7 % (0-10); NRBC Flagged by Analyzer 0 % (0-5); Neutrophil # 3.36 X10^3/uL (2.7-7.7); Neutrophil % 63.2 % (47-70); Platelet Count 246 K/mm3 (150-450); RBC Distribution Width CV 13.5 % (11.6-14.6); RBC Distribution Width SD 46.1 fl (35.1-43.9); Red Blood Count 3.09 M/mm3 (4.2-5.4); White Blood Count 5.3 K/mm3 (4.4-11.0)
[2021-03-28 13:53] LABS: Albumin, Serum 3.8 g/dL (3.2-5.0); BUN 81 mg/dL (7-18); BUN/Creat Ratio 17.7 RATIO (10-20); Calcium,Total 9.6 mg/dL (8.5-10.1); Chloride 106 mmol/L (98-107); Creatinine, Serum 4.57 mg/dL (0.55-1.02); EST Glomerular Filtration Rate 10 mL/min (>60); Est Glom Filt Rate - Afr Amer 12 mL/min (>60); Ferritin 88 ng/mL (8-252); Glucose 108 mg/dL (74-106); Iron 72 ug/dL (50-170); Iron Binding Capacity,Total 248 ug/dL (250-450); Phosphorus 4.9 mg/dL (2.5-4.9); Potassium 4.4 mmol/L (3.5-5.1); Sodium Level 136 mmol/L (136-145)
[2021-03-28 14:14] LABS: PTHIN 32.3 pg/mL (18.4-80.1)
[2021-03-28] MEDS: Epoetin Alfa epbx 10,000 UNITS/ML 10000 UNIT SC (14:30)
[2021-03-28 21:32] LABS: Xtra Tube EP Lab EXTRA TUBE
== END ==
PROVIDERS: PCP Family Medicine; Referring Provider Internal Medicine Nephrology; Visit Provider Internal Medicine Nephrology
DX: N18.30 Chronic kidney disease, stage 3 unspecified (principal); D63.1 Anemia in chronic kidney disease; N25.81 Secondary hyperparathyroidism of renal origin; Q63.1 Lobulated, fused and horseshoe kidney
CPT/HCPCS: 36415; 80069; 82728; 83540; 83550; 83970; 85025; 96372; Q5106

== ENCOUNTER → 2021-04-27 13:00 | Outpatient (CLI) | payer MEDICARE, BC, SELFPAY ==
[2021-02-01 13:18] VITALS: BMI 24.5
[2021-04-27 13:20] VITALS: BP 120/56; PULSE 71; RESP 16; TEMP 36.8; O2SAT 98; BMI 24.5
[2021-04-27 13:40] LABS: Absolute Lymphocyte Count 1.02 X10^3/uL (0.83-4.51); Absolute Neutrophil Count 3.8 X10^3/uL (2.0-7.7); Basophil# 0.03 X10^3/uL; Basophil% 0.5 % (0-1); Eosinophil# 0.21 X10^3/uL; Eosinophils% 3.8 % (0-5); Hematocrit 29.8 % (37-47); Hemoglobin 9.8 g/dL (12.0-15.0); Lymphocyte # 1.02 X10^3/ul (0.83-4.51); Lymphocyte % 18.3 % (19-41); Mean Corp Hgb Conc 32.9 g/dL (32-36); Mean Corpuscular Hgb 30.8 pg (27.0-32.0); Mean Corpuscular Volume 93.7 fL (81-99); Mean Platelet Vol. 9.1 fl (6.2-12.0); Monocyte# 0.49 X10^3/uL; Monocyte% 8.8 % (0-10); NRBC Flagged by Analyzer 0 % (0-5); Neutrophil % 68.4 % (47-70); Platelet Count 206 K/mm3 (150-450); RBC Distribution Width CV 13.5 % (11.6-14.6); RBC Distribution Width SD 46.6 fl (35.1-43.9); Red Blood Count 3.18 M/mm3 (4.2-5.4); White Blood Count 5.6 K/mm3 (4.4-11.0)
[2021-04-27 13:58] LABS: Albumin, Serum 3.4 g/dL (3.2-5.0); BUN 61 mg/dL (7-18); BUN/Creat Ratio 13.6 RATIO (10-20); Calcium,Total 8.7 mg/dL (8.5-10.1); Chloride 107 mmol/L (98-107); Creatinine, Serum 4.47 mg/dL (0.55-1.02); EST Glomerular Filtration Rate 10 mL/min (>60); Est Glom Filt Rate - Afr Amer 13 mL/min (>60); Ferritin 70 ng/mL (8-252); Glucose 127 mg/dL (74-106); Iron 49 ug/dL (50-170); Iron Binding Capacity,Total 232 ug/dL (250-450); PERCENT IRON SATURATION 21.1 % (15.0-55.0); Potassium 4.1 mmol/L (3.5-5.1); Sodium Level 140 mmol/L (136-145)
[2021-04-27 13:59] LABS: PTHIN 45.5 pg/mL (18.4-80.1)
[2021-04-27] MEDS: Epoetin Alfa epbx 10,000 UNITS/ML 12000 UNIT SC (14:15)
== END ==
PROVIDERS: PCP Family Medicine; Referring Provider Internal Medicine Nephrology; Visit Provider Internal Medicine Nephrology
DX: N18.30 Chronic kidney disease, stage 3 unspecified (principal); D63.1 Anemia in chronic kidney disease
CPT/HCPCS: 36415; 80069; 82728; 83540; 83550; 83970; 85025; 96372; Q5106

== ENCOUNTER → 2021-05-25 12:56 | Outpatient (CLI) | payer MEDICARE, BC, SELFPAY ==
[2021-02-01 13:18] VITALS: BMI 24.5
[2021-04-27 13:20] VITALS: BMI 24.5
[2021-05-25 13:22] VITALS: BP 143/63; PULSE 65; RESP 12; TEMP 36.8; O2SAT 100; BMI 24.0
[2021-05-25 13:59] LABS: Absolute Lymphocyte Count 1.49 X10^3/uL (0.83-4.51); Absolute Neutrophil Count 2.8 X10^3/uL (2.0-7.7); Basophil# 0.03 X10^3/uL; Basophil% 0.6 % (0-1); Eosinophil# 0.21 X10^3/uL; Eosinophils% 4.2 % (0-5); Hematocrit 29.7 % (37-47); Hemoglobin 9.5 g/dL (12.0-15.0); Lymphocyte # 1.49 X10^3/ul (0.83-4.51); Lymphocyte % 29.9 % (19-41); Mean Corpuscular Hgb 29.5 pg (27.0-32.0); Mean Corpuscular Volume 92.2 fL (81-99); Mean Platelet Vol. 9.5 fl (6.2-12.0); Monocyte# 0.49 X10^3/uL; Monocyte% 9.8 % (0-10); NRBC Flagged by Analyzer 0 % (0-5); Neutrophil # 2.76 X10^3/uL (2.7-7.7); Neutrophil % 55.3 % (47-70); Platelet Count 234 K/mm3 (150-450); RBC Distribution Width CV 13.2 % (11.6-14.6); RBC Distribution Width SD 44.4 fl (35.1-43.9); Red Blood Count 3.22 M/mm3 (4.2-5.4)
[2021-05-25 14:16] LABS: Albumin, Serum 3.7 g/dL (3.2-5.0); BUN 64 mg/dL (7-18); Calcium,Total 9.5 mg/dL (8.5-10.1); Chloride 107 mmol/L (98-107); Creatinine, Serum 4.56 mg/dL (0.55-1.02); EST Glomerular Filtration Rate 10 mL/min (>60); Est Glom Filt Rate - Afr Amer 12 mL/min (>60); Ferritin 91 ng/mL (8-252); Glucose 98 mg/dL (74-106); Iron 70 ug/dL (50-170); Iron Binding Capacity,Total 257 ug/dL (250-450); PERCENT IRON SATURATION 27.2 % (15.0-55.0); Phosphorus 4.9 mg/dL (2.5-4.9); Potassium 4.1 mmol/L (3.5-5.1); Sodium Level 138 mmol/L (136-145)
[2021-05-25] MEDS: Epoetin Alfa epbx 10,000 UNITS/ML 10000 UNIT SC (15:11)
[2021-05-25 21:55] LABS: Xtra Tube EP Lab EXTRA TUBE
== END ==
PROVIDERS: PCP Family Medicine; Referring Provider Internal Medicine Nephrology; Visit Provider Internal Medicine Nephrology
DX: N18.30 Chronic kidney disease, stage 3 unspecified (principal); D63.1 Anemia in chronic kidney disease
CPT/HCPCS: 36415; 80069; 82728; 83540; 83550; 83970; 85025; 96372; Q5106

== ENCOUNTER → 2021-06-08 12:57 | Outpatient (CLI) | payer MEDICARE, BC, SELFPAY ==
[2021-05-25 13:22] VITALS: BMI 24.0
[2021-06-08 13:20] VITALS: BP 134/64; PULSE 65; RESP 16; TEMP 36.3; O2SAT 98
[2021-06-08] MEDS: Epoetin Alfa epbx 10,000 UNITS/ML 10000 UNIT SC (13:50)
== END ==
PROVIDERS: PCP Family Medicine; Referring Provider Internal Medicine Nephrology; Visit Provider Internal Medicine Nephrology
DX: N18.30 Chronic kidney disease, stage 3 unspecified (principal); D63.1 Anemia in chronic kidney disease
CPT/HCPCS: 96372; Q5106

== ENCOUNTER → 2021-06-21 13:01 | Outpatient (CLI) | payer MEDICARE, BC, SELFPAY ==
[2021-04-27 13:20] VITALS: BMI 24.5
[2021-05-25 13:22] VITALS: BMI 24.0
[2021-06-21 13:40] LABS: Absolute Lymphocyte Count 1.37 X10^3/uL (0.83-4.51); Absolute Neutrophil Count 2.7 X10^3/uL (2.0-7.7); Basophil# 0.04 X10^3/uL; Basophil% 0.8 % (0-1); Eosinophil# 0.22 X10^3/uL; Eosinophils% 4.4 % (0-5); Hematocrit 30.6 % (37-47); Hemoglobin 9.9 g/dL (12.0-15.0); Lymphocyte # 1.37 X10^3/ul (0.83-4.51); Lymphocyte % 27.6 % (19-41); Mean Corp Hgb Conc 32.4 g/dL (32-36); Mean Corpuscular Hgb 30.2 pg (27.0-32.0); Mean Corpuscular Volume 93.3 fL (81-99); Mean Platelet Vol. 8.4 fl (6.2-12.0); Monocyte# 0.61 X10^3/uL; Monocyte% 12.3 % (0-10); NRBC Flagged by Analyzer 0 % (0-5); Neutrophil # 2.71 X10^3/uL (2.7-7.7); Neutrophil % 54.7 % (47-70); Platelet Count 226 K/mm3 (150-450); RBC Distribution Width CV 14.5 % (11.6-14.6); RBC Distribution Width SD 49.4 fl (35.1-43.9); Red Blood Count 3.28 M/mm3 (4.2-5.4)
[2021-06-21 13:58] LABS: Albumin, Serum 3.9 g/dL (3.2-5.0); BUN 70 mg/dL (7-18); Calcium,Total 9.2 mg/dL (8.5-10.1); Chloride 106 mmol/L (98-107); Creatinine, Serum 4.38 mg/dL (0.55-1.02); EST Glomerular Filtration Rate 11 mL/min (>60); Est Glom Filt Rate - Afr Amer 13 mL/min (>60); Ferritin 58 ng/mL (8-252); Glucose 103 mg/dL (74-106); Iron 84 ug/dL (50-170); Iron Binding Capacity,Total 270 ug/dL (250-450); PERCENT IRON SATURATION 31.1 % (15.0-55.0); Phosphorus 4.9 mg/dL (2.5-4.9); Potassium 4.7 mmol/L (3.5-5.1); Sodium Level 137 mmol/L (136-145)
[2021-06-21 14:32] VITALS: BP 137/70; PULSE 68; RESP 14; TEMP 35.9; O2SAT 99; BMI 23.8
[2021-06-21] MEDS: Epoetin Alfa epbx 10,000 UNITS/ML 10000 UNIT SC (14:35)
== END ==
PROVIDERS: PCP Family Medicine; Referring Provider Internal Medicine Nephrology; Visit Provider Internal Medicine Nephrology
DX: N18.30 Chronic kidney disease, stage 3 unspecified (principal); D63.1 Anemia in chronic kidney disease
CPT/HCPCS: 36415; 80069; 82728; 83540; 83550; 85025; 96372; Q5106

== ENCOUNTER → 2021-07-06 13:01 | Outpatient (CLI) | payer MEDICARE, BC, SELFPAY ==
[2021-05-25 13:22] VITALS: BMI 24.0
[2021-06-21 14:32] VITALS: BMI 23.8
[2021-07-06 13:10] VITALS: BP 146/62; PULSE 64; RESP 16; TEMP 36.4; O2SAT 100; BMI 23.6
[2021-07-06] MEDS: Epoetin Alfa epbx 10,000 UNITS/ML 10000 UNIT SC (13:18)
== END ==
PROVIDERS: PCP Family Medicine; Referring Provider Internal Medicine Nephrology; Visit Provider Internal Medicine Nephrology
DX: N18.4 Chronic kidney disease, stage 4 (severe) (principal); D63.1 Anemia in chronic kidney disease; N25.81 Secondary hyperparathyroidism of renal origin
CPT/HCPCS: 96372; Q5106

== ENCOUNTER → 2021-07-20 13:02 | Outpatient (CLI) | payer MEDICARE, BC, SELFPAY ==
[2021-06-21 14:32] VITALS: BMI 23.8
[2021-07-20 13:09] VITALS: BP 128/74; PULSE 65; RESP 16; TEMP 36.2; O2SAT 98; BMI 23.8
[2021-07-20 13:32] LABS: Absolute Lymphocyte Count 1.24 X10^3/uL (0.83-4.51); Absolute Neutrophil Count 2.9 X10^3/uL (2.0-7.7); Basophil# 0.05 X10^3/uL; Eosinophil# 0.26 X10^3/uL; Eosinophils% 5.2 % (0-5); Hematocrit 33.7 % (37-47); Hemoglobin 10.7 g/dL (12.0-15.0); Lymphocyte # 1.24 X10^3/ul (0.83-4.51); Lymphocyte % 24.7 % (19-41); Mean Corp Hgb Conc 31.8 g/dL (32-36); Mean Corpuscular Volume 94.4 fL (81-99); Mean Platelet Vol. 8.7 fl (6.2-12.0); Monocyte# 0.53 X10^3/uL; Monocyte% 10.6 % (0-10); NRBC Flagged by Analyzer 0 % (0-5); Neutrophil # 2.93 X10^3/uL (2.7-7.7); Neutrophil % 58.3 % (47-70); Platelet Count 239 K/mm3 (150-450); RBC Distribution Width CV 14.2 % (11.6-14.6); RBC Distribution Width SD 49.1 fl (35.1-43.9); Red Blood Count 3.57 M/mm3 (4.2-5.4)
[2021-07-20 13:46] LABS: Albumin, Serum 3.7 g/dL (3.2-5.0); BUN 62 mg/dL (7-18); BUN/Creat Ratio 14.2 RATIO (10-20); Calcium,Total 8.2 mg/dL (8.5-10.1); Chloride 111 mmol/L (98-107); Creatinine, Serum 4.38 mg/dL (0.55-1.02); EST Glomerular Filtration Rate 11 mL/min (>60); Est Glom Filt Rate - Afr Amer 13 mL/min (>60); Estimated Creatinine Clearance 10.62 ml/min; Ferritin 42 ng/mL (8-252); Glucose 113 mg/dL (74-106); Iron 87 ug/dL (50-170); Iron Binding Capacity,Total 265 ug/dL (250-450); PERCENT IRON SATURATION 32.8 % (15.0-55.0); Phosphorus 4.2 mg/dL (2.5-4.9); Potassium 4.6 mmol/L (3.5-5.1); Sodium Level 138 mmol/L (136-145)
== END ==
PROVIDERS: PCP Family Medicine; Referring Provider Internal Medicine Nephrology; Visit Provider Internal Medicine Nephrology
DX: N18.30 Chronic kidney disease, stage 3 unspecified (principal); D63.1 Anemia in chronic kidney disease
CPT/HCPCS: 36415; 80069; 82728; 83540; 83550; 85025

== ENCOUNTER → 2021-08-03 13:03 | Outpatient (CLI) | payer MEDICARE, BC, SELFPAY ==
[2021-08-03 13:50] LABS: Absolute Neutrophil Count 3.4 X10^3/uL (2.0-7.7); Basophil# 0.03 X10^3/uL; Basophil% 0.5 % (0-1); Eosinophil# 0.33 X10^3/uL; Eosinophils% 5.5 % (0-5); Hematocrit 32.6 % (37-47); Hemoglobin 10.4 g/dL (12.0-15.0); Lymphocyte % 26.6 % (19-41); Mean Corp Hgb Conc 31.9 g/dL (32-36); Mean Corpuscular Hgb 29.8 pg (27.0-32.0); Mean Corpuscular Volume 93.4 fL (81-99); Monocyte# 0.63 X10^3/uL; Monocyte% 10.5 % (0-10); NRBC Flagged by Analyzer 0 % (0-5); Neutrophil # 3.41 X10^3/uL (2.7-7.7); Neutrophil % 56.7 % (47-70); Platelet Count 227 K/mm3 (150-450); RBC Distribution Width CV 14.1 % (11.6-14.6); RBC Distribution Width SD 48.4 fl (35.1-43.9); Red Blood Count 3.49 M/mm3 (4.2-5.4)
[2021-08-03 14:04] LABS: PTHIN 171.7 pg/mL (18.4-80.1)
[2021-08-03 14:12] LABS: Albumin, Serum 3.6 g/dL (3.2-5.0); BUN 70 mg/dL (7-18); BUN/Creat Ratio 16.3 RATIO (10-20); Calcium,Total 8.4 mg/dL (8.5-10.1); Chloride 112 mmol/L (98-107); Creatinine, Serum 4.29 mg/dL (0.55-1.02); EST Glomerular Filtration Rate 11 mL/min (>60); Est Glom Filt Rate - Afr Amer 13 mL/min (>60); Ferritin 71 ng/mL (8-252); Glucose 110 mg/dL (74-106); Iron 88 ug/dL (50-170); Iron Binding Capacity,Total 248 ug/dL (250-450); PERCENT IRON SATURATION 35.5 % (15.0-55.0); Phosphorus 3.1 mg/dL (2.5-4.9); Potassium 4.6 mmol/L (3.5-5.1); Sodium Level 138 mmol/L (136-145)
[2021-08-03 14:19] VITALS: BP 133/74; PULSE 67; RESP 16; TEMP 35.8; O2SAT 99; BMI 23.8
[2021-08-03] MEDS: Epoetin Alfa epbx 10,000 UNITS/ML 7500 UNIT SC (14:32)
[2021-08-03 21:44] LABS: Xtra Tube EP Lab EXTRA TUBE
== END ==
PROVIDERS: PCP Family Medicine; Referring Provider Internal Medicine Nephrology; Visit Provider Internal Medicine Nephrology
DX: N18.30 Chronic kidney disease, stage 3 unspecified (principal); D63.1 Anemia in chronic kidney disease
CPT/HCPCS: 36415; 80069; 82728; 83540; 83550; 83970; 85025; 96372; Q5106

== ENCOUNTER → 2021-08-17 12:57 | Outpatient (CLI) | payer MEDICARE, BC, SELFPAY ==
[2021-08-17 13:04] VITALS: BP 126/68; PULSE 74; RESP 16; TEMP 36.4; O2SAT 96; BMI 23.8
[2021-08-17] MEDS: Epoetin Alfa epbx 10,000 UNITS/ML 7500 UNIT SC (13:29)
== END ==
PROVIDERS: PCP Family Medicine; Referring Provider Internal Medicine Nephrology; Visit Provider Internal Medicine Nephrology
DX: N18.30 Chronic kidney disease, stage 3 unspecified (principal); D63.1 Anemia in chronic kidney disease
CPT/HCPCS: 96372; Q5106

== ENCOUNTER → 2021-08-31 12:59 | Outpatient (CLI) | payer MEDICARE, BC, SELFPAY ==
[2021-08-31 13:15] VITALS: BP 135/60; PULSE 65; RESP 16; TEMP 36.4; O2SAT 97
[2021-08-31 13:16] LABS: Absolute Lymphocyte Count 1.36 X10^3/uL (0.83-4.51); Absolute Neutrophil Count 2.9 X10^3/uL (2.0-7.7); Basophil# 0.04 X10^3/uL; Basophil% 0.8 % (0-1); Eosinophil# 0.27 X10^3/uL; Eosinophils% 5.3 % (0-5); Hematocrit 33.8 % (37-47); Hemoglobin 10.8 g/dL (12.0-15.0); Lymphocyte # 1.36 X10^3/ul (0.83-4.51); Lymphocyte % 26.6 % (19-41); Mean Corpuscular Hgb 29.7 pg (27.0-32.0); Mean Corpuscular Volume 92.9 fL (81-99); Mean Platelet Vol. 8.6 fl (6.2-12.0); Monocyte# 0.55 X10^3/uL; Monocyte% 10.7 % (0-10); NRBC Flagged by Analyzer 0 % (0-5); Neutrophil # 2.89 X10^3/uL (2.7-7.7); Neutrophil % 56.4 % (47-70); Platelet Count 270 K/mm3 (150-450); RBC Distribution Width CV 14.2 % (11.6-14.6); Red Blood Count 3.64 M/mm3 (4.2-5.4); White Blood Count 5.1 K/mm3 (4.4-11.0)
[2021-08-31 13:31] LABS: Albumin, Serum 3.6 g/dL (3.2-5.0); BUN 72 mg/dL (7-18); BUN/Creat Ratio 14.3 RATIO (10-20); Calcium,Total 8.7 mg/dL (8.5-10.1); Chloride 108 mmol/L (98-107); Creatinine, Serum 5.02 mg/dL (0.55-1.02); EST Glomerular Filtration Rate 9 mL/min (>60); Est Glom Filt Rate - Afr Amer 11 mL/min (>60); Ferritin 55 ng/mL (8-252); Glucose 101 mg/dL (74-106); Iron 73 ug/dL (50-170); Iron Binding Capacity,Total 234 ug/dL (250-450); PERCENT IRON SATURATION 31.2 % (15.0-55.0); Phosphorus 3.9 mg/dL (2.5-4.9); Potassium 4.5 mmol/L (3.5-5.1); Sodium Level 140 mmol/L (136-145)
== END ==
PROVIDERS: PCP Family Medicine; Referring Provider Internal Medicine Nephrology; Visit Provider Internal Medicine Nephrology
DX: N18.30 Chronic kidney disease, stage 3 unspecified (principal); D63.1 Anemia in chronic kidney disease
CPT/HCPCS: 36415; 80069; 82728; 83540; 83550; 85025

== ENCOUNTER → 2021-09-14 12:57 | Outpatient (CLI) | payer MEDICARE, BC, SELFPAY ==
[2021-09-14 13:27] LABS: Absolute Neutrophil Count 3.2 X10^3/uL (2.0-7.7); Basophil# 0.05 X10^3/uL; Basophil% 0.9 % (0-1); Eosinophil# 0.25 X10^3/uL; Eosinophils% 4.6 % (0-5); Hematocrit 32.8 % (37-47); Hemoglobin 10.7 g/dL (12.0-15.0); Mean Corp Hgb Conc 32.6 g/dL (32-36); Mean Corpuscular Hgb 29.9 pg (27.0-32.0); Mean Corpuscular Volume 91.6 fL (81-99); Mean Platelet Vol. 8.9 fl (6.2-12.0); Monocyte# 0.58 X10^3/uL; Monocyte% 10.7 % (0-10); NRBC Flagged by Analyzer 0 % (0-5); Neutrophil # 3.22 X10^3/uL (2.7-7.7); Neutrophil % 59.6 % (47-70); Platelet Count 238 K/mm3 (150-450); RBC Distribution Width CV 13.6 % (11.6-14.6); RBC Distribution Width SD 45.5 fl (35.1-43.9); Red Blood Count 3.58 M/mm3 (4.2-5.4); White Blood Count 5.4 K/mm3 (4.4-11.0)
[2021-09-14 13:43] LABS: Albumin, Serum 3.4 g/dL (3.2-5.0); BUN 72 mg/dL (7-18); BUN/Creat Ratio 15.3 RATIO (10-20); Calcium,Total 9.1 mg/dL (8.5-10.1); Chloride 106 mmol/L (98-107); Creatinine, Serum 4.72 mg/dL (0.55-1.02); EST Glomerular Filtration Rate 10 mL/min (>60); Est Glom Filt Rate - Afr Amer 12 mL/min (>60); Ferritin 82 ng/mL (8-252); Glucose 96 mg/dL (74-106); Iron 75 ug/dL (50-170); Iron Binding Capacity,Total 237 ug/dL (250-450); Phosphorus 4.5 mg/dL (2.5-4.9); Potassium 4.3 mmol/L (3.5-5.1); Sodium Level 136 mmol/L (136-145)
== END ==
PROVIDERS: PCP Family Medicine; Referring Provider Internal Medicine Nephrology; Visit Provider Internal Medicine Nephrology
DX: N18.30 Chronic kidney disease, stage 3 unspecified (principal); D63.1 Anemia in chronic kidney disease
CPT/HCPCS: 80069; 82728; 83540; 83550; 85025

== ENCOUNTER → 2021-10-12 13:17 | Outpatient (CLI) | payer MEDICARE, BC, SELFPAY ==
[2021-10-12 13:37] LABS: Absolute Lymphocyte Count 1.54 X10^3/uL (0.83-4.51); Absolute Neutrophil Count 3.5 X10^3/uL (2.0-7.7); Basophil# 0.05 X10^3/uL; Basophil% 0.8 % (0-1); Eosinophil# 0.36 X10^3/uL; Eosinophils% 5.8 % (0-5); Hematocrit 30.1 % (37-47); Lymphocyte # 1.54 X10^3/ul (0.83-4.51); Lymphocyte % 24.6 % (19-41); Mean Corp Hgb Conc 33.2 g/dL (32-36); Mean Corpuscular Hgb 30.3 pg (27.0-32.0); Mean Corpuscular Volume 91.2 fL (81-99); Mean Platelet Vol. 8.6 fl (6.2-12.0); Monocyte# 0.76 X10^3/uL; Monocyte% 12.1 % (0-10); NRBC Flagged by Analyzer 0 % (0-5); Neutrophil # 3.54 X10^3/uL (2.7-7.7); Neutrophil % 56.5 % (47-70); Platelet Count 252 K/mm3 (150-450); RBC Distribution Width CV 13.9 % (11.6-14.6); RBC Distribution Width SD 46.6 fl (35.1-43.9); White Blood Count 6.3 K/mm3 (4.4-11.0)
[2021-10-12 13:48] VITALS: BP 126/63; PULSE 64; RESP 16; TEMP 36.7; O2SAT 99
[2021-10-12 13:56] LABS: Albumin, Serum 3.6 g/dL (3.2-5.0); BUN 66 mg/dL (7-18); BUN/Creat Ratio 13.4 RATIO (10-20); Calcium,Total 9.2 mg/dL (8.5-10.1); Chloride 109 mmol/L (98-107); Creatinine, Serum 4.93 mg/dL (0.55-1.02); EST Glomerular Filtration Rate 9 mL/min (>60); Est Glom Filt Rate - Afr Amer 11 mL/min (>60); Ferritin 95 ng/mL (8-252); Glucose 87 mg/dL (74-106); Iron 76 ug/dL (50-170); Iron Binding Capacity,Total 253 ug/dL (250-450); Phosphorus 4.4 mg/dL (2.5-4.9); Potassium 4.5 mmol/L (3.5-5.1); Sodium Level 138 mmol/L (136-145)
[2021-10-12] MEDS: Epoetin Alfa epbx 10,000 UNITS/ML 7500 UNIT SC (13:57)
== END ==
PROVIDERS: PCP Family Medicine; Referring Provider Internal Medicine Nephrology; Visit Provider Internal Medicine Nephrology
DX: N18.30 Chronic kidney disease, stage 3 unspecified (principal); D63.1 Anemia in chronic kidney disease
CPT/HCPCS: 36415; 80069; 82728; 83540; 83550; 85025; 96372; Q5106

== ENCOUNTER → 2021-11-09 13:29 | Outpatient (CLI) | payer MEDICARE, BC, SELFPAY ==
[2021-11-09 13:47] LABS: Absolute Lymphocyte Count 1.72 X10^3/uL (0.83-4.51); Absolute Neutrophil Count 3.5 X10^3/uL (2.0-7.7); Basophil# 0.06 X10^3/uL; Eosinophil# 0.29 X10^3/uL; Eosinophils% 4.7 % (0-5); Hematocrit 28.4 % (37-47); Hemoglobin 9.3 g/dL (12.0-15.0); Lymphocyte # 1.72 X10^3/ul (0.83-4.51); Lymphocyte % 27.8 % (19-41); Mean Corp Hgb Conc 32.7 g/dL (32-36); Mean Corpuscular Hgb 30.4 pg (27.0-32.0); Mean Corpuscular Volume 92.8 fL (81-99); Mean Platelet Vol. 8.9 fl (6.2-12.0); Monocyte# 0.61 X10^3/uL; Monocyte% 9.9 % (0-10); NRBC Flagged by Analyzer 0 % (0-5); Neutrophil # 3.49 X10^3/uL (2.7-7.7); Neutrophil % 56.4 % (47-70); Platelet Count 249 K/mm3 (150-450); RBC Distribution Width CV 13.9 % (11.6-14.6); RBC Distribution Width SD 46.8 fl (35.1-43.9); Red Blood Count 3.06 M/mm3 (4.2-5.4); White Blood Count 6.2 K/mm3 (4.4-11.0)
[2021-11-09 14:02] VITALS: BP 140/67; PULSE 69; RESP 16; TEMP 35.9; O2SAT 97
[2021-11-09 14:06] LABS: Albumin, Serum 3.6 g/dL (3.2-5.0); BUN 82 mg/dL (7-18); BUN/Creat Ratio 14.8 RATIO (10-20); Calcium,Total 9.3 mg/dL (8.5-10.1); Chloride 109 mmol/L (98-107); Creatinine, Serum 5.54 mg/dL (0.55-1.02); EST Glomerular Filtration Rate 8 mL/min (>60); Est Glom Filt Rate - Afr Amer 10 mL/min (>60); Ferritin 110 ng/mL (8-252); Glucose 111 mg/dL (74-106); Iron 87 ug/dL (50-170); Iron Binding Capacity,Total 242 ug/dL (250-450); PTHIN 61.5 pg/mL (18.4-80.1); Phosphorus 4.2 mg/dL (2.5-4.9); Potassium 4.3 mmol/L (3.5-5.1); Sodium Level 139 mmol/L (136-145)
[2021-11-09] MEDS: Epoetin Alfa epbx 10,000 UNITS/ML 10000 UNIT SC (14:42)
== END ==
PROVIDERS: PCP Family Medicine; Referring Provider Internal Medicine Nephrology; Visit Provider Internal Medicine Nephrology
DX: N18.30 Chronic kidney disease, stage 3 unspecified (principal); D63.1 Anemia in chronic kidney disease
CPT/HCPCS: 36415; 80069; 82728; 83540; 83550; 83970; 85025; 96372; Q5106

== ENCOUNTER 2021-12-11 08:36 | Outpatient (CLI) | payer MEDICARE, BC, SELFPAY ==
[2021-12-13 18:11] LABS: HPV Reflexed? NOT INDICATED
== END 2021-12-11 23:59 | disposition short-term general hospital (02) ==
PROVIDERS: PCP Family Medicine; Referring Provider Family Medicine; Visit Provider Registered Nurse
DX: Z01.419 Encounter for gynecological examination (general) (routine) without abnormal findings (principal)
CPT/HCPCS: 88175; G0145

== ENCOUNTER 2022-01-04 12:52 | Outpatient (CLI) | payer MEDICARE, BC, SELFPAY ==
[2022-01-04 13:16] LABS: Basophil# 0.04 X10^3/uL; Basophil% 0.6 % (0-1); Eosinophil# 0.28 X10^3/uL; Eosinophils% 4.4 % (0-5); Hematocrit 28.6 % (37-47); Hemoglobin 9.6 g/dL (12.0-15.0); Lymphocyte % 20.6 % (19-41); Mean Corp Hgb Conc 33.6 g/dL (32-36); Mean Corpuscular Hgb 31.9 pg (27.0-32.0); Mean Platelet Vol. 8.7 fl (6.2-12.0); Monocyte# 0.69 X10^3/uL; NRBC Flagged by Analyzer 0 % (0-5); Neutrophil # 3.97 X10^3/uL (2.7-7.7); Neutrophil % 63.1 % (47-70); Platelet Count 244 K/mm3 (150-450); RBC Distribution Width CV 13.2 % (11.6-14.6); RBC Distribution Width SD 45.6 fl (35.1-43.9); Red Blood Count 3.01 M/mm3 (4.2-5.4); White Blood Count 6.3 K/mm3 (4.4-11.0)
[2022-01-04 13:27] VITALS: BP 135/57; PULSE 66; RESP 16; TEMP 35.9; O2SAT 100
[2022-01-04 13:32] LABS: Albumin, Serum 3.5 g/dL (3.2-5.0); BUN 78 mg/dL (7-18); BUN/Creat Ratio 13.1 RATIO (10-20); Calcium,Total 9.1 mg/dL (8.5-10.1); Chloride 109 mmol/L (98-107); Creatinine, Serum 5.97 mg/dL (0.55-1.02); EST Glomerular Filtration Rate 7 mL/min (>60); Est Glom Filt Rate - Afr Amer 9 mL/min (>60); Ferritin 89 ng/mL (8-252); Glucose 118 mg/dL (74-106); Iron 66 ug/dL (50-170); Iron Binding Capacity,Total 227 ug/dL (250-450); PERCENT IRON SATURATION 29.1 % (15.0-55.0); Phosphorus 4.7 mg/dL (2.5-4.9); Potassium 4.4 mmol/L (3.5-5.1); Sodium Level 138 mmol/L (136-145)
[2022-01-04] MEDS: Epoetin Alfa epbx 10,000 UNITS/ML 10000 UNIT SC (13:41)
== END 2022-01-04 23:59 | disposition home or self-care (01) ==
LOC: MEDOUTP 12:52
PROVIDERS: PCP Family Medicine; Referring Provider Internal Medicine Nephrology; Visit Provider Internal Medicine Nephrology
DX: N18.30 Chronic kidney disease, stage 3 unspecified (principal); D63.1 Anemia in chronic kidney disease
CPT/HCPCS: 36415; 80069; 82728; 83540; 83550; 85025; 96372; Q5106

== ENCOUNTER 2022-01-16 17:59 | Outpatient (CLI) | payer MEDICARE, BC, SELFPAY | END 2022-01-16 23:59 | disposition home or self-care (01) | PROVIDERS: PCP Family Medicine; Visit Provider Family Medicine | DX: N30.90 Cystitis, unspecified without hematuria (principal) | CPT/HCPCS: 87077; 87086; 87088; 87186 ==

== ENCOUNTER 2022-02-01 10:58 | Outpatient (CLI) | payer MEDICARE, BC, SELFPAY ==
--- NOTE | 2022-02-01 11:02 | BI_ITS ---
MAMMOGRAPHY - BILATERAL SCREENING REASON FOR EXAM: Female, 66 years old. Routine annual screening examination. PERTINENT HISTORY: Non-contributory. TECHNIQUE: Digital bilateral breast dee (3D mammographic acquisition) in the CC and MLO projections. 2-D mediolateral oblique (MLO) and craniocaudad (CC) views of both breasts were obtained. CAD: Full Field Digital Mammography with Computer Added Detection was performed. COMPARISON: Comparison is made with prior study 01/31/2021 and 09/28/2017. FINDINGS: Breast Composition: There are scattered areas of fibroglandular density. There are no dominant masses or suspicious calcifications. Stable small benign-appearing bilateral axillary lymph nodes. No other significant abnormalities are identified. There has been no significant change since the prior study. BI/SCRN MAMM (CAD)W/DEE BILAT IMPRESSION: Stable bilateral screening mammogram. Yearly follow-up mammogram recommended. (A) ASSESSMENT CATEGORY: BIRADS Category 2: Benign. A letter regarding these results will be sent to the patient by the facility within 30 days. Approximately 10% of breast cancers are not detected by mammography. A normal mammogram should not delay biopsy of a clinically suspicious abnormality. [id number] Electronically Signed: Jaylon Coelho MD at 12:03 EST ,
== END 2022-02-01 23:59 | disposition home or self-care (01) ==
LOC: OPBI 10:59
PROVIDERS: PCP Family Medicine; Visit Provider Family Medicine
DX: Z12.31 Encounter for screening mammogram for malignant neoplasm of breast (principal)
CPT/HCPCS: 77063; 77067

== ENCOUNTER 2022-02-02 12:52 | Outpatient (CLI) | payer MEDICARE, BC, SELFPAY ==
[2022-02-02 13:13] VITALS: BP 141/67; PULSE 64; RESP 16; O2SAT 100
[2022-02-02 13:13] LABS: Absolute Lymphocyte Count 1.36 X10^3/uL (0.83-4.51); Absolute Neutrophil Count 3.2 X10^3/uL (2.0-7.7); Basophil# 0.05 X10^3/uL; Basophil% 0.9 % (0-1); Eosinophil# 0.22 X10^3/uL; Eosinophils% 4.1 % (0-5); Hematocrit 29.5 % (37-47); Hemoglobin 9.9 g/dL (12.0-15.0); Lymphocyte # 1.36 X10^3/ul (0.83-4.51); Lymphocyte % 25.4 % (19-41); Mean Corp Hgb Conc 33.6 g/dL (32-36); Mean Corpuscular Hgb 31.7 pg (27.0-32.0); Mean Corpuscular Volume 94.6 fL (81-99); Mean Platelet Vol. 9.2 fl (6.2-12.0); Monocyte# 0.47 X10^3/uL; Monocyte% 8.8 % (0-10); NRBC Flagged by Analyzer 0 % (0-5); Neutrophil # 3.23 X10^3/uL (2.7-7.7); Neutrophil % 60.4 % (47-70); Platelet Count 260 K/mm3 (150-450); RBC Distribution Width CV 13.3 % (11.6-14.6); Red Blood Count 3.12 M/mm3 (4.2-5.4); White Blood Count 5.4 K/mm3 (4.4-11.0)
[2022-02-02 13:27] LABS: PTHIN 73.9 pg/mL (18.4-80.1)
[2022-02-02 13:32] LABS: Albumin, Serum 3.9 g/dL (3.2-5.0); BUN 76 mg/dL (7-18); BUN/Creat Ratio 14.4 RATIO (10-20); Calcium,Total 8.8 mg/dL (8.5-10.1); Chloride 109 mmol/L (98-107); Creatinine, Serum 5.28 mg/dL (0.55-1.02); EST Glomerular Filtration Rate 9 mL/min (>60); Est Glom Filt Rate - Afr Amer 10 mL/min (>60); Ferritin 84 ng/mL (8-252); Glucose 101 mg/dL (74-106); Iron 84 ug/dL (50-170); Iron Binding Capacity,Total 254 ug/dL (250-450); PERCENT IRON SATURATION 33.1 % (15.0-55.0); Phosphorus 4.8 mg/dL (2.5-4.9); Potassium 4.6 mmol/L (3.5-5.1); Sodium Level 138 mmol/L (136-145)
[2022-02-02] MEDS: Epoetin Alfa epbx 10,000 UNITS/ML 10000 UNIT SC (13:37)
== END 2022-02-02 23:59 | disposition home or self-care (01) ==
LOC: MEDOUTP 12:52
PROVIDERS: PCP Family Medicine; Referring Provider Internal Medicine Nephrology; Visit Provider Internal Medicine Nephrology
DX: N18.30 Chronic kidney disease, stage 3 unspecified (principal); D63.1 Anemia in chronic kidney disease
CPT/HCPCS: 36415; 80069; 82728; 83540; 83550; 83970; 85025; 96372; Q5106

== ENCOUNTER 2022-03-02 12:56 | Outpatient (CLI) | payer MEDICARE, BC, SELFPAY ==
[2022-03-02 13:08] VITALS: BP 127/67; PULSE 71; RESP 16; TEMP 36.6; O2SAT 98; BMI 24.7
[2022-03-02 13:29] LABS: Absolute Lymphocyte Count 1.48 X10^3/uL (0.83-4.51); Absolute Neutrophil Count 3.8 X10^3/uL (2.0-7.7); Basophil# 0.04 X10^3/uL; Basophil% 0.6 % (0-1); Eosinophil# 0.28 X10^3/uL; Eosinophils% 4.5 % (0-5); Hematocrit 27.9 % (37-47); Hemoglobin 9.4 g/dL (12.0-15.0); Lymphocyte # 1.48 X10^3/ul (0.83-4.51); Lymphocyte % 23.7 % (19-41); Mean Corp Hgb Conc 33.7 g/dL (32-36); Mean Corpuscular Hgb 30.9 pg (27.0-32.0); Mean Corpuscular Volume 91.8 fL (81-99); Mean Platelet Vol. 8.6 fl (6.2-12.0); Monocyte# 0.67 X10^3/uL; Monocyte% 10.7 % (0-10); NRBC Flagged by Analyzer 0 % (0-5); Neutrophil # 3.75 X10^3/uL (2.7-7.7); Platelet Count 276 K/mm3 (150-450); RBC Distribution Width CV 13.4 % (11.6-14.6); RBC Distribution Width SD 45.1 fl (35.1-43.9); Red Blood Count 3.04 M/mm3 (4.2-5.4); White Blood Count 6.3 K/mm3 (4.4-11.0)
[2022-03-02 13:47] LABS: PTHIN 104.5 pg/mL (18.4-80.1)
[2022-03-02 14:10] LABS: Albumin, Serum 3.3 g/dL (3.2-5.0); BUN 70 mg/dL (7-18); BUN/Creat Ratio 13.2 RATIO (10-20); Calcium,Total 8.5 mg/dL (8.5-10.1); Chloride 114 mmol/L (98-107); Creatinine, Serum 5.29 mg/dL (0.55-1.02); EST Glomerular Filtration Rate 9 mL/min (>60); Est Glom Filt Rate - Afr Amer 10 mL/min (>60); Estimated Creatinine Clearance 8.79 ml/min; Ferritin 76 ng/mL (8-252); Glucose 119 mg/dL (74-106); Iron 82 ug/dL (50-170); Iron Binding Capacity,Total 265 ug/dL (250-450); PERCENT IRON SATURATION 30.9 % (15.0-55.0); Potassium 4.5 mmol/L (3.5-5.1); Sodium Level 139 mmol/L (136-145)
[2022-03-02] MEDS: Epoetin Alfa epbx 10,000 UNITS/ML 10000 UNIT SC (15:13)
== END 2022-03-02 23:59 | disposition home or self-care (01) ==
LOC: MEDOUTP 12:56
PROVIDERS: PCP Family Medicine; Referring Provider Internal Medicine Nephrology; Visit Provider Internal Medicine Nephrology
DX: N18.30 Chronic kidney disease, stage 3 unspecified (principal); D63.1 Anemia in chronic kidney disease
CPT/HCPCS: 36415; 80069; 82728; 83540; 83550; 83970; 85025; 96372; Q5106

== ENCOUNTER → 2022-03-30 | Outpatient (CLI) | payer MEDICARE, BC, SELFPAY ==
[2022-03-30 13:51] LABS: Absolute Lymphocyte Count 1.46 X10^3/uL (0.83-4.51); Absolute Neutrophil Count 3.3 X10^3/uL (2.0-7.7); Basophil# 0.07 X10^3/uL; Basophil% 1.2 % (0-1); Eosinophil# 0.41 X10^3/uL; Eosinophils% 7.2 % (0-5); Hematocrit 27.7 % (37-47); Hemoglobin 9.3 g/dL (12.0-15.0); Lymphocyte # 1.46 X10^3/ul (0.83-4.51); Lymphocyte % 25.6 % (19-41); Mean Corp Hgb Conc 33.6 g/dL (32-36); Mean Corpuscular Hgb 30.6 pg (27.0-32.0); Mean Corpuscular Volume 91.1 fL (81-99); Mean Platelet Vol. 9.2 fl (6.2-12.0); Monocyte% 8.8 % (0-10); NRBC Flagged by Analyzer 0 % (0-5); Neutrophil # 3.26 X10^3/uL (2.7-7.7); Platelet Count 236 K/mm3 (150-450); RBC Distribution Width SD 46.3 fl (35.1-43.9); Red Blood Count 3.04 M/mm3 (4.2-5.4); White Blood Count 5.7 K/mm3 (4.4-11.0)
[2022-03-30] MEDS: Epoetin Alfa epbx 10,000 UNITS/ML 10000 UNIT SC (14:17)
[2022-03-30 14:19] VITALS: BP 148/64; PULSE 66; RESP 16; TEMP 36.6
[2022-03-30 14:26] LABS: Albumin, Serum 3.5 g/dL (3.2-5.0); BUN 77 mg/dL (7-18); BUN/Creat Ratio 13.3 RATIO (10-20); Calcium,Total 8.9 mg/dL (8.5-10.1); Chloride 111 mmol/L (98-107); Creatinine, Serum 5.78 mg/dL (0.55-1.02); EST Glomerular Filtration Rate 8 mL/min (>60); Est Glom Filt Rate - Afr Amer 9 mL/min (>60); Ferritin 80 ng/mL (8-252); Glucose 126 mg/dL (74-106); Iron 79 ug/dL (50-170); Iron Binding Capacity,Total 237 ug/dL (250-450); PERCENT IRON SATURATION 33.3 % (15.0-55.0); Phosphorus 4.5 mg/dL (2.5-4.9); Potassium 4.3 mmol/L (3.5-5.1); Sodium Level 141 mmol/L (136-145)
== END | disposition home or self-care (01) ==
LOC: MEDOUTP 13:28
PROVIDERS: PCP Family Medicine; Referring Provider Internal Medicine Nephrology; Visit Provider Internal Medicine Nephrology
DX: N18.30 Chronic kidney disease, stage 3 unspecified (principal); D63.1 Anemia in chronic kidney disease
CPT/HCPCS: 36415; 80069; 82728; 83540; 83550; 85025; 96372; Q5106

== ENCOUNTER → 2022-04-27 | Outpatient (CLI) | payer MEDICARE, BC, SELFPAY ==
[2022-04-27 13:39] VITALS: BP 137/68; PULSE 63; RESP 14; TEMP 36.2; O2SAT 99; BMI 24.3
[2022-04-27 14:06] LABS: Absolute Lymphocyte Count 1.45 X10^3/uL (0.83-4.51); Absolute Neutrophil Count 3.1 X10^3/uL (2.0-7.7); Basophil# 0.06 X10^3/uL; Basophil% 1.1 % (0-1); Eosinophil# 0.37 X10^3/uL; Eosinophils% 6.7 % (0-5); Hematocrit 29.6 % (37-47); Hemoglobin 9.6 g/dL (12.0-15.0); Lymphocyte # 1.45 X10^3/ul (0.83-4.51); Lymphocyte % 26.1 % (19-41); Mean Corp Hgb Conc 32.4 g/dL (32-36); Mean Corpuscular Hgb 30.2 pg (27.0-32.0); Mean Corpuscular Volume 93.1 fL (81-99); Monocyte# 0.58 X10^3/uL; Monocyte% 10.5 % (0-10); NRBC Flagged by Analyzer 0 % (0-5); Neutrophil # 3.08 X10^3/uL (2.7-7.7); Neutrophil % 55.4 % (47-70); Platelet Count 234 K/mm3 (150-450); RBC Distribution Width CV 13.5 % (11.6-14.6); RBC Distribution Width SD 46.5 fl (35.1-43.9); Red Blood Count 3.18 M/mm3 (4.2-5.4); White Blood Count 5.6 K/mm3 (4.4-11.0)
[2022-04-27 14:42] LABS: PTHIN 54.6 pg/mL (18.4-80.1)
[2022-04-27] MEDS: Epoetin Alfa-EPBX 20,000 unit/ml 12000 UNIT SC (14:43)
[2022-04-27 14:48] VITALS: BP 136/64; PULSE 59; RESP 16; TEMP 36.3; O2SAT 98
[2022-04-27 14:56] LABS: Albumin, Serum 3.8 g/dL (3.2-5.0); BUN 95 mg/dL (7-18); Calcium,Total 9.3 mg/dL (8.5-10.1); Chloride 105 mmol/L (98-107); Creatinine, Serum 6.77 mg/dL (0.55-1.02); EST Glomerular Filtration Rate 6 mL/min (>60); Est Glom Filt Rate - Afr Amer 8 mL/min (>60); Estimated Creatinine Clearance 6.87 ml/min; Ferritin 86 ng/mL (8-252); Glucose 103 mg/dL (74-106); Iron 77 ug/dL (50-170); Iron Binding Capacity,Total 246 ug/dL (250-450); Phosphorus 5.5 mg/dL (2.5-4.9); Potassium 4.7 mmol/L (3.5-5.1); Sodium Level 137 mmol/L (136-145)
== END | disposition home or self-care (01) ==
LOC: MEDOUTP 13:33
PROVIDERS: PCP Family Medicine; Referring Provider Internal Medicine Nephrology; Visit Provider Internal Medicine Nephrology
DX: N18.30 Chronic kidney disease, stage 3 unspecified (principal); D63.1 Anemia in chronic kidney disease
CPT/HCPCS: 36415; 80069; 82728; 83540; 83550; 83970; 85025; 96372; Q5106

== ENCOUNTER → 2022-05-25 | Outpatient (CLI) | payer MEDICARE, BC, SELFPAY ==
[2022-05-25 13:40] LABS: Absolute Lymphocyte Count 1.36 X10^3/uL (0.83-4.51); Absolute Neutrophil Count 2.6 X10^3/uL (2.0-7.7); Basophil# 0.04 X10^3/uL; Basophil% 0.8 % (0-1); Eosinophils% 4.2 % (0-5); Hematocrit 28.3 % (37-47); Hemoglobin 9.3 g/dL (12.0-15.0); Lymphocyte # 1.36 X10^3/ul (0.83-4.51); Lymphocyte % 28.7 % (19-41); Mean Corp Hgb Conc 32.9 g/dL (32-36); Mean Corpuscular Volume 94.3 fL (81-99); Mean Platelet Vol. 8.5 fl (6.2-12.0); Monocyte# 0.52 X10^3/uL; NRBC Flagged by Analyzer 0 % (0-5); Neutrophil # 2.61 X10^3/uL (2.7-7.7); Neutrophil % 55.1 % (47-70); Platelet Count 206 K/mm3 (150-450); RBC Distribution Width CV 13.8 % (11.6-14.6); RBC Distribution Width SD 47.5 fl (35.1-43.9); White Blood Count 4.7 K/mm3 (4.4-11.0)
[2022-05-25 14:09] LABS: Albumin, Serum 3.5 g/dL (3.2-5.0); BUN 81 mg/dL (7-18); BUN/Creat Ratio 13.6 RATIO (10-20); Chloride 112 mmol/L (98-107); Creatinine, Serum 5.96 mg/dL (0.55-1.02); EST Glomerular Filtration Rate 7 mL/min (>60); Est Glom Filt Rate - Afr Amer 9 mL/min (>60); Ferritin 80 ng/mL (8-252); Glucose 151 mg/dL (74-106); Iron 90 ug/dL (50-170); Phosphorus 4.3 mg/dL (2.5-4.9); Potassium 4.9 mmol/L (3.5-5.1); Sodium Level 139 mmol/L (136-145)
[2022-05-25 14:15] VITALS: BP 149/66; PULSE 63; RESP 16; O2SAT 100
[2022-05-25] MEDS: Epoetin Alfa-EPBX 20,000 unit/ml 12000 UNIT SC (14:17)
== END | disposition home or self-care (01) ==
LOC: MEDOUTP 13:17
PROVIDERS: PCP Family Medicine; Referring Provider Internal Medicine Nephrology; Visit Provider Internal Medicine Nephrology
DX: N18.32 Chronic kidney disease, stage 3b (principal); D63.1 Anemia in chronic kidney disease
CPT/HCPCS: 36415; 80069; 82728; 83540; 85025; 96372; Q5106